=== PATIENT | male | born 1950 | race Caucasian/White ===

== ENCOUNTER 2022-05-25 11:50 | Inpatient (IN) | payer MEDICARE ==
[2022-05-25] MEDS ORDERED: SODIUM CHLORIDE 0.9% 500 ML 500 ML IV STA (12:22)
[2022-05-25] MEDS ORDERED: SODIUM CHLORIDE 0.9% 1,000 ML IV STA (12:22)
[2022-05-25] MEDS ORDERED: DIPHENOX-ATROP 2.5-0.025 MG 1 EACH TAB PO STA ×2 (12:23→12:46)
[2022-05-25] MEDS ORDERED: ACETAMINOPHEN TAB 500 MG TAB PO STA (12:31)
[2022-05-25] MEDS ORDERED: IBUPROFEN 600 MG TAB PO STA (12:31)
--- NOTE | 2022-05-25 12:31 | ED ---
General Adult HPI - General Chief complaint: Weakness Stated complaint: Weakness Time Seen by Provider: 05/25/22 12:00 Source: patient, EMS, RN notes reviewed, old records reviewed Mode of arrival: EMS Limitations: no limitations - History of Present Illness Initial comments: This is a 71-year-old male who presents emergency Department complaining of ge neralized weakness. Patient has been lying in bed for about 6 weeks without getting up and according to EMS the patient was in the same spot and is having diarrhea and wasn't getting up to clean himself off. Patient has excoriations from the lower back down to his upper thighs. Patient states he is too weak to even help and assist this point. Patient denies any fever even though he took his temperature was 100.3. Patient denies any pain. Patient has difficulty breathing first breath per patient states she's been eating okay. Patient denies abdominal pain. Patient denies any nausea vomiting. Patient states he has chronic diarrhea and he was on a recent antibiotic Bactrim for urinary tract infection. Patient denies any other problems at this time. - Related Data Home Medications Medication Instructions Recorded Confirmed Sotalol [Betapace] 80 mg PO BID 05/25/22 05/25/22 Sulfamethoxazole/Trimethoprim 1 tab PO Q12H 05/25/22 05/25/22 [Sulfamethoxazole-Tmp Ds Tablet] amLODIPine [Norvasc] 10 mg PO DAILY 05/25/22 05/25/22 Allergies Allergy/AdvReac Type Severity Reaction Status Date / Time Kowmscb-WBV-AcA Reductase Allergy Rash/Hives Verified 05/25/22 15:09 Inhibitor [Ycyolzq-Cbp-Mps Reductase Inhibitor] Review of Systems ROS Statement: Those systems with pertinent positive or pertinent negative responses have been documented in the HPI. ROS Other: All systems not noted in ROS Statement are negative. Past Medical History Past Medical History: Atrial Fibrillation, Hyperlipidemia, Osteoarthritis (OA) Additional Past Medical History / Comment(s): Bulging disks, bilateral knee arthritis, UTI, blood infection History of Any Multi-Drug Resistant Organisms: None Reported Past Surgical History: Orthopedic Surgery, Tonsillectomy Additional Past Surgical History / Comment(s): Knee replacement surgery, tonsills out at 7 yrs old, torn meninscus Past Anesthesia/Blood Transfusion Reactions: No Reported Reaction Past Psychological History: Anxiety Smoking Status: Former smoker Past Alcohol Use History: None Reported Past Drug Use History: None Reported - Past Family History Mother Family Medical History: CVA/TIA, Myocardial Infarction ([place]) Father Family Medical History: Congestive Heart Failure (CHF) General Exam - General Exam Comments Initial Comments: GENERAL: Patient is well-developed and well-nourished. Patient is nontoxic and well- hydrated and is in mild distress. ENT: Neck is soft and supple. No significant lymphadenopathy is noted. Oropharynx is clear. Moist mucous membranes. Neck has full range of motion without eliciting any pain. EYES: The sclera were anicteric and conjunctiva were pink and moist. Extraocular movements were intact and pupils were equal round and reactive to light. Eyelids were unremarkable. PULMONARY: Unlabored respirations. Good breath sounds bilaterally. No audible rales rhonchi or wheezing was noted. CARDIOVASCULAR: There is a regular rate and rhythm without any murmurs gallops or rubs. ABDOMEN: Soft and nontender with normal bowel sounds. No palpable organomegaly was noted. There is no palpable pulsatile mass. SKIN: Patient has prescribed breakdown from his back to size and a couple areas on the buttocks and her second-degree breakdown. NEUROLOGIC: Patient is alert and oriented x3. Cranial nerves II through XII are grossly intact. Motor and sensory are also intact. Normal speech, volume and content. Symmetrical smile. MUSCULOSKELETAL: Normal extremities with adequate strength and full range of motion. LYMPHATICS: No significant lymphadenopathy is noted PSYCHIATRIC: Normal psychiatric evaluation. Limitations: no limitations Course Vital Signs 05/25/22 05/25/22 05/25/22 11:54 12:02 12:20 Temperature 98.7 F 100.3 F H Pulse Rate 75 Respiratory 20 Rate Blood Pressure 102/48 O2 Sat by Pulse 97 93 L Oximetry 05/25/22 05/25/22 05/25/22 13:00 13:53 14:00 Temperature 100.6 F H Pulse Rate 74 67 Respiratory 22 14 Rate Blood Pressure 111/78 O2 Sat by Pulse 99 Oximetry 05/25/22 05/25/22 05/25/22 15:00 15:50 16:00 Temperature 99.4 F Pulse Rate 62 57 L 58 L Respiratory 22 18 18 Rate Blood Pressure 111/78 83/46 83/46 O2 Sat by Pulse 94 L 95 Oximetry 05/25/22 05/25/22 05/25/22 16:01 16:14 16:30 Temperature 98.0 F Pulse Rate 58 L 58 L 56 L Respiratory 17 20 18 Rate Blood Pressure 79/51 81/53 75/48 O2 Sat by Pulse 95 97 96 Oximetry 05/25/22 05/25/22 16:43 17:22 Temperature 97.1 F L Pulse Rate 59 L 60 Respiratory 18 20 Rate Blood Pressure 83/53 82/48 O2 Sat by Pulse 97 96 Oximetry Medical Decision Making - Medical Decision Making EKG as interpreted by myself shows a sinus rhythm at 73 bpm GA interval 240 QRS is under 14 QRS is 432 QTC is 458. Patient's EKG shows no ST segment elevation or depression Was pt. sent in by a medical professional or institution (, [facility], [facility], urgent care, hospital, or [facility]...) When possible be specific @ -No Did you speak to anyone other than the patient for history (EMS, parent, family, police, friend...)? What history was obtained from this source @ -No Did you review nursing and triage notes (agree or disagree)? Why? @ -I reviewed and agree with nursing and triage notes Were old charts reviewed (outside hosp., previous admission, EMS record, old EKG, old radiological studies, urgent care reports/EKG's, [facility] records)? Report findings @ -Prior labs and prior charts were reviewed Differential Diagnosis (chest pain, altered mental status, abdominal pain women, abdominal pain men, vaginal bleeding, weakness, fever, dyspnea, syncope, headache, dizziness, GI bleed, back pain, seizure, CVA, palpatations, mental health, musculoskeletal)? @ -Differential Weakness: Hypoglycemia, shock, sepsis, hyponatremia, anemia, infection, [place], ETOH, adverse medicine reaction, overdose, stroke, this is not meant to be an all-inclusive list. EKG interpreted by me (3pts min.). @ -As above X-rays interpreted by me (1pt min.). @ -Chest x-ray was interviewed by myself and shows no acute abnormality CT interpreted by me (1pt min.). @ -None done U/S interpreted by me (1pt. min.). @ -None done What testing was considered but not performed or refused? (CT, X-rays, U/S, labs)? Why? @ -None What meds were considered but not given or refused? Why? @ -None Did you discuss the management of the patient with other professionals (brenda bennett i.e. , EMIL, [facility], lab, RT, psych nurse, director of social services, report checker, teacher, senior compliance officer, test case developer)? Give summary @ -I spoke with Dr. Marmolejo about admitting this patient he was in agreement to admit the patient. Was smoking cessation discussed for >3mins.? @ -No Was critical care preformed (if so, how long)? @ -No Were there social determinants of health that impacted care today? How? (Homelessness, low income, unemployed, alcoholism, drug addiction, transportation, low edu. Level, literacy, decrease access to med. care, half-way, rehab)? @ -No Was there de-escalation of care discussed even if they declined (Discuss DNR or withdrawal of care, Hospice)? DNR status @ -No What co-morbidities impacted this encounter? (DM, HTN, Smoking, COPD, CAD, Cancer, CVA, ARF, Chemo, Hep., AIDS, mental health diagnosis, sleep apnea, morbid obesity)? @ -None Was patient admitted / discharged? Hospital course, mention meds given and route, prescriptions, significant lab abnormalities, going to OR and other pertinent info. @ -Poke with Dr. marmolejo about admitting the patient he was in agreement to admit the patient. Patient's lab work showed urinary tract infection and hyponatremia. Patient also had a fever on arrival. We are waiting a Clostri dium difficile result on this patient. I consulted Dr. Jean Baptiste and Dr. Lazo. Undiagnosed new problem with uncertain prognosis? @ -No Drug Therapy requiring intensive monitoring for toxicity (Heparin, Nitro, Insulin, Cardizem)? @ -No Were any procedures done? @ -No Diagnosis/symptom? @ -Decubitus ulcer sacrum Acute, or Chronic, or Acute on Chronic? @ -Acute Uncomplicated (without systemic symptoms) or Complicated (systemic symptoms)? @ -Complicated Side effects of treatment? @ -No Exacerbation, Progression, or Severe Exacerbation? @ -No Poses a threat to life or bodily function? How? (Chest pain, [place], [place], pneumonia, PE, COPD, DKA, ARF, appy, cholecystitis, CVA, Diverticulitis, Homicidal, Suicidal, threat to staff... and all critical care pts) @ -No Diagnosis/symptom? @ -Diarrhea Acute, or Chronic, or Acute on Chronic? @ -Acute Uncomplicated (without systemic symptoms) or Complicated (systemic symptoms)? @ -Complicated Side effects of treatment? @ -none Exacerbation, Progression, or Severe Exacerbation] @ -no Poses a threat to life or bodily function? @ -no Diagnosis/symptom? @ -Hyponatremia Acute, or Chronic, or Acute on Chronic? @ -Acute Uncomplicated (without systemic symptoms) or Complicated (systemic symptoms)? @ -Complicated Side effects of treatment? @ -none Exacerbation, Progression, or Severe Exacerbation] @ -no Poses a threat to life or bodily function? @ -no Diagnosis/symptom? @ -Urinary tract infection Acute, or Chronic, or Acute on Chronic? @ -Acute Uncomplicated (without systemic symptoms) or Complicated (systemic symptoms)? @ -Uncomplicated Side effects of treatment? @ -none Exacerbation, Progression, or Severe Exacerbation] @ -no Poses a threat to life or bodily function? @ -no - Lab Data Result diagrams: 05/25/22 12:32 05/25/22 12:32 Lab Results 05/25/22 05/25/22 05/25/22 Range/Units 12:32 12:32 12:32 WBC 13.9 H (3.8-10.6) k/uL RBC 4.36 (4.30-5.90) m/uL Hgb 11.5 L (13.0-17.5) gm/dL Hct 36.8 L (39.0-53.0) % MCV 84.4 (80.0-100.0) fL MCH 26.5 (25.0-35.0) pg MCHC 31.4 (31.0-37.0) g/dL RDW 13.5 (11.5-15.5) % Plt Count 557 H (150-450) k/uL MPV 7.2 Neutrophils % 87 % Lymphocytes % 7 % Monocytes % 3 % Eosinophils % 2 % Basophils % 0 % Neutrophils # 12.1 H (1.3-7.7) k/uL Lymphocytes # 1.0 (1.0-4.8) k/uL Monocytes # 0.4 (0-1.0) k/uL Eosinophils # 0.3 (0-0.7) k/uL Basophils # 0.0 (0-0.2) k/uL PT 11.7 (9.0-12.0) sec INR 1.1 (<1.2) APTT 24.5 (22.0-30.0) sec Sodium (137-145) mmol/L Potassium (3.5-5.1) mmol/L Chloride (98-107) mmol/L Carbon Dioxide (22-30) mmol/L Anion Gap mmol/L BUN (9-20) mg/dL Creatinine (0.66-1.25) mg/dL Est GFR (CKD-EPI)AfAm (>60 ml/min/1.73 sqM) Est GFR (CKD-EPI)NonAf (>60 ml/min/1.73 sqM) Glucose (74-99) mg/dL Plasma Lactic Acid Robbin (0.7-2.0) mmol/L Calcium (8.4-10.2) mg/dL Magnesium (1.6-2.3) mg/dL Total Bilirubin (0.2-1.3) mg/dL AST (17-59) U/L ALT (4-49) U/L Alkaline Phosphatase (38-126) U/L Troponin I (0.000-0.034) ng/mL Total Protein (6.3-8.2) g/dL Albumin (3.5-5.0) g/dL Urine Color Yellow Urine Appearance Clear (Clear) Urine pH 6.0 (5.0-8.0) Ur Specific Sherwood 1.008 (1.001-1.035) Urine Protein Trace H (Negative) Urine Glucose (UA) Negative (Negative) Urine Ketones Negative (Negative) Urine Blood Negative (Negative) Urine Nitrite Negative (Negative) Urine Bilirubin Negative (Negative) Urine Urobilinogen 3.0 (<2.0) mg/dL Ur Leukocyte Esterase Large H (Negative) Urine RBC 4 (0-5) /hpf Urine WBC 38 H (0-5) /hpf Urine Bacteria Rare H (None) /hpf Urine Mucus Rare H (None) /hpf 05/25/22 05/25/22 05/25/22 Range/Units 12:32 12:32 12:32 WBC (3.8-10.6) k/uL RBC (4.30-5.90) m/uL Hgb (13.0-17.5) gm/dL Hct (39.0-53.0) % MCV (80.0-100.0) fL MCH (25.0-35.0) pg MCHC (31.0-37.0) g/dL RDW (11.5-15.5) % Plt Count (150-450) k/uL MPV Neutrophils % % Lymphocytes % % Monocytes % % Eosinophils % % Basophils % % Neutrophils # (1.3-7.7) k/uL Lymphocytes # (1.0-4.8) k/uL Monocytes # (0-1.0) k/uL Eosinophils # (0-0.7) k/uL Basophils # (0-0.2) k/uL PT (9.0-12.0) sec INR (<1.2) APTT (22.0-30.0) sec Sodium 130 L (137-145) mmol/L Potassium 4.4 (3.5-5.1) mmol/L Chloride 96 L (98-107) mmol/L Carbon Dioxide 27 (22-30) mmol/L Anion Gap 7 mmol/L BUN 12 (9-20) mg/dL Creatinine 0.94 (0.66-1.25) mg/dL Est GFR (CKD-EPI)AfAm >90 (>60 ml/min/1.73 sqM) Est GFR (CKD-EPI)NonAf 81 (>60 ml/min/1.73 sqM) Glucose 114 H (74-99) mg/dL Plasma Lactic Acid Robbin 1.5 (0.7-2.0) mmol/L Calcium 7.9 L (8.4-10.2) mg/dL Magnesium 2.2 (1.6-2.3) mg/dL Total Bilirubin 0.8 (0.2-1.3) mg/dL AST 184 H (17-59) U/L ALT 157 H (4-49) U/L Alkaline Phosphatase 120 (38-126) U/L Troponin I <0.012 (0.000-0.034) ng/mL Total Protein 6.9 (6.3-8.2) g/dL Albumin 2.9 L (3.5-5.0) g/dL Urine Color Urine Appearance (Clear) Urine pH (5.0-8.0) Ur Specific Sherwood (1.001-1.035) Urine Protein (Negative) Urine Glucose (UA) (Negative) Urine Ketones (Negative) Urine Blood (Negative) Urine Nitrite (Negative) Urine Bilirubin (Negative) Urine Urobilinogen (<2.0) mg/dL Ur Leukocyte Esterase (Negative) Urine RBC (0-5) /hpf Urine WBC (0-5) /hpf Urine Bacteria (None) /hpf Urine Mucus (None) /hpf Disposition Clinical Impression: Urinary tract infection, Hyponatremia, Diarrhea, Decubitus ulcer of sacral region, stage 2 Disposition: ADMITTED IP TO THIS [facility] Time of Disposition: 16:27
[2022-05-25 12:45] LABS: Basophils % (A) 0 %; Eosinophils # (A) 0.3 k/uL (0-0.7); Eosinophils % (A) 2 %; HCT 36.8 % (39.0-53.0); HGB 11.5 gm/dL (13.0-17.5); Lymphocytes % (A) 7 %; MCH 26.5 pg (25.0-35.0); MCHC 31.4 g/dL (31.0-37.0); MCV 84.4 fL (80.0-100.0); Mean Platelet Volume 7.2; Monocytes # (A) 0.4 k/uL (0-1.0); Monocytes % (A) 3 %; Neutrophils # (A) 12.1 k/uL (1.3-7.7); Neutrophils % (A) 87 %; Platelet Count 557 k/uL (150-450); RBC 4.36 m/uL (4.30-5.90); RDW 13.5 % (11.5-15.5); WBC 13.9 k/uL (3.8-10.6)
[2022-05-25 12:57] LABS: ALT 157 U/L (4-49); AST 184 U/L (17-59); African American GFR (CKD) >90 (>60 ml/min/1.73 sqM); Albumin 2.9 g/dL (3.5-5.0); Alkaline Phosphatase 120 U/L (38-126); Anion Gap 7 mmol/L; Blood Urea Nitrogen 12 mg/dL (9-20); Calcium 7.9 mg/dL (8.4-10.2); Carbon Dioxide 27 mmol/L (22-30); Chloride 96 mmol/L (98-107); Glucose 114 mg/dL (74-99); Magnesium 2.2 mg/dL (1.6-2.3); Non-African American GFR(CKD) 81 (>60 ml/min/1.73 sqM); Potassium 4.4 mmol/L (3.5-5.1); Sodium 130 mmol/L (137-145); Total Bilirubin 0.8 mg/dL (0.2-1.3); Total Protein 6.9 g/dL (6.3-8.2)
[2022-05-25 13:00] LABS: INR 1.1 (<1.2); Partial Thromboplastin Time 24.5 sec (22.0-30.0); Prothrombin Time 11.7 sec (9.0-12.0)
[2022-05-25 13:14] LABS: Appearance,Urine Clear (Clear); Bacteria,Urine Rare /hpf; Bilirubin,Urine Negative (Negative); Blood,Urine Negative (Negative); Color,Urine Yellow; Glucose,Urine (UA) Negative (Negative); Ketones,Urine Negative (Negative); Leukocyte Esterase,Urine Large (Negative); Mucus,Urine Rare /hpf; Nitrite,Urine Negative (Negative); Protein,Urine Trace (Negative); RBC,Urine 4 /hpf (0-5); Specific Gravity,Urine 1.008 (1.001-1.035); WBC,Urine 38 /hpf (0-5)
[2022-05-25] MEDS ORDERED: cefTRIAXone IN SWFI 1,000 MG/10 ML SYRINGE IVP STA (13:32)
--- NOTE | 2022-05-25 14:56 | XR ---
EXAMINATION TYPE: XR chest 2V DATE OF EXAM: 05/25/2022 COMPARISON: NONE HISTORY: Weakness. TECHNIQUE: Frontal and lateral views of the chest are obtained. FINDINGS: Somewhat low lung volumes. There is no suspicious focal air space opacity, pleural effusion , or pneumothorax seen. The cardiac silhouette size is upper limits of normal. The osseous structu res are intact. IMPRESSION: No acute cardiopulmonary process.
[2022-05-25] MEDS ORDERED: SODIUM CHLORIDE 0.9% 1,000 ML IV ONE ×2 (15:56→16:36)
[2022-05-25 16:50] LABS: Glucose,Whole Blood 109 mg/dL (70-110)
[2022-05-25] MEDS ORDERED: HYDROCORTISONE SUCCINATE 100 MG/2 ML VIAL IV STA (18:02)
[2022-05-25] MEDS: LACTATED RINGERS 1,000 ML IV SCH ×2 (19:48→23:08)
[2022-05-25] MEDS ORDERED: LACTULOSE 20 GM/30 ML CUP PO PRN (21:21)
[2022-05-25] MEDS ORDERED: ACETAMINOPHEN TAB 325 MG TAB PO PRN (21:21)
[2022-05-25] MEDS ORDERED: MELATONIN 3 MG TABLET PO PRN (21:21)
[2022-05-25] MEDS ORDERED: NALOXONE 0.4 MG/ML 1 ML VIAL IV PRN (21:21)
[2022-05-25] MEDS ORDERED: CALCIUM CARBONATE 500 MG CHEWABLE PO PRN (21:21)
[2022-05-25] MEDS ORDERED: ONDANSETRON 4 MG/2 ML VIAL IVP PRN (21:21)
[2022-05-25] MEDS ORDERED: LORazepam 0.5 MG TAB PO PRN (21:21)
--- NOTE | 2022-05-25 21:30 | P.HPIM ---
History of Present Illness H&P Date: 05/25/22 Chief Complaint: Increasing debility This is a 71-year-old patient follows with visiting physicians Dr. Valero. Patient's chronic medical conditions exactly not known. 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 For which she saw a few years ago Dr. Leo. At [facility]. He was told that removing the tumor could be more dangerous than leaving it alone. About 4-5 weeks ago he thinks he caught COVID from his brother. It fever or chills etc. Since then he started having some loose stools. Frequency variable. This included going on for about 4 weeks. Patient started getting weaker and weaker. Prior to that he could actually get up from the chair to the wheelchair. Non-not able to get up at all. Has been having bowel movement when the chair. His brother lives that but he is often time outfor days. On his job. Up to yesterday patient is eating. Fair. Has become rather weak and tired. Denies any fever and chills. In the ER patient given fluid bolus. He had lower extremity edema. Which is gone down. Was hypertensive in the ER in the 80s. Patient also given Bactrim by his PCP for a possible UTI. Review of systems: GEN.: Tired EYES: None HEENT: None NECK: None RESPIRATORY: None CARDIOVASCULAR: None GASTROINTESTINAL: As above, no pain GENITOURINARY: Ye catheter MUSCULOSKELETAL: None LYMPHATICS: None HEMATOLOGICAL: None PSYCHIATRY: None NEUROLOGICAL: None Past medical history to include: Hypertension, atrial fibrillation, spinal cord tumor, Social history: No smoking or alcohol. Lives alone. Brother is in and out of the house. Physical examination: VITAL SIGNS: 97.1, 60, 20, 82/48, 96% on 1 L GENERAL: BMI 31, propped up in bed, awake. EYES: Pupils equal. Conjunctiva normal. HEENT: External appearance of nose and ears normal, oral cavity grossly normal. NECK: JVD not raised; masses not palpable. HEART: First and second heart sounds are normal; no edema. LUNGS: Respiratory rate normal; clear to auscultation. ABDOMEN: Soft, nontender, liver spleen not palpable, no masses palpable, redness in the groin area. PSYCH: Alert and oriented x3; mood and affect normal. MUSCULOSKELETAL:No Clubbing/cyanosis;muscles-grossly intact DERMATOLOGICAL: Chronic venous stasis changes in lower extremity, with some crusting NEUROLOGICAL: Cranial nerves grossly intact; no facial asymmetry, weakness lower extremity, power 1/1.. LYMPHATICS: No lymph nodes palpable in the axilla and neck INVESTIGATIONS, reviewed in the clinical context: White count 13.9 hemoglobin 11.5 platelets-7 sodium 1:30 potassium 4.4 creatinine 0.94 AST 94 AST 157 albumin 2.9 UA negative for nitrite EKG tracing personally reviewed by me-no sinus rhythm Chest x-ray film personally reviewed by me-no obvious infiltrate Assessment and plan: -Diarrhea present for 4 weeks. Variable frequency. No abdominal pain. No blood in the stool. Patient had antibiotic for UTI recently. Rule out C. diff. Antibiotics/diarrhea. Metamucil. Soft diet -Acute on chronic medical debility. Patient was normally able to get out from the wheelchair to the recliner. Now the last 3 foot aches but he much has been his chair. Unable to get out. -Venous stasis/dermatitis changes in lower extremity Consult ID/vascular -Hypotension from diarrhea. The patient has been eating well apparently not enough fluid intake Patient received fluid bolus in the ER. Now lactated Ringer's at 1 25 mL an hour -Essential hypertension, currently blood pressure running low Hold off antihypertensive -Paroxysmal atrial fibrillation. Currently sinus rhythm. Patient is on sotalol. Hold as blood pressure running low -Hepatitis. Duration unknown. Could be mild ischemic/hepatitis steatosis Check acute hepatitis panel. Including hepatitis A. Liver ultrasound Discussed with the patient. Past Medical History Past Medical History: Atrial Fibrillation, Hyperlipidemia, Osteoarthritis (OA) Additional Past Medical History / Comment(s): Bulging disks, bilateral knee arthritis, UTI, blood infection History of Any Multi-Drug Resistant Organisms: None Reported Past Surgical History: Orthopedic Surgery, Tonsillectomy Additional Past Surgical History / Comment(s): Knee replacement surgery, tonsills out at 7 yrs old, torn meninscus Past Anesthesia/Blood Transfusion Reactions: No Reported Reaction Past Psychological History: Anxiety Smoking Status: Former smoker Past Alcohol Use History: None Reported Past Drug Use History: None Reported - Past Family History Mother Family Medical History: CVA/TIA, Myocardial Infarction ([place]) Father Family Medical History: Congestive Heart Failure (CHF) Medications and Allergies Home Medications Medication Instructions Recorded Confirmed Type Sotalol [Betapace] 80 mg PO BID 05/25/22 05/25/22 History Sulfamethoxazole/Trimethoprim 1 tab PO Q12H 05/25/22 05/25/22 History [Sulfamethoxazole-Tmp Ds Tablet] amLODIPine [Norvasc] 10 mg PO DAILY 05/25/22 05/25/22 History Allergies Allergy/AdvReac Type Severity Reaction Status Date / Time Enlyhhk-FGQ-EdW Reductase Allergy Rash/Hives Verified 05/25/22 15:09 Inhibitor [Rgqnilt-Hgm-Yvf Reductase Inhibitor] Physical Exam Vitals: Vital Signs Temp Pulse Resp BP Pulse Ox 05/25/22 20:00 53 L 16 93/58 96 05/25/22 19:45 54 L 7 L 87/51 98 05/25/22 19:43 86/48 05/25/22 19:00 51 L 17 82/49 95 05/25/22 18:45 54 L 82/49 97 05/25/22 18:00 55 L 16 79/52 97 05/25/22 17:22 97.1 F L 60 20 82/48 96 05/25/22 17:00 65 16 79/52 96 05/25/22 16:43 59 L 18 83/53 97 05/25/22 16:30 56 L 18 75/48 96 05/25/22 16:14 98.0 F 58 L 20 81/53 97 05/25/22 16:01 58 L 17 79/51 95 05/25/22 16:00 58 L 18 83/46 95 05/25/22 15:50 57 L 18 83/46 94 L 05/25/22 15:00 99.4 F 62 22 111/78 05/25/22 14:00 67 14 05/25/22 13:53 100.6 F H 05/25/22 13:00 74 22 111/78 99 05/25/22 12:20 100.3 F H 05/25/22 12:02 93 L 05/25/22 11:54 98.7 F 75 20 102/48 97 Intake and Output 05/25/22 05/25/22 05/25/22 06:59 14:59 22:59 Other: Weight 95.254 kg Results CBC & Chem 7: 05/25/22 12:32 04/18/23 12:32 Labs: Abnormal Lab Results - Last 24 Hours (Table) 05/25/22 05/25/22 05/25/22 Range/Units 12:32 12:32 12:32 WBC 13.9 H (3.8-10.6) k/uL Hgb 11.5 L (13.0-17.5) gm/dL Hct 36.8 L (39.0-53.0) % Plt Count 557 H (150-450) k/uL Neutrophils # 12.1 H (1.3-7.7) k/uL Sodium 130 L (137-145) mmol/L Chloride 96 L (98-107) mmol/L Glucose 114 H (74-99) mg/dL Calcium 7.9 L (8.4-10.2) mg/dL AST 184 H (17-59) U/L ALT 157 H (4-49) U/L Albumin 2.9 L (3.5-5.0) g/dL Urine Protein Trace H (Negative) Ur Leukocyte Esterase Large H (Negative) Urine WBC 38 H (0-5) /hpf Urine Bacteria Rare H (None) /hpf Urine Mucus Rare H (None) /hpf
[2022-05-25] MEDS: ENOXAPARIN 40 MG/0.4 ML SYRINGE SQ SCH (23:08)
[2022-05-25] MEDS: PSYLLIUM HUSK 100% 6 GM PACKET PO SCH (23:10)
[2022-05-26] MEDS: MIDODRINE 5 MG TAB PO SCH ×2 (05:11→17:27)
[2022-05-26 06:55] LABS: Basophils % (A) 0 %; Eosinophils % (A) 0 %; Hypochromasia Slight; Lymphocytes # (A) 1.2 k/uL (1.0-4.8); Lymphocytes % (A) 10 %; MCH 26.1 pg (25.0-35.0); MCV 84.3 fL (80.0-100.0); Mean Platelet Volume 7.8; Monocytes # (A) 0.3 k/uL (0-1.0); Monocytes % (A) 2 %; Neutrophils # (A) 10.5 k/uL (1.3-7.7); Neutrophils % (A) 87 %; Platelet Count 425 k/uL (150-450); RDW 13.6 % (11.5-15.5); WBC 12.1 k/uL (3.8-10.6)
[2022-05-26 07:00] LABS: ALT 102 U/L (4-49); AST 73 U/L (17-59); African American GFR (CKD) >90 (>60 ml/min/1.73 sqM); Albumin 2.1 g/dL (3.5-5.0); Albumin/Globulin Ratio 0.7; Alkaline Phosphatase 84 U/L (38-126); Anion Gap 6 mmol/L; Blood Urea Nitrogen 11 mg/dL (9-20); Calcium 7.7 mg/dL (8.4-10.2); Carbon Dioxide 23 mmol/L (22-30); Chloride 106 mmol/L (98-107); Globulin 3.2 g/dL; Glucose 122 mg/dL (74-99); Non-African American GFR(CKD) >90 (>60 ml/min/1.73 sqM); Potassium 4.4 mmol/L (3.5-5.1); Sodium 135 mmol/L (137-145); Total Bilirubin 0.4 mg/dL (0.2-1.3); Total Protein 5.3 g/dL (6.3-8.2)
[2022-05-26 07:03] LABS: HGB 9.9 gm/dL (13.0-17.5)
--- NOTE | 2022-05-26 08:15 | US ---
EXAMINATION TYPE: US abdomen limited DATE OF EXAM: 05/26/2022 COMPARISON: NONE CLINICAL INDICATION: Male, 71 years old with history of Liver. Elevated LFTs; Abnormal labs TECHNIQUE: Multiple sonographic images of the right upper quadrant are obtained. FINDINGS: EXAM MEASUREMENTS: Liver Length: 16.1 cm Gallbladder Wall: 0.2 cm CBD: 0.4 cm Right Kidney: 10.6 x 5.2 x 5.2 cm LOAN ADMINISTRATOR NOTES: Pt very gassy, unable to hold breath, unable to roll LLD position- limited visual ization Pancreas: body wnl, head and tail obscured by overlying bowel gas Liver: Visualized portions heterogeneous Gallbladder: Possible sludge, otherwise appeared wnl Evidence for sonographic Hernandez's sign: No CBD: wnl Right Kidney: No evidence of hydro, upper and lower poles gassed out IMPRESSION: 1. Some mild sludge may be present within the gallbladder.
[2022-05-26] MEDS: ENOXAPARIN 40 MG/0.4 ML SYRINGE SQ SCH (09:14)
[2022-05-26] MEDS: PSYLLIUM HUSK 100% 6 GM PACKET PO SCH ×2 (09:14→21:05)
--- NOTE | 2022-05-26 10:51 | P.CONS ---
History of Present Illness - Reason for Consult Consult date: 05/26/22 wound care - History of Present Illness This is a 71-year-old gentleman being seen in [facility] for pressure ulcer to the sacrum. Patient has unstageable pressure ulcer to the sacrum. Patient states that he had been sick and had diarrhea was unable to care for himself for multiple days possibly weeks. Patient has severe skin breakdown noted to right and left buttocks. Eschar and nonviable tissue present in multiple areas, no granulation noted to the wound bed. The periwound shows excoriation and ecchymosis. Patient's past medical history significant for atrial fibrillation, hyperlipidemia, patient denies diabetes Review Of Systems: Constitutional: No fever, no chills, no night sweats. No weight change. No weakness, fatigue or lethargy. No daytime sleepiness. Integumentary:reports wounds, no lesions. No rash or pruritus. No unusual bruising. No change in hair or nails. Physical exam: General Appearance: Alert, cooperative, no distress, appears stated age. Skin: See HPI all other Skin color, texture, tugor normal, no rashes or lesions. Neurologic: Alert oriented x3 Assessment: 1. Unstageable pressure ulcer left buttock 2. Unstageable pressure ulcer right buttocks 3. Stage I pressure ulcer lower back Plan: 1. Apply honey gel to the ulcerated left and right buttocks cover with ABDs and secured with paper tape. Apply triad to periwound including the lower back. Turn patient every 2 hours. Patient would benefit from advanced wound care and wound care center. We'll be happy to see him in the wound care center upon discharge. Thank you for the consultation any questions please contact the wound care center DNP note has been reviewed and discussed with Dr. Kumar and the impression and plan of care has been directed as dictated. Past Medical History Past Medical History: Atrial Fibrillation, Hyperlipidemia, Osteoarthritis (OA) Additional Past Medical History / Comment(s): Bulging disks, bilateral knee ar thritis, UTI, blood infection History of Any Multi-Drug Resistant Organisms: None Reported Past Surgical History: Orthopedic Surgery, Tonsillectomy Additional Past Surgical History / Comment(s): Knee replacement surgery, tons ills out at 7 yrs old, torn meninscus Past Anesthesia/Blood Transfusion Reactions: No Reported Reaction Past Psychological History: Anxiety Smoking Status: Former smoker Past Alcohol Use History: None Reported Past Drug Use History: None Reported - Past Family History Mother Family Medical History: CVA/TIA, Myocardial Infarction ([place]) Father Family Medical History: Congestive Heart Failure (CHF) Medications and Allergies Home Medications Medication Instructions Recorded Confirmed Type Sotalol [Betapace] 80 mg PO BID 05/25/22 05/25/22 History Sulfamethoxazole/Trimethoprim 1 tab PO Q12H 05/25/22 05/25/22 History [Sulfamethoxazole-Tmp Ds Tablet] amLODIPine [Norvasc] 10 mg PO DAILY 05/25/22 05/25/22 History Allergies Allergy/AdvReac Type Severity Reaction Status Date / Time Eohkarv-HVX-XdX Reductase Allergy Rash/Hives Verified 05/25/22 15:09 Inhibitor [Pbbsfke-Ebt-Aeo Reductase Inhibitor] Physical Exam Vitals: Vital Signs Temp Pulse Pulse Resp BP BP Pulse Ox 05/26/22 07:25 98.0 F 66 18 109/60 99 05/26/22 02:00 97.6 F 58 L 97/55 98 05/25/22 22:00 97.4 F L 55 L 17 91/51 99 05/25/22 20:00 53 L 18 93/58 96 05/25/22 19:45 54 L 7 L 87/51 98 05/25/22 19:43 86/48 05/25/22 19:00 51 L 17 82/49 95 05/25/22 18:45 54 L 82/49 97 05/25/22 18:00 55 L 16 79/52 97 05/25/22 17:22 97.1 F L 60 20 82/48 96 05/25/22 17:00 65 16 79/52 96 05/25/22 16:43 59 L 18 83/53 97 05/25/22 16:30 56 L 18 75/48 96 05/25/22 16:14 98.0 F 58 L 20 81/53 97 05/25/22 16:01 58 L 17 79/51 95 05/25/22 16:00 58 L 18 83/46 95 05/25/22 15:50 57 L 18 83/46 94 L 05/25/22 15:00 99.4 F 62 22 111/78 05/25/22 14:00 67 14 05/25/22 13:53 100.6 F H 05/25/22 13:00 74 22 111/78 99 05/25/22 12:20 100.3 F H 05/25/22 12:02 93 L 05/25/22 11:54 98.7 F 75 20 102/48 97 Intake and Output 05/25/22 05/26/22 05/26/22 22:59 06:59 14:59 Output Total 50 Balance -50 Output: Urine 50 Other: Voiding Method Indwelling Catheter Weight 95.254 kg Results CBC & Chem 7: 05/26/22 06:01 05/26/22 06:01 Labs: Abnormal Lab Results - Last 24 Hours (Table) 05/25/22 05/25/22 05/25/22 Range/Units 12:32 12:32 12:32 WBC 13.9 H (3.8-10.6) k/uL RBC (4.30-5.90) m/uL Hgb 11.5 L (13.0-17.5) gm/dL Hct 36.8 L (39.0-53.0) % Plt Count 557 H (150-450) k/uL Neutrophils # 12.1 H (1.3-7.7) k/uL Sodium 130 L (137-145) mmol/L Chloride 96 L (98-107) mmol/L Creatinine (0.66-1.25) mg/dL Glucose 114 H (74-99) mg/dL Calcium 7.9 L (8.4-10.2) mg/dL AST 184 H (17-59) U/L ALT 157 H (4-49) U/L Total Protein (6.3-8.2) g/dL Albumin 2.9 L (3.5-5.0) g/dL Urine Protein Trace H (Negative) Ur Leukocyte Esterase Large H (Negative) Urine WBC 38 H (0-5) /hpf Urine Bacteria Rare H (None) /hpf Urine Mucus Rare H (None) /hpf 05/26/22 05/26/22 Range/Units 06:01 06:01 WBC 12.1 H (3.8-10.6) k/uL RBC 3.80 L (4.30-5.90) m/uL Hgb 9.9 L D (13.0-17.5) gm/dL Hct 32.0 L (39.0-53.0) % Plt Count (150-450) k/uL Neutrophils # 10.5 H (1.3-7.7) k/uL Sodium 135 L (137-145) mmol/L Chloride (98-107) mmol/L Creatinine 0.61 L (0.66-1.25) mg/dL Glucose 122 H (74-99) mg/dL Calcium 7.7 L (8.4-10.2) mg/dL AST 73 H (17-59) U/L ALT 102 H (4-49) U/L Total Protein 5.3 L (6.3-8.2) g/dL Albumin 2.1 L (3.5-5.0) g/dL Urine Protein (Negative) Ur Leukocyte Esterase (Negative) Urine WBC (0-5) /hpf Urine Bacteria (None) /hpf Urine Mucus (None) /hpf Assessment and Plan (1) Unstageable pressure ulcer of contiguous region involving back, buttock, and hip Current Visit: Yes Status: Acute Code(s): L89.45 - PRESSR ULC OF CONTIG SITE OF BACK,BUTTOCK & HIP, UNSTAGEABLE SNOMED Code(s): 5081455980 (2) Unstageable pressure ulcer of left buttock Current Visit: Yes Status: Acute Code(s): L89.320 - PRESSURE ULCER OF LEFT BUTTOCK, UNSTAGEABLE SNOMED Code(s): 31341922865346 (3) Unstageable pressure ulcer of right buttock Current Visit: Yes Status: Acute Code(s): L89.310 - PRESSURE ULCER OF RIGHT BUTTOCK, UNSTAGEABLE SNOMED Code(s): 08783015983190
[2022-05-26 12:23] LABS: Hepatitis A Antibody IgM Nonreactive (Nonreactive); Hepatitis B Core IgM Nonreactive (Nonreactive); Hepatitis B Surface Antigen Nonreactive (Nonreactive); Hepatitis C IgG Antibody Nonreactive (Nonreactive)
[2022-05-26 12:26] VITALS: BMI 31.0
[2022-05-26] MEDS: LACTATED RINGERS 1,000 ML IV SCH ×2 (15:22→21:42)
[2022-05-26] MEDS: NYSTATIN 100,000 UNIT/GM POWD 15 GM TOPICAL SCH ×2 (15:22→21:07)
[2022-05-26] MEDS: HYDROPHILIC CREAM 180 GM TUBE TOPICAL SCH (15:22)
[2022-05-26] MEDS ORDERED: LIDOCAINE 1% INJ 10MG/ML (30 ML VIAL-PF) SQ ONE (17:30)
--- NOTE | 2022-05-26 20:36 | P.PN ---
Progress Note - Text Progress Note Date: 05/26/22 Chief Complaint: Increasing debility This is a 71-year-old patient follows with visiting physicians Dr. Valero. Patient's chronic medical conditions exactly not known. 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 For which she saw a few years ago Dr. Leo. At [facility]. He was told that removing the tumor could be more dangerous than leaving it alone. About 4-5 weeks ago he thinks he caught COVID from his brother. It fever or chills etc. Since then he started having some loose stools. Frequency variable. This included going on for about 4 weeks. Patient started getting weaker and weaker. Prior to that he could actually get up from the chair to the wheelchair. Non-not able to get up at all. Has been having bowel movement when the chair. His brother lives that but he is often time outfor days. On his job. Up to yesterday patient is eating. Fair. Has become rather weak and tired. Denies any fever and chills. In the ER patient given fluid bolus. He had lower extremity edema. Which is gone down. Was hypertensive in the ER in the 80s. Patient also given Bactrim by his PCP for a possible UTI. May 26: Patient is seen by the wound care team. No diarrhea since yesterday. Had a long conversation with the patient about rehab. I doubt he not be able to go home. And his brother's out quite often. No fever no chills. Eating well Active Medications Acetaminophen (Acetaminophen Tab 325 Mg Tab) 650 mg PO Q6HR PRN PRN Reason: Mild Pain or Fever > 100.5 Calcium Carbonate/Glycine (Calcium Carbonate 500 Mg Chewable) 1,000 mg PO Q4HR PRN PRN Reason: Dyspepsia Enoxaparin Sodium (Enoxaparin 40 Mg/0.4 Ml Syringe) 40 mg SQ DAILY [facility] Last Admin: 05/26/22 09:14 Dose: 40 mg Ceftriaxone Sodium 1 gm/ (Sodium Chloride) 50 mls @ 100 mls/hr IVPB Q12H [facility]; Protocol Last Admin: 05/26/22 17:27 Dose: 100 mls/hr Lactated Ringer's (Lactated Ringers) 1,000 mls @ 125 mls/hr IV .Q8H [facility] Last Admin: 05/26/22 15:22 Dose: 125 mls/hr Lactulose (Lactulose 20 Gm/30 Ml Cup) 20 gm PO DAILY PRN PRN Reason: Constipation Lorazepam (Lorazepam 0.5 Mg Tab) 0.5 mg PO Q6HR PRN PRN Reason: Anxiety Melatonin (Melatonin 3 Mg Tablet) 3 mg PO HS PRN PRN Reason: Insomnia Midodrine (Midodrine 5 Mg Tab) 5 mg PO AC-BID [facility] Last Admin: 05/26/22 17:27 Dose: 5 mg Multi-Ingred Cream/Lotion/Oil/Oint (Hydrophilic Cream 180 Gm Tube) 1 applic TOPICAL DAILY [facility]; Protocol Last Admin: 05/26/22 15:22 Dose: 1 applic Naloxone HCl (Naloxone 0.4 Mg/Ml 1 Ml Vial) 0.2 mg IV Q2M PRN PRN Reason: Opioid Reversal Nystatin (Nystatin 100,000 Unit/Gm Powd 15 Gm) 1 applic TOPICAL BID [facility]; Protocol Last Admin: 05/26/22 15:22 Dose: 1 applic Ondansetron HCl (Ondansetron 4 Mg/2 Ml Vial) 4 mg IVP Q8HR PRN PRN Reason: Nausea And Vomiting Psyllium Hydrophilic Mucilloid (Psyllium Husk 100% 6 Gm Packet) 6 gm PO BID [facility] Last Admin: 05/26/22 09:14 Dose: 6 gm Past medical history to include: Hypertension, atrial fibrillation, spinal cord tumor, Social history: No smoking or alcohol. Lives alone. Brother is in and out of the house. Physical examination: VITAL SIGNS: 97.6, 74, 15, 102/54, 97% room air GENERAL: BMI 31, propped up in bed, comfortable EYES: Pupils equal. Conjunctiva normal. HEENT: External appearance of nose and ears normal, oral cavity grossly normal. NECK: JVD not raised; masses not palpable. HEART: First and second heart sounds are normal; no edema. LUNGS: Respiratory rate normal; clear to auscultation. ABDOMEN: Soft, nontender, liver spleen not palpable, no masses palpable, redness in the groin area. PSYCH: Alert and oriented x3; mood and affect normal. MUSCULOSKELETAL:No Clubbing/cyanosis;muscles-grossly intact DERMATOLOGICAL: Chronic venous stasis changes in lower extremity, with some crusting . Unstageable big toe skin on the back and buttocks NEUROLOGICAL: Cranial nerves grossly intact; no facial asymmetry, weakness lower extremity, power 1/1.. INVESTIGATIONS, reviewed in the clinical context: May 26: White count 12.1 hemoglobin 9.9 platelets 425 potassium 4.4 creatinine 0.61 AST 73 ALT 102 albumin 2.1 Ultrasound liver: Patient eyes portion heterogenous. Acute hepatitis screen: Negative White count 13.9 hemoglobin 11.5 platelets-7 sodium 1:30 potassium 4.4 creatinine 0.94 AST 94 AST 157 albumin 2.9 UA negative for nitrite EKG tracing personally reviewed by me-no sinus rhythm Chest x-ray film personally reviewed by me-no obvious infiltrate Assessment and plan: -Diarrhea present for 4 weeks. Variable frequency. No abdominal pain. No blood in the stool. Patient had antibiotic for UTI recently. : Probably antibiotic associated diarrhea, better Metamucil. Soft diet -Acute on chronic medical debility. Patient was normally able to get out from the wheelchair to the recliner. Now the last 3 foot aches but he much has been his chair. Unable to get out. 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 Baseline uses a wheelchair -Hypotension from diarrhea. The patient has been eating well apparently not enough fluid intake Patient received fluid bolus in the ER. Now lactated Ringer's at 1 25 mL an hour -Essential hypertension, currently blood pressure running low Hold off antihypertensive. Midodrine -Paroxysmal atrial fibrillation. Currently sinus rhythm. Patient is on sotalol. Hold as blood pressure running low -Hepatitis. Duration unknown. Ischemic hepatitis. Some improvement negative acute hepatitis panel Liver ultrasound: This nonspecific
--- NOTE | 2022-05-26 21:49 | P.CONS ---
History of Present Illness - Reason for Consult Consult date: 05/26/22 Skin infection Requesting physician: Igor Jenkins - Chief Complaint Weakness and diarrhea x days - History of Present Illness Patient is a 71-year-old male with a past medical history significant for atrial fibrillation history of spinal cord tumor and hypertension patient apparently recently did develop COVID about 4 to 5 weeks ago symptom the patient is complaining of loose stools frequency is 1-2 times a day patient denies having any abdominal pain no nausea no vomiting patient mention has been getting weaker and weaker and has not been able to get up from his chair to the wheelchair patient has developed significant ulceration to his bilateral gluteal area according to the EMS patient has been lying in bed for almost 6 weeks and has been having having diarrhea patient denies any high-grade fever however on presentation to the hospital the patient did have a fever of 100.3 F patient did have white count 13.9 with a left shift kidney function has been normal there was also mildly elevated did have a positive UA hepatitis panel was negative patient did have a chest x-ray no acute cardiopulmonary disease infectious he was consulted for further management of antibiotic therapy currently on Rocephin Review of Systems Positive point and negatives has been mentioned in the HPI, complete review of systems was performed and all other systems are negative Past Medical History Past Medical History: Atrial Fibrillation, Hyperlipidemia, Osteoarthritis (OA) Additional Past Medical History / Comment(s): Bulging disks, bilateral knee arthritis, UTI, blood infection History of Any Multi-Drug Resistant Organisms: None Reported Past Surgical History: Orthopedic Surgery, Tonsillectomy Additional Past Surgical History / Comment(s): Knee replacement surgery, tonsills out at 7 yrs old, torn meninscus Past Anesthesia/Blood Transfusion Reactions: No Reported Reaction Past Psychological History: Anxiety Smoking Status: Former smoker Past Alcohol Use History: None Reported Past Drug Use History: None Reported - Past Family History Mother Family Medical History: CVA/TIA, Myocardial Infarction ([place]) Father Family Medical History: Congestive Heart Failure (CHF) Medications and Allergies Home Medications Medication Instructions Recorded Confirmed Type Acetaminophen Tab [Tylenol] 650 mg PO Q6HR PRN tab 05/27/22 Rx Calcium Carbonate [Tums] 1,000 mg PO Q4HR PRN tab 05/27/22 Rx Cephalexin [Keflex] 500 mg PO Q6HR #20 cap 05/27/22 Rx Lactulose [Cephulac] 20 gm PO DAILY PRN ml 05/27/22 Rx Melatonin 3 mg PO HS PRN tab 05/27/22 Rx Midodrine [ProAmatine] 5 mg PO TID tab 05/27/22 Rx Nystatin 100,000 Unit/gm Powd 1 applic TOPICAL BID each 05/27/22 Rx [Mycostatin Powder] Psyllium Husk 100% [Metamucil 6 gm PO DAILY packet 05/27/22 Rx Packet] Allergies Allergy/AdvReac Type Severity Reaction Status Date / Time Ssqhyma-SIP-GqZ Reductase Allergy Rash/Hives Verified 05/25/22 15:09 Inhibitor [Adhucnl-Hur-Znx Reductase Inhibitor] Physical Exam Vitals: Vital Signs Temp Pulse Pulse Resp BP BP Pulse Ox 05/26/22 07:25 98.0 F 66 18 109/60 99 05/26/22 02:00 97.6 F 58 L 97/55 98 05/25/22 22:00 97.4 F L 55 L 17 91/51 99 05/25/22 20:00 53 L 18 93/58 96 05/25/22 19:45 54 L 7 L 87/51 98 05/25/22 19:43 86/48 05/25/22 19:00 51 L 17 82/49 95 05/25/22 18:45 54 L 82/49 97 05/25/22 18:00 55 L 16 79/52 97 05/25/22 17:22 97.1 F L 60 20 82/48 96 05/25/22 17:00 65 16 79/52 96 05/25/22 16:43 59 L 18 83/53 97 05/25/22 16:30 56 L 18 75/48 96 05/25/22 16:14 98.0 F 58 L 20 81/53 97 05/25/22 16:01 58 L 17 79/51 95 05/25/22 16:00 58 L 18 83/46 95 05/25/22 15:50 57 L 18 83/46 94 L 05/25/22 15:00 99.4 F 62 22 111/78 05/25/22 14:00 67 14 05/25/22 13:53 100.6 F H Intake and Output 05/25/22 05/26/22 05/26/22 22:59 06:59 14:59 Output Total 50 Balance -50 Output: Urine 50 Other: Voiding Method Indwelling Catheter Indwelling Catheter Weight 95.254 kg 95.254 kg GENERAL DESCRIPTION: Elderly male lying in bed, no distress. No tachypnea or accessory muscle of respiration use. HEENT: Shows Pallor , no scleral icterus. Oral mucous membrane is dry. NECK: Trachea central, no thyromegaly. LUNGS: Unlabored breathing. Clear to auscultation anteriorly. No wheeze or crackle. HEART: S1, S2, regular rate and rhythm. No loud murmur ABDOMEN: Soft, no tenderness , guarding or rigidity, no organomegaly EXTREMITIES: Dry scaly bilateral lower extremity SKIN: Patient did have a unstageable sacral and bilateral gluteal pressure ulcer with some maceration. NEUROLOGICAL: The patient is awake, alert, oriented x3, mood and affect normal. Results CBC & Chem 7: 05/27/22 06:41 05/27/22 06:41 Labs: Abnormal Lab Results - Last 24 Hours (Table) 05/25/22 05/26/22 05/26/22 Range/Units 12:32 06:01 06:01 WBC 12.1 H (3.8-10.6) k/uL RBC 3.80 L (4.30-5.90) m/uL Hgb 9.9 L D (13.0-17.5) gm/dL Hct 32.0 L (39.0-53.0) % Neutrophils # 10.5 H (1.3-7.7) k/uL Sodium 135 L (137-145) mmol/L Creatinine 0.61 L (0.66-1.25) mg/dL Glucose 122 H (74-99) mg/dL Calcium 7.7 L (8.4-10.2) mg/dL AST 73 H (17-59) U/L ALT 102 H (4-49) U/L Total Protein 5.3 L (6.3-8.2) g/dL Albumin 2.1 L (3.5-5.0) g/dL Urine Protein Trace H (Negative) Ur Leukocyte Esterase Large H (Negative) Urine WBC 38 H (0-5) /hpf Urine Bacteria Rare H (None) /hpf Urine Mucus Rare H (None) /hpf Assessment and Plan (1) Leukocytosis Current Visit: Yes Status: Acute Code(s): D72.829 - ELEVATED WHITE BLOOD CELL COUNT, UNSPECIFIED SNOMED Code(s): 394353475 (2) Unstageable pressure ulcer of contiguous region involving back, buttock, and hip Current Visit: Yes Status: Acute Code(s): L89.45 - PRESSR ULC OF CONTIG SITE OF BACK,BUTTOCK & HIP, UNSTAGEABLE SNOMED Code(s): 6530857229 (3) Unstageable pressure ulcer of left buttock Current Visit: Yes Status: Acute Code(s): L89.320 - PRESSURE ULCER OF LEFT BUTTOCK, UNSTAGEABLE SNOMED Code(s): 77703087878499 (4) Unstageable pressure ulcer of right buttock Current Visit: Yes Status: Acute Code(s): L89.310 - PRESSURE ULCER OF RIGHT BUTTOCK, UNSTAGEABLE SNOMED Code(s): 34359966118093 (5) Urinary tract infection Current Visit: Yes Status: Acute Code(s): N39.0 - URINARY TRACT INFECTION, SITE NOT SPECIFIED SNOMED Code(s): 90504009 Plan: 1patient was in the hospital with weakness did have a fever elevated white count meeting criteria for SIRS/sepsis source is likely UTI versus infected sacral and bilateral gluteal pressure ulcer as the patient benefit from surgical debridement of these and deep culture chest x-ray was reported negative for any pneumonia abdomen was soft on clinical examination 2-patient to continue with Rocephin while waiting for the culture to finalize 3-local wound care to the sacral pressure ulcer with Medihoney followed by moist dressing keep the area of the pressure and awaiting surgical debridement and deep culture We will follow on clinical condition and cultures to further adjust medication if needed Thank you for this consultation we will follow the patient along with you Time with Patient: Greater than 30
[2022-05-27] MEDS: LACTATED RINGERS 1,000 ML IV SCH ×2 (01:15→05:12)
[2022-05-27] MEDS: MIDODRINE 5 MG TAB PO SCH (05:12)
[2022-05-27 07:22] LABS: Basophils % (A) 0 %; Eosinophils # (A) 0.3 k/uL (0-0.7); Eosinophils % (A) 4 %; HCT 32.7 % (39.0-53.0); HGB 10.5 gm/dL (13.0-17.5); Hypochromasia Slight; Lymphocytes # (A) 1.6 k/uL (1.0-4.8); Lymphocytes % (A) 20 %; MCH 27.4 pg (25.0-35.0); MCHC 32.1 g/dL (31.0-37.0); MCV 85.4 fL (80.0-100.0); Mean Platelet Volume 7.5; Monocytes # (A) 0.4 k/uL (0-1.0); Monocytes % (A) 5 %; Neutrophils # (A) 5.7 k/uL (1.3-7.7); Neutrophils % (A) 70 %; Platelet Count 472 k/uL (150-450); RBC 3.83 m/uL (4.30-5.90); RDW 13.6 % (11.5-15.5); WBC 8.1 k/uL (3.8-10.6)
[2022-05-27 07:37] LABS: ALT 86 U/L (4-49); AST 50 U/L (17-59); African American GFR (CKD) >90 (>60 ml/min/1.73 sqM); Albumin 2.3 g/dL (3.5-5.0); Albumin/Globulin Ratio 0.7; Alkaline Phosphatase 74 U/L (38-126); Anion Gap 4 mmol/L; Blood Urea Nitrogen 8 mg/dL (9-20); Calcium 7.8 mg/dL (8.4-10.2); Carbon Dioxide 24 mmol/L (22-30); Chloride 107 mmol/L (98-107); Globulin 3.2 g/dL; Glucose 94 mg/dL (74-99); Non-African American GFR(CKD) >90 (>60 ml/min/1.73 sqM); Potassium 4.4 mmol/L (3.5-5.1); Sodium 135 mmol/L (137-145); Total Bilirubin 0.3 mg/dL (0.2-1.3); Total Protein 5.5 g/dL (6.3-8.2)
[2022-05-27] MEDS: ENOXAPARIN 40 MG/0.4 ML SYRINGE SQ SCH (07:51)
[2022-05-27] MEDS: PSYLLIUM HUSK 100% 6 GM PACKET PO SCH ×3 (07:52→12:30)
[2022-05-27] MEDS: NYSTATIN 100,000 UNIT/GM POWD 15 GM TOPICAL SCH (07:54)
[2022-05-27] MEDS: HYDROPHILIC CREAM 180 GM TUBE TOPICAL SCH (07:54)
--- NOTE | 2022-05-27 14:25 | P.DS ---
Providers Date of admission: 05/25/22 16:29 Expected date of discharge: 05/11/22 Attending physician: Isaiah Marmolejo Consults: 05/25/22 16:27 Consult Physician Urgent Consulting Provider: Evelin Jean Baptiste Consult Reason/Comments: Skin infection Do you want consulting provider notified?: Yes Primary care physician: Skyler Valero MD Hospital Course: Chief Complaint: Increasing debility This is a 71-year-old patient follows with visiting physicians Dr. Valero. Patient's chronic medical conditions exactly not known. 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 For which she saw a few years ago Dr. Leo. At [facility]. He was told that removing the tumor could be more dangerous than leaving it alone. About 4-5 weeks ago he thinks he caught COVID from his brother. It fever or chills etc. Since then he started having some loose stools. Frequency variable. This included going on for about 4 weeks. Patient started getting weaker and weaker. Prior to that he could actually get up from the chair to the wheelchair. Non-not able to get up at all. Has been having bowel movement when the chair. His brother lives that but he is often time outfor days. On his job. Up to yesterday patient is eating. Fair. Has become rather weak and tired. Denies any fever and chills. In the ER patient given fluid bolus. He had lower extremity edema. Which is gone down. Was hypertensive in the ER in the 80s. Patient also given Bactrim by his PCP for a possible UTI. May 26: Patient is seen by the wound care team. No diarrhea since yesterday. Had a long conversation with the patient about rehab. I doubt he not be able to go home. And his brother's out quite often. No fever no chills. Eating well May 27: No further diarrhea. Eating well. Weak in the legs. Discussed with physical therapy. manager music. Accepted at [facility]. Blood pressure still low side. Hold off sotalol. Patient to follow up outpatient ca rdiology. Discussion and discharge planning more than 35 minutes Past medical history to include: Hypertension, atrial fibrillation, spinal cord tumor, Social history: No smoking or alcohol. Lives alone. Brother is in and out of the house. Physical examination: VITAL SIGNS: 98.4, 73, 17, 99/58, 94% room air GENERAL: BMI 31, propped up in bed, comfortable EYES: Pupils equal. Conjunctiva normal. HEENT: External appearance of nose and ears normal, oral cavity grossly normal. NECK: JVD not raised; masses not palpable. HEART: First and second heart sounds are normal; no edema. LUNGS: Respiratory rate normal; clear to auscultation. ABDOMEN: Soft, nontender, liver spleen not palpable, no masses palpable, redness in the groin area. PSYCH: Alert and oriented x3; mood and affect normal. MUSCULOSKELETAL:No Clubbing/cyanosis;muscles-grossly intact DERMATOLOGICAL: Chronic venous stasis changes in lower extremity, with some crusting . Unstageable wounds on the back and buttocks NEUROLOGICAL: Cranial nerves grossly intact; no facial asymmetry, weakness lower extremity, power 1/1.. INVESTIGATIONS, reviewed in the clinical context: May 27: White count 8.1 globin 10.5 platelets 132 potassium 4.4 creatinine 0.58 May 26: White count 12.1 hemoglobin 9.9 platelets 425 potassium 4.4 creatinine 0.61 AST 73 ALT 102 albumin 2.1 Ultrasound liver: Patient eyes portion heterogenous. Acute hepatitis screen: Negative White count 13.9 hemoglobin 11.5 platelets-7 sodium 1:30 potassium 4.4 creatinine 0.94 AST 94 AST 157 albumin 2.9 UA negative for nitrite EKG tracing personally reviewed by me-no sinus rhythm Chest x-ray film personally reviewed by me-no obvious infiltrate Assessment and plan: -Diarrhea present for 4 weeks. Variable frequency. No abdominal pain. No blo od in the stool. Patient had antibiotic for UTI recently. : Probably antibiotic associated diarrhea, resolved Metamucil. Soft diet -Acute on chronic medical debility. Patient was normally able to get out from the wheelchair to the recliner. Now the last 3 3 weeks been in his chair. Unable to get out. 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 Baseline uses a wheelchair -Hypotension from diarrhea. The patient has been eating well apparently not enough fluid intake Received fluid. -Essential hypertension, currently blood pressure running low Hold off antihypertensive. Midodrine 5 mg 3 times a day -Paroxysmal atrial fibrillation. Currently sinus rhythm. Patient is on sotalol. Hold as blood pressure running low -Hepatitis. Duration unknown. Ischemic hepatitis. improvement negative acute hepatitis panel Liver ultrasound: - nonspecific. Follow-up outpatient -Unstageable pressure ulcer left buttock, right buttocks, stage I pressure ulcer lower back. Honey gel, cover with ABD and secured with paper tape applied tried to periwound including lower back. Done patient every 2 hours. Follow up in wound care center Disposition: Rehab at [facility] Plan - Discharge Summary New Discharge Prescriptions: No Action amLODIPine [Norvasc] 10 mg PO DAILY Sulfamethoxazole/Trimethoprim [Sulfamethoxazole-Tmp Ds Tablet] 1 tab PO Q12H Sotalol [Betapace] 80 mg PO BID Discharge Medication List Sotalol [Betapace] 80 mg PO BID 05/25/22 [History] Sulfamethoxazole/Trimethoprim [Sulfamethoxazole-Tmp Ds Tablet] 1 tab PO Q12H 05/25/22 [History] amLODIPine [Norvasc] 10 mg PO DAILY 05/25/22 [History] Follow up Appointment(s)/Referral(s): Skyler Valero MD [Primary Care Provider] - 1-2 days [facility] [NON-STAFF] - 1 Week
--- NOTE | 2022-05-27 15:39 | P.PN ---
Subjective Progress Note Date: 05/27/22 Principal diagnosis: Leukocytosis/UTI Patient is a 71-year-old male with a past medical history significant for atrial fibrillation history of spinal cord tumor and hypertension , presented to hospital with weakness patient did have positive UA elevated white count and also have evidence of bilateral gluteal and sacral pressure ulcer On today's evaluation that is 05/27/2022, the patient denies having any fever or any chills he is breathing comfortably on room air no chest pain or shortness with occasional cough no abdominal pain patient did not have any bowel movement since admission to the hospital and denies any worsening pain to the sacral wound area Objective - Vital Signs Vital signs: Vital Signs Temp 98.4 F 05/27/22 07:57 Pulse 73 05/27/22 07:57 Resp 18 05/27/22 07:57 BP 99/58 05/27/22 07:57 Pulse Ox 95 05/27/22 09:57 FiO2 Intake & Output 05/26/22 05/27/22 05/27/22 18:59 06:59 18:59 Intake Total 250 Output Total 2700 Balance -2700 250 Weight 95.254 kg Intake: Oral 250 Output: Urine 2700 Other: Voiding Method Indwelling Catheter Indwelling Catheter Indwelling Catheter - Exam GENERAL DESCRIPTION: An elderly male lying in bed in no distress RESPIRATORY SYSTEM: Unlabored breathing , decreased breath sounds at bases HEART: S1 S2 regular rate and rhythm , ABDOMEN: Soft , no tenderness - Labs CBC & Chem 7: 05/27/22 06:41 05/27/22 06:41 Labs: Abnormal Lab Results - Last 24 Hours (Table) 05/27/22 05/27/22 Range/Units 06:41 06:41 RBC 3.83 L (4.30-5.90) m/uL Hgb 10.5 L (13.0-17.5) gm/dL Hct 32.7 L (39.0-53.0) % Plt Count 472 H (150-450) k/uL Sodium 135 L (137-145) mmol/L BUN 8 L (9-20) mg/dL Creatinine 0.58 L (0.66-1.25) mg/dL Calcium 7.8 L (8.4-10.2) mg/dL ALT 86 H (4-49) U/L Total Protein 5.5 L (6.3-8.2) g/dL Albumin 2.3 L (3.5-5.0) g/dL Microbiology - Last 24 Hours (Table) 05/25/22 12:35 Blood Culture - Preliminary Blood 05/25/22 12:20 Blood Culture - Preliminary Blood Assessment and Plan (1) Leukocytosis Current Visit: Yes Status: Acute Code(s): D72.829 - ELEVATED WHITE BLOOD CELL COUNT, UNSPECIFIED SNOMED Code(s): 702983363 (2) Unstageable pressure ulcer of contiguous region involving back, buttock, and hip Current Visit: Yes Status: Acute Code(s): L89.45 - PRESSR ULC OF CONTIG SITE OF BACK,BUTTOCK & HIP, UNSTAGEABLE SNOMED Code(s): 9062986800 (3) Unstageable pressure ulcer of left buttock Current Visit: Yes Status: Acute Code(s): L89.320 - PRESSURE ULCER OF LEFT BUTTOCK, UNSTAGEABLE SNOMED Code(s): 49799684031660 Plan: 1patient was in the hospital with weakness did have a fever elevated white count meeting criteria for SIRS/sepsis source is likely UTI versus infected sacral and bilateral gluteal pressure ulcer as the patient benefit from surgical debridement of these and deep culture chest x-ray was reported negative for any pneumonia abdomen was soft on clinical examination 2-patient to continue with Rocephin while waiting for the culture to finalize 3-local wound care to the sacral pressure ulcer with Medihoney followed by moist dressing keep the area of the pressure and awaiting surgical debridement and deep culture Time with Patient: Less than 30
[2022-05-27 15:51] VITALS: BP 121/73; PULSE 78; RESP 16; TEMP 97.7
[2022-05-27] MEDS ORDERED: MIDODRINE 5 MG TAB PO SCH (16:00)
[2022-05-28] MEDS ORDERED: PSYLLIUM HUSK 100% 6 GM PACKET PO SCH (09:00)
== END 2022-05-27 18:24 | DRG 393 ==
LOC: EC 11:50 → 4SSUR 16:29
PROVIDERS: ADMIT Hospitalist; ATTEND Hospitalist
DX: K52.1 Toxic gastroenteritis and colitis (principal); K72.00 Acute and subacute hepatic failure without coma; G82.20 Paraplegia, unspecified; E87.1 Hypo-osmolality and hyponatremia; T36.95XA Adverse effect of unspecified systemic antibiotic, initial encounter; D49.7 Neoplasm of unspecified behavior of endocrine glands and other parts of nervous system; E78.5 Hyperlipidemia, unspecified; E88.09 Other disorders of plasma-protein metabolism, not elsewhere classified; F41.9 Anxiety disorder, unspecified; G47.00 Insomnia, unspecified; I10 Essential (primary) hypertension; I25.2 Old myocardial infarction; R53.81 Other malaise; L89.310 Pressure ulcer of right buttock, unstageable; I48.0 Paroxysmal atrial fibrillation; I95.9 Hypotension, unspecified; I87.8 Other specified disorders of veins; K59.00 Constipation, unspecified; L08.9 Local infection of the skin and subcutaneous tissue, unspecified; L30.9 Dermatitis, unspecified; L89.152 Pressure ulcer of sacral region, stage 2; L89.320 Pressure ulcer of left buttock, unstageable; M17.0 Bilateral primary osteoarthritis of knee; Z79.899 Other long term (current) drug therapy; Z82.49 Family history of ischemic heart disease and other diseases of the circulatory system; Z96.659 Presence of unspecified artificial knee joint; Z60.2 Problems related to living alone; Z71.3 Dietary counseling and surveillance; Z86.16 Personal history of COVID-19
CPT/HCPCS: 36415; 71046; 76705; 80053; 80074; 81001; 83605; 83735; 84484; 85025; 85610; 85730; 87324; 93005; 94760; 96361; 96374; 96375; 99285

== ENCOUNTER 2023-01-15 08:51 | Inpatient (IN) | payer MEDICARE ==
[2023-01-15] MEDS ORDERED: SODIUM CHLORIDE 0.9% 500 ML 500 ML IV ONE (09:31)
--- NOTE | 2023-01-15 09:57 | ED ---
General Adult HPI - General Chief complaint: Wound/Laceration Stated complaint: wounds Time Seen by Provider: 01/15/23 08:58 Source: patient, RN notes reviewed, old records reviewed Mode of arrival: EMS Limitations: no limitations - History of Present Illness Initial comments: 72-year-old male presenting for evaluation of left foot ulceration. Patient states had contacted paramedics for lift assist. When they had helped the patient from the ground and noted wound to the left heel. The patient is not ambulatory at baseline and transfer from wheelchair to [facility]. He had had an episode of diarrhea and additionally reports that he has had a wound on his backside. The patient is currently living at home with his brother. No fever. No chest pain. No abdominal pain. - Related Data Previous Rx's Medication Instructions Recorded Acetaminophen Tab [Tylenol] 650 mg PO Q6HR PRN tab 05/27/22 Calcium Carbonate [Tums] 1,000 mg PO Q4HR PRN tab 05/27/22 Cephalexin [Keflex] 500 mg PO Q6HR #20 cap 05/27/22 Lactulose [Cephulac] 20 gm PO DAILY PRN ml 05/27/22 Melatonin 3 mg PO HS PRN tab 05/27/22 Midodrine [ProAmatine] 5 mg PO TID tab 05/27/22 Nystatin 100,000 Unit/gm Powd 1 applic TOPICAL BID each 05/27/22 [Mycostatin Powder] Psyllium Husk 100% [Metamucil 6 gm PO DAILY packet 05/27/22 Packet] Allergies Allergy/AdvReac Type Severity Reaction Status Date / Time [id number]-[id number] Reductase Allergy Rash/Hives Verified 01/15/23 09:16 Inhibitor [Pjujumd-Uzj-Hil Reductase Inhibitor] Review of Systems ROS Statement: Those systems with pertinent positive or pertinent negative responses have been documented in the HPI. ROS Other: All systems not noted in ROS Statement are negative. Past Medical History Past Medical History: Atrial Fibrillation, Hyperlipidemia, Osteoarthritis (OA) Additional Past Medical History / Comment(s): Bulging disks, bilateral knee arthritis, UTI, blood infection History of Any Multi-Drug Resistant Organisms: None Reported Past Surgical History: Orthopedic Surgery, Tonsillectomy Additional Past Surgical History / Comment(s): Knee replacement surgery, tonsills out at 7 yrs old, torn meninscus Past Anesthesia/Blood Transfusion Reactions: No Reported Reaction Past Psychological History: Anxiety Smoking Status: Former smoker Past Alcohol Use History: None Reported Past Drug Use History: None Reported - Past Family History Mother Family Medical History: CVA/TIA, Myocardial Infarction (MT) Father Family Medical History: Congestive Heart Failure (CHF) General Exam Limitations: no limitations General appearance: alert, in no apparent distress Head exam: Present: atraumatic, normocephalic Eye exam: Present: normal appearance, PERRL ENT exam: Present: normal exam Respiratory exam: Present: normal lung sounds bilaterally. Absent: respiratory distress, wheezes Cardiovascular Exam: Present: regular rate, normal rhythm GI/Abdominal exam: Present: soft. Absent: distended, tenderness Rectal exam: Present: other (Stage III sacral decubitus encompassing the sacrum and bilateral glutes) Extremities exam: Present: pedal edema, other (Large full-thickness ulceration to the left heel, bilateral chronic venous stasis) Neurological exam: Present: alert, oriented X3 Skin exam: Present: warm Course Vital Signs 01/15/23 09:11 Pulse Rate 78 Respiratory 16 Rate Blood Pressure 93/51 O2 Sat by Pulse 97 Oximetry Medical Decision Making - Medical Decision Making Was pt. sent in by a medical professional or institution (, PA, CONCRETE ANALYST, urgent care, hospital, or detention...) When possible be specific @ -No Did you speak to anyone other than the patient for history (EMS, parent, family, police, friend...)? What history was obtained from this source @ -No Did you review nursing and triage notes (agree or disagree)? Why? @ -I reviewed and agree with nursing and triage notes Were old charts reviewed (outside hosp., previous admission, EMS record, old EKG, old radiological studies, urgent care reports/EKG's, detention records)? Report findings @ -No old charts were reviewed Differential Diagnosis (chest pain, altered mental status, abdominal pain women, abdominal pain men, vaginal bleeding, weakness, fever, dyspnea, syncope, headache, dizziness, GI bleed, back pain, seizure, CVA, palpatations, mental health, musculoskeletal)? @ -[Failure to thrive, nonhealing sacral decubitus ulcer, left heel ulcer EKG interpreted by me (3pts min.). @ -As above X-rays interpreted by me (1pt min.). @X-ray of the left foot showing ulceration to the heel with concern for early osteomyelitis. CT interpreted by me (1pt min.). @ -None done U/S interpreted by me (1pt. min.). @ -None done What testing was considered but not performed or refused? (CT, X-rays, U/S, labs)? Why? @ -None What meds were considered but not given or refused? Why? @ -None Did you discuss the management of the patient with other professionals (professionals i.e. , PA, CONCRETE ANALYST, lab, RT, psych nurse, director of social work, print shop chief clerk, t eacher, optics technical officer, director case)? Give summary @Case discussed with Dr. Mendoza Was smoking cessation discussed for >3mins.? @ -No Was critical care preformed (if so, how long)? @ -No Were there social determinants of health that impacted care today? How? (Homelessness, low income, unemployed, alcoholism, drug addiction, transportation, low edu. Level, literacy, decrease access to med. care, usp, rehab)? @ -No Was there de-escalation of care discussed even if they declined (Discuss DNR or withdrawal of care, Hospice)? DNR status @ -No What co-morbidities impacted this encounter? (DM, HTN, Smoking, COPD, CAD, Cancer, CVA, ARF, Chemo, Hep., AIDS, mental health diagnosis, sleep apnea, morbid obesity)? @ -None immobility admitted / discharged? Hospital course, mention meds given and route, prescriptions, significant lab abnormalities, going to OR and other pertinent info. @Patient will require inpatient admission for wound care, surgical evaluation, IV antibiotics and likely placement. Undiagnosed new problem with uncertain prognosis? @ -No Drug Therapy requiring intensive monitoring for toxicity (Heparin, Nitro, Insulin, Cardizem)? @ -No Were any procedures done? @ -No Diagnosis/symptom? @ -Heel ulcer, nonhealing, sacral decubitus ulcer, failure to thrive Acute, or Chronic, or Acute on Chronic? @ -Chronic Uncomplicated (without systemic symptoms) or Complicated (systemic symptoms)? @ -default Side effects of treatment? @ -No Exacerbation, Progression, or Severe Exacerbation? @ -No Poses a threat to life or bodily function? How? (Chest pain, USA, MT, pneumonia, PE, COPD, DKA, ARF, appy, cholecystitis, CVA, Diverticulitis, Homicidal, Suicidal, threat to staff... and all critical care pts) @ -yes, sepsis - Lab Data Result diagrams: 01/15/23 10:14 01/15/23 10:14 Lab Results 01/15/23 01/15/23 01/15/23 Range/Units 10:14 10:14 10:14 WBC 11.5 H (3.8-10.6) k/uL RBC 3.36 L (4.30-5.90) m/uL Hgb 8.3 L (13.0-17.5) gm/dL Hct 27.2 L (39.0-53.0) % MCV 81.1 (80.0-100.0) fL MCH 24.8 L (25.0-35.0) pg MCHC 30.6 L (31.0-37.0) g/dL RDW 14.6 (11.5-15.5) % Plt Count 633 H (150-450) k/uL MPV 7.2 Neutrophils % 80 % Lymphocytes % 13 % Monocytes % 5 % Eosinophils % 1 % Basophils % 0 % Neutrophils # 9.2 H (1.3-7.7) k/uL Lymphocytes # 1.5 (1.0-4.8) k/uL Monocytes # 0.6 (0-1.0) k/uL Eosinophils # 0.1 (0-0.7) k/uL Basophils # 0.0 (0-0.2) k/uL Hypochromasia Marked Sodium 134 L (137-145) mmol/L Potassium 4.2 (3.5-5.1) mmol/L Chloride 98 (98-107) mmol/L Carbon Dioxide 27 (22-30) mmol/L Anion Gap 9 mmol/L BUN 12 (9-20) mg/dL Creatinine 0.88 (0.66-1.25) mg/dL Est GFR (CKD-EPI)AfAm >90 (>60 ml/min/1.73 sqM) Est GFR (CKD-EPI)NonAf 85 (>60 ml/min/1.73 sqM) Glucose 95 (74-99) mg/dL Plasma Lactic Acid Robbin (0.7-2.0) mmol/L Calcium 8.1 L (8.4-10.2) mg/dL Magnesium 2.2 (1.6-2.3) mg/dL Total Bilirubin 0.8 (0.2-1.3) mg/dL AST 44 (17-59) U/L ALT 42 (4-49) U/L Alkaline Phosphatase 85 (38-126) U/L Total Protein 6.8 (6.3-8.2) g/dL Albumin 2.7 L (3.5-5.0) g/dL Urine Color Yellow Urine Appearance Clear (Clear) Urine pH 6.0 (5.0-8.0) Ur Specific [place] 1.010 (1.001-1.035) Urine Protein Negative (Negative) Urine Glucose (UA) Negative (Negative) Urine Ketones Negative (Negative) Urine Blood Negative (Negative) Urine Nitrite Positive (Negative) Urine Bilirubin Negative (Negative) Urine Urobilinogen <2.0 (<2.0) mg/dL Ur Leukocyte Esterase Moderate H (Negative) Urine RBC 1 (0-5) /hpf Urine WBC 32 H (0-5) /hpf Amorphous Sediment Occasional H (None) /hpf Urine Bacteria Rare H (None) /hpf Urine Mucus Rare H (None) /hpf 01/15/23 Range/Units 10:14 WBC (3.8-10.6) k/uL RBC (4.30-5.90) m/uL Hgb (13.0-17.5) gm/dL Hct (39.0-53.0) % MCV (80.0-100.0) fL MCH (25.0-35.0) pg MCHC (31.0-37.0) g/dL RDW (11.5-15.5) % Plt Count (150-450) k/uL MPV Neutrophils % % Lymphocytes % % Monocytes % % Eosinophils % % Basophils % % Neutrophils # (1.3-7.7) k/uL Lymphocytes # (1.0-4.8) k/uL Monocytes # (0-1.0) k/uL Eosinophils # (0-0.7) k/uL Basophils # (0-0.2) k/uL Hypochromasia Sodium (137-145) mmol/L Potassium (3.5-5.1) mmol/L Chloride (98-107) mmol/L Carbon Dioxide (22-30) mmol/L Anion Gap mmol/L BUN (9-20) mg/dL Creatinine (0.66-1.25) mg/dL Est GFR (CKD-EPI)AfAm (>60 ml/min/1.73 sqM) Est GFR (CKD-EPI)NonAf (>60 ml/min/1.73 sqM) Glucose (74-99) mg/dL Plasma Lactic Acid Robbin 1.6 (0.7-2.0) mmol/L Calcium (8.4-10.2) mg/dL Magnesium (1.6-2.3) mg/dL Total Bilirubin (0.2-1.3) mg/dL AST (17-59) U/L ALT (4-49) U/L Alkaline Phosphatase (38-126) U/L Total Protein (6.3-8.2) g/dL Albumin (3.5-5.0) g/dL Urine Color Urine Appearance (Clear) Urine pH (5.0-8.0) Ur Specific [place] (1.001-1.035) Urine Protein (Negative) Urine Glucose (UA) (Negative) Urine Ketones (Negative) Urine Blood (Negative) Urine Nitrite (Negative) Urine Bilirubin (Negative) Urine Urobilinogen (<2.0) mg/dL Ur Leukocyte Esterase (Negative) Urine RBC (0-5) /hpf Urine WBC (0-5) /hpf Amorphous Sediment (None) /hpf Urine Bacteria (None) /hpf Urine Mucus (None) /hpf Disposition Clinical Impression: Decubitus ulcer, stage III, Heel ulcer, Failure to thrive Disposition: ADMITTED IP TO THIS HOSP Condition: Stable Is patient prescribed a controlled substance at d/c from ED?: No Referrals: Skyler Valero MD [Primary Care Provider] - 1-2 days Time of Disposition: 12:03
--- NOTE | 2023-01-15 10:01 | XR ---
EXAMINATION TYPE: XR foot limited LT DATE OF EXAM: 01/15/2023 COMPARISON: NONE HISTORY: 72-year-old male heel ulcer and pain TECHNIQUE: 2 views FINDINGS: There is marked osteopenia which limits evaluation. Some linear lucency at the second proxi mal phalangeal head may be projectional. Generalized soft tissue swelling. There is soft tissue ulcer along the posterior plantar aspect of the heel. Unable to exclude a subtle area of osteolysis underl ryan the ulcer on the lateral view. Small plantar heel spur. IMPRESSION: 1. There appears to be a small focus of osteolysis underlying the soft tissue ulcer of the heel. Unab le to exclude early osteomyelitis. 2. There is diffuse soft tissue swelling. 3. Linear lucency at the second proximal phalangeal head may be projectional. Correlate for any point tenderness to exclude a nondisplaced fracture here.
[2023-01-15 10:32] LABS: Basophils % (A) 0 %; Eosinophils # (A) 0.1 k/uL (0-0.7); Eosinophils % (A) 1 %; HCT 27.2 % (39.0-53.0); HGB 8.3 gm/dL (13.0-17.5); Hypochromasia Marked; Lymphocytes # (A) 1.5 k/uL (1.0-4.8); Lymphocytes % (A) 13 %; MCH 24.8 pg (25.0-35.0); MCHC 30.6 g/dL (31.0-37.0); MCV 81.1 fL (80.0-100.0); Mean Platelet Volume 7.2; Monocytes # (A) 0.6 k/uL (0-1.0); Monocytes % (A) 5 %; Neutrophils # (A) 9.2 k/uL (1.3-7.7); Neutrophils % (A) 80 %; Platelet Count 633 k/uL (150-450); RBC 3.36 m/uL (4.30-5.90); RDW 14.6 % (11.5-15.5); WBC 11.5 k/uL (3.8-10.6)
[2023-01-15 10:45] LABS: ALT 42 U/L (4-49); AST 44 U/L (17-59); African American GFR (CKD) >90 (>60 ml/min/1.73 sqM); Albumin 2.7 g/dL (3.5-5.0); Alkaline Phosphatase 85 U/L (38-126); Anion Gap 9 mmol/L; Blood Urea Nitrogen 12 mg/dL (9-20); Calcium 8.1 mg/dL (8.4-10.2); Carbon Dioxide 27 mmol/L (22-30); Chloride 98 mmol/L (98-107); Glucose 95 mg/dL (74-99); Magnesium 2.2 mg/dL (1.6-2.3); Non-African American GFR(CKD) 85 (>60 ml/min/1.73 sqM); Potassium 4.2 mmol/L (3.5-5.1); Sodium 134 mmol/L (137-145); Total Bilirubin 0.8 mg/dL (0.2-1.3); Total Protein 6.8 g/dL (6.3-8.2)
[2023-01-15] MEDS ORDERED: VANCOMYCIN IV PER PHARMACY 1 EACH MISC MISCELLANE PRN (11:15)
[2023-01-15] MEDS ORDERED: VANCOMYCIN 1,500 MG in SODIUM CHLORIDE 0.9% 500 ML 500 ML IVPB STA (11:21)
[2023-01-15 11:23] LABS: Appearance,Urine Clear (Clear); Bilirubin,Urine Negative (Negative); Blood,Urine Negative (Negative); Color,Urine Yellow; Glucose,Urine (UA) Negative (Negative); Ketones,Urine Negative (Negative); Protein,Urine Negative (Negative)
[2023-01-15 11:24] LABS: Leukocyte Esterase,Urine Moderate (Negative); Nitrite,Urine Positive (Negative); Urobilinogen,Urine <2.0 mg/dL (<2.0)
[2023-01-15 11:31] LABS: Amorphous Sediment,Urine Occasional /hpf; Bacteria,Urine Rare /hpf; Mucus,Urine Rare /hpf; RBC,Urine 1 /hpf (0-5); WBC,Urine 32 /hpf (0-5)
[2023-01-15] MEDS ORDERED: NALOXONE 0.4 MG/ML 1 ML VIAL IV PRN (11:54)
[2023-01-15] MEDS ORDERED: SODIUM CHLORIDE 0.9% 1,000 ML IV ONE (14:58)
[2023-01-15] MEDS: ACETAMINOPHEN TAB 325 MG TAB PO PRN (15:05)
--- NOTE | 2023-01-15 15:05 | P.HPIM ---
History of Present Illness H&P Date: 01/15/23 Patient is a 72-year-old male with history of hypertension, chronic debility, wheelchair bound presenting with failure to thrive. He claims that he was at home, and had a bowel movement, try to get out of his recliner to wheelchair and had a fall. He was unable to get up. He then called EMS. When EMS arrived, they noted that he had a very significant left foot ulceration. He has been complaining of fevers and chills over the last 3 weeks. He denies any chest pain, shortness breath, abdominal pain. He lives with his brother who doesn't help around the house. He denies any smoking, alcohol use or illicit drug use. In the ED, temperature was within normal limits, pulse 78, respiratory rate 16, blood pressure 93/51, saturating at 97% on room air. WBC 11.5, hemoglobin 8.3, platelet 633, sodium 134, potassium 4.2, creatinine 0.88, lactate 1.6, urinalysis shows moderate leukocyte esterase, positive nitrites. Foot x-ray shows small focus of ostial lyses of underlying soft tissue ulcer of the heel, unable to exclude early osteomyelitis, diffuse soft tissue swelling, left foot. Patient being admitted for failure to thrive as well as multiple decubitus ulcerations possible osteomyelitis involving the heel. Pertinent positives and negatives as discussed in HPI, a complete review of systems was performed and all other systems are negative. Patient seen and examined at bedside. Vital signs reviewed General: nontoxic, no distress, appears at stated age, chronically ill- appearing, obese Derm: Lower extremity venous stasis dermatitis, left heel dry gangrene with surrounding erythema, sacrum not visualized Head: atraumatic, normocephalic, symmetric Eyes: EOMI, no lid lag, anicteric sclera, pupils equal round reactive to light ENT: Nose and ears atraumatic Neck: No thyromegaly, supple Mouth: no lip lesion, mucus membranes moist Cardiovascular: S1S2 reg, no murmur, no edema Lungs: clear to auscultation bilateral, no rhonchi, no rales, no wheeze, no acc essory muscle use Abdominal: soft, nontender to palpation, no guarding, no appreciable organomegaly Ext: no gross muscle atrophy, muscle strength muscle strength 2 out of 5 in lower extremities, no contractures Neuro: CN II-XII grossly intact Psych: Alert, oriented, appropriate affect Assessment/Plan: Active: Failure to thrive Debility Suspected osteomyelitis of left heel, present on admission Stage III decubitus ulcer, present on admission -Vascular surgery consulted, patient may need debridement -ID consulted -Continue IV vancomycin pharmacy to dose, monitor renal function for toxicity -Continue IV ceftriaxone 2 g daily -ESR and CRP ordered -Blood cultures pending -Wound care consult -SW consult -Pain control with oral Tylenol 650 every 6 hours History of Hypertension -Patient is borderline hypotensive, hold antihypertensives -Given another liter of normal saline The patient is admitted with an anticipated greater than 2 midnight stay as inpatient status for evaluation of osteomyelitis. Surrogate decision-maker: Brother CODE STATUS: Full code DVT prophylaxis: Subcu heparin Anticipated discharge date: Pending clinical course Anticipated discharge place: Pending clinical course A total of 66 minutes was spent on the care of this complex patient more than 50% of the time was spent in counseling and care coordination. Past Medical History Past Medical History: Atrial Fibrillation, Hyperlipidemia, Osteoarthritis (OA) Additional Past Medical History / Comment(s): Bulging disks, bilateral knee arthritis, UTI, blood infection History of Any Multi-Drug Resistant Organisms: None Reported Past Surgical History: Orthopedic Surgery, Tonsillectomy Additional Past Surgical History / Comment(s): Knee replacement surgery, tonsills out at 7 yrs old, torn meninscus Past Anesthesia/Blood Transfusion Reactions: No Reported Reaction Past Psychological History: Anxiety Smoking Status: Former smoker Past Alcohol Use History: None Reported Past Drug Use History: None Reported - Past Family History Mother Family Medical History: CVA/TIA, Myocardial Infarction ([place]) Father Family Medical History: Congestive Heart Failure (CHF) Medications and Allergies Home Medications Medication Instructions Recorded Confirmed Type Gabapentin [Neurontin] 100 mg PO BID 01/15/23 01/15/23 History Loperamide HCl [Imodium A-D] 2 - 4 mg PO QID PRN 01/15/23 01/15/23 History Omeprazole 20 mg PO DAILY 01/15/23 01/15/23 History lisinopriL [Zestril] 10 mg PO DAILY 01/15/23 01/15/23 History Allergies Allergy/AdvReac Type Severity Reaction Status Date / Time Sqbimqq-IOQ-NkH Reductase Allergy Rash/Hives Verified 01/15/23 14:13 Inhibitor [Orngixq-Eiq-Snk Reductase Inhibitor] Physical Exam Vitals: Vital Signs Temp Pulse Resp BP Pulse Ox 01/15/23 14:38 98.7 F 120 H 18 94/46 97 01/15/23 09:11 78 16 93/51 97 Intake and Output 01/15/23 01/15/23 01/15/23 06:59 14:59 22:59 Other: Weight 95.254 kg Results CBC & Chem 7: 01/15/23 10:14 01/15/23 10:14 Labs: Abnormal Lab Results - Last 24 Hours (Table) 01/15/23 01/15/23 01/15/23 Range/Units 10:14 10:14 10:14 WBC 11.5 H (3.8-10.6) k/uL RBC 3.36 L (4.30-5.90) m/uL Hgb 8.3 L (13.0-17.5) gm/dL Hct 27.2 L (39.0-53.0) % MCH 24.8 L (25.0-35.0) pg MCHC 30.6 L (31.0-37.0) g/dL Plt Count 633 H (150-450) k/uL Neutrophils # 9.2 H (1.3-7.7) k/uL Sodium 134 L (137-145) mmol/L Calcium 8.1 L (8.4-10.2) mg/dL Albumin 2.7 L (3.5-5.0) g/dL Ur Leukocyte Esterase Moderate H (Negative) Urine WBC 32 H (0-5) /hpf Amorphous Sediment Occasional H (None) /hpf Urine Bacteria Rare H (None) /hpf Urine Mucus Rare H (None) /hpf
[2023-01-15] MEDS: HEPARIN SODIUM,PORCINE 5,000 UNIT/ML 1 ML VIAL SQ SCH (17:38)
[2023-01-15] MEDS ORDERED: MIDODRINE 5 MG TAB PO STA (19:56)
[2023-01-16] MEDS: VANCOMYCIN 1,500 MG in SODIUM CHLORIDE 0.9% 500 ML 500 ML IVPB SCH ×2 (00:10→14:23)
[2023-01-16] MEDS: HEPARIN SODIUM,PORCINE 5,000 UNIT/ML 1 ML VIAL SQ SCH ×3 (00:17→18:33)
[2023-01-16 07:20] LABS: Basophils % (A) 0 %; Eosinophils # (A) 0.1 k/uL (0-0.7); Eosinophils % (A) 1 %; HCT 26.4 % (39.0-53.0); HGB 7.9 gm/dL (13.0-17.5); Hypochromasia Marked; Lymphocytes # (A) 1.1 k/uL (1.0-4.8); Lymphocytes % (A) 12 %; MCH 24.3 pg (25.0-35.0); MCV 81.2 fL (80.0-100.0); Mean Platelet Volume 6.9; Monocytes # (A) 0.4 k/uL (0-1.0); Monocytes % (A) 5 %; Neutrophils # (A) 7.2 k/uL (1.3-7.7); Neutrophils % (A) 81 %; Platelet Count 540 k/uL (150-450); RBC 3.25 m/uL (4.30-5.90); RDW 14.6 % (11.5-15.5); WBC 8.9 k/uL (3.8-10.6)
[2023-01-16 07:30] LABS: African American GFR (CKD) >90 (>60 ml/min/1.73 sqM); Anion Gap 8 mmol/L; Blood Urea Nitrogen 14 mg/dL (9-20); Calcium 7.4 mg/dL (8.4-10.2); Carbon Dioxide 24 mmol/L (22-30); Chloride 103 mmol/L (98-107); Glucose 124 mg/dL (74-99); Non-African American GFR(CKD) 90 (>60 ml/min/1.73 sqM); Potassium 3.8 mmol/L (3.5-5.1); Sodium 135 mmol/L (137-145)
[2023-01-16] MEDS: PANTOPRAZOLE 40 MG TABLET PO SCH (08:18)
[2023-01-16] MEDS: GABAPENTIN 100 MG CAP PO SCH ×2 (08:18→21:06)
[2023-01-16] MEDS: ACETAMINOPHEN TAB 325 MG TAB PO PRN (08:18)
--- NOTE | 2023-01-16 10:47 | P.GSCN ---
History of Present Illness Consult date: 01/16/23 Reason for Consult: Nonhealing wound left lower extremity. History of present illness: Patient is a 71-year-old male who lives with his brother. The patient is handicapped with a history of a spinal tumor which was not amenable to surgical resection. This has left both of his legs essentially useless with little to no motor function. As such she spends essentially all of his day in a wheelchair and does not get out of the wheelchair to bed or other position outside of using the restroom. Surgical consultation was requested allowing to the presence of left heel and posterior calf wounds. Patient indicates this is a chronic problem for him. He denies any chills or fevers. Past Medical History Past Medical History: Atrial Fibrillation, Hyperlipidemia, Osteoarthritis (OA) Additional Past Medical History / Comment(s): Bulging disks, bilateral knee arthritis, UTI, blood infection History of Any Multi-Drug Resistant Organisms: None Reported Past Surgical History: Orthopedic Surgery, Tonsillectomy Additional Past Surgical History / Comment(s): Knee replacement surgery, tonsills out at 7 yrs old, torn meninscus Past Anesthesia/Blood Transfusion Reactions: No Reported Reaction Past Psychological History: Anxiety Smoking Status: Former smoker Past Alcohol Use History: None Reported Past Drug Use History: None Reported - Past Family History Mother Family Medical History: CVA/TIA, Myocardial Infarction ([place]) Father Family Medical History: Congestive Heart Failure (CHF) Medications and Allergies Home Medications Medication Instructions Recorded Confirmed Type Gabapentin [Neurontin] 100 mg PO BID 01/15/23 01/15/23 History Loperamide HCl [Imodium A-D] 2 - 4 mg PO QID PRN 01/15/23 01/15/23 History Omeprazole 20 mg PO DAILY 01/15/23 01/15/23 History lisinopriL [Zestril] 10 mg PO DAILY 01/15/23 01/15/23 History Allergies Allergy/AdvReac Type Severity Reaction Status Date / Time Ywrjkby-MRL-BhZ Reductase Allergy Rash/Hives Verified 01/15/23 14:13 Inhibitor [Ttqyeqb-Hnn-Ayx Reductase Inhibitor] Surgical - Exam Osteopathic Statement: *. No significant issues noted on an osteopathic structural exam other than those noted in the History and Physical/Consult. Vital Signs Pulse Resp BP Pulse Ox 78 16 93/51 97 01/15/23 09:11 01/15/23 09:11 01/15/23 09:11 01/15/23 09:11 Patient is awake, alert and in no apparent distress. Neck: Soft with no palpable adenopathy or bruit noted. Heart: Regular rate rhythm without murmurs. Lungs: Clear to auscultation bilaterally. Extremities: Upper extremities are unremarkable with normal radial pulses noted bilaterally. Patient maintains full upper extremity motion. Lower extremities: Patient's right leg has chronic flexion contracture at the knee level. The patient has significant stasis dermatitis and a large amount of desquamation tissue although there is no open wound. I could not feel popliteal or pedal pulse on the right. Stasis dermatitis changes are noted. Left lower extremity: Patient maintains femoral, popliteal and dorsalis pedis pulses. There is an unstable trouble heel wound measuring approximately 6.5 cm in greatest dimension. Additionally there is an open wound in the lower third of the leg posteriorly. Large amount of desquamation tissue is noted. Stasis dermatitis changes are noted. Motor function to the lower extremities is quite diminished and the patient is essentially only able to move his toes. Patient is unable to flex or extend the knee joint on either side. Results - Labs 01/16/23 07:02 01/16/23 07:02 Abnormal Lab Results - Last 24 Hours (Table) 01/15/23 01/15/23 01/15/23 Range/Units 10:14 10:14 10:18 RBC (4.30-5.90) m/uL Hgb (13.0-17.5) gm/dL Hct (39.0-53.0) % MCH (25.0-35.0) pg MCHC (31.0-37.0) g/dL Plt Count (150-450) k/uL ESR 83 H (0-20) mm/Hr Sodium 134 L (137-145) mmol/L Glucose (74-99) mg/dL Calcium 8.1 L (8.4-10.2) mg/dL C-Reactive Protein (<1.0) mg/dL Albumin 2.7 L (3.5-5.0) g/dL Ur Leukocyte Esterase Moderate H (Negative) Urine WBC 32 H (0-5) /hpf Amorphous Sediment Occasional H (None) /hpf Urine Bacteria Rare H (None) /hpf Urine Mucus Rare H (None) /hpf 01/15/23 01/16/23 01/16/23 Range/Units 10:18 07:02 07:02 RBC 3.25 L (4.30-5.90) m/uL Hgb 7.9 L (13.0-17.5) gm/dL Hct 26.4 L (39.0-53.0) % MCH 24.3 L (25.0-35.0) pg MCHC 30.0 L (31.0-37.0) g/dL Plt Count 540 H (150-450) k/uL ESR (0-20) mm/Hr Sodium 135 L (137-145) mmol/L Glucose 124 H (74-99) mg/dL Calcium 7.4 L (8.4-10.2) mg/dL C-Reactive Protein 14.8 H (<1.0) mg/dL Albumin (3.5-5.0) g/dL Ur Leukocyte Esterase (Negative) Urine WBC (0-5) /hpf Amorphous Sediment (None) /hpf Urine Bacteria (None) /hpf Urine Mucus (None) /hpf Microbiology - Last 24 Hours (Table) 01/15/23 11:18 Gram Stain - Preliminary Ankle - Left 01/15/23 11:18 Gram Stain - Preliminary Buttock Diabetes panel 01/15/23 01/16/23 Range/Units 10:14 07:02 Sodium 134 L 135 L (137-145) mmol/L Potassium 4.2 3.8 (3.5-5.1) mmol/L Chloride 98 103 (98-107) mmol/L Carbon Dioxide 27 24 (22-30) mmol/L BUN 12 14 (9-20) mg/dL Creatinine 0.88 0.78 (0.66-1.25) mg/dL Glucose 95 124 H (74-99) mg/dL Calcium 8.1 L 7.4 L (8.4-10.2) mg/dL AST 44 (17-59) U/L ALT 42 (4-49) U/L Alkaline Phosphatase 85 (38-126) U/L Total Protein 6.8 (6.3-8.2) g/dL Albumin 2.7 L (3.5-5.0) g/dL Calcium panel 01/15/23 01/16/23 Range/Units 10:14 07:02 Calcium 8.1 L 7.4 L (8.4-10.2) mg/dL Albumin 2.7 L (3.5-5.0) g/dL Pituitary panel 01/15/23 01/16/23 Range/Units 10:14 07:02 Sodium 134 L 135 L (137-145) mmol/L Potassium 4.2 3.8 (3.5-5.1) mmol/L Chloride 98 103 (98-107) mmol/L Carbon Dioxide 27 24 (22-30) mmol/L BUN 12 14 (9-20) mg/dL Creatinine 0.88 0.78 (0.66-1.25) mg/dL Glucose 95 124 H (74-99) mg/dL Calcium 8.1 L 7.4 L (8.4-10.2) mg/dL Adrenal panel 01/15/23 01/16/23 Range/Units 10:14 07:02 Sodium 134 L 135 L (137-145) mmol/L Potassium 4.2 3.8 (3.5-5.1) mmol/L Chloride 98 103 (98-107) mmol/L Carbon Dioxide 27 24 (22-30) mmol/L BUN 12 14 (9-20) mg/dL Creatinine 0.88 0.78 (0.66-1.25) mg/dL Glucose 95 124 H (74-99) mg/dL Calcium 8.1 L 7.4 L (8.4-10.2) mg/dL Total Bilirubin 0.8 (0.2-1.3) mg/dL AST 44 (17-59) U/L ALT 42 (4-49) U/L Alkaline Phosphatase 85 (38-126) U/L Total Protein 6.8 (6.3-8.2) g/dL Albumin 2.7 L (3.5-5.0) g/dL - Imaging Additional studies: X-ray of lower extremity is reviewed. Assessment and Plan Assessment: 1: Decubitus wounds of the left heel and posterior calf area. 2: Severe stasis dermatitis changes noted bilaterally. 3: Chronic flexion contracture of the right knee, status post right knee replacement. 4: Anemia. 5: Urinary tract infection present on admission. 6: Generalized debilitation. Plan: 1: Patient will require debridement of both lower extremities to gain more accurate staging of the heel and calf wound on the left lower extremity. This is scheduled for January 17. The procedure, risk and benefits were discussed with the patient. Patient is desirous to proceed. 2: I agree with currently instituted medical therapy including antibiotics for u rinary tract infection. 3: Physical therapy evaluation. Time with Patient: Greater than 30
--- NOTE | 2023-01-16 10:56 | US ---
EXAMINATION TYPE: US arterial LE multi level DATE OF EXAM: 01/15/2023 2:32 PM CLINICAL INDICATION: Male, 72 years old with history of PVD; Edema, discoloration bilateral lower leg s. wound left heel for 1 month History of: Smoker: previous Hypertension: yes Diabetic: no Hyperlipidemia: no TIA/CVA: no Previous Vascular Surgery: no IA: no Vascular Ulcers: yes Claudication: no Doppler Waveforms: Right: Monophasic Left: Monophasic Right Brachial Pressure: deferred due to IV Left Brachial Pressure: 94 Ankle-Brachial Indices: Right: 0.99 Left: 1.13 Toe Brachial Indices: Right: 0.64 Left: 0.52 IMPRESSION: Toe brachial indices suggesting moderate to severe peripheral vascular disease. Normal bi lateral ankle-brachial indices.
[2023-01-16] MEDS: AMPICILLIN-SULBACTAM 3 GM in SODIUM CHLORIDE 0.9% 100 ML IVPB SCH ×2 (11:19→18:33)
--- NOTE | 2023-01-16 13:17 | P.PN ---
Subjective Progress Note Date: 01/16/23 Hospital Course: 72-year-old male with history of hypertension, chronic debility, wheelchair bound presenting with failure to thrive. In the ED, temperature was within normal limits, pulse 78, respiratory rate 16, blood pressure 93/51, saturating at 97% on room air. WBC 11.5, hemoglobin 8.3, platelet 633, sodium 134, potassium 4.2, creatinine 0.88, lactate 1.6, urinalysis shows moderate leukocyte esterase, positive nitrites. Foot x-ray shows small focus of ostial lyses of underlying soft tissue ulcer of the heel, unable to exclude early osteomyelitis, diffuse soft tissue swelling, left foot. Patient being admitted for failure to thrive as well as multiple decubitus ulcerations possible osteomyelitis involving the heel. Subjective: Patient seen and examined at bedside. No acute events overnight. Pertinent positives and negatives as discussed above, a complete review of systems was performed and all other systems are negative. Vitals Signs Reviewed. General: nontoxic, no distress, appears at stated age, chronically ill- appearing, obese Derm: Lower extremity venous stasis dermatitis, left heel dry gangrene with surrounding erythema, sacrum not visualized Head: atraumatic, normocephalic, symmetric Eyes: EOMI, no lid lag, anicteric sclera, pupils equal round reactive to light ENT: Nose and ears atraumatic Neck: No thyromegaly, supple Mouth: no lip lesion, mucus membranes moist Cardiovascular: S1S2 reg, no murmur, no edema Lungs: clear to auscultation bilateral, no rhonchi, no rales, no wheeze, no accessory muscle use Abdominal: soft, nontender to palpation, no guarding, no appreciable organomegaly Ext: no gross muscle atrophy, muscle strength muscle strength 2 out of 5 in lower extremities, no contractures Neuro: CN II-XII grossly intact Psych: Alert, oriented, appropriate affect Data Reviewed Today: Pertinent Labs: WBC 8.9, hemoglobin 7.9, platelet 540, ESR 83, CRP 14.8, creatinine 0.7 Imaging: Lower extremity arterial ultrasound shows moderate to severe peripheral vascular disease. Assessment and Plan: Failure to thrive Debility osteomyelitis of left heel, present on admission Stage III decubitus ulcer, present on admission -Vascular surgery note reviewed, debridement tomorrow -ID consulted -Continue IV vancomycin pharmacy to dose, monitor renal function for toxicity -Continue IV Unasyn 3 g every 6 hours -Blood cultures pending -Wound care consult -SW consult -Pain control with oral Tylenol 650 every 6 hours History of Hypertension -Patient is borderline hypotensive, hold antihypertensives -Blood pressure slightly better compared to yesterday Acute on chronic normocytic anemia -Likely secondary to acute illness, continue to monitor, no active bleeding DVT ppx: Subcu heparin Code status: Full code Anticipated discharge place: Pending clinical course Anticipated discharge time: Pending clinical course Objective - Vital Signs Vital signs: Vital Signs Temp 99.2 F 01/16/23 08:10 Pulse 101 H 01/16/23 11:24 Resp 18 01/16/23 11:24 BP 99/53 01/16/23 11:24 Pulse Ox 93 L 01/16/23 11:24 FiO2 Intake & Output 01/15/23 01/16/23 01/16/23 18:59 06:59 18:59 Weight 95.254 kg - Labs CBC & Chem 7: 01/16/23 07:02 01/16/23 07:02 Labs: Abnormal Lab Results - Last 24 Hours (Table) 01/15/23 01/15/23 01/16/23 Range/Units 10:18 10:18 07:02 RBC 3.25 L (4.30-5.90) m/uL Hgb 7.9 L (13.0-17.5) gm/dL Hct 26.4 L (39.0-53.0) % MCH 24.3 L (25.0-35.0) pg MCHC 30.0 L (31.0-37.0) g/dL Plt Count 540 H (150-450) k/uL ESR 83 H (0-20) mm/Hr Sodium (137-145) mmol/L Glucose (74-99) mg/dL Calcium (8.4-10.2) mg/dL C-Reactive Protein 14.8 H (<1.0) mg/dL 01/16/23 Range/Units 07:02 RBC (4.30-5.90) m/uL Hgb (13.0-17.5) gm/dL Hct (39.0-53.0) % MCH (25.0-35.0) pg MCHC (31.0-37.0) g/dL Plt Count (150-450) k/uL ESR (0-20) mm/Hr Sodium 135 L (137-145) mmol/L Glucose 124 H (74-99) mg/dL Calcium 7.4 L (8.4-10.2) mg/dL C-Reactive Protein (<1.0) mg/dL Microbiology - Last 24 Hours (Table) 01/15/23 11:18 Gram Stain - Preliminary Ankle - Left 01/15/23 11:18 Gram Stain - Preliminary Buttock
--- NOTE | 2023-01-16 22:04 | P.CONS ---
History of Present Illness - Reason for Consult Consult date: 01/16/23 - History of Present Illness This is a telehealth visit Patient is a 72-year-old male with a past medical history significant for atrial fibrillation hyperlipidemia osteoarthritis apparently the patient did have a spinal tumor not amenable to surgical resection and the patient has been mostly handicapped bedbound and apparently gets help from his brother to some extent patient was sent to the ER by the EMS EMS was contacted for lift assist when they held the patient from the ground and noted to have a left heel wound with some foul-smelling drainage for the patient was brought into the hospital patient mention chronic nonhealing wound to the left heel area that has been there for couple of months to weeks patient did have some pressure sensation to the area denies any worsening pain to the left heel however did have some foul- smelling drainage patient denies high-grade fever images and no fever have been recorded on presentation the hospital patient did have a white count of 11.5 with a left shift creatinine 0.88 liver isms are normal CRP is 14.8 urine was mildly positive patient did have a x-ray of the foot appears to be a small focus of osteolysis underlying soft tissue ulcer of the heel concerning for early osteomyelitis patient was started on vancomycin and Rocephin infectious disease was consulted for further management of antibiotic therapy Past Medical History Past Medical History: Atrial Fibrillation, Hyperlipidemia, Osteoarthritis (OA) Additional Past Medical History / Comment(s): Bulging disks, bilateral knee art hritis, UTI, blood infection History of Any Multi-Drug Resistant Organisms: None Reported Past Surgical History: Orthopedic Surgery, Tonsillectomy Additional Past Surgical History / Comment(s): Knee replacement surgery, tonsi lls out at 7 yrs old, torn meninscus Past Anesthesia/Blood Transfusion Reactions: No Reported Reaction Past Psychological History: Anxiety Smoking Status: Former smoker Past Alcohol Use History: None Reported Past Drug Use History: None Reported - Past Family History Mother Family Medical History: CVA/TIA, Myocardial Infarction ([place]) Father Family Medical History: Congestive Heart Failure (CHF) Medications and Allergies Home Medications Medication Instructions Recorded Confirmed Type Gabapentin [Neurontin] 100 mg PO BID 01/15/23 01/15/23 History Loperamide HCl [Imodium A-D] 2 - 4 mg PO QID PRN 01/15/23 01/15/23 History Omeprazole 20 mg PO DAILY 01/15/23 01/15/23 History lisinopriL [Zestril] 10 mg PO DAILY 01/15/23 01/15/23 History Allergies Allergy/AdvReac Type Severity Reaction Status Date / Time Hrqcdwt-WOS-OdM Reductase Allergy Rash/Hives Verified 01/15/23 14:13 Inhibitor [Hribrmq-Yot-Hej Reductase Inhibitor] Physical Exam Vitals: Vital Signs Temp Pulse Resp BP Pulse Ox 01/16/23 08:10 99.2 F 105 H 18 101/61 96 01/16/23 06:00 99/51 01/16/23 05:00 120 H 97/47 01/16/23 04:00 117 H 95/47 01/16/23 03:00 123 H 86/46 01/16/23 02:00 83 85/46 01/16/23 01:00 83 94/48 01/16/23 00:10 85 18 94/52 96 01/16/23 00:00 98/52 01/15/23 23:00 87/48 01/15/23 22:31 98.9 F 78 16 91/57 97 01/15/23 22:00 85/44 01/15/23 21:00 80/44 01/15/23 20:54 98.4 F 01/15/23 20:51 82 14 80/44 97 01/15/23 20:00 82/45 01/15/23 19:39 79 18 82/45 97 01/15/23 19:26 75/36 01/15/23 18:00 18 104/59 98 01/15/23 17:00 18 93/48 97 01/15/23 16:00 20 101/55 97 01/15/23 14:38 98.7 F 120 H 18 94/46 97 01/15/23 14:36 18 94/46 96 Results CBC & Chem 7: 01/16/23 07:02 01/16/23 07:02 Labs: Abnormal Lab Results - Last 24 Hours (Table) 01/15/23 01/15/23 01/15/23 Range/Units 10:14 10:14 10:14 WBC 11.5 H (3.8-10.6) k/uL RBC 3.36 L (4.30-5.90) m/uL Hgb 8.3 L (13.0-17.5) gm/dL Hct 27.2 L (39.0-53.0) % MCH 24.8 L (25.0-35.0) pg MCHC 30.6 L (31.0-37.0) g/dL Plt Count 633 H (150-450) k/uL Neutrophils # 9.2 H (1.3-7.7) k/uL ESR (0-20) mm/Hr Sodium 134 L (137-145) mmol/L Glucose (74-99) mg/dL Calcium 8.1 L (8.4-10.2) mg/dL C-Reactive Protein (<1.0) mg/dL Albumin 2.7 L (3.5-5.0) g/dL Ur Leukocyte Esterase Moderate H (Negative) Urine WBC 32 H (0-5) /hpf Amorphous Sediment Occasional H (None) /hpf Urine Bacteria Rare H (None) /hpf Urine Mucus Rare H (None) /hpf 01/15/23 01/15/23 01/16/23 Range/Units 10:18 10:18 07:02 WBC (3.8-10.6) k/uL RBC 3.25 L (4.30-5.90) m/uL Hgb 7.9 L (13.0-17.5) gm/dL Hct 26.4 L (39.0-53.0) % MCH 24.3 L (25.0-35.0) pg MCHC 30.0 L (31.0-37.0) g/dL Plt Count 540 H (150-450) k/uL Neutrophils # (1.3-7.7) k/uL ESR 83 H (0-20) mm/Hr Sodium (137-145) mmol/L Glucose (74-99) mg/dL Calcium (8.4-10.2) mg/dL C-Reactive Protein 14.8 H (<1.0) mg/dL Albumin (3.5-5.0) g/dL Ur Leukocyte Esterase (Negative) Urine WBC (0-5) /hpf Amorphous Sediment (None) /hpf Urine Bacteria (None) /hpf Urine Mucus (None) /hpf 01/16/23 Range/Units 07:02 WBC (3.8-10.6) k/uL RBC (4.30-5.90) m/uL Hgb (13.0-17.5) gm/dL Hct (39.0-53.0) % MCH (25.0-35.0) pg MCHC (31.0-37.0) g/dL Plt Count (150-450) k/uL Neutrophils # (1.3-7.7) k/uL ESR (0-20) mm/Hr Sodium 135 L (137-145) mmol/L Glucose 124 H (74-99) mg/dL Calcium 7.4 L (8.4-10.2) mg/dL C-Reactive Protein (<1.0) mg/dL Albumin (3.5-5.0) g/dL Ur Leukocyte Esterase (Negative) Urine WBC (0-5) /hpf Amorphous Sediment (None) /hpf Urine Bacteria (None) /hpf Urine Mucus (None) /hpf Microbiology - Last 24 Hours (Table) 01/15/23 11:18 Gram Stain - Preliminary Ankle - Left 01/15/23 11:18 Gram Stain - Preliminary Buttock Assessment and Plan Plan: 1patient with a chronic nonhealing wound to the left heel area and concern for underlying osteomyelitis as the patient did have abnormal x-rays of the left heel concerning for osteolysis suspicious for osteomyelitis 2-patient has been evaluated by vascular surgery and planning for debridement and deep culture which should be sent for culture both aerobic and anaerobic 3-we will keep the patient on vancomycin watching his kidney function closely switch Rocephin to Unasyn while waiting for the workup to be completed We will follow on clinical condition and cultures to further adjust medication if needed Thank you for this consultation we will follow the patient along with you Dictation was produced using [employer] dictation software. please excuse any grammatical, word or spelling errors. Time with Patient: Greater than 30
[2023-01-17] MEDS: AMPICILLIN-SULBACTAM 3 GM in SODIUM CHLORIDE 0.9% 100 ML IVPB SCH ×5 (00:21→21:59)
[2023-01-17] MEDS: HEPARIN SODIUM,PORCINE 5,000 UNIT/ML 1 ML VIAL SQ SCH ×3 (00:28→18:03)
[2023-01-17] MEDS: VANCOMYCIN 1,500 MG in SODIUM CHLORIDE 0.9% 500 ML 500 ML IVPB SCH ×2 (00:58→14:59)
[2023-01-17 09:07] LABS: Basophils # (A) 0.03 X 10*3/uL (0.00-0.10); Basophils % (A) 0.4 %; Eosinophils # (A) 0.24 X 10*3/uL (0.04-0.35); Eosinophils % (A) 3.2 %; HCT 25.9 % (39.6-50.0); HGB 7.6 g/dL (13.0-17.0); Lymphocytes # (A) 1.32 X 10*3/uL (0.90-5.00); Lymphocytes % (A) 17.8 %; MCH 23.9 pg (27.0-32.0); MCHC 29.3 g/dL (32.0-37.0); MCV 81.4 FL (80.0-97.0); Mean Platelet Volume 8.7 FL (9.5-12.2); Monocytes # (A) 0.55 X 10*3/uL (0.20-1.00); Monocytes % (A) 7.4 %; NRBC Per 100 WBC 0 X 10*3/uL (0.00-0.01); Neutrophils # (A) 5.24 X 10*3/uL (1.80-7.70); Neutrophils % (A) 70.9 %; Platelet Count 544 X 10*3/uL (140-440); RBC 3.18 X 10*6/uL (4.40-5.60); RDW 15.3 % (11.5-14.5)
[2023-01-17] MEDS: PANTOPRAZOLE 40 MG TABLET PO SCH (09:38)
[2023-01-17] MEDS: GABAPENTIN 100 MG CAP PO SCH ×2 (09:38→21:58)
[2023-01-17 10:58] LABS: African American GFR (CKD) >90 (>60 ml/min/1.73 sqM); Non-African American GFR(CKD) 89 (>60 ml/min/1.73 sqM)
[2023-01-17] MEDS ORDERED: VANCOMYCIN TROUGH DUE 1 EACH MISC MISCELLANE ONE (11:00)
[2023-01-17 11:01] LABS: BUN/Creat Ratio 10.71 Ratio (12.00-20.00); Blood Urea Nitrogen 7.5 mg/dL (9.0-27.0); Calcium 7.8 mg/dL (8.7-10.3); Carbon Dioxide 23.5 mmol/L (21.6-31.8); Chloride 104 mmol/L (96-109); Glucose 89 mg/dL (70-110); Potassium 3.9 mmol/L (3.5-5.5); Sodium 140 mmol/L (135-145)
--- NOTE | 2023-01-17 12:22 | P.CONS ---
History of Present Illness - Reason for Consult Consult date: 01/17/23 wound care - History of Present Illness This is a 72-year-old patient with a past medical history significant for atrial fibrillation hyperlipidemia osteoarthritis. He is a former smoker. Denies diabetes. Patient lives with his brother however brother is gone for long periods of time. He spends most of his time sitting in a wheelchair. Patient has a stage III pressure ulcer to the sacrum with muscle involvement without necrosis. Patient has granulation seen throughout the wound bed with Slough and nonviable tissue present there is no tunneling or undermining noted. Patient has a unstageable pressure ulcer to the left heel x-ray shows osteomyelitis. Multiple ulcerations to the left lower extremity with fat layer exposure. Patient will undergo a debridement of the left heel today. Review Of Systems: Constitutional: No fever, no chills, no night sweats. No weight change. No weakness, fatigue or lethargy. No daytime sleepiness. Integumentary:reports wounds, no lesions. No rash or pruritus. No unusual bruising. No change in hair or nails. Physical exam: General Appearance: Alert, cooperative, no distress, appears stated age. Skin: See HPI all other Skin color, texture, tugor normal, no rashes or lesions. Neurologic: Alert oriented x3 Assessment: 1. Unstageable ulceration left heel 2. Stage III pressure ulceration sacral 3. Non-pressure ulceration of left calf with fat layer exposure 4. Osteomyelitis Plan: 1. Patient is scheduled for a surgical debridement to the left lower extremity ulcerations. After debridement, apply Santyl, saline moistened gauze, dry gauze, rolled gauze and secured paper tape. Utilize heel protectors as needed. 2. Sacral ulceration: Apply absorptive silver, saline moistened gauze, and sacral border foam. Turn patient every 2 hours. Utilize air-filled cushion when sitting. 3. Patient would benefit from advance wound care from the wound care center. We'll ask to see him post discharge. Thank you for the consultation any questions was contact the wound care center DNP note has been reviewed and discussed with Dr. Kumar and the impression and plan of care has been directed as dictated. Past Medical History Past Medical History: Atrial Fibrillation, Hyperlipidemia, Osteoarthritis (OA) Additional Past Medical History / Comment(s): Bulging disks, bilateral knee arthritis, UTI, blood infection History of Any Multi-Drug Resistant Organisms: None Reported Past Surgical History: Orthopedic Surgery, Tonsillectomy Additional Past Surgical History / Comment(s): Knee replacement surgery, tonsills out at 7 yrs old, torn meninscus Past Anesthesia/Blood Transfusion Reactions: No Reported Reaction Past Psychological History: Anxiety Smoking Status: Former smoker Past Alcohol Use History: None Reported Past Drug Use History: None Reported - Past Family History Mother Family Medical History: CVA/TIA, Myocardial Infarction (MT) Father Family Medical History: Congestive Heart Failure (CHF) Medications and Allergies Home Medications Medication Instructions Recorded Confirmed Type Gabapentin [Neurontin] 100 mg PO BID 01/15/23 01/15/23 History Loperamide HCl [Imodium A-D] 2 - 4 mg PO QID PRN 01/15/23 01/15/23 History Omeprazole 20 mg PO DAILY 01/15/23 01/15/23 History lisinopriL [Zestril] 10 mg PO DAILY 01/15/23 01/15/23 History Allergies Allergy/AdvReac Type Severity Reaction Status Date / Time Rjblkyj-EGW-TiA Reductase Allergy Rash/Hives Verified 01/15/23 14:13 Inhibitor [Ssqrdes-Iby-Mcr Reductase Inhibitor] Physical Exam Vitals: Vital Signs Temp Pulse Pulse Resp BP BP Pulse Ox 01/17/23 08:00 98 F 75 16 108/67 96 01/17/23 00:21 98.5 F 128 H 18 115/66 94 L 01/16/23 20:00 18 01/16/23 19:34 98.2 F 83 18 93/59 97 01/16/23 19:06 124 H 21 01/16/23 17:45 97.9 F 124 H 21 118/72 95 01/16/23 17:30 97.9 F 115 H 18 100/62 95 01/16/23 13:39 71 16 96/52 95 Intake and Output 01/16/23 01/17/23 01/17/23 22:59 06:59 14:59 Output Total 0 1400 Balance 0 -1400 Output: Urine 0 1400 Other: Voiding Method Indwelling Catheter Indwelling Catheter # Bowel Movements 1 Results CBC & Chem 7: 01/17/23 06:03 01/17/23 10:11 Labs: Abnormal Lab Results - Last 24 Hours (Table) 01/17/23 01/17/23 01/17/23 Range/Units 01:43 06:03 06:03 RBC 3.18 L (4.40-5.60) X 10*6/uL Hgb 7.6 L (13.0-17.0) g/dL Hct 25.9 L (39.6-50.0) % MCH 23.9 L (27.0-32.0) pg MCHC 29.3 L (32.0-37.0) g/dL RDW 15.3 H (11.5-14.5) % Plt Count 544 H (140-440) X 10*3/uL MPV 8.7 L (9.5-12.2) FL Anion Gap 12.50 H (4.00-12.00) mmol/L BUN 7.5 L (9.0-27.0) mg/dL BUN/Creatinine Ratio 10.71 L (12.00-20.00) Ratio Plasma Lactic Acid Robbin 0.6 L (0.7-2.0) mmol/L Calcium 7.8 L (8.7-10.3) mg/dL Microbiology - Last 24 Hours (Table) 01/15/23 11:18 Gram Stain - Preliminary Ankle - Left Wound Culture - Preliminary Presumptive Staph aureus 01/15/23 10:14 Blood Culture - Preliminary Blood 01/15/23 10:14 Blood Culture - Preliminary Blood 01/15/23 11:18 Gram Stain - Preliminary Buttock Assessment and Plan (1) Unstageable pressure ulcer of left heel Current Visit: Yes Status: Acute Code(s): L89.620 - PRESSURE ULCER OF LEFT HEEL, UNSTAGEABLE SNOMED Code(s): 19897213263037559 (2) Stage III pressure ulcer of sacral region Current Visit: Yes Status: Acute Code(s): L89.153 - PRESSURE ULCER OF SACRAL REGION, STAGE 3 SNOMED Code(s): 82653231536089 (3) Non-pressure chronic ulcer of left calf with fat layer exposed Current Visit: Yes Status: Acute Code(s): L97.222 - NON-PRESSURE CHRONIC ULCER OF LEFT CALF W FAT LAYER EXPOSED SNOMED Code(s): 61588937233943159 (4) Osteomyelitis, unspecified Current Visit: Yes Status: Acute Code(s): M86.9 - OSTEOMYELITIS, UNSPECIFIED SNOMED Code(s): 30621694
[2023-01-17] MEDS: COLLAGENASE 250 UNIT/GM OINTMENT 30 GM TUBE TOPICAL SCH (12:30)
[2023-01-17 14:51] VITALS: BMI 31.0
[2023-01-17] MEDS ORDERED: MORPHINE SULFATE 4 MG/ML SYRINGE IV PRN (16:24)
--- NOTE | 2023-01-17 16:29 | P.PN ---
Subjective Progress Note Date: 01/17/23 Hospital course: Patient is a very pleasant 72-year-old male with a past medical history of hypertension, severe osteoarthritis resulting in chronic debility resulting in wheelchair bound at baseline, and GERD. He presented to the emergency department on 01/25/23 with reports of failure to thrive at home. He underwent full evaluation in the emergency department. Vital signs completed and reviewed. Temperature 98.7F, Heart rate 78, respiratory rate 16, blood pressure 93/51, and SpO2 of 97% on room air. Labs completed and reviewed. CBC showing mild leukocytosis with WBC 11.5, normocytic anemia with hemoglobin 8.3, and thrombocytosis with platelet 633. BMP showing Sodium 134, potassium 4.2, creatinine 0.88. Lactate 1.6,. Urinalysis shows moderate leukocyte esterase, positive nitrites, but only 32 WBCs. Foot x-ray shows small focus of ostial lyses of underlying soft tissue ulcer of the heel, unable to exclude early osteomyelitis, diffuse soft tissue swelling, left foot. Patient was admitted for failure to thrive as well as multiple decubitus ulcerations with concerns of early osteomyelitis involving the heel. Physical exam: Vital signs reviewed and stable. General: Nontoxic, no distress and appears stated age. Derm: Skin warm and dry, normal coloration for ethnicity. Head: Atraumatic, normocephalic and symmetric. Eyes: EOMs intact, no lid lag, and anicteric sclera Mouth: no lip lesions, mucus membranes moist Cardiovascular: regular rate and rhythm with normal S1S2, systolic murmur, positive posterior tibial pulses bilaterally, and cap refill < 2 seconds. Lungs: Respirations even, regular, and unlabored on room air. Lungs CTA bilaterally, no rhonchi, no rales, no wheezing, and no accessory muscle usage. Abdominal: soft, nontender to palpation, no guarding, no appreciable organomegaly Ext: Patient with significant edema in bilateral lower extremities accompanied by venous discoloration and severe scaling of skin consistent with venous stasis dermatitis. Large necrotic ulcer encompassing entire left heel. Neuro: Speech clear, face symmetrical and CN II-XII grossly intact with no noted focal neuro deficits Psych: Alert and oriented to person, place, time, and situation. Appropriate and pleasant affect. Assessment and Plan of Care: Osteomyelitis of left heel, present on admission Failure to thrive Debility secondary to multiple medical comorbidities resulting in inability to independently perform activities of daily living Stage III decubitus ulcer, present on admission -Vascular surgery following taking patient for debridement of left necrotic heel ulcer later today. -Infectious disease following, patient to continue with IV antibiotics Unasyn 3 g every 6 hours and vancomycin 1500 mg every 12 hours. -Continued close monitoring of renal function and vancomycin trough to watch for any signs of vancomycin-induced renal toxicity. Vancomycin trough therapeutic at 19.8. -Blood cultures showing no growth to date -Wound cultures preliminary results showing presumptive staph aureus -ESR 83 and CRP 14.8. -Pain control with oral Tylenol 650 every 6 hours as needed for mild pain/fever, [place] 5/325 mg tablets every 4 hours as needed for moderate pain, and morphine 4 mg IVP every 4 hours as needed for severe pain. History of Hypertension -Patient is borderline hypotensive, hold antihypertensives -Blood pressure slightly better compared to yesterday Acute on chronic normocytic anemia Acute on chronic thrombocytosis -Likely secondary to acute illness, continue to monitor, no active bleeding -Hemoglobin 7.6 and platelet count of 544. Data imaging reviewed: Labs completed and reviewed. CBC showing stable normocytic anemia with hemoglobin of 7.6 and thrombocytosis with platelet count of 544. BMP unremarkab le. Blood glucose 97. Vancomycin trough therapeutic at 19.8. Vital signs reviewed. Blood pressure 108/67, heart rate 75, respiratory rate 16, temp 98.0F, SpO2 of 96% on room air. CODE STATUS: Full code DVT prophylaxis: Heparin Anticipated discharge date: Clinical course to determine Anticipated discharge place: Clinical course to determine Patient was seen independently by Nurse Pracitioner. This document was prepared using [employer] dictation software. Please allow for errors in teaseler, while rare they do occur. Farhan Guillen NP rendered care for this patient independently, reviewed the findings and plan as documented in the note above. I did not physically speak with or examine the patient on this date. Objective - Vital Signs Vital signs: Vital Signs Temp 98 F 01/17/23 08:00 Pulse 75 01/17/23 08:00 Resp 16 01/17/23 08:00 BP 108/67 01/17/23 08:00 Pulse Ox 96 01/17/23 08:00 FiO2 Intake & Output 01/16/23 01/17/23 01/17/23 18:59 06:59 18:59 Output Total 2000 1400 Balance -1999 Output: Urine 1999 1399 Other: Voiding Method Indwelling Catheter # Bowel Movements 1 - Labs CBC & Chem 7: 01/17/23 06:03 01/17/23 10:11 Labs: Abnormal Lab Results - Last 24 Hours (Table) 01/17/23 Range/Units 01:43 Plasma Lactic Acid Robbin 0.6 L (0.7-2.0) mmol/L Microbiology - Last 24 Hours (Table) 01/15/23 11:18 Gram Stain - Preliminary Ankle - Left Wound Culture - Preliminary Presumptive Staph aureus 01/15/23 10:14 Blood Culture - Preliminary Blood 01/15/23 10:14 Blood Culture - Preliminary Blood 01/15/23 11:18 Gram Stain - Preliminary Buttock
[2023-01-17] MEDS ORDERED: ONDANSETRON 4 MG/2 ML VIAL ONE (16:49)
[2023-01-17] MEDS ORDERED: PHENYLEPHRINE-0.9% NACL SYG 1,000 MCG/10 ML SYRINGE ONE (17:01)
[2023-01-17] MEDS ORDERED: LIDOCAINE 1% INJ 10MG/ML (20 ML MDV) ONE (17:01)
[2023-01-17] MEDS ORDERED: SUCCINYLCHOLINE CHLORIDE 200 MG/10 ML VIAL IV ONE (17:01)
[2023-01-17] MEDS ORDERED: fentaNYL (PF) 50 MCG/ML 2 ML AMP ONE (17:01)
[2023-01-17] MEDS ORDERED: MIDAZOLAM 2 MG/2 ML VIAL ONE (17:01)
[2023-01-17] MEDS ORDERED: PROPOFOL 10 MG/ML 20 ML VIAL IV ONE (17:01)
[2023-01-17] MEDS ORDERED: LACTATED RINGERS 1,000 ML IV ONE ×2 (17:05→19:18)
[2023-01-17] MEDS ORDERED: ONDANSETRON 4 MG/2 ML VIAL IVP ONE (17:05)
[2023-01-17] MEDS ORDERED: DEXAMETHASONE SOD PHOSPHATE 4 MG/ML 1 ML VIAL IVP ONE (17:05)
[2023-01-17] MEDS ORDERED: SODIUM CHLORIDE 0.9% 1,000 ML IV ONE (17:11)
--- NOTE | 2023-01-17 18:11 | P.OP ---
Date of Procedure: 01/17/23 Preoperative Diagnosis: 1: Unstageable wound right heel, measuring measuring 60 x 55 x 4 mm.. 2: States to decubitus wound right posterior calf measuring 90 x 30 x 2 mm Postoperative Diagnosis: Same. Procedure(s) Performed: 1: Debrided of right heel wound. 2: Debridement of right posterior calf wound. 3: Application of negative pressure VAC therapy right heel wound. Anesthesia: JOSEA Surgeon: Ross Jones Estimated Blood Loss (ml): 5 Pathology: none sent Condition: stable Disposition: no change Indications for Procedure: Patient is a 71-year-old male with a history of immobility who presented with a unstageable wound of the right heel. Additionally the patient has severe stasis dermatitis changes and leg edema secondary to stasis. He had an unstable global wound right heel as well as a stage II wound posterior calf. Generally the patient was disheveled and exhibited poor hygiene. Patient is offered debridement of the wounds for further staging and treatment. Description of Procedure: Patient brought the upper and placed in supine position and administered general endotracheal anesthesia delivered by the department of anesthesiology. Patient was then placed in the left lateral decubitus position. The legs at the calf and foot levels were prepped with Betadine and draped. Utilizing sharp technique the heel wound was debrided and extended down to the subcutaneous fat. It measured 60 x 55 x 4 mm in depth. Undermining in a circumferential manner of about 5 mm was encountered. Some necrotic fat was identified and this was debrided as best as possible. The right calf wound was stage II and was debrided of sloughing skin. There is no true infectious component. The right leg was also debrided of sloughing skin. Wound VAC was placed on the right heel. The calf wound was covered with Adaptic and wrapped with 4 x 4's. Patient tolerated procedure well and was taken the recovery area satisfactory and stable condition..
[2023-01-17 21:31] LABS: HCT 27.7 % (39.0-53.0); HGB 8.4 gm/dL (13.0-17.5); Hypochromasia Marked; MCH 24.7 pg (25.0-35.0); MCHC 30.5 g/dL (31.0-37.0); MCV 81.3 fL (80.0-100.0); Platelet Count 594 k/uL (150-450); RBC 3.41 m/uL (4.30-5.90); RDW 14.8 % (11.5-15.5); WBC 9.8 k/uL (3.8-10.6)
[2023-01-17] MEDS: HYDROcodone/APAP 5-325MG 1 EACH TAB PO PRN (22:25)
[2023-01-18] MEDS: HEPARIN SODIUM,PORCINE 5,000 UNIT/ML 1 ML VIAL SQ SCH ×5 (01:07→22:58)
[2023-01-18] MEDS: AMPICILLIN-SULBACTAM 3 GM in SODIUM CHLORIDE 0.9% 100 ML IVPB SCH ×4 (02:56→20:06)
[2023-01-18] MEDS: VANCOMYCIN 1,500 MG in SODIUM CHLORIDE 0.9% 500 ML 500 ML IVPB SCH ×2 (03:31→15:22)
[2023-01-18] MEDS: PANTOPRAZOLE 40 MG TABLET PO SCH (06:50)
[2023-01-18] MEDS: HYDROcodone/APAP 5-325MG 1 EACH TAB PO PRN ×3 (06:50→20:05)
[2023-01-18 08:14] LABS: ALT 20 U/L (4-49); AST 23 U/L (17-59); African American GFR (CKD) >90 (>60 ml/min/1.73 sqM); Albumin 2.2 g/dL (3.5-5.0); Albumin/Globulin Ratio 0.6; Alkaline Phosphatase 62 U/L (38-126); Anion Gap 10 mmol/L; Blood Urea Nitrogen 10 mg/dL (9-20); Calcium 7.9 mg/dL (8.4-10.2); Carbon Dioxide 20 mmol/L (22-30); Chloride 108 mmol/L (98-107); Globulin 3.5 g/dL; Glucose 102 mg/dL (74-99); Non-African American GFR(CKD) >90 (>60 ml/min/1.73 sqM); Potassium 4.5 mmol/L (3.5-5.1); Sodium 138 mmol/L (137-145); Total Bilirubin 0.3 mg/dL (0.2-1.3); Total Protein 5.7 g/dL (6.3-8.2)
[2023-01-18 08:22] LABS: HCT 30.7 % (39.0-53.0); HGB 9.1 gm/dL (13.0-17.5); Hypochromasia Marked; MCHC 29.7 g/dL (31.0-37.0); Mean Platelet Volume 7.3; Platelet Count 589 k/uL (150-450); RBC 3.66 m/uL (4.30-5.90); RDW 14.5 % (11.5-15.5); WBC 8.6 k/uL (3.8-10.6)
[2023-01-18] MEDS: GABAPENTIN 100 MG CAP PO SCH ×2 (08:24→20:02)
[2023-01-18] MEDS: COLLAGENASE 250 UNIT/GM OINTMENT 30 GM TUBE TOPICAL SCH (08:25)
--- NOTE | 2023-01-18 12:09 | P.PN ---
Subjective Progress Note Date: 01/18/23 Principal diagnosis: Left lower extremity wounds Patient is seen and examined today as a follow-up. He is status post excisional debridement of the left heel wound and left exterior Wound with application of negative pressure VAC to the right heel wound. Overall patient is doing well. He denies any fever or chills. He is afebrile. He remains on IV antibiotics including vancomycin and Unasyn. Infectious disease is following. Objective - Vital Signs Vital signs: Vital Signs Temp 97.4 F L 01/18/23 07:11 Pulse 68 01/18/23 07:11 Resp 19 01/18/23 07:11 BP 110/62 01/18/23 07:11 Pulse Ox 95 01/18/23 07:11 FiO2 Intake & Output 01/17/23 01/18/23 01/18/23 18:59 06:59 18:59 Intake Total 1000 300 Output Total 255 1900 Balance 745 -1600 Weight 95.254 kg Intake: IV 1000 300 Output: Urine 250 1900 Estimated Blood Loss 5 Other: Voiding Method Indwelling Catheter Indwelling Catheter Indwelling Catheter - Exam General appearance: The patient is alert, oriented, appears in no acute distress . HET: Head is normocephalic and atraumatic. Neck: Supple. Abdomen: Soft, nondistended. Extremities: Lower extremity with dressing clean dry and intact, right heel with wound VAC in place with good pressure. Neurological: No focal deficits. - Labs CBC & Chem 7: 01/18/23 07:46 01/18/23 06:34 Labs: Abnormal Lab Results - Last 24 Hours (Table) 01/17/23 01/18/23 01/18/23 Range/Units 20:57 06:34 07:46 RBC 3.41 L 3.66 L (4.30-5.90) m/uL Hgb 8.4 L 9.1 L (13.0-17.5) gm/dL Hct 27.7 L 30.7 L (39.0-53.0) % MCH 24.7 L (25.0-35.0) pg MCHC 30.5 L 29.7 L (31.0-37.0) g/dL Plt Count 594 H 589 H (150-450) k/uL Chloride 108 H (98-107) mmol/L Carbon Dioxide 20 L (22-30) mmol/L Glucose 102 H (74-99) mg/dL Calcium 7.9 L (8.4-10.2) mg/dL Total Protein 5.7 L (6.3-8.2) g/dL Albumin 2.2 L (3.5-5.0) g/dL Microbiology - Last 24 Hours (Table) 01/15/23 11:18 Gram Stain - Preliminary Ankle - Left Wound Culture - Preliminary Presumptive Staph aureus Gram Neg Bacilli 01/15/23 11:18 Gram Stain - Preliminary Buttock Wound Culture - Preliminary 01/15/23 10:14 Blood Culture - Preliminary Blood 01/15/23 10:14 Blood Culture - Preliminary Blood Assessment and Plan Assessment: 1. Unstageable wound left heel status post excisional debridement with negative pressure wound VAC application 2. Left posterior calf wound status post excisional debridement 3. 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 Severe stasis dermatitis bilateral lower extremities 5. Urinary tract infection present on admission 6. Generalized debilitation Plan: 1. Continue local wound care per recommendations from wound clinic 2. Keep wound VAC in place, change Mondays 3. Patient to follow-up with wound clinic on discharge 4. Continue with the recommendations from infectious disease antibiotic therapy 5. Offload pressure left heel, left lower extremity . Patient will likely need subacute rehab on discharge. Patient with concerns for financial support as well as transportation. Case management is following patient. Thank you for this consultation, we will sign off at this time The impression and plan of care has been dictated as directed. I performed a history and examination of this patient, discussed the same with the dictator. I agree with the dictator's note ,documented as a scribe. Any additional findings or plans will be noted.
--- NOTE | 2023-01-18 15:52 | P.PN ---
Subjective Progress Note Date: 01/18/23 Hospital course: Patient is a very pleasant 72-year-old male with a past medical history of hypertension, severe osteoarthritis resulting in chronic debility resulting in wheelchair bound at baseline, and GERD. He presented to the emergency department on 01/25/23 with reports of failure to thrive at home. He underwent full evaluation in the emergency department. Vital signs completed and reviewed. Temperature 98.7F, Heart rate 78, respiratory rate 16, blood pressure 93/51, and SpO2 of 97% on room air. Labs completed and reviewed. CBC showing mild leukocytosis with WBC 11.5, normocytic anemia with hemoglobin 8.3, and thrombocytosis with platelet 633. BMP showing Sodium 134, potassium 4.2, creatinine 0.88. Lactate 1.6,. Urinalysis shows moderate leukocyte esterase, positive nitrites, but only 32 WBCs. Foot x-ray shows small focus of ostial lyses of underlying soft tissue ulcer of the heel, unable to exclude early osteomyelitis, diffuse soft tissue swelling, left foot. Patient was admitted for failure to thrive as well as multiple decubitus ulcerations with concerns of early osteomyelitis involving the heel. Physical exam: Vital signs reviewed and stable. General: Nontoxic, no distress and appears stated age. Derm: Skin warm and dry, normal coloration for ethnicity. Head: Atraumatic, normocephalic and symmetric. Eyes: EOMs intact, no lid lag, and anicteric sclera Mouth: no lip lesions, mucus membranes moist Cardiovascular: regular rate and rhythm with normal S1S2, systolic murmur, positive posterior tibial pulses bilaterally, and cap refill < 2 seconds. Lungs: Respirations even, regular, and unlabored on room air. Lungs CTA bilaterally, no rhonchi, no rales, no wheezing, and no accessory muscle usage. Abdominal: soft, nontender to palpation, no guarding, no appreciable organomegaly Ext: Patient with significant edema in bilateral lower extremities accompanied by venous discoloration and severe scaling of skin consistent with venous stasis dermatitis. Dressing in place left foot with wound VAC Neuro: Speech clear, face symmetrical and CN II-XII grossly intact with no noted focal neuro deficits Psych: Alert and oriented to person, place, time, and situation. Appropriate and pleasant affect. Assessment and Plan of Care: Osteomyelitis of left heel, present on admission Failure to thrive Debility secondary to multiple medical comorbidities resulting in inability to independently perform activities of daily living Stage III decubitus ulcer, present on admission -Vascular surgery following and took patient for debridement of left necrotic heel ulcer and application of wound VAC on 01/17/23. -Infectious disease following, patient to continue with IV antibiotics Unasyn 3 g every 6 hours and vancomycin 1500 mg every 12 hours. -Continued close monitoring of renal function and vancomycin trough to watch for any signs of vancomycin-induced renal toxicity. Vancomycin trough therapeutic at 19.8. -Blood cultures showing no growth to date -Wound cultures preliminary results showing presumptive staph aureus -ESR 83 and CRP 14.8. -Pain control with oral Tylenol 650 every 6 hours as needed for mild pain/fever, [place] 5/325 mg tablets every 4 hours as needed for moderate pain, and morphine 4 mg IVP every 4 hours as needed for severe pain. Hypertension -Patient may resume lisinopril 10 mg daily. Blood pressures have been stable with morning blood pressure 110/62. Acute on chronic normocytic anemia Acute on chronic thrombocytosis -Likely secondary to acute illness, continue to monitor, no active bleeding -Hemoglobin 9.1 and platelet count of 589 Data imaging reviewed: Labs completed and reviewed. CBC showing stable normocytic anemia with hemoglobin of 9.1 and continued thrombocytosis with platelet count of 589 . BMP showing hyperchloremia with chloride of 108, hypocarbia with bicarb of 20 and anion gap of 10 with normal renal function showing BUN 10, creatinine 0.68, GFR greater than 90. Glucose 102. Liver profile unremarkable. Vital signs reviewed. Blood pressure 110/62, heart rate 68, respiratory rate 19, temperature 97.4F, and SpO2 of 95% on room air. CODE STATUS: Full code DVT prophylaxis: Heparin Anticipated discharge date: Clinical course to determine Anticipated discharge place: Clinical course to determine Patient was seen independently by Nurse Pracitioner. This document was prepared using [employer] dictation software. Please allow for errors in buckle assembler, while rare they do occur. Farhan Guillen NP rendered care for this patient independently, reviewed the findings and plan as documented in the note above. I did not physically speak with or examine the patient on this date. Objective - Vital Signs Vital signs: Vital Signs Temp 97.5 F L 01/18/23 01:35 Pulse 69 01/18/23 01:35 Resp 16 01/18/23 01:35 BP 102/64 01/18/23 01:35 Pulse Ox 97 01/18/23 01:35 FiO2 Intake & Output 01/17/23 01/18/23 01/18/23 18:59 06:59 18:59 Intake Total 1000 300 Output Total 255 1900 Balance 745 -1600 Weight 95.254 kg Intake: IV 1000 300 Output: Urine 250 1900 Estimated Blood Loss 5 Other: Voiding Method Indwelling Catheter Indwelling Catheter - Labs CBC & Chem 7: 01/18/23 07:46 01/18/23 06:34 Labs: Abnormal Lab Results - Last 24 Hours (Table) 01/17/23 01/17/23 01/17/23 Range/Units 06:03 06:03 20:57 RBC 3.18 L 3.41 L (4.40-5.60) X 10*6/uL Hgb 7.6 L 8.4 L (13.0-17.0) g/dL Hct 25.9 L 27.7 L (39.6-50.0) % MCH 23.9 L 24.7 L (27.0-32.0) pg MCHC 29.3 L 30.5 L (32.0-37.0) g/dL RDW 15.3 H (11.5-14.5) % Plt Count 544 H 594 H (140-440) X 10*3/uL MPV 8.7 L (9.5-12.2) FL Anion Gap 12.50 H (4.00-12.00) mmol/L BUN 7.5 L (9.0-27.0) mg/dL BUN/Creatinine Ratio 10.71 L (12.00-20.00) Ratio Calcium 7.8 L (8.7-10.3) mg/dL Microbiology - Last 24 Hours (Table) 01/15/23 11:18 Gram Stain - Preliminary Ankle - Left Wound Culture - Preliminary Presumptive Staph aureus Gram Neg Bacilli 01/15/23 11:18 Gram Stain - Preliminary Buttock Wound Culture - Preliminary 01/15/23 10:14 Blood Culture - Preliminary Blood 01/15/23 10:14 Blood Culture - Preliminary Blood
--- NOTE | 2023-01-18 16:01 | P.PN ---
Subjective Progress Note Date: 01/17/23 Principal diagnosis: Reason for follow-up is left heel also concerning for osteomyelitis Patient is a 72-year-old male with a past medical history significant for atrial fibrillation hyperlipidemia osteoarthritis apparently the patient did have a spinal tumor not amenable to surgical resection and the patient has been mostly handicapped bedbound, patient was brought into the hospital after the EMS who were called in For lift assist, noticed to have worsening wound to the left heel with foul-smelling drainage On today's evaluation that is01/17/2023 the patient denies any fever or any chills, the patient is breathing comfortably on 2 L nasal cannula oxygen, the pa ann-marient denies nausea vomiting did have a chronic diarrhea, and no abdominal pain, the patient denies having any chest pain shortness of breath or cough, denies any worsening pain to the left heel Patient did have white count of 9.8, creatinine 0.68, cultures are currently pending Objective - Vital Signs Vital signs: Vital Signs Temp 98 F 01/17/23 08:00 Pulse 75 01/17/23 08:00 Resp 16 01/17/23 08:00 BP 108/67 01/17/23 08:00 Pulse Ox 96 01/17/23 08:00 FiO2 Intake & Output 01/16/23 01/17/23 01/17/23 18:59 06:59 18:59 Output Total 1999 1399 Balance -1999 Output: Urine 1999 1399 Other: Voiding Method Indwelling Catheter Indwelling Catheter # Bowel Movements 1 - Exam GENERAL DESCRIPTION: An elderly male lying in bed in no distress RESPIRATORY SYSTEM: Unlabored breathing , clear to auscultation anteriorly HEART: S1 S2 regular rate and rhythm , ABDOMEN: Soft , no tenderness EXTREMITIES: Patient did have a necrotic wound to the left heel ulceration to the left leg and also have a pressure ulcer to the sacral and gluteal area with no slough tissue - Labs CBC & Chem 7: 01/18/23 07:46 01/18/23 06:34 Labs: Abnormal Lab Results - Last 24 Hours (Table) 01/17/23 01/17/23 01/17/23 Range/Units 01:43 06:03 06:03 RBC 3.18 L (4.40-5.60) X 10*6/uL Hgb 7.6 L (13.0-17.0) g/dL Hct 25.9 L (39.6-50.0) % MCH 23.9 L (27.0-32.0) pg MCHC 29.3 L (32.0-37.0) g/dL RDW 15.3 H (11.5-14.5) % Plt Count 544 H (140-440) X 10*3/uL MPV 8.7 L (9.5-12.2) FL Anion Gap 12.50 H (4.00-12.00) mmol/L BUN 7.5 L (9.0-27.0) mg/dL BUN/Creatinine Ratio 10.71 L (12.00-20.00) Ratio Plasma Lactic Acid Robbin 0.6 L (0.7-2.0) mmol/L Calcium 7.8 L (8.7-10.3) mg/dL Microbiology - Last 24 Hours (Table) 01/15/23 11:18 Gram Stain - Preliminary Ankle - Left Wound Culture - Preliminary Presumptive Staph aureus 01/15/23 10:14 Blood Culture - Preliminary Blood 01/15/23 10:14 Blood Culture - Preliminary Blood 01/15/23 11:18 Gram Stain - Preliminary Buttock Assessment and Plan (1) Decubitus ulcer, stage III Current Visit: Yes Status: Acute Code(s): L89.93 - PRESSURE ULCER OF UNSPECIFIED SITE, STAGE 3 SNOMED Code(s): 6063002016 (2) Stage III pressure ulcer of sacral region Current Visit: Yes Status: Acute Code(s): L89.153 - PRESSURE ULCER OF SACRAL REGION, STAGE 3 SNOMED Code(s): 25721850958731 (3) Unstageable pressure ulcer of left heel Current Visit: Yes Status: Acute Code(s): L89.620 - PRESSURE ULCER OF LEFT HEEL, UNSTAGEABLE SNOMED Code(s): 10570138449374941 (4) Leukocytosis Current Visit: No Status: Acute Code(s): D72.829 - ELEVATED WHITE BLOOD CELL COUNT, UNSPECIFIED SNOMED Code(s): 370465958 Plan: 1patient with a chronic nonhealing wound to the left heel area and concern for underlying osteomyelitis as the patient did have abnormal x-rays of the left heel concerning for osteolysis suspicious for osteomyelitis 2-patient has been evaluated by vascular surgery and planning for debridement and deep culture which is scheduled for this afternoon 3-patient to continue with vancomycin and Unasyn while waiting for the cultures to be finalized 4-wound care has been consulted for local wound care to continue Dictation was produced using [employer] dictation software. please excuse any grammatical, word or spelling errors. Time with Patient: Less than 30
--- NOTE | 2023-01-18 16:06 | P.PN ---
Subjective Progress Note Date: 01/18/23 Principal diagnosis: Reason for follow-up is left heel also concerning for osteomyelitis Patient is a 72-year-old male with a past medical history significant for atrial fibrillation hyperlipidemia osteoarthritis apparently the patient did have a spinal tumor not amenable to surgical resection and the patient has been mostly handicapped bedbound, patient was brought into the hospital after the EMS who were called in For lift assist, noticed to have worsening wound to the left heel with foul-smelling drainage, the patient is status post debridement of his left heel wound by vascular surgery on 01/17/2023 unfortunately no cultures were done, operative report did not mention wound extending down to the bone On today's evaluation that is 01/18/2023 the patient remains to be afebrile, the patient is breathing comfortably on room air, the patient denies chest pain shortness of breath or cough, no nausea vomiting did have a chronic diarrhea, and no abdominal pain, the patient denies any worsening pain to the left heel Patient did have white count of 8.6, creatinine 0.68, cultures are currently growing staph aureus and gram-negative bacilli Objective - Vital Signs Vital signs: Vital Signs Temp 97.4 F L 01/18/23 07:11 Pulse 68 01/18/23 07:11 Resp 19 01/18/23 07:11 BP 110/62 01/18/23 07:11 Pulse Ox 95 01/18/23 07:11 FiO2 Intake & Output 01/17/23 01/18/23 01/18/23 18:59 06:59 18:59 Intake Total 1000 300 Output Total 255 1900 Balance 745 -1600 Weight 95.254 kg Intake: IV 1000 300 Output: Urine 250 1900 Estimated Blood Loss 5 Other: Voiding Method Indwelling Catheter Indwelling Catheter Indwelling Catheter - Exam GENERAL DESCRIPTION: An elderly male lying in bed in no distress RESPIRATORY SYSTEM: Unlabored breathing , clear to auscultation anteriorly HEART: S1 S2 regular rate and rhythm , ABDOMEN: Soft , no tenderness EXTREMITIES: Left heel wound is covered with a wound VAC - Labs CBC & Chem 7: 01/18/23 07:46 01/18/23 06:34 Labs: Abnormal Lab Results - Last 24 Hours (Table) 01/17/23 01/18/23 01/18/23 Range/Units 20:57 06:34 07:46 RBC 3.41 L 3.66 L (4.30-5.90) m/uL Hgb 8.4 L 9.1 L (13.0-17.5) gm/dL Hct 27.7 L 30.7 L (39.0-53.0) % MCH 24.7 L (25.0-35.0) pg MCHC 30.5 L 29.7 L (31.0-37.0) g/dL Plt Count 594 H 589 H (150-450) k/uL Chloride 108 H (98-107) mmol/L Carbon Dioxide 20 L (22-30) mmol/L Glucose 102 H (74-99) mg/dL Calcium 7.9 L (8.4-10.2) mg/dL Total Protein 5.7 L (6.3-8.2) g/dL Albumin 2.2 L (3.5-5.0) g/dL Microbiology - Last 24 Hours (Table) 01/15/23 11:18 Gram Stain - Preliminary Ankle - Left Wound Culture - Preliminary Presumptive Staph aureus Gram Neg Bacilli 01/15/23 11:18 Gram Stain - Preliminary Buttock Wound Culture - Preliminary 01/15/23 10:14 Blood Culture - Preliminary Blood 01/15/23 10:14 Blood Culture - Preliminary Blood Assessment and Plan (1) Left leg cellulitis Current Visit: Yes Status: Acute Code(s): L03.116 - CELLULITIS OF LEFT LOWER LIMB SNOMED Code(s): 88620154252501291 (2) Unstageable pressure ulcer of left heel Current Visit: Yes Status: Acute Code(s): L89.620 - PRESSURE ULCER OF LEFT HEEL, UNSTAGEABLE SNOMED Code(s): 94822037788416517 Plan: 1patient with a chronic nonhealing wound to the left heel area and concern for underlying osteomyelitis as the patient did have abnormal x-rays of the left heel concerning for osteolysis suspicious for osteomyelitis 2-patient has been evaluated by vascular surgery and patient is status post debridement of left heel wound but no culture were done, the culture done in the ER are growing staph aureus and gram-negative bacilli 3-patient to continue with vancomycin and Unasyn while waiting for the cultures to be finalized and monitor clinical course closely Dictation was produced using [employer] software. please excuse any grammatical, word or spelling errors. Time with Patient: Less than 30
[2023-01-19] MEDS: AMPICILLIN-SULBACTAM 3 GM in SODIUM CHLORIDE 0.9% 100 ML IVPB SCH ×4 (02:36→20:42)
[2023-01-19] MEDS: VANCOMYCIN 1,500 MG in SODIUM CHLORIDE 0.9% 500 ML 500 ML IVPB SCH (03:19)
[2023-01-19] MEDS: PANTOPRAZOLE 40 MG TABLET PO SCH (06:15)
[2023-01-19] MEDS: lisinopriL 10 MG TAB PO SCH (07:57)
[2023-01-19] MEDS: GABAPENTIN 100 MG CAP PO SCH ×2 (07:58→20:42)
[2023-01-19] MEDS: HEPARIN SODIUM,PORCINE 5,000 UNIT/ML 1 ML VIAL SQ SCH ×3 (07:58→22:58)
--- NOTE | 2023-01-19 10:45 | P.PN ---
Subjective Progress Note Date: 01/19/23 Principal diagnosis: Left lower extremity wounds Patient seen and examined today as a follow-up. No acute changes through the night. Wound VAC is in place to left heel. Dressing intact to left lower extremity. Bilateral lower extremity swelling present. Currently on Unasyn. Preliminary wound culture from left ankle with presumptive staph aureus, Proteus Mirabilis. Awaiting further recommendations from infectious disease. Objective - Vital Signs Vital signs: Vital Signs Temp 98.7 F 01/19/23 07:28 Pulse 67 01/19/23 07:28 Resp 21 01/19/23 07:28 BP 107/55 01/19/23 07:28 Pulse Ox 90 L 01/19/23 07:28 FiO2 Intake & Output 01/18/23 01/19/23 01/19/23 18:59 06:59 18:59 Intake Total 800 Output Total 310 1100 Balance -310 -300 Intake: Oral 800 Output: Urine 310 1100 Other: Voiding Method Indwelling Catheter Indwelling Catheter - Exam General appearance: The patient is alert, oriented, appears in no acute distress. HET: Head is normocephalic and atraumatic. Neck: Supple. Abdomen: Soft, nondistended. Extremities: Lower extremity with dressing clean dry and intact, right heel with wound VAC in place with good suction. Neurological: No focal deficits. - Labs CBC & Chem 7: 01/18/23 07:46 01/18/23 06:34 Labs: Microbiology - Last 24 Hours (Table) 01/15/23 11:18 Gram Stain - Preliminary Ankle - Left Wound Culture - Preliminary Presumptive Staph aureus Proteus mirabilis 01/15/23 11:18 Gram Stain - Final Buttock Wound Culture - Final 01/15/23 10:14 Blood Culture - Preliminary Blood 01/15/23 10:14 Blood Culture - Preliminary Blood Assessment and Plan Assessment: 1. Unstageable wound left heel status post excisional debridement with negative pressure wound VAC application 2. Left posterior calf wound status post excisional debridement 3. 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 Severe stasis dermatitis bilateral lower extremities 5. Urinary tract infection present on admission 6. Generalized debilitation Plan: 1. Continue local wound care per recommendations from wound clinic 2. Keep wound VAC in place, change today. Recommend changing Mondays, and Fridays 3. Patient to follow-up with wound clinic on discharge 4. Continue with the recommendations from infectious disease antibiotic therapy 5. Offload pressure left heel, left lower extremity 6. Patient will likely need subacute rehab on discharge. Patient with concerns for financial support as well as transportation. Case management is following patient. Thank you for this consultation, we will sign off at this time The impression and plan of care has been dictated as directed. I performed a history and examination of this patient, discussed the same with the dictator. I agree with the dictator's note ,documented as a scribe. Any additional findings or plans will be noted.
--- NOTE | 2023-01-19 11:19 | P.PN ---
Subjective Progress Note Date: 01/19/23 Hospital course: Patient is a very pleasant 72-year-old male with a past medical history of hyp ertension, severe osteoarthritis resulting in chronic debility resulting in wheelchair bound at baseline, and GERD. He presented to the emergency department on 01/25/23 with reports of failure to thrive at home. He underwent full evaluation in the emergency department. Vital signs completed and r eviewed. Temperature 98.7F, Heart rate 78, respiratory rate 16, blood pressure 93/51, and SpO2 of 97% on room air. Labs completed and reviewed. CBC showing mild leukocytosis with WBC 11.5, normocytic anemia with hemoglobin 8.3, and thrombocytosis with platelet 633. BMP showing Sodium 134, potassium 4.2, creatinine 0.88. Lactate 1.6,. Urinalysis shows moderate leukocyte esterase, positive nitrites, but only 32 WBCs. Foot x-ray shows small focus of ostial lyses of underlying soft tissue ulcer of the heel, unable to exclude early osteomyelitis, diffuse soft tissue swelling, left foot. Patient was admitted for failure to thrive as well as multiple decubitus ulcerations with concerns of early osteomyelitis involving the heel. S/p debridement. Has a wound VAC in place. Remains on IV antibiotics. ID following. Patient to be discharged to subacute rehab with IV antibiotics. Physical exam: Vital signs reviewed and stable. General: Nontoxic, no distress and appears stated age. Derm: Skin warm and dry, normal coloration for ethnicity. Head: Atraumatic, normocephalic and symmetric. Eyes: EOMs intact, no lid lag, and anicteric sclera Mouth: no lip lesions, mucus membranes moist Cardiovascular: regular rate and rhythm with normal S1S2, systolic murmur, positive posterior tibial pulses bilaterally, and cap refill < 2 seconds. Lungs: Respirations even, regular, and unlabored on room air. Lungs CTA bilaterally, no rhonchi, no rales, no wheezing, and no accessory muscle usage. Abdominal: soft, nontender to palpation, no guarding, no appreciable organomegaly Ext: Patient with significant edema in bilateral lower extremities accompanied by venous discoloration and severe scaling of skin consistent with venous stasis dermatitis. Dressing in place left foot with wound VAC Neuro: Speech clear, face symmetrical and CN II-XII grossly intact with no noted focal neuro deficits Psych: Alert and oriented to person, place, time, and situation. Appropriate and pleasant affect. Assessment and Plan of Care: Osteomyelitis of left heel, present on admission Failure to thrive Debility secondary to multiple medical comorbidities resulting in inability to independently perform activities of daily living Stage III decubitus ulcer, present on admission -Vascular surgery note reviewed, keep wound VAC in place, changed Mondays, Wednesdays, Fridays, follow up with wound clinic, offload pressure on left heel, left lower extremity -Patient currently on IV Unasyn 3 g every 6 hours, IV vancomycin, monitor for renal toxicity -Discussed management with ID, needs IV antibiotics at the time of discharge, PICC line was replaced -Blood cultures showing no growth to date -Wound cultures preliminary results showing presumptive staph aureus, Proteus -Pain control with oral Tylenol 650 every 6 hours as needed for mild pain/fever, [place] 5/325 mg tablets every 4 hours as needed for moderate pain, and morphine 4 mg IVP every 4 hours as needed for severe pain., Monitor for respiratory depression Hypertension -Lisinopril 10 mg daily Acute on chronic normocytic anemia Acute on chronic thrombocytosis -Likely secondary to acute illness, continue to monitor, no active bleeding Data imaging reviewed: Wound cultures growing presumptive staph aureus and Proteus Temperature 98.7, pulse 67, respiratory rate 21, blood pressure 107/55, saturating at 90% on room air. CODE STATUS: Full code DVT prophylaxis: Heparin Anticipated discharge date: Clinical course to determine Anticipated discharge place: [facility] Objective - Vital Signs Vital signs: Vital Signs Temp 98.7 F 01/19/23 07:28 Pulse 67 01/19/23 07:28 Resp 21 01/19/23 07:28 BP 107/55 01/19/23 07:28 Pulse Ox 90 L 01/19/23 07:28 FiO2 Intake & Output 01/18/23 01/19/23 01/19/23 18:59 06:59 18:59 Intake Total 800 Output Total 310 1100 Balance -310 -300 Intake: Oral 800 Output: Urine 310 1100 Other: Voiding Method Indwelling Catheter Indwelling Catheter - Labs CBC & Chem 7: 01/18/23 07:46 01/18/23 06:34 Labs: Microbiology - Last 24 Hours (Table) 01/15/23 11:18 Gram Stain - Preliminary Ankle - Left Wound Culture - Preliminary Presumptive Staph aureus Proteus mirabilis 01/15/23 11:18 Gram Stain - Final Buttock Wound Culture - Final 01/15/23 10:14 Blood Culture - Preliminary Blood 01/15/23 10:14 Blood Culture - Preliminary Blood
[2023-01-19] MEDS ORDERED: LIDOCAINE 1% INJ 10MG/ML (20 ML MDV) ONE (12:44)
[2023-01-19] MEDS ORDERED: LIDOCAINE 1% INJ 10MG/ML (5 ML VIAL-PF) SQ ONE (12:59)
--- NOTE | 2023-01-19 13:45 | IR ---
PICC LINE PLACEMENT: HISTORY: Infection requiring long-term antibiotic therapy PROCEDURE: Ultrasound and fluoroscopic guidance of PICC line placement. COMPLICATIONS: None ANESTHESIA: 1. 1% Lidocaine locally. FINDINGS/TECHNIQUE: The procedure was explained to the patient. The risks, complications, benefits and alternatives were discussed and any questions were answered. Informed consent was obtained. The patient was placed supine on the fluoroscopic table and prepped and draped in the usual sterile fash ion. Utilizing a 21 gauge needle and sonographic and fluoroscopic guidance, access in the left basi lic vein was achieved and there is placement of a 0.018 guidewire. The vein is patent. A 4-F sheath was placed over the guidewire. The guidewire and dilator were removed and a 4-F. PICC line was plac ed through the sheath with the tip at the level of the SVC. The sheath was removed, the catheter was flushed and sutured into position. The patient was stable throughout the procedure and remained sta ble upon discharge from the Department of Radiology. The vein puncture was patent under ultrasound. A kingsley scale image was obtained to document patency of the vein punctured. All elements of the maximal barrier technique were utilized. FLUOROSCOPY TIME: DAP 0.0585 Gy cm2 IMPRESSION: Successful PICC line placement under ultrasound and fluoroscopic guidance.
[2023-01-19] MEDS ORDERED: VANCOMYCIN TROUGH DUE 1 EACH MISC MISCELLANE ONE (14:00)
[2023-01-19] MEDS: COLLAGENASE 250 UNIT/GM OINTMENT 30 GM TUBE TOPICAL SCH (16:27)
[2023-01-20] MEDS ORDERED: SODIUM CHLORIDE 0.9% 500 ML 500 ML IV ONE (01:08)
[2023-01-20] MEDS: AMPICILLIN-SULBACTAM 3 GM in SODIUM CHLORIDE 0.9% 100 ML IVPB SCH ×4 (01:48→21:09)
[2023-01-20] MEDS: SODIUM CHLORIDE 0.9% 1,000 ML IV SCH ×4 (01:49→21:10)
[2023-01-20] MEDS: PANTOPRAZOLE 40 MG TABLET PO SCH (06:16)
[2023-01-20] MEDS: HEPARIN SODIUM,PORCINE 5,000 UNIT/ML 1 ML VIAL SQ SCH ×2 (08:12→17:45)
[2023-01-20] MEDS: GABAPENTIN 100 MG CAP PO SCH ×2 (08:12→21:10)
[2023-01-20] MEDS: lisinopriL 10 MG TAB PO SCH (08:12)
[2023-01-20 09:23] LABS: Basophils # (A) 0.03 X 10*3/uL (0.00-0.10); Basophils % (A) 0.4 %; Eosinophils # (A) 0.24 X 10*3/uL (0.04-0.35); Eosinophils % (A) 3.4 %; HGB 8.2 g/dL (13.0-17.0); Lymphocytes # (A) 1.37 X 10*3/uL (0.90-5.00); Lymphocytes % (A) 19.5 %; MCHC 29.3 g/dL (32.0-37.0); MCV 82.1 FL (80.0-97.0); Mean Platelet Volume 8.6 FL (9.5-12.2); Monocytes # (A) 0.47 X 10*3/uL (0.20-1.00); Monocytes % (A) 6.7 %; NRBC Per 100 WBC 0 X 10*3/uL (0.00-0.01); Neutrophils % (A) 69.6 %; Platelet Count 580 X 10*3/uL (140-440); RBC 3.41 X 10*6/uL (4.40-5.60); RDW 15.9 % (11.5-14.5); WBC 7.04 X 10*3/uL (4.50-10.00)
--- NOTE | 2023-01-20 09:49 | P.CRDCN ---
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 We have been asked to evaluate the patient for elevated heart rate. Patient initially presented to the hospital on 01/15 for fall and patient has the treated for left foot ulceration status post debridement with concern for osteomyelitis status post PICC line placement on vancomycin and Unasyn. Patient gives history that he had one episode of atrial fibrillation about 10 years ago when he was being treated for sepsis. He states he was started on sotalol at that time and subsequently taken off, not on anticoagulation. Patient denies any other episodes since then of atrial fibrillation and noted during his hospitalization in May, patient did not have atrial fibrillation. He does give history of recently being at [facility] for anemia workup and he believes an echocardiogram was done at that time. Patient states that he can sometimes feel that his heart is racing. Telemetry as sinus tachycardia in the 120s. EKG 01/17 sinus tachycardia at 109 bpm WBC 7, hemoglobin 8.2, platelet count 580. Sodium 138, potassium 4.5, CO2 20, chloride 108, BUN 10 and creatinine 0.68. Blood sugar 102. Calcium 7.9, magnesium 2. Liver function tests are normal. Home cardiac medications: Lisinopril 10 mg daily Review Of Systems: At the time of my exam: CONSTITUTIONAL: Denies fever or chills. CARDIOVASCULAR: Denies chest pain, Denies shortness of breath, no orthopnea, PND or palpitations. RESPIRATORY: Denies cough. GASTROINTESTINAL: Denies abdominal pain, diarrhea, constipation, nausea or vomiting. MUSCULOSKELETAL: Denies myalgias. NEUROLOGIC: Chronic lower extremity weakness. ENDOCRINE: Denies fatigue, weight change, polydipsia or polyurina. HEMATOLOGIC: + history of anemia. Physical examination: Gen: This is a 72-year-old male resting in bed and appears comfortable. VS: reviewed HEENT: Head is atraumatic, normocephalic. Pupils equal, round. Sclerae is anicteric. NECK: Supple. No JVD. LUNGS: Clear to auscultation. No wheezes or rhonchi. No intercostal retractions. HEART: Regular rate and rhythm. No murmur. ABDOMEN: Soft No tenderness. EXTREMITIES: No pedal edema. No calf tenderness. NEUROLOGICAL: Patient is awake, alert and oriented x3. Assessment: Sinus tachycardia History of one episode of atrial fibrillation 10 years ago Osteomyelitis left heel status post debridement Stage III decubitus ulcer to sacrum Hypertension Chronic anemia Plan: Continue patient's home cardiac medications Add Lopressor 25 mg 3 times daily Obtain records from [facility] from September admission underwent anemia workup including echocardiogram Obtain 2-D echocardiogram and Doppler study to assess cardiac structure and function Further recommendations to follow based upon clinical course Thank you kindly for this consultation. Nurse practitioner note has been reviewed, I agree with documented findings and plan of care. Patient was seen and examined. Past Medical History Past Medical History: Atrial Fibrillation, Hyperlipidemia, Osteoarthritis (OA) Additional Past Medical History / Comment(s): Bulging disks, bilateral knee arthritis, UTI, blood infection History of Any Multi-Drug Resistant Organisms: None Reported Past Surgical History: Orthopedic Surgery, Tonsillectomy Additional Past Surgical History / Comment(s): Knee replacement surgery, tonsills out at 7 yrs old, torn meninscus Past Anesthesia/Blood Transfusion Reactions: No Reported Reaction Past Psychological History: Anxiety Smoking Status: Former smoker Past Alcohol Use History: None Reported Past Drug Use History: None Reported - Past Family History Mother Family Medical History: CVA/TIA, Myocardial Infarction ([place]) Father Family Medical History: Congestive Heart Failure (CHF) Medications and Allergies Home Medications Medication Instructions Recorded Confirmed Type Gabapentin [Neurontin] 100 mg PO BID 01/15/23 01/15/23 History Loperamide HCl [Imodium A-D] 2 - 4 mg PO QID PRN 01/15/23 01/15/23 History Omeprazole 20 mg PO DAILY 01/15/23 01/15/23 History lisinopriL [Zestril] 10 mg PO DAILY 01/15/23 01/15/23 History Allergies Allergy/AdvReac Type Severity Reaction Status Date / Time Kwvbqvj-PAA-[id number] Reductase Allergy Rash/Hives Verified 01/15/23 14:13 Inhibitor [Egefikc-Iao-Bmp Reductase Inhibitor] Physical Exam Vitals: Vital Signs Temp Pulse Resp BP Pulse Ox 01/20/23 07:50 97.8 F 117 H 17 128/76 95 01/20/23 05:32 119 H 121/74 01/20/23 02:34 69 01/20/23 01:00 97.5 F L 127 H 20 95/53 93 L 01/19/23 19:40 97.7 F 120 H 20 97/60 91 L Intake and Output 01/19/23 01/20/23 01/20/23 22:59 06:59 14:59 Intake Total 890 Output Total 550 1700 Balance -550 -810 Intake: Intake, IV Titration 890 Amount Sodium Chloride 0.9% 1, 390 000 ml @ 130 mls/hr IV . Q7H42M [facility] Rx#:[id number] Sodium Chloride 0.9% 500 500 ml 500 ml @ 999 mls/hr IV .Q31M ONE Rx#:[id number] Output: Urine 550 1700 Other: Voiding Method Indwelling Catheter Results 01/20/23 05:37 01/18/23 06:34 Current Medications Generic Name Dose Route Start Last Admin Trade Name Freq PRN Reason Stop Dose Admin Acetaminophen 650 mg 01/15/23 11:54 01/16/23 08:18 Acetaminophen Tab 325 Mg Tab PO 650 mg Q6HR PRN Administration Mild Pain or Fever > 100.5 Hydrocodone Bitart/Acetaminophen 1 each 01/17/23 16:24 01/18/23 20:05 Hydrocodone/Apap 5-325mg 1 Each Tab PO 1 each Q4HR PRN Administration Moderate Pain (Scale 4 to 6) Collagenase 1 applic 01/17/23 12:30 01/19/23 16:27 Collagenase 250 Unit/Gm Ointment 30 Gm Tube TOPICAL 1 applic DAILY SCOTT Administration Protocol Gabapentin 100 mg 01/16/23 09:00 01/20/23 08:12 Gabapentin 100 Mg Cap PO 100 mg BID SCOTT Administration Heparin Sodium (Porcine) 5,000 unit 01/15/23 16:00 01/20/23 08:12 Heparin Sodium,Porcine 5,000 Unit/Ml 1 Ml Vial SQ 5,000 unit Q8HR SCOTT Administration Ampicillin Sodium/Sulbactam 100 mls @ 200 mls/hr 01/17/23 21:00 01/20/23 08:13 Sodium 3 gm/ Sodium Chloride IVPB 200 mls/hr Q6H SCOTT Administration Protocol Sodium Chloride 1,000 mls @ 130 mls/hr 01/20/23 01:15 01/20/23 01:49 Saline 0.9% IV 130 mls/hr .Q7H42M SCOTT Administration Lisinopril 10 mg 01/19/23 09:00 01/20/23 08:12 Lisinopril 10 Mg Tab PO 10 mg DAILY SCOTT Administration Morphine Sulfate 4 mg 01/17/23 16:24 Morphine Sulfate 4 Mg/Ml Syringe IV Q4HR PRN Severe Pain (Scale 7 to 10) Naloxone HCl 0.2 mg 01/15/23 11:54 Naloxone 0.4 Mg/Ml 1 Ml Vial IV Q2M PRN Opioid Reversal Pantoprazole Sodium 40 mg 01/16/23 07:30 01/20/23 06:16 Pantoprazole 40 Mg Tablet PO 40 mg [id number] SCOTT Administration Intake and Output 01/19/23 01/20/23 01/20/23 22:59 06:59 14:59 Intake Total 890 Output Total 550 1700 Balance -550 -810 Intake: Intake, IV Titration 890 Amount Sodium Chloride 0.9% 1, 390 000 ml @ 130 mls/hr IV . Q7H42M [facility] Rx#:[id number] Sodium Chloride 0.9% 500 500 ml 500 ml @ 999 mls/hr IV .Q31M [facility] Rx#:[id number] Output: Urine 550 1700 Other: Voiding Method Indwelling Catheter 01/18/23 07:46 01/18/23 06:34
[2023-01-20 11:20] LABS: BUN/Creat Ratio 11.43 Ratio (12.00-20.00); Calcium 7.3 mg/dL (8.7-10.3); Carbon Dioxide 26.6 mmol/L (21.6-31.8); Chloride 105 mmol/L (96-109); Glucose 95 mg/dL (70-110); Potassium 3.8 mmol/L (3.5-5.5); Sodium 139 mmol/L (135-145)
[2023-01-20] MEDS: METOPROLOL TARTRATE 25 MG TAB PO SCH ×3 (11:27→21:10)
--- NOTE | 2023-01-20 14:53 | P.PN ---
Subjective Progress Note Date: 01/20/23 Hospital course: Patient is a very pleasant 72-year-old male with a past medical history of hypertension, severe osteoarthritis resulting in chronic debility resulting in wheelchair bound at baseline, and GERD. He presented to the emergency department on 01/25/23 with reports of failure to thrive at home. He underwent full evaluation in the emergency department. Vital signs completed and reviewed. Temperature 98.7F, Heart rate 78, respiratory rate 16, blood pressure 93/51, and SpO2 of 97% on room air. Labs completed and reviewed. CBC showing mild leukocytosis with WBC 11.5, normocytic anemia with hemoglobin 8.3, and thrombocytosis with platelet 633. BMP showing Sodium 134, potassium 4.2, creatinine 0.88. Lactate 1.6,. Urinalysis shows moderate leukocyte esterase, positive nitrites, but only 32 WBCs. Foot x-ray shows small focus of ostial lyses of underlying soft tissue ulcer of the heel, unable to exclude early osteomyelitis, diffuse soft tissue swelling, left foot. Patient was admitted for failure to thrive as well as multiple decubitus ulcerations with concerns of early osteomyelitis involving the heel. S/p debridement. Has a wound VAC in place. Remains on IV antibiotics. ID following. Patient to be discharged to subacute rehab with IV antibiotics. Also started having tachycardia. Cardiology was consulted. Physical exam: Vital signs reviewed and stable. General: Nontoxic, no distress and appears stated age. Derm: Skin warm and dry, normal coloration for ethnicity. Head: Atraumatic, normocephalic and symmetric. Eyes: EOMs intact, no lid lag, and anicteric sclera Mouth: no lip lesions, mucus membranes moist Cardiovascular: regular rhythm with normal S1S2, tachycardic, systolic murmur, positive posterior tibial pulses bilaterally, and cap refill < 2 seconds. Lungs: Respirations even, regular, and unlabored on room air. Lungs CTA bilaterally, no rhonchi, no rales, no wheezing, and no accessory muscle usage. Abdominal: soft, nontender to palpation, no guarding, no appreciable organomegaly Ext: Patient with significant edema in bilateral lower extremities accompanied by venous discoloration and severe scaling of skin consistent with venous stasis dermatitis. Dressing in place left foot with wound VAC Neuro: Speech clear, face symmetrical and CN II-XII grossly intact with no noted focal neuro deficits Psych: Alert and oriented to person, place, time, and situation. Appropriate and pleasant affect. Assessment and Plan of Care: Osteomyelitis of left heel, present on admission Failure to thrive Debility secondary to multiple medical comorbidities resulting in inability to independently perform activities of daily living Stage III decubitus ulcer, present on admission -Vascular surgery following keep wound VAC in place, changed Mondays, Wednesdays, Fridays, follow up with wound clinic, offload pressure on left heel, left lower extremity -Discussed management with ID, PICC line in place, on IV Unasyn 3 g every 6 hours, for total 48 -Blood cultures showing no growth to date -Pain control with oral Tylenol 650 every 6 hours as needed for mild pain/fever, [place] 5/325 mg tablets every 4 hours as needed for moderate pain, and morphine 4 mg IVP every 4 hours as needed for severe pain., Monitor for respiratory depression Sinus tachycardia -Cardiology note reviewed, echocardiogram pending -Started on Lopressor 25 mg TID -Also on IV fluids normal saline 130 mL an hour Hypertension, history of -Currently blood pressure has been labile, patient has been hypotensive -I sampled discontinued Acute on chronic normocytic anemia Acute on chronic thrombocytosis -Likely secondary to acute illness, continue to monitor, no active bleeding Data reviewed: Hemoglobin 8.2, WBC 7.04, platelet 580, creatinine 0.7, potassium 3.8 CODE STATUS: Full code DVT prophylaxis: Heparin Anticipated discharge date: Clinical course to determine Anticipated discharge place: [facility] Objective - Vital Signs Vital signs: Vital Signs Temp 97.8 F 01/20/23 07:50 Pulse 117 H 01/20/23 07:50 Resp 17 01/20/23 07:50 BP 128/76 01/20/23 07:50 Pulse Ox 95 01/20/23 07:50 FiO2 Intake & Output 01/19/23 01/20/23 01/20/23 18:59 06:59 18:59 Intake Total 890 118 Output Total 300 1950 Balance -300 -1060 118 Weight 95.254 kg Intake: Intake, IV Titration 890 Amount Sodium Chloride 0.9% 1, 390 000 ml @ 130 mls/hr IV . Q7H42M [facility] Rx#:[id number] Sodium Chloride 0.9% 500 500 ml 500 ml @ 999 mls/hr IV .Q31M [facility] Rx#:[id number] Oral 118 Output: Urine 300 1950 Other: Voiding Method Indwelling Catheter Indwelling Catheter - Labs CBC & Chem 7: 01/20/23 05:37 01/20/23 05:37 Labs: Abnormal Lab Results - Last 24 Hours (Table) 01/20/23 01/20/23 Range/Units 05:37 05:37 RBC 3.41 L (4.40-5.60) X 10*6/uL Hgb 8.2 L (13.0-17.0) g/dL Hct 28.0 L (39.6-50.0) % MCH 24.0 L (27.0-32.0) pg MCHC 29.3 L (32.0-37.0) g/dL RDW 15.9 H (11.5-14.5) % Plt Count 580 H (140-440) X 10*3/uL MPV 8.6 L (9.5-12.2) FL BUN 8.0 L (9.0-27.0) mg/dL BUN/Creatinine Ratio 11.43 L (12.00-20.00) Ratio Calcium 7.3 L (8.7-10.3) mg/dL Microbiology - Last 24 Hours (Table) 01/15/23 11:18 Gram Stain - Preliminary Ankle - Left Wound Culture - Preliminary Staphylococcus aureus Proteus mirabilis
[2023-01-20] MEDS: COLLAGENASE 250 UNIT/GM OINTMENT 30 GM TUBE TOPICAL SCH (16:40)
[2023-01-20] MEDS: HYDROcodone/APAP 5-325MG 1 EACH TAB PO PRN (17:51)
[2023-01-21] MEDS: HEPARIN SODIUM,PORCINE 5,000 UNIT/ML 1 ML VIAL SQ SCH ×3 (00:33→16:36)
[2023-01-21] MEDS: AMPICILLIN-SULBACTAM 3 GM in SODIUM CHLORIDE 0.9% 100 ML IVPB SCH ×3 (04:12→16:35)
[2023-01-21] MEDS: SODIUM CHLORIDE 0.9% 1,000 ML IV SCH (04:16)
[2023-01-21 06:17] LABS: Basophils % (A) 0 %; Eosinophils # (A) 0.2 k/uL (0-0.7); Eosinophils % (A) 3 %; HCT 29.7 % (39.0-53.0); HGB 9.1 gm/dL (13.0-17.5); Hypochromasia Marked; Lymphocytes # (A) 1.5 k/uL (1.0-4.8); Lymphocytes % (A) 26 %; MCH 25.2 pg (25.0-35.0); MCHC 30.6 g/dL (31.0-37.0); MCV 82.2 fL (80.0-100.0); Mean Platelet Volume 6.8; Monocytes # (A) 0.2 k/uL (0-1.0); Monocytes % (A) 4 %; Neutrophils # (A) 3.9 k/uL (1.3-7.7); Neutrophils % (A) 66 %; Platelet Count 544 k/uL (150-450); RBC 3.61 m/uL (4.30-5.90); RDW 15.5 % (11.5-15.5); WBC 5.9 k/uL (3.8-10.6)
[2023-01-21 06:32] LABS: African American GFR (CKD) >90 (>60 ml/min/1.73 sqM); Anion Gap 6 mmol/L; Blood Urea Nitrogen 11 mg/dL (9-20); Calcium 7.7 mg/dL (8.4-10.2); Carbon Dioxide 27 mmol/L (22-30); Chloride 106 mmol/L (98-107); Glucose 86 mg/dL (74-99); Non-African American GFR(CKD) 82 (>60 ml/min/1.73 sqM); Potassium 4.1 mmol/L (3.5-5.1); Sodium 139 mmol/L (137-145)
[2023-01-21] MEDS: PANTOPRAZOLE 40 MG TABLET PO SCH (06:38)
[2023-01-21] MEDS: GABAPENTIN 100 MG CAP PO SCH (07:26)
[2023-01-21] MEDS: METOPROLOL TARTRATE 25 MG TAB PO SCH (07:26)
--- NOTE | 2023-01-21 10:20 | CA ---
Transthoracic Echo Report Name: Zion Bardales Age: 72 Gender: M : 1950 Exam Date: 01/20/2023 14:33 Exam Location: [facility] Ht (in): 69 Wt (lb): 210 Ordering Physician: Flaca Martin Attending/Referring Phys: [id number], Mario Sub Prior Laura Cabral [facility] Procedure CPT: Indications: LVF Cardiac Hx: Technical Quality: Technically difficult study Contrast 1: Definity Total Dose (mL): 3 Contrast 2: Total Dose (mL): MEASUREMENTS (Male / Female) Normal Values 2D ECHO LV Diastolic Diameter PLAX 4.4 cm 4.2 - 5.9 / 3.9 - 5.3 cm LV Systolic Diameter PLAX 3.4 cm IVS Diastolic Thickness 1.2 cm 0.6 - 1.0 / 0.6 - 0.9 cm LVPW Diastolic Thickness 1.1 cm 0.6 - 1.0 / 0.6 - 0.9 cm LV Relative Wall Thickness 0.5 LVOT Diameter 2.1 cm M-MODE Aortic Root Diameter MM 3.7 cm LA Systolic Diameter MM 3.8 cm LA Ao Ratio MM 1.0 AV Cusp Separation MM 1.5 cm DOPPLER AV Peak Velocity 160.6 cm/s AV Peak Gradient 10.3 mmHg AV Mean Velocity 120.8 cm/s AV Mean Gradient 6.2 mmHg AV Velocity Time Integral 36.2 cm LVOT Peak Velocity 86.5 cm/s LVOT Peak Gradient 3.0 mmHg LVOT Velocity Time Integral 21.2 cm LVOT Stroke Volume 73.8 cm??? LVOT Stroke Volume Index 35.0 ml/m??? LVOT Cardiac Index 2436.8 cm???/min???m??? AV Area Cont Eq vti 2.0 cm??? AV Area Cont Eq pk 1.9 cm??? Mitral E Point Velocity 75.4 cm/s Mitral A Point Velocity 57.7 cm/s Mitral E to A Ratio 1.3 MV Deceleration Time 135.1 ms LV E' Lateral Velocity 14.7 cm/s Mitral E to LV E' Lateral Ratio 5.1 LV E' Septal Velocity 11.6 cm/s Mitral E to LV E' Septal Ratio 6.5 TR Peak Velocity 243.4 cm/s TR Peak Gradient 23.7 mmHg Right Atrial Pressure 8.0 mmHg Pulmonary Artery Systolic Pressu 31.7 mmHg Right Ventricular Systolic Press 31.7 mmHg FINDINGS Left Ventricle Mildly increased left ventricular wall thickness. Left ventricular cavity size normal. Mildly reduced global left ventricular systolic function. Left ventricular ejection fraction is estimated at 45-50%. No obvious regional wall motion abnormalities. Right Ventricle Moderate right ventricular dilatation. Mild pulmonary hypertension. Right Atrium Severe right atrial dilatation. RA pressure around 10 mmHg Left Atrium Moderate left atrial dilatation. Mitral Valve Mitral valve thickened. Trace mitral regurgitation. Aortic Valve Aortic valve not well visualized. Thickening of the aortic valve cusps. No aortic regurgitation. Tricuspid Valve Structurally normal tricuspid valve. Mild tricuspid regurgitation. Pulmonic Valve Pulmonic valve not well visualized. Pericardium No pericardial effusion. Aorta Mild aortic dilatation at the level of the sinuses of valsalva (root). Ascending aorta not well visualized. CONCLUSIONS Technically difficult study. Left ventricular ejection fraction is estimated at 45-50%. No obvious regional wall motion abnormalities. Moderate right ventricular dilatation. Mild pulmonary hypertension. Severe right atrial dilatation. Moderate left atrial dilatation. No significant valvular dysfunction No pericardial effusion Dilated IVC which is collapsible with insipration Previewed by: Dr Jesse Chin (Electronically Signed) Final Date: 21 January 2023 10:19
[2023-01-21] MEDS ORDERED: lisinopriL 5 MG TAB PO SCH (10:45)
[2023-01-21] MEDS ORDERED: FUROSEMIDE 20 MG TAB PO SCH (12:00)
--- NOTE | 2023-01-21 12:27 | P.PN ---
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 We have been asked to evaluate the patient for elevated heart rate. Patient initially presented to the hospital on 01/15 for fall and patient has the treated for left foot ulceration status post debridement with concern for osteomyelitis status post PICC line placement on vancomycin and Unasyn. Patient gives history that he had one episode of atrial fibrillation about 10 years ago when he was being treated for sepsis. He states he was started on sotalol at that time and subsequently taken off, not on anticoagulation. Patient denies any other episodes since then of atrial fibrillation and noted during his hospitalization in May, patient did not have atrial fibrillation. He does give history of recently being at [facility] for anemia workup and he believes an echocardiogram was done at that time. Patient states that he can sometimes feel that his heart is racing. Telemetry as sinus tachycardia in the 120s. EKG 01/17 sinus tachycardia at 109 bpm WBC 7, hemoglobin 8.2, platelet count 580. Sodium 138, potassium 4.5, CO2 20, chloride 108, BUN 10 and creatinine 0.68. Blood sugar 102. Calcium 7.9, magnesium 2. Liver function tests are normal. Home cardiac medications: Lisinopril 10 mg daily 01/18 Echocardiogram revealsEF of 45-50%. Technically difficult study. Moderate right ventricular dilatation. Mild pulmonary hypertension. Severe right atrial dilatation. Moderate left atrial dilatation. No sick and valvular dysfunction. Dilated IVC which is collapsible with inspiration. Results reviewed with the patient and recommended follow-up in the clinic but patient states that he is not able to get into a car and transport to an appointment. He has visiting physicians that come to his home.heart rate has been in the 60s to 80s, sinus rhythm, blood pressure 126/70. hemoglobin 9.1. Creatinine 0.92. Physical examination: Gen: This is a 72-year-old male resting in bed and appears comfortable. VS: reviewed HEENT: Head is atraumatic, normocephalic. Pupils equal, round. Sclerae is anicteric. NECK: Supple. No JVD. LUNGS: Clear to auscultation. No wheezes or rhonchi. No intercostal retractions. HEART: Regular rate and rhythm. No murmur. ABDOMEN: Soft No tenderness. EXTREMITIES: No pedal edema. No calf tenderness. NEUROLOGICAL: Patient is awake, alert and oriented x3. Assessment: Sinus tachycardia History of one episode of atrial fibrillation 10 years ago Osteomyelitis left heel status post debridement Stage III decubitus ulcer to sacrum Hypertension Chronic anemia Plan: Continue patient's home cardiac medications Continue Lopressor 25 mg twice daily Patient to follow-up in the clinic if possible to be transported. Cardiology will sign off this case and follow on an as-needed basis. Please reconsult for any new concerns. Patient may follow-up in the office in one to 2 weeks. Nurse practitioner note has been reviewed, I agree with documented findings and plan of care. Patient was seen and examined. Objective - Vital Signs Vital signs: Vital Signs Temp 98.9 F 01/21/23 07:25 Pulse 84 01/21/23 07:25 Resp 19 01/21/23 07:25 BP 126/70 01/21/23 07:25 Pulse Ox 95 01/21/23 07:25 FiO2 Intake & Output 01/20/23 01/21/23 01/21/23 18:59 06:59 18:59 Intake Total 218 Output Total 3000 1300 Balance -2782 -1300 Intake: Oral 218 Output: Urine 3000 1300 - Labs CBC & Chem 7: 01/21/23 05:36 01/21/23 05:36 Labs: Abnormal Lab Results - Last 24 Hours (Table) 01/20/23 01/20/23 01/21/23 Range/Units 05:37 05:37 05:36 RBC 3.41 L 3.61 L (4.40-5.60) X 10*6/uL Hgb 8.2 L 9.1 L (13.0-17.0) g/dL Hct 28.0 L 29.7 L (39.6-50.0) % MCH 24.0 L (27.0-32.0) pg MCHC 29.3 L 30.6 L (32.0-37.0) g/dL RDW 15.9 H (11.5-14.5) % Plt Count 580 H 544 H (140-440) X 10*3/uL MPV 8.6 L (9.5-12.2) FL BUN 8.0 L (9.0-27.0) mg/dL BUN/Creatinine Ratio 11.43 L (12.00-20.00) Ratio Calcium 7.3 L (8.7-10.3) mg/dL 01/21/23 Range/Units 05:36 RBC (4.40-5.60) X 10*6/uL Hgb (13.0-17.0) g/dL Hct (39.6-50.0) % MCH (27.0-32.0) pg MCHC (32.0-37.0) g/dL RDW (11.5-14.5) % Plt Count (140-440) X 10*3/uL MPV (9.5-12.2) FL BUN (9.0-27.0) mg/dL BUN/Creatinine Ratio (12.00-20.00) Ratio Calcium 7.7 L (8.7-10.3) mg/dL Microbiology - Last 24 Hours (Table) 01/15/23 11:18 Gram Stain - Final Ankle - Left Wound Culture - Final Staphylococcus aureus Proteus mirabilis Gram Neg Bacilli 01/15/23 10:14 Blood Culture - Final Blood 01/15/23 10:14 Blood Culture - Final Blood
--- NOTE | 2023-01-21 13:04 | P.DS ---
Providers Date of admission: 01/15/23 11:54 Expected date of discharge: 01/21/23 Attending physician: Mitesh Mendoza MD Consults: 01/15/23 14:45 Consult Physician Routine Consulting Provider: Evelin Jean Baptiste Consult Reason/Comments: Left foot osteo? Do you want consulting provider notified?: Yes 01/20/23 05:48 Consult Physician Routine Consulting Provider: Nash Rodriguez Consult Reason/Comments: elevated heart rate Do you want consulting provider notified?: Yes, Notify in am Primary care physician: Skyler Valero MD Hospital Course: Discharge Diagnosis: Osteomyelitis of left heel, present on admission Failure to thrive Debility secondary to multiple medical comorbidities resulting in inability to independently perform activities of daily living Stage III decubitus ulcer, present on admission Sinus tachycardia Hypertension Acute on chronic normocytic anemia Acute on chronic thrombocytosis Hospital Course: Patient is a very pleasant 72-year-old male with a past medical history of hypertension, severe osteoarthritis resulting in chronic debility resulting in wheelchair bound at baseline, and GERD. He presented to the emergency department on 01/25/23 with reports of failure to thrive at home. He underwent full evaluation in the emergency department. Vital signs completed and reviewed. Temperature 98.7F, Heart rate 78, respiratory rate 16, blood pressure 93/51, and SpO2 of 97% on room air. Labs completed and reviewed. CBC showing mild leukocytosis with WBC 11.5, normocytic anemia with hemoglobin 8.3, and thrombocytosis with platelet 633. BMP showing Sodium 134, potassium 4.2, creatinine 0.88. Lactate 1.6,. Urinalysis shows moderate leukocyte esterase, positive nitrites, but only 32 WBCs. Foot x-ray shows small focus of ostial lyses of underlying soft tissue ulcer of the heel, unable to exclude early osteomyelitis, diffuse soft tissue swelling, left foot. Patient was admitted for failure to thrive as well as multiple decubitus ulcerations with concerns of early osteomyelitis involving the heel. S/p debridement. Has a wound VAC in place. Remains on IV antibiotics. ID following. Also started having tachycardia. Cardiology was consulted. Slightly reduced LVEF at 45-50%, moderate right ventricular dilatation, moderate left atrial dilatation, mild pulmonary hypertension. Lisinopril will be started. Patient also on metoprolol. Patient to be discharged to subacute rehab with IV antibiotics. Patient seen and examined at bedside. Vital signs reviewed and stable. General: Nontoxic, no distress and appears stated age. Derm: Skin warm and dry, normal coloration for ethnicity. Head: Atraumatic, normocephalic and symmetric. Eyes: EOMs intact, no lid lag, and anicteric sclera Mouth: no lip lesions, mucus membranes moist Cardiovascular: regular rhythm with normal S1S2, systolic murmur, positive posterior tibial pulses bilaterally, and cap refill < 2 seconds. Lungs: Respirations even, regular, and unlabored on room air. Lungs CTA bilaterally, no rhonchi, no rales, no wheezing, and no accessory muscle usage. Abdominal: soft, nontender to palpation, no guarding, no appreciable organomegaly Ext: Patient with significant edema in bilateral lower extremities accompanied by venous discoloration and severe scaling of skin consistent with venous stasis dermatitis. Dressing in place left foot with wound VAC Neuro: Speech clear, face symmetrical and CN II-XII grossly intact with no noted focal neuro deficits Psych: Alert and oriented to person, place, time, and situation. Appropriate and pleasant affect. A total of 33 minutes of time were spent preparing this complex discharge summary. Patient was discharged on 01/21/23 at 1300. Patient Condition at Discharge: Stable Plan - Discharge Summary Discharge Rx Participant: No New Discharge Prescriptions: New Ampicillin-Sulbactam [Unasyn 3 gm vial] 3 gm IVPB Q6HR 40 Days each Metoprolol Tartrate [Lopressor] 25 mg PO BID tab Collagenase [Santyl Ointment] 1 applic TOPICAL DAILY each Acetaminophen Tab [Tylenol] 650 mg PO Q6HR PRN tab PRN Reason: Mild Pain Or Fever > 100.5 lisinopriL [Zestril] 5 mg PO DAILY tab Furosemide [Lasix] 20 mg PO DAILY tab Continue Omeprazole 20 mg PO DAILY Gabapentin [Neurontin] 100 mg PO BID Discontinued lisinopriL [Zestril] 10 mg PO DAILY Loperamide HCl [Imodium A-D] 2 - 4 mg PO QID PRN PRN Reason: Diarrhea Discharge Medication List Gabapentin [Neurontin] 100 mg PO BID 01/15/23 [History] Omeprazole 20 mg PO DAILY 01/15/23 [History] Ampicillin-Sulbactam [Unasyn 3 gm vial] 3 gm IVPB Q6HR 40 Days each 01/20/23 [Rx] Acetaminophen Tab [Tylenol] 650 mg PO Q6HR PRN tab 01/21/23 [Rx] Collagenase [Santyl Ointment] 1 applic TOPICAL DAILY each 01/21/23 [Rx] Furosemide [Lasix] 20 mg PO DAILY tab 01/21/23 [Rx] Metoprolol Tartrate [Lopressor] 25 mg PO BID tab 01/21/23 [Rx] lisinopriL [Zestril] 5 mg PO DAILY tab 01/21/23 [Rx] Follow up Appointment(s)/Referral(s): Jesse Chin MD [Medical Doctor] - 2 Weeks Marylu,Skyler Ashraf MD [Primary Care Provider] - 1-2 days Ross Jones DO [Doctor of Osteopathic Medicine] - 3 Weeks [facility] [NON-STAFF] - 1 Week Evelin Jean Baptiste MD [STAFF PHYSICIAN] - 2 Weeks Ambulatory/Diagnostic Orders: Basic Metabolic Panel [LAB.AMB] Location: None Selected C Reactive Protein [LAB.AMB] Location: None Selected Complete Blood Count w/diff [LAB.AMB] Location: None Selected Erythrocyte Sedimentation Rate [LAB.AMB] Location: None Selected Activity/Diet/Wound Care/Special Instructions: Activity as tolerated Continue wound VAC, change Fridays to left heel. Follow-up with wound care clinic in 1 week. Use black granulofoam. Settings: 125 mmHG medium continuous suction. Right lower leg dressing change per recommendations from wound care which states apply Santyl, saline moistened gauze, dry gauze, rolled gauze and secure paper tape daily Discharge Disposition: TRANSFER TO SNF/ECF
[2023-01-21 13:58] VITALS: BP 122/68; PULSE 86; RESP 20; TEMP 98.7
--- NOTE | 2023-01-21 16:09 | P.PN ---
Subjective Progress Note Date: 01/19/23 Principal diagnosis: Reason for follow-up is left heel also concerning for osteomyelitis Patient is a 72-year-old male with a past medical history significant for atrial fibrillation hyperlipidemia osteoarthritis apparently the patient did have a spinal tumor not amenable to surgical resection and the patient has been mostly handicapped bedbound, patient was brought into the hospital after the EMS who were called in For lift assist, noticed to have worsening wound to the left heel with foul-smelling drainage, the patient is status post debridement of his left heel wound by vascular surgery on 01/17/2023 unfortunately no cultures were done, operative report did not mention wound extending down to the bone On today's evaluation that is 01/19/2023 the patient continues to be afebrile, the patient is breathing comfortably on room air without need for oxygen, the patient denies having any chest pain or cough and no sputum production, patient denies nausea vomiting or any diarrhea, and no abdominal pain the patient denies any worsening pain to the left heel Patient did have white count of 7.04, creatinine 0.7, cultures are currently growing staph aureus and Proteus Objective - Vital Signs Vital signs: Vital Signs Temp 98.7 F 01/19/23 07:28 Pulse 67 01/19/23 07:28 Resp 21 01/19/23 07:28 BP 107/55 01/19/23 07:28 Pulse Ox 90 L 01/19/23 07:28 FiO2 Intake & Output 01/18/23 01/19/23 01/19/23 18:59 06:59 18:59 Intake Total 800 Output Total 310 1100 Balance -310 -300 Intake: Oral 800 Output: Urine 310 1100 Other: Voiding Method Indwelling Catheter Indwelling Catheter - Exam GENERAL DESCRIPTION: An elderly male lying in bed in no distress RESPIRATORY SYSTEM: Unlabored breathing , clear to auscultation anteriorly HEART: S1 S2 regular rate and rhythm , ABDOMEN: Soft , no tenderness EXTREMITIES: Left heel wound is covered with a wound VAC - Labs CBC & Chem 7: 01/21/23 05:36 01/21/23 05:36 Labs: Microbiology - Last 24 Hours (Table) 01/15/23 11:18 Gram Stain - Preliminary Ankle - Left Wound Culture - Preliminary Presumptive Staph aureus Proteus mirabilis 01/15/23 11:18 Gram Stain - Final Buttock Wound Culture - Final 01/15/23 10:14 Blood Culture - Preliminary Blood 01/15/23 10:14 Blood Culture - Preliminary Blood Assessment and Plan (1) Left leg cellulitis Current Visit: Yes Status: Acute Code(s): L03.116 - CELLULITIS OF LEFT LOWER LIMB SNOMED Code(s): 59331171132489656 (2) Unstageable pressure ulcer of left heel Current Visit: Yes Status: Acute Code(s): L89.620 - PRESSURE ULCER OF LEFT HEEL, UNSTAGEABLE SNOMED Code(s): 64232582359274355 Plan: 1patient with a chronic nonhealing wound to the left heel area and concern for underlying osteomyelitis as the patient did have abnormal x-rays of the left heel concerning for osteolysis suspicious for osteomyelitis 2-patient has been evaluated by vascular surgery and patient is status post debridement of left heel wound but no culture were done, the culture done in the ER are growing staph aureus and gram-negative bacilli 3-patient to continue with Unasyn , we will discontinue the vancomycin patient will need a PICC line for outpatient IV antibiotic therapy Dictation was produced using [employer] dictation software. please excuse any grammatical, word or spelling errors. Time with Patient: Less than 30
--- NOTE | 2023-01-21 16:10 | P.PN ---
Subjective Progress Note Date: 01/20/23 Principal diagnosis: Reason for follow-up is left heel also concerning for osteomyelitis Patient is a 72-year-old male with a past medical history significant for atrial fibrillation hyperlipidemia osteoarthritis apparently the patient did have a spinal tumor not amenable to surgical resection and the patient has been mostly handicapped bedbound, patient was brought into the hospital after the EMS who were called in For lift assist, noticed to have worsening wound to the left heel with foul-smelling drainage, the patient is status post debridement of his left heel wound by vascular surgery on 01/17/2023 unfortunately no cultures were done, operative report did not mention wound extending down to the bone On today's evaluation that is 01/20/2023, the patient denies any fever or any chills, the patient is breathing comfortably on room air, patient denies chest pain shortness of breath, or cough, patient denies Abdominal pain and denies any nausea/vomiting or diarrhea , the patient pain to the left heel is currently controlled Patient did have white count of 7.04, creatinine is 0.7, cultures are currently growing staph aureus and Proteus Objective - Vital Signs Vital signs: Vital Signs Temp 97.8 F 01/20/23 07:50 Pulse 117 H 01/20/23 07:50 Resp 17 01/20/23 07:50 BP 128/76 01/20/23 07:50 Pulse Ox 95 01/20/23 07:50 FiO2 Intake & Output 01/19/23 01/20/23 01/20/23 18:59 06:59 18:59 Intake Total 890 118 Output Total 300 1950 Balance -300 -1060 118 Weight 95.254 kg Intake: Intake, IV Titration 890 Amount Sodium Chloride 0.9% 1, 390 000 ml @ 130 mls/hr IV . Q7H42M [facility] Rx#:[id number] Sodium Chloride 0.9% 500 500 ml 500 ml @ 999 mls/hr IV .Q31M [facility] Rx#:[id number] Oral 118 Output: Urine 300 1950 Other: Voiding Method Indwelling Catheter Indwelling Catheter - Exam GENERAL DESCRIPTION: An elderly male lying in bed in no distress RESPIRATORY SYSTEM: Unlabored breathing , clear to auscultation anteriorly HEART: S1 S2 regular rate and rhythm , ABDOMEN: Soft , no tenderness EXTREMITIES: Left heel wound is covered with a wound VAC - Labs CBC & Chem 7: 12/15/23 05:36 01/21/23 05:36 Labs: Abnormal Lab Results - Last 24 Hours (Table) 01/20/23 01/20/23 Range/Units 05:37 05:37 RBC 3.41 L (4.40-5.60) X 10*6/uL Hgb 8.2 L (13.0-17.0) g/dL Hct 28.0 L (39.6-50.0) % MCH 24.0 L (27.0-32.0) pg MCHC 29.3 L (32.0-37.0) g/dL RDW 15.9 H (11.5-14.5) % Plt Count 580 H (140-440) X 10*3/uL MPV 8.6 L (9.5-12.2) FL BUN 8.0 L (9.0-27.0) mg/dL BUN/Creatinine Ratio 11.43 L (12.00-20.00) Ratio Calcium 7.3 L (8.7-10.3) mg/dL Microbiology - Last 24 Hours (Table) 01/15/23 11:18 Gram Stain - Preliminary Ankle - Left Wound Culture - Preliminary Staphylococcus aureus Proteus mirabilis Assessment and Plan (1) Left leg cellulitis Current Visit: Yes Status: Acute Code(s): L03.116 - CELLULITIS OF LEFT LOWER LIMB SNOMED Code(s): 39524767237159809 (2) Unstageable pressure ulcer of left heel Current Visit: Yes Status: Acute Code(s): L89.620 - PRESSURE ULCER OF LEFT HEEL, UNSTAGEABLE SNOMED Code(s): 46660436772119773 Plan: 1patient with a chronic nonhealing wound to the left heel area and concern for underlying osteomyelitis as the patient did have abnormal x-rays of the left heel concerning for osteolysis suspicious for osteomyelitis 2-patient has been evaluated by vascular surgery and patient is status post debridement of left heel wound but no culture were done, the culture done in the ER are growing staph aureus and gram-negative bacilli 3-patient to continue with Unasyn, patient did get a PICC line, plan is for 6 weeks course of IV Unasyn on discharged , this was discussed with the admitting team Dictation was produced using dragon dictation software. please excuse any grammatical, word or spelling errors. Time with Patient: Less than 30
--- NOTE | 2023-01-21 16:11 | P.PN ---
Subjective Progress Note Date: 01/21/23 Principal diagnosis: Reason for follow-up is left heel also concerning for osteomyelitis Patient is a 72-year-old male with a past medical history significant for atrial fibrillation hyperlipidemia osteoarthritis apparently the patient did have a spinal tumor not amenable to surgical resection and the patient has been mostly handicapped bedbound, patient was brought into the hospital after the EMS who were called in For lift assist, noticed to have worsening wound to the left heel with foul-smelling drainage, the patient is status post debridement of his left heel wound by vascular surgery on 01/17/2023 unfortunately no cultures were done, operative report did not mention wound extending down to the bone On today's evaluation that is 01/21/2023, the patient remains to be afebrile, the patient is breathing comfortably on room air denies any chest pain shortness of breath or cough no nausea vomiting no worsening diarrhea and denies pain to the left heel no problem with the wound VAC reported. Patient did have white count of 5.9, creatinine 0.92 Objective - Vital Signs Vital signs: Vital Signs Temp 98.9 F 01/21/23 07:25 Pulse 84 01/21/23 07:25 Resp 19 01/21/23 07:25 BP 126/70 01/21/23 07:25 Pulse Ox 95 01/21/23 07:25 FiO2 Intake & Output 01/20/23 01/21/23 01/21/23 18:59 06:59 18:59 Intake Total 218 Output Total 3000 1300 Balance -2782 -1300 Intake: Oral 218 Output: Urine 3000 1300 - Exam GENERAL DESCRIPTION: An elderly male lying in bed in no distress RESPIRATORY SYSTEM: Unlabored breathing , clear to auscultation anteriorly HEART: S1 S2 regular rate and rhythm , ABDOMEN: Soft , no tenderness EXTREMITIES: Left heel wound is covered with a wound VAC - Labs CBC & Chem 7: 01/21/23 05:36 01/21/23 05:36 Labs: Abnormal Lab Results - Last 24 Hours (Table) 01/20/23 01/21/23 01/21/23 Range/Units 05:37 05:36 05:36 RBC 3.61 L (4.30-5.90) m/uL Hgb 9.1 L (13.0-17.5) gm/dL Hct 29.7 L (39.0-53.0) % MCHC 30.6 L (31.0-37.0) g/dL Plt Count 544 H (150-450) k/uL BUN 8.0 L (9.0-27.0) mg/dL BUN/Creatinine Ratio 11.43 L (12.00-20.00) Ratio Calcium 7.3 L 7.7 L (8.7-10.3) mg/dL Microbiology - Last 24 Hours (Table) 01/15/23 11:18 Gram Stain - Final Ankle - Left Wound Culture - Final Staphylococcus aureus Proteus mirabilis Gram Neg Bacilli 01/15/23 10:14 Blood Culture - Final Blood 01/15/23 10:14 Blood Culture - Final Blood Assessment and Plan (1) Left leg cellulitis Current Visit: Yes Status: Acute Code(s): L03.116 - CELLULITIS OF LEFT LOWER LIMB SNOMED Code(s): 02687469365530743 (2) Unstageable pressure ulcer of left heel Current Visit: Yes Status: Acute Code(s): L89.620 - PRESSURE ULCER OF LEFT HEEL, UNSTAGEABLE SNOMED Code(s): 38827684041411346 Plan: 1patient with a chronic nonhealing wound to the left heel area and concern for underlying osteomyelitis as the patient did have abnormal x-rays of the left heel concerning for osteolysis suspicious for osteomyelitis 2-patient has been evaluated by vascular surgery and patient is status post debridement of left heel wound but no culture were done, the culture done in the ER are growing staph aureus and gram-negative bacilli 3patient seem to have shown clinical improvement as for his left heel wound is concerned culture did grew MSSA Proteus Mirabella's bottles, sensitive to Unasyn we will keep the patient on Unasyn 3 g every 6 hours for 6 weeks along with weekly monitoring of CRP and sed rate and close outpatient follow-up Dictation was produced using [employer] dictation software. please excuse any grammatical, word or spelling errors. Time with Patient: Less than 30
[2023-01-21] MEDS ORDERED: METOPROLOL TARTRATE 25 MG TAB PO SCH (21:00)
== END 2023-01-21 17:21 | DRG 463 ==
LOC: EC 08:51 → 5NMEDONC 11:54 → 4SSUR 01-16 16:10
PROVIDERS: ADMIT Student in an Organized Health Care Education/Training Program; ATTEND Student in an Organized Health Care Education/Training Program
PROC: 0JBN0ZZ Excision of Right Lower Leg Subcutaneous Tissue and Fascia, Open Approach (ICD-10-PCS; 2023-01-19)
PROC: 2W1SX6Z Compression of Right Foot using Pressure Dressing (ICD-10-PCS; 2023-01-19)
PROC: 02HV33Z Insertion of Infusion Device into Superior Vena Cava, Percutaneous Approach (ICD-10-PCS; 2023-01-19)
PROC: B5181ZA Fluoroscopy of Superior Vena Cava using Low Osmolar Contrast, Guidance (ICD-10-PCS; 2023-01-19)
PROC: B548ZZA Ultrasonography of Superior Vena Cava, Guidance (ICD-10-PCS; 2023-01-19)
PROC: 0JBQ0ZZ Excision of Right Foot Subcutaneous Tissue and Fascia, Open Approach (ICD-10-PCS; principal; 2023-01-19 15:50)
DX: M86.8X7 Other osteomyelitis, ankle and foot (principal); L89.153 Pressure ulcer of sacral region, stage 3; L03.116 Cellulitis of left lower limb; L97.222 Non-pressure chronic ulcer of left calf with fat layer exposed; I48.91 Unspecified atrial fibrillation; L89.620 Pressure ulcer of left heel, unstageable; B96.4 Proteus (mirabilis) (morganii) as the cause of diseases classified elsewhere; B95.61 Methicillin susceptible Staphylococcus aureus infection as the cause of diseases classified elsewhere; R62.7 Adult failure to thrive; M17.0 Bilateral primary osteoarthritis of knee; Z87.440 Personal history of urinary (tract) infections; W07.XXXA Fall from chair, initial encounter; Z79.2 Long term (current) use of antibiotics; Z79.899 Other long term (current) drug therapy; Z87.891 Personal history of nicotine dependence; Z99.3 Dependence on wheelchair; Z82.49 Family history of ischemic heart disease and other diseases of the circulatory system; Z96.651 Presence of right artificial knee joint; M24.561 Contracture, right knee; L97.529 Non-pressure chronic ulcer of other part of left foot with unspecified severity; I87.2 Venous insufficiency (chronic) (peripheral); I27.20 Pulmonary hypertension, unspecified; I10 Essential (primary) hypertension; F41.9 Anxiety disorder, unspecified; E78.5 Hyperlipidemia, unspecified; R00.0 Tachycardia, unspecified; I08.1 Rheumatic disorders of both mitral and tricuspid valves; R53.81 Other malaise; D75.839 Thrombocytosis, unspecified
CPT/HCPCS: 36415; 36573; 51702; 80048; 80053; 80202; 81001; 82565; 83605; 83735; 85025; 85027; 85652; 86140; 87040; 87070; 87077; 87186; 87205; 93005; 93306; 93923; 96365; 96366; 96367; 96372; 99285

== ENCOUNTER 2023-05-06 11:05 | Inpatient (IN) | payer MEDICARE ==
--- NOTE | 2023-05-06 11:48 | ED ---
General Adult HPI - General Chief complaint: Weakness Stated complaint: Weakness Time Seen by Provider: 05/06/23 11:06 Source: patient, EMS, RN notes reviewed Mode of arrival: EMS Limitations: no limitations - History of Present Illness Initial comments: Patient is a pleasant 72-year-old male present to the emergency department with weakness. Patient was discharged from the care home a week ago secondary to his insurance running out for coverage for that. Patient has been having diarrhea multiple times daily. Patient feels more weak. Patient slid out of his chair and was unable to get up. Patient does not normally walk from a chronic spine problem. - Related Data Home Medications Medication Instructions Recorded Confirmed Omeprazole 20 mg PO DAILY 01/15/23 05/06/23 Acetaminophen Tab [Tylenol] 650 mg PO Q6HR PRN 05/06/23 05/06/23 Apixaban [Eliquis] 2.5 mg PO BID 05/06/23 05/06/23 Folic Acid 0.8 mg PO DAILY 05/06/23 05/06/23 Gabapentin [Neurontin] 200 mg PO TID 05/06/23 05/06/23 Loperamide [Imodium] 2 mg PO Q6H PRN 05/06/23 05/06/23 Previous Rx's Medication Instructions Recorded Furosemide [Lasix] 20 mg PO DAILY tab 01/21/23 Allergies Allergy/AdvReac Type Severity Reaction Status Date / Time Uotcguz-NZO-ChA Reductase Allergy Rash/Hives Verified 05/06/23 12:21 Inhibitor [Kdcmexi-Jis-Oll Reductase Inhibitor] Review of Systems ROS Statement: Those systems with pertinent positive or pertinent negative responses have been documented in the HPI. ROS Other: All systems not noted in ROS Statement are negative. Constitutional: Denies: fever Eyes: Denies: eye pain ENT: Denies: ear pain Respiratory: Denies: cough Skin: Reports: other (Ulcers) Neurological: Reports: as per HPI, weakness Past Medical History Past Medical History: Atrial Fibrillation, Hyperlipidemia, Osteoarthritis (OA) Additional Past Medical History / Comment(s): Bulging disks, bilateral knee arthritis, UTI, blood infection History of Any Multi-Drug Resistant Organisms: None Reported Past Surgical History: Orthopedic Surgery, Tonsillectomy Additional Past Surgical History / Comment(s): Knee replacement surgery, tonsills out at 7 yrs old, torn meninscus Past Anesthesia/Blood Transfusion Reactions: No Reported Reaction Past Psychological History: Anxiety Smoking Status: Former smoker Past Alcohol Use History: None Reported Past Drug Use History: None Reported - Past Family History Mother Family Medical History: CVA/TIA, Myocardial Infarction ([place]) Father Family Medical History: Congestive Heart Failure (CHF) General Exam Limitations: no limitations General appearance: alert, in no apparent distress Head exam: Present: normocephalic Eye exam: Present: normal appearance Neck exam: Present: normal inspection Respiratory exam: Present: normal lung sounds bilaterally Cardiovascular Exam: Present: regular rate, normal rhythm GI/Abdominal exam: Present: soft. Absent: tenderness Extremities exam: Present: other (Left posterior ankle and lower calf with erythema and stage II/III ulcer) Back exam: Present: other (Large stage IV sacral ulcer contaminated with stool) Neurological exam: Present: alert Psychiatric exam: Present: normal affect, normal mood Skin exam: Present: other (Sacral and left lower leg ulcers) Course Vital Signs 05/06/23 05/06/23 11:35 13:16 Temperature 97.3 F L Pulse Rate 74 71 Respiratory 18 16 Rate Blood Pressure 95/83 113/74 O2 Sat by Pulse 99 100 Oximetry EKG Findings - EKG Results: EKG: interpreted by ERMD (Occasional supraventricular complexes. Left axis.), sinus rhythm, normal QRS, normal ST/T Medical Decision Making - Medical Decision Making Was pt. sent in by a medical professional or institution (Dr. PA, LAW REPORTER, urgent care, hospital, or care home...) When possible be specific @ -No Did you speak to anyone other than the patient for history (EMS, parent, family, police, friend...)? What history was obtained from this source @ -EMS helps provide history including transport Did you review nursing and triage notes (agree or disagree)? Why? @ -I reviewed and agree with nursing and triage notes Were old charts reviewed (outside hosp., previous admission, EMS record, old EKG, old radiological studies, urgent care reports/EKG's, care home records)? Report findings @ -Previous labs reviewed Differential Diagnosis (chest pain, altered mental status, abdominal pain women, abdominal pain men, vaginal bleeding, weakness, fever, dyspnea, syncope, headache, dizziness, GI bleed, back pain, seizure, CVA, palpatations, mental health, musculoskeletal)? @ -Differential Weakness: Hypoglycemia, shock, sepsis, hyponatremia, anemia, infection, [place], ETOH, adverse medicine reaction, overdose, stroke, this is not meant to be an all-inclusive list. EKG interpreted by me (3pts min.). @ -As above X-rays interpreted by me (1pt min.). @ -None done CT interpreted by me (1pt min.). @ -None done U/S interpreted by me (1pt. min.). @ -None done What testing was considered but not performed or refused? (CT, X-rays, U/S, labs)? Why? @ -None What meds were considered but not given or refused? Why? @ -None Did you discuss the management of the patient with other professionals (professionals i.e. , PA, LAW REPORTER, lab, RT, psych nurse, social media marketing analyst, logging contractor, teacher, chief data officer, family independence case manager)? Give summary @ -Case discussed with Dr. Marmolejo will admit covering Dr. Elkins Was smoking cessation discussed for >3mins.? @ -No Was critical care preformed (if so, how long)? @ -No Were there social determinants of health that impacted care today? How? (Homelessness, low income, unemployed, alcoholism, drug addiction, transportation, low edu. Level, literacy, decrease access to med. care, penitentiary, rehab)? @ -No Was there de-escalation of care discussed even if they declined (Discuss DNR or withdrawal of care, Hospice)? DNR status @ -No What co-morbidities impacted this encounter? (DM, HTN, Smoking, COPD, CAD, Cancer, CVA, ARF, Chemo, Hep., AIDS, mental health diagnosis, sleep apnea, morbid obesity)? @ -Chronic leg weakness Was patient admitted / discharged? Hospital course, mention meds given and route, prescriptions, significant lab abnormalities, going to OR and other pertinent info. @ -Patient reevaluated and updated. Patient presents with weakness and has acute kidney injury with significant ulcers. Patient will be admitted with IV antibiotics. Blood culture and lactic acid ordered also. Patient does have UTI as well. Undiagnosed new problem with uncertain prognosis? @ -No Drug Therapy requiring intensive monitoring for toxicity (Heparin, Nitro, Insulin, Cardizem)? @ -No Were any procedures done? @ -No Diagnosis/symptom? @ -Acute kidney injury, weakness, UTI Acute, or Chronic, or Acute on Chronic? @ -Acute, acute, acute Uncomplicated (without systemic symptoms) or Complicated (systemic symptoms)? @ -Default Side effects of treatment? @ -No Exacerbation, Progression, or Severe Exacerbation? @ -No Poses a threat to life or bodily function? How? (Chest pain, [place], [place], pneumonia, PE, COPD, DKA, ARF, appy, cholecystitis, CVA, Diverticulitis, Homicidal, Suicidal, threat to staff... and all critical care pts) @ -No - Lab Data Result diagrams: 05/06/23 11:46 05/06/23 11:46 Lab Results 05/06/23 05/06/23 05/06/23 Range/Units 11:46 11:46 11:46 WBC 15.9 H (3.8-10.6) k/uL RBC 4.14 L (4.30-5.90) m/uL Hgb 10.2 L (13.0-17.5) gm/dL Hct 33.1 L (39.0-53.0) % MCV 79.9 L (80.0-100.0) fL MCH 24.6 L (25.0-35.0) pg MCHC 30.7 L (31.0-37.0) g/dL RDW 14.9 (11.5-15.5) % Plt Count 583 H (150-450) k/uL MPV 7.3 Neutrophils % 87 % Lymphocytes % 9 % Monocytes % 3 % Eosinophils % 0 % Basophils % 0 % Neutrophils # 13.8 H (1.3-7.7) k/uL Lymphocytes # 1.4 (1.0-4.8) k/uL Monocytes # 0.5 (0-1.0) k/uL Eosinophils # 0.0 (0-0.7) k/uL Basophils # 0.0 (0-0.2) k/uL Hypochromasia Slight PT 11.8 (10.0-12.5) sec INR 1.1 (<1.2) APTT 27.3 (22.0-30.0) sec Sodium (137-145) mmol/L Potassium (3.5-5.1) mmol/L Chloride (98-107) mmol/L Carbon Dioxide (22-30) mmol/L Anion Gap mmol/L BUN (9-20) mg/dL Creatinine (0.66-1.25) mg/dL Est GFR (CKD-EPI)AfAm (>60 ml/min/1.73 sqM) Est GFR (CKD-EPI)NonAf (>60 ml/min/1.73 sqM) Glucose (74-99) mg/dL Plasma Lactic Acid Robbin (0.7-2.0) mmol/L Calcium (8.4-10.2) mg/dL Magnesium (1.6-2.3) mg/dL Total Bilirubin (0.2-1.3) mg/dL AST (17-59) U/L ALT (4-49) U/L Alkaline Phosphatase (38-126) U/L Troponin I (0.000-0.034) ng/mL Total Protein (6.3-8.2) g/dL Albumin (3.5-5.0) g/dL TSH (0.465-4.680) mIU/L Urine Color Dark Brown Urine Appearance Turbid (Clear) Urine pH 5.5 (5.0-8.0) Ur Specific [place] 1.015 (1.001-1.035) Urine Protein 2+ H (Negative) Urine Glucose (UA) Negative (Negative) Urine Ketones Negative (Negative) Urine Blood Small H (Negative) Urine Nitrite Negative (Negative) Urine Bilirubin Negative (Negative) Urine Urobilinogen <2.0 (<2.0) mg/dL Ur Leukocyte Esterase Large H (Negative) Urine RBC >182 H (0-5) /hpf Urine WBC >182 H (0-5) /hpf Urine WBC Clumps Many H (None) /hpf Urine Bacteria Many H (None) /hpf 05/06/23 05/06/23 05/06/23 Range/Units 11:46 11:46 11:46 WBC (3.8-10.6) k/uL RBC (4.30-5.90) m/uL Hgb (13.0-17.5) gm/dL Hct (39.0-53.0) % MCV (80.0-100.0) fL MCH (25.0-35.0) pg MCHC (31.0-37.0) g/dL RDW (11.5-15.5) % Plt Count (150-450) k/uL MPV Neutrophils % % Lymphocytes % % Monocytes % % Eosinophils % % Basophils % % Neutrophils # (1.3-7.7) k/uL Lymphocytes # (1.0-4.8) k/uL Monocytes # (0-1.0) k/uL Eosinophils # (0-0.7) k/uL Basophils # (0-0.2) k/uL Hypochromasia PT (10.0-12.5) sec INR (<1.2) APTT (22.0-30.0) sec Sodium 133 L (137-145) mmol/L Potassium 4.1 (3.5-5.1) mmol/L Chloride 95 L (98-107) mmol/L Carbon Dioxide 21 L (22-30) mmol/L Anion Gap 17 mmol/L BUN 74 H (9-20) mg/dL Creatinine 5.41 H (0.66-1.25) mg/dL Est GFR (CKD-EPI)AfAm 11 (>60 ml/min/1.73 sqM) Est GFR (CKD-EPI)NonAf 10 (>60 ml/min/1.73 sqM) Glucose 112 H (74-99) mg/dL Plasma Lactic Acid Robbin 2.1 H* (0.7-2.0) mmol/L Calcium 8.5 (8.4-10.2) mg/dL Magnesium 2.3 (1.6-2.3) mg/dL Total Bilirubin 0.9 (0.2-1.3) mg/dL AST 37 (17-59) U/L ALT 31 (4-49) U/L Alkaline Phosphatase 110 (38-126) U/L Troponin I <0.012 (0.000-0.034) ng/mL Total Protein 7.3 (6.3-8.2) g/dL Albumin 3.1 L (3.5-5.0) g/dL TSH 2.040 (0.465-4.680) mIU/L Urine Color Urine Appearance (Clear) Urine pH (5.0-8.0) Ur Specific [place] (1.001-1.035) Urine Protein (Negative) Urine Glucose (UA) (Negative) Urine Ketones (Negative) Urine Blood (Negative) Urine Nitrite (Negative) Urine Bilirubin (Negative) Urine Urobilinogen (<2.0) mg/dL Ur Leukocyte Esterase (Negative) Urine RBC (0-5) /hpf Urine WBC (0-5) /hpf Urine WBC Clumps (None) /hpf Urine Bacteria (None) /hpf Disposition Clinical Impression: Acute kidney injury, Urinary tract infection, Weakness Disposition: ADMITTED IP TO THIS HOSP Condition: Serious Is patient prescribed a controlled substance at d/c from ED?: No Referrals: Skyler Valero MD [Primary Care Provider] - 1-2 days Time of Disposition: 13:38
[2023-05-06] MEDS: SODIUM CHLORIDE 0.9% 1,000 ML IV STA ×2 (12:00→13:44)
[2023-05-06 12:07] LABS: Basophils % (A) 0 %; Eosinophils % (A) 0 %; HCT 33.1 % (39.0-53.0); HGB 10.2 gm/dL (13.0-17.5); Hypochromasia Slight; Lymphocytes # (A) 1.4 k/uL (1.0-4.8); Lymphocytes % (A) 9 %; MCH 24.6 pg (25.0-35.0); MCHC 30.7 g/dL (31.0-37.0); MCV 79.9 fL (80.0-100.0); Mean Platelet Volume 7.3; Monocytes # (A) 0.5 k/uL (0-1.0); Monocytes % (A) 3 %; Neutrophils # (A) 13.8 k/uL (1.3-7.7); Neutrophils % (A) 87 %; Platelet Count 583 k/uL (150-450); RBC 4.14 m/uL (4.30-5.90); RDW 14.9 % (11.5-15.5); WBC 15.9 k/uL (3.8-10.6)
[2023-05-06 12:13] LABS: Appearance,Urine Turbid (Clear); Bacteria,Urine Many /hpf; Bilirubin,Urine Negative (Negative); Blood,Urine Small (Negative); Color,Urine Dark Brown; Glucose,Urine (UA) Negative (Negative); Ketones,Urine Negative (Negative); Leukocyte Esterase,Urine Large (Negative); Nitrite,Urine Negative (Negative); PH, Urine 5.5 (5.0-8.0); Protein,Urine 2+ (Negative); RBC,Urine >182 /hpf (0-5); Urobilinogen,Urine <2.0 mg/dL (<2.0); WBC,Urine >182 /hpf (0-5)
[2023-05-06 12:17] LABS: Specific Gravity,Urine 1.015 (1.001-1.035)
[2023-05-06 12:21] LABS: ALT 31 U/L (4-49); AST 37 U/L (17-59); African American GFR (CKD) 11 (>60 ml/min/1.73 sqM); Albumin 3.1 g/dL (3.5-5.0); Alkaline Phosphatase 110 U/L (38-126); Anion Gap 17 mmol/L; Blood Urea Nitrogen 74 mg/dL (9-20); Calcium 8.5 mg/dL (8.4-10.2); Carbon Dioxide 21 mmol/L (22-30); Chloride 95 mmol/L (98-107); Glucose 112 mg/dL (74-99); Magnesium 2.3 mg/dL (1.6-2.3); Non-African American GFR(CKD) 10 (>60 ml/min/1.73 sqM); Potassium 4.1 mmol/L (3.5-5.1); Sodium 133 mmol/L (137-145); Total Bilirubin 0.9 mg/dL (0.2-1.3); Total Protein 7.3 g/dL (6.3-8.2)
--- NOTE | 2023-05-06 12:24 | XR ---
EXAMINATION TYPE: XR chest 1V portable DATE OF EXAM: 05/06/2023 COMPARISON: 05/25/2022 INDICATION: TECHNIQUE: Single frontal view of the chest is obtained. FINDINGS: The heart size is normal. The pulmonary vasculature is normal. The lungs are clear. IMPRESSION: 1. No acute pulmonary process.
[2023-05-06 12:34] LABS: INR 1.1 (<1.2); Partial Thromboplastin Time 27.3 sec (22.0-30.0); Prothrombin Time 11.8 sec (10.0-12.5)
[2023-05-06] MEDS ORDERED: VANCOMYCIN IV PER PHARMACY 1 EACH MISC MISCELLANE PRN (13:25)
[2023-05-06] MEDS ORDERED: NALOXONE 0.4 MG/ML 1 ML VIAL IV PRN (13:39)
[2023-05-06] MEDS ORDERED: ACETAMINOPHEN TAB 325 MG TAB PO PRN (13:39)
[2023-05-06] MEDS: SODIUM CHLORIDE 0.9% 1,000 ML IV SCH (13:46)
[2023-05-06] MEDS: VANCOMYCIN 1,250 MG in SODIUM CHLORIDE 0.9% 250 ML IVPB STA (14:29)
[2023-05-06] MEDS ORDERED: LOPERAMIDE 2 MG CAP PO PRN (15:12)
[2023-05-06] MEDS ORDERED: CALCIUM CARBONATE 500 MG CHEWABLE PO PRN (15:31)
[2023-05-06] MEDS ORDERED: LORazepam 0.5 MG TAB PO PRN (15:31)
[2023-05-06] MEDS ORDERED: LACTULOSE 20 GM/30 ML CUP PO PRN (15:31)
--- NOTE | 2023-05-06 15:33 | P.HPIM ---
History of Present Illness H&P Date: 05/06/23 Chief Complaint: Weakness This is a 72-year-old patient follows with visiting physicians Dr. Valero. 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 For which she saw a few years ago Dr. Leo. At [facility]. He was told that removing the tumor could be more dangerous than leaving it alone. Patient was very recently discharged from [facility]. Patient has sacral decubitus wound. Also wounds on the lower extremity. Back in January he was here at lower extremity wound care followed vascular team of Dr. Ye. Patient's brother lives at home with him. Patient nonambulatory. Decreased appetite. Presents with worsening wound to sacral decubitus, also wound on the left calf. Patient is constipated. Denies any fever and chills. Weakness. Has had intermittent diarrhea. Review of systems: GEN.: Tired, decreased appetite EYES: None HEENT: None NECK: None RESPIRATORY: None CARDIOVASCULAR: None GASTROINTESTINAL: Constipation GENITOURINARY: None MUSCULOSKELETAL: Joint pains muscles as above LYMPHATICS: None HEMATOLOGICAL: None PSYCHIATRY: None NEUROLOGICAL: Paraparesis Social history: No smoking or alcohol. Brother is in and out of the house. Physical examination: VITAL SIGNS: 97.3, 71, 16, 1 one 3 x 74, 100% room air GENERAL: BMI 24.8, laying in bed awake tired EYES: Pupils equal. Conjunctiva normal. HEENT: External appearance of nose and ears normal, oral cavity grossly normal. NECK: JVD not raised; masses not palpable. HEART: First and second heart sounds are normal; no edema. LUNGS: Respiratory rate normal; clear to auscultation. ABDOMEN: Soft, nontender, liver spleen not palpable, no masses palpable, redness in the groin area. PSYCH: Alert and oriented x3; mood and affect normal. MUSCULOSKELETAL:No Clubbing/cyanosis;muscles-grossly intact. DERMATOLOGICAL: Chronic venous stasis changes in lower extremity, with some cru sting . Unstageable wounds on the sacrum/buttocks NEUROLOGICAL: Cranial nerves grossly intact; no facial asymmetry, weakness lower extremity, power 1/ 5.. INVESTIGATIONS, reviewed in the clinical context: May 06, 2023: White count 15.9 hemoglobin 10.2 platelets of 83 sodium 133 potassium 4.1 BUN 74 creatinine 5.41 lactic acid 2.1 Troponin I less than 0.012 C. difficile negative EKG tracing personally reviewed by me-normal sinus rhythm. Chest x-ray film personally reviewed by me-unremarkable Assessment and plan: -Worsening infected, acute on chronic Unstageable pressure ulcer left buttock, right buttocks, stage I pressure ulcer lower back. Consult vascular surgery Dr. Ye's team. To home the patient is known. General surgery. IV vancomycin, IV Trexan -Acute on chronic medical debility. Patient just discharged from [facility] about a week ago. 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 Currently sinus rhythm. Eliquis -Full code Cussed with patient. Consult Tatian to vascular, ID, wound care team. Past Medical History Past Medical History: Atrial Fibrillation, Hyperlipidemia, Osteoarthritis (OA) Additional Past Medical History / Comment(s): Bulging disks, bilateral knee arthritis, UTI, blood infection History of Any Multi-Drug Resistant Organisms: None Reported Past Surgical History: Orthopedic Surgery, Tonsillectomy Additional Past Surgical History / Comment(s): Knee replacement surgery, tonsills out at 7 yrs old, torn meninscus Past Anesthesia/Blood Transfusion Reactions: No Reported Reaction Past Psychological History: Anxiety Smoking Status: Former smoker Past Alcohol Use History: None Reported Past Drug Use History: None Reported - Past Family History Mother Family Medical History: CVA/TIA, Myocardial Infarction ([place]) Father Family Medical History: Congestive Heart Failure (CHF) Medications and Allergies Home Medications Medication Instructions Recorded Confirmed Type Omeprazole 20 mg PO DAILY 01/15/23 05/06/23 History Furosemide [Lasix] 20 mg PO DAILY tab 01/21/23 05/06/23 Rx Acetaminophen Tab [Tylenol] 650 mg PO Q6HR PRN 05/06/23 05/06/23 History Apixaban [Eliquis] 2.5 mg PO BID 05/06/23 05/06/23 History Folic Acid 0.8 mg PO DAILY 05/06/23 05/06/23 History Gabapentin [Neurontin] 200 mg PO TID 05/06/23 05/06/23 History Loperamide [Imodium] 2 mg PO Q6H PRN 05/06/23 05/06/23 History Allergies Allergy/AdvReac Type Severity Reaction Status Date / Time Otofvqz-YRR-QdN Reductase Allergy Rash/Hives Verified 05/06/23 12:21 Inhibitor [Ckofeqd-Xwr-Dtb Reductase Inhibitor] Physical Exam Vitals: Vital Signs Temp Pulse Resp BP Pulse Ox 05/06/23 13:16 71 16 113/74 100 05/06/23 11:35 97.3 F L 74 18 95/83 99 Intake and Output 05/06/23 05/06/23 05/06/23 06:59 14:59 22:59 Other: Weight 76.204 kg Results CBC & Chem 7: 05/06/23 11:46 05/06/23 11:46 Labs: Abnormal Lab Results - Last 24 Hours (Table) 05/06/23 05/06/23 05/06/23 Range/Units 11:46 11:46 11:46 WBC 15.9 H (3.8-10.6) k/uL RBC 4.14 L (4.30-5.90) m/uL Hgb 10.2 L (13.0-17.5) gm/dL Hct 33.1 L (39.0-53.0) % MCV 79.9 L (80.0-100.0) fL MCH 24.6 L (25.0-35.0) pg MCHC 30.7 L (31.0-37.0) g/dL Plt Count 583 H (150-450) k/uL Neutrophils # 13.8 H (1.3-7.7) k/uL Sodium 133 L (137-145) mmol/L Chloride 95 L (98-107) mmol/L Carbon Dioxide 21 L (22-30) mmol/L BUN 74 H (9-20) mg/dL Creatinine 5.41 H (0.66-1.25) mg/dL Glucose 112 H (74-99) mg/dL Plasma Lactic Acid Robbin (0.7-2.0) mmol/L Albumin 3.1 L (3.5-5.0) g/dL Urine Protein 2+ H (Negative) Urine Blood Small H (Negative) Ur Leukocyte Esterase Large H (Negative) Urine RBC >182 H (0-5) /hpf Urine WBC >182 H (0-5) /hpf Urine WBC Clumps Many H (None) /hpf Urine Bacteria Many H (None) /hpf 05/06/23 Range/Units 11:46 WBC (3.8-10.6) k/uL RBC (4.30-5.90) m/uL Hgb (13.0-17.5) gm/dL Hct (39.0-53.0) % MCV (80.0-100.0) fL MCH (25.0-35.0) pg MCHC (31.0-37.0) g/dL Plt Count (150-450) k/uL Neutrophils # (1.3-7.7) k/uL Sodium (137-145) mmol/L Chloride (98-107) mmol/L Carbon Dioxide (22-30) mmol/L BUN (9-20) mg/dL Creatinine (0.66-1.25) mg/dL Glucose (74-99) mg/dL Plasma Lactic Acid Robbin 2.1 H* (0.7-2.0) mmol/L Albumin (3.5-5.0) g/dL Urine Protein (Negative) Urine Blood (Negative) Ur Leukocyte Esterase (Negative) Urine RBC (0-5) /hpf Urine WBC (0-5) /hpf Urine WBC Clumps (None) /hpf Urine Bacteria (None) /hpf
[2023-05-06] MEDS: GABAPENTIN 100 MG CAP PO SCH (18:54)
[2023-05-06] MEDS: PSYLLIUM HUSK 100% 6 GM PACKET PO SCH (18:54)
--- NOTE | 2023-05-06 23:47 | P.CONS ---
History of Present Illness - Reason for Consult Consult date: 05/06/23 Sacral and leg ulcer Requesting physician: Elver Abrams - Chief Complaint Weakness and nonhealing ulcer x days - History of Present Illness Patient is a 72-year-old male with a past medical history significant atrial fibrillation hyperlipidemia osteoarthritis patient was brought into the hospital for evaluation generalized weakness apparently patient was complaining of having diarrhea but he was too weak to get out of the chair and apparently has been lying in 1 position and subsequently has been brought back to the hospital for further evaluation patient on presentation to the hospital was afebrile patient was not tachycardic hypotensive or hypoxic he did have white count of 15.9 BUN and creatinine has been elevated lactic acid is elevated liver enzymes are normal urine has been positive stool for C. difficile negative patient did have a chest x-ray no acute pulmonary process patient was started on Rocephin and vancomycin infectious disease was consulted for further management of antibiotic therapy patient at this time has been complaining of mostly weakness patient denies having any headache or URI symptoms no chest pain shortness of breath or cough patient did have some discoloration to the sacral area as well as to the left leg mostly from pressure complaining of some dull aching pain to the area but no foul-smelling drainage patient did have a urine traction Ye catheter was placed and did have significant amount of purulent urine in the drainage catheter Review of Systems Positive point and negatives has been mentioned in the HPI, complete review of systems was performed and all other systems are negative Past Medical History Past Medical History: Atrial Fibrillation, Hyperlipidemia, Osteoarthritis (OA) Additional Past Medical History / Comment(s): Bulging disks, bilateral knee arthritis, UTI, blood infection History of Any Multi-Drug Resistant Organisms: None Reported Past Surgical History: Orthopedic Surgery, Tonsillectomy Additional Past Surgical History / Comment(s): Knee replacement surgery, tonsills out at 7 yrs old, torn meninscus Past Anesthesia/Blood Transfusion Reactions: No Reported Reaction Past Psychological History: Anxiety Smoking Status: Former smoker Past Alcohol Use History: None Reported Past Drug Use History: None Reported - Past Family History Mother Family Medical History: CVA/TIA, Myocardial Infarction ([place]) Father Family Medical History: Congestive Heart Failure (CHF) Medications and Allergies Home Medications Medication Instructions Recorded Confirmed Type Omeprazole 20 mg PO DAILY 01/15/23 05/06/23 History Acetaminophen Tab [Tylenol] 650 mg PO Q6HR PRN 05/06/23 05/06/23 History Apixaban [Eliquis] 2.5 mg PO BID 05/06/23 05/06/23 History Folic Acid 0.8 mg PO DAILY 05/06/23 05/06/23 History Gabapentin [Neurontin] 200 mg PO TID 05/06/23 05/06/23 History Loperamide [Imodium] 2 mg PO Q6H PRN 05/06/23 05/06/23 History Sennosides-Docusate Sodium 1 each PO BID #60 tab 05/19/23 Rx [Senokot-S] Tamsulosin [Flomax] 0.4 mg PO PC-BRKFST #30 cap 05/19/23 Rx cefTRIAXone [Rocephin] 2,000 mg IVP Q24HR #40 each 05/19/23 Rx metroNIDAZOLE [Flagyl] 500 mg PO TID #90 tab 05/19/23 Rx Allergies Allergy/AdvReac Type Severity Reaction Status Date / Time Hswycnx-NKD-FjI Reductase Allergy Rash/Hives Verified 05/16/23 12:32 Inhibitor [Sgztwsx-Nmx-Siy Reductase Inhibitor] Physical Exam Vitals: Vital Signs Temp Pulse Resp BP Pulse Ox 05/06/23 13:16 71 16 113/74 100 05/06/23 11:35 97.3 F L 74 18 95/83 99 Intake and Output 05/05/23 05/06/23 05/06/23 22:59 06:59 14:59 Other: Weight 76.204 kg GENERAL DESCRIPTION: Elderly male lying in bed, no distress. No tachypnea or accessory muscle of respiration use. HEENT: Shows Pallor , no scleral icterus. Oral mucous membrane is dry. No pharyngeal erythema or thrush NECK: Trachea central, no thyromegaly. LUNGS: Unlabored breathing. Clear to auscultation anteriorly. No wheeze or crackle. HEART: S1, S2, regular rate and rhythm. No loud murmur ABDOMEN: Soft, no tenderness , guarding or rigidity, no organomegaly EXTREMITIES: Lower extremity also minimal soft tissue redness minimal swelling SKIN: Did have a large sacral ulcer with slough tissue no surrounding redness no foul-smelling drainage NEUROLOGICAL: The patient is awake, alert, mood and affect normal. Results CBC & Chem 7: 05/16/23 06:00 05/22/23 06:15 Labs: Abnormal Lab Results - Last 24 Hours (Table) 05/06/23 05/06/23 05/06/23 Range/Units 11:46 11:46 11:46 WBC 15.9 H (3.8-10.6) k/uL RBC 4.14 L (4.30-5.90) m/uL Hgb 10.2 L (13.0-17.5) gm/dL Hct 33.1 L (39.0-53.0) % MCV 79.9 L (80.0-100.0) fL MCH 24.6 L (25.0-35.0) pg MCHC 30.7 L (31.0-37.0) g/dL Plt Count 583 H (150-450) k/uL Neutrophils # 13.8 H (1.3-7.7) k/uL Sodium 133 L (137-145) mmol/L Chloride 95 L (98-107) mmol/L Carbon Dioxide 21 L (22-30) mmol/L BUN 74 H (9-20) mg/dL Creatinine 5.41 H (0.66-1.25) mg/dL Glucose 112 H (74-99) mg/dL Plasma Lactic Acid Robbin (0.7-2.0) mmol/L Albumin 3.1 L (3.5-5.0) g/dL Urine Protein 2+ H (Negative) Urine Blood Small H (Negative) Ur Leukocyte Esterase Large H (Negative) Urine RBC >182 H (0-5) /hpf Urine WBC >182 H (0-5) /hpf Urine WBC Clumps Many H (None) /hpf Urine Bacteria Many H (None) /hpf 05/06/23 Range/Units 11:46 WBC (3.8-10.6) k/uL RBC (4.30-5.90) m/uL Hgb (13.0-17.5) gm/dL Hct (39.0-53.0) % MCV (80.0-100.0) fL MCH (25.0-35.0) pg MCHC (31.0-37.0) g/dL Plt Count (150-450) k/uL Neutrophils # (1.3-7.7) k/uL Sodium (137-145) mmol/L Chloride (98-107) mmol/L Carbon Dioxide (22-30) mmol/L BUN (9-20) mg/dL Creatinine (0.66-1.25) mg/dL Glucose (74-99) mg/dL Plasma Lactic Acid Robbin 2.1 H* (0.7-2.0) mmol/L Albumin (3.5-5.0) g/dL Urine Protein (Negative) Urine Blood (Negative) Ur Leukocyte Esterase (Negative) Urine RBC (0-5) /hpf Urine WBC (0-5) /hpf Urine WBC Clumps (None) /hpf Urine Bacteria (None) /hpf Assessment and Plan (1) Decubitus ulcer, stage III Status: Acute Code(s): L89.93 - PRESSURE ULCER OF UNSPECIFIED SITE, STAGE 3 SNOMED Code(s): 3134240808 (2) Leukocytosis Status: Acute Code(s): D72.829 - ELEVATED WHITE BLOOD CELL COUNT, UNSPECIFIED SNOMED Code(s): 140317663 (3) Osteomyelitis, unspecified Status: Acute Code(s): M86.9 - OSTEOMYELITIS, UNSPECIFIED SNOMED Code(s): 18576984 (4) Stage III pressure ulcer of sacral region Status: Acute Code(s): L89.153 - PRESSURE ULCER OF SACRAL REGION, STAGE 3 SNOMED Code(s): 07957021964093 Plan: 1patient presented hospital with weakness which is likely multifactorial in this patient who did have evidence of dehydration with significant elevated BUN and creatinine and the patient also noticed to have a UTI likely from enteric gram-negative pathogen, patient did have a wound to the sacral area stage II pressure ulcer and wound to the left lower leg however does wound does not look infected 2-patient did have renal insufficiency high risk of nephrotoxicity from vancomycin 3-patient to continue Rocephin 2 g daily while waiting for the culture to finalize however discontinue vancomycin 4-local wound care to the left lower extremity wound with a dry Aquacel silver dressing and skin protective cream to the sacral wound area keep the area of the pressure We will follow on clinical condition and cultures to further adjust medication if needed Thank you for this consultation we will follow the patient along with you Dictation was produced using [employer] dictation software. please excuse any grammatical, word or spelling errors. Time with Patient: Greater than 30
[2023-05-07 07:52] LABS: African American GFR (CKD) 29 (>60 ml/min/1.73 sqM); Anion Gap 10 mmol/L; Blood Urea Nitrogen 60 mg/dL (9-20); Calcium 7.8 mg/dL (8.4-10.2); Carbon Dioxide 20 mmol/L (22-30); Chloride 105 mmol/L (98-107); Glucose 93 mg/dL (74-99); Non-African American GFR(CKD) 25 (>60 ml/min/1.73 sqM); Potassium 2.9 mmol/L (3.5-5.1); Sodium 135 mmol/L (137-145)
[2023-05-07] MEDS ORDERED: VANCOMYCIN 1,250 MG in SODIUM CHLORIDE 0.9% 250 ML IVPB ONE (09:00)
[2023-05-07] MEDS: FOLIC ACID 1 MG TAB PO SCH (09:06)
[2023-05-07] MEDS: PANTOPRAZOLE 40 MG TABLET PO SCH (09:06)
[2023-05-07 09:23] LABS: Basophils # (A) 0.04 X 10*3/uL (0.00-0.10); Basophils % (A) 0.4 %; Eosinophils # (A) 0.13 X 10*3/uL (0.04-0.35); Eosinophils % (A) 1.4 %; HCT 26.3 % (39.6-50.0); HGB 8.1 g/dL (13.0-17.0); Lymphocytes # (A) 1.26 X 10*3/uL (0.90-5.00); Lymphocytes % (A) 13.7 %; MCH 23.9 pg (27.0-32.0); MCHC 30.8 g/dL (32.0-37.0); MCV 77.6 FL (80.0-97.0); Mean Platelet Volume 9.6 FL (9.5-12.2); Monocytes # (A) 0.61 X 10*3/uL (0.20-1.00); Monocytes % (A) 6.6 %; NRBC Per 100 WBC 0 X 10*3/uL (0.00-0.01); Neutrophils # (A) 7.14 X 10*3/uL (1.80-7.70); Neutrophils % (A) 77.6 %; Platelet Count 474 X 10*3/uL (140-440); RBC 3.39 X 10*6/uL (4.40-5.60); RDW 15.8 % (11.5-14.5); WBC 9.21 X 10*3/uL (4.50-10.00)
--- NOTE | 2023-05-07 09:31 | P.PN ---
Progress Note - Text Progress Note Date: 05/07/23 Chief Complaint: Weakness This is a 72-year-old patient follows with visiting physicians Dr. Valero. 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 For which she saw a few years ago Dr. Leo. At [facility]. He was told that removing the tumor could be more dangerous than leaving it alone. Patient was very recently discharged from [facility]. Patient has sacral decubitus wound. Also wounds on the lower extremity. Back in January he was here at lower extremity wound care followed vascular team of Dr. Ye. Patient's brother lives at home with him. Patient nonambulatory. Decreased appetite. Presents with worsening wound to sacral decubitus, also wound on the left calf. Patient is constipated. Denies any fever and chills. Weakness. Has had intermittent diarrhea. May 06: Reclining bed. No pain in the legs. Pending vascular input. IV ceftriaxone. IV fluids. Had a bowel movement. Active Medications Acetaminophen (Acetaminophen Tab 325 Mg Tab) 650 mg PO Q6HR PRN PRN Reason: Mild Pain or Fever > 100.5 Calcium Carbonate/Glycine (Calcium Carbonate 500 Mg Chewable) 1,000 mg PO Q4HR PRN PRN Reason: Dyspepsia Folic Acid (Folic Acid 1 Mg Tab) 1 mg PO DAILY [facility] Last Admin: 05/07/23 09:06 Dose: 1 mg Gabapentin (Gabapentin 100 Mg Cap) 200 mg PO TID [facility] Last Admin: 05/07/23 09:06 Dose: 200 mg Ceftriaxone Sodium 2 gm/ (Sodium Chloride) 50 mls @ 100 mls/hr IVPB Q24HR [facility]; Protocol Last Admin: 05/07/23 09:06 Dose: 100 mls/hr Sodium Chloride (Saline 0.9%) 1,000 mls @ 130 mls/hr IV .Q7H42M [facility] Last Admin: 05/07/23 09:08 Dose: 130 mls/hr Lactulose (Lactulose 20 Gm/30 Ml Cup) 20 gm PO DAILY PRN PRN Reason: Constipation Loperamide HCl (Loperamide 2 Mg Cap) 2 mg PO Q6H PRN PRN Reason: Diarrhea Lorazepam (Lorazepam 0.5 Mg Tab) 0.5 mg PO Q6HR PRN PRN Reason: Anxiety Morphine Sulfate (Morphine Sulfate 4 Mg/Ml Syringe) 4 mg IV Q4HR PRN PRN Reason: Severe Pain (Scale 7 to 10) Naloxone HCl (Naloxone 0.4 Mg/Ml 1 Ml Vial) 0.2 mg IV Q2M PRN PRN Reason: Opioid Reversal Ondansetron HCl (Ondansetron 4 Mg/2 Ml Vial) 4 mg IVP Q8HR PRN PRN Reason: Nausea And Vomiting Pantoprazole Sodium (Pantoprazole 40 Mg Tablet) 40 mg PO AC-BRKFST [facility] Last Admin: 05/07/23 09:06 Dose: 40 mg Psyllium Hydrophilic Mucilloid (Psyllium Husk 100% 6 Gm Packet) 6 gm PO DAILY [facility] Last Admin: 05/07/23 09:07 Dose: Not Given Tramadol HCl (Tramadol 50 Mg Tab) 50 mg PO Q6H PRN PRN Reason: Moderate Pain (Scale 4 to 6) Social history: No smoking or alcohol. Brother is in and out of the house. Physical examination: VITAL SIGNS: 97.9, 75, 18, 91/48, 96% room air GENERAL: Lying in bed, comfortable EYES: Pupils equal. Conjunctiva normal. HEENT: External appearance of nose and ears normal, oral cavity grossly normal. NECK: JVD not raised; masses not palpable. HEART: First and second heart sounds are normal; no edema. LUNGS: Respiratory rate normal; clear to auscultation. ABDOMEN: Soft, nontender, liver spleen not palpable, no masses palpable, redness in the groin area. PSYCH: Alert and oriented x3; mood and affect normal. MUSCULOSKELETAL:No Clubbing/cyanosis;muscles-grossly intact. DERMATOLOGICAL: Chronic venous stasis changes in lower extremity, with some crusting . Unstageable wounds on the sacrum/buttocks NEUROLOGICAL: Cranial nerves grossly intact; no facial asymmetry, weakness lower extremity, power 1/ 5.. INVESTIGATIONS, reviewed in the clinical context: May 06: White count 9.1 hemoglobin 8.1 platelets 434 potassium 2.9 BUN 60 creatinine 2.46 May 06, 2023: White count 15.9 hemoglobin 10.2 platelets of 83 sodium 133 potassium 4.1 BUN 74 creatinine 5.41 lactic acid 2.1 Troponin I less than 0.012 C. difficile negative EKG tracing personally reviewed by me-normal sinus rhythm. Chest x-ray film personally reviewed by me-unremarkable Assessment and plan: -Worsening infected, acute on chronic Unstageable pressure ulcer left buttock, right buttocks, stage I pressure ulcer lower back. Consult vascular surgery Dr. Ye's team. To home the patient is known. General surgery. IV vancomycin, IV ceftriaxone -Acute kidney injury likely combination of ATN and prerenal: Slow to respond Creatinine 5.4 on admission -Acute on chronic medical debility. Patient just discharged from [facility] about a week ago. 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 Currently sinus rhythm. Eliquis -Full code Continue IV fluids. Await other input from consultants. Cutbacks Neurontin to 200 mg nightly Past Medical History Past Medical History: Atrial Fibrillation, Hyperlipidemia, Osteoarthritis (OA) Additional Past Medical History / Comment(s): Bulging disks, bilateral knee arthritis, UTI, blood infection History of Any Multi-Drug Resistant Organisms: None Reported Past Surgical History: Orthopedic Surgery, Tonsillectomy Additional Past Surgical History / Comment(s): Knee replacement surgery, tonsills out at 7 yrs old, torn meninscus Past Anesthesia/Blood Transfusion Reactions: No Reported Reaction Past Psychological History: Anxiety Smoking Status: Former smoker Past Alcohol Use History: None Reported Past Drug Use History: None Reported
[2023-05-07] MEDS: POTASSIUM CHLORIDE ER 20 MEQ TAB.ER PO STA (11:44)
--- NOTE | 2023-05-07 13:00 | P.GSCN ---
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 He was recently seen in the hospital for lower extremity wounds, heel wound and sacral ulcers and had lower extremity debridement and wound vac at that time. He states the heel wound has healed and he is still getting local wound care for the posterior leg wound which is improving. He presents with worsening wound to sacral decubitus and diarrhea. Denies any fever and chills. Review of Systems All systems: negative (what is mentioned in the PMH or HPI) Past Medical History Past Medical History: Atrial Fibrillation, Hyperlipidemia, Osteoarthritis (OA) Additional Past Medical History / Comment(s): Bulging disks, bilateral knee arthritis, UTI, blood infection History of Any Multi-Drug Resistant Organisms: None Reported Past Surgical History: Orthopedic Surgery, Tonsillectomy Additional Past Surgical History / Comment(s): Knee replacement surgery, tonsills out at 7 yrs old, torn meninscus Past Anesthesia/Blood Transfusion Reactions: No Reported Reaction Additional Past Anesthesia/Blood Transfusion Reaction / Comm: Patient not sure if hes ever had a blood transfusion. Past Psychological History: Anxiety Smoking Status: Former smoker Past Alcohol Use History: None Reported Past Drug Use History: None Reported - Past Family History Mother Family Medical History: CVA/TIA, Myocardial Infarction ([place]) Father Family Medical History: Congestive Heart Failure (CHF) Medications and Allergies Home Medications Medication Instructions Recorded Confirmed Type Omeprazole 20 mg PO DAILY 01/15/23 05/06/23 History Furosemide [Lasix] 20 mg PO DAILY tab 01/21/23 05/06/23 Rx Acetaminophen Tab [Tylenol] 650 mg PO Q6HR PRN 05/06/23 05/06/23 History Apixaban [Eliquis] 2.5 mg PO BID 05/06/23 05/06/23 History Folic Acid 0.8 mg PO DAILY 05/06/23 05/06/23 History Gabapentin [Neurontin] 200 mg PO TID 05/06/23 05/06/23 History Loperamide [Imodium] 2 mg PO Q6H PRN 05/06/23 05/06/23 History Allergies Allergy/AdvReac Type Severity Reaction Status Date / Time Myjetjq-MNZ-ElW Reductase Allergy Rash/Hives Verified 05/06/23 12:21 Inhibitor [Xkcqiqm-Wjl-Djh Reductase Inhibitor] Surgical - Exam Vital Signs Temp Pulse Resp BP Pulse Ox 97.3 F L 74 18 95/83 99 05/06/23 11:35 05/06/23 11:35 05/06/23 11:35 05/06/23 11:35 05/06/23 11:35 This is a 72-year-old patient follows with visiting physicians Dr. Valero. 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 For which she saw a few years ago Dr. Leo. At [facility]. He was told that removing the tumor could be more dangerous than leaving it alone. Patient was very recently discharged from [facility]. Patient has sacral decubitus wound. Also wounds on the lower extremity. Back in January he was here at lower extremity wound care followed vascular team of Dr. Ye. Patient's brother lives at home with him. Patient nonambulatory. Decreased appetite. Presents with worsening wound to sacral decubitus, also wound on the left calf. Patient is constipated. Denies any fever and chills. Weakness. Has had intermittent diarrhea. Review of systems: GEN.: Tired, decreased appetite EYES: None HEENT: None NECK: None RESPIRATORY: None CARDIOVASCULAR: None GASTROINTESTINAL: Constipation GENITOURINARY: None MUSCULOSKELETAL: Joint pains muscles as above LYMPHATICS: None HEMATOLOGICAL: None PSYCHIATRY: None NEUROLOGICAL: Paraparesis GENERAL: BMI 24.8, laying in bed awake tired EYES: Pupils equal. Conjunctiva normal. HEENT: External appearance of nose and ears normal, oral cavity grossly normal. NECK: JVD not raised; masses not palpable. HEART: First and second heart sounds are normal; no edema. LUNGS: Respiratory rate normal; clear to auscultation. ABDOMEN: Soft, nontender, liver spleen not palpable, no masses palpable, redness in the groin area. PSYCH: Alert and oriented x3; mood and affect normal. MUSCULOSKELETAL:No Clubbing/cyanosis;muscles-grossly intact. DERMATOLOGICAL: Chronic venous stasis changes in lower extremity. sacral wound with fibrinous tissue throughout, malodor, mild purulence, appears down to fascia VASCULAR: palpable DP and PT pulses. posterior calf wound on the left superficial down to subcutaneous involvement. No purulence Results - Labs 05/07/23 06:41 05/07/23 06:41 Abnormal Lab Results - Last 24 Hours (Table) 05/06/23 05/06/23 05/07/23 Range/Units 11:46 15:53 06:41 RBC (4.40-5.60) X 10*6/uL Hgb (13.0-17.0) g/dL Hct (39.6-50.0) % MCV (80.0-97.0) FL MCH (27.0-32.0) pg MCHC (32.0-37.0) g/dL RDW (11.5-14.5) % Plt Count (140-440) X 10*3/uL Sodium 135 L (137-145) mmol/L Potassium 2.9 L (3.5-5.1) mmol/L Carbon Dioxide 20 L (22-30) mmol/L BUN 60 H (9-20) mg/dL Creatinine 2.46 H (0.66-1.25) mg/dL Plasma Lactic Acid Robbin 2.1 H* 2.4 H* (0.7-2.0) mmol/L Calcium 7.8 L (8.4-10.2) mg/dL 05/07/23 Range/Units 06:41 RBC 3.39 L (4.40-5.60) X 10*6/uL Hgb 8.1 L (13.0-17.0) g/dL Hct 26.3 L (39.6-50.0) % MCV 77.6 L (80.0-97.0) FL MCH 23.9 L (27.0-32.0) pg MCHC 30.8 L (32.0-37.0) g/dL RDW 15.8 H (11.5-14.5) % Plt Count 474 H (140-440) X 10*3/uL Sodium (137-145) mmol/L Potassium (3.5-5.1) mmol/L Carbon Dioxide (22-30) mmol/L BUN (9-20) mg/dL Creatinine (0.66-1.25) mg/dL Plasma Lactic Acid Robbin (0.7-2.0) mmol/L Calcium (8.4-10.2) mg/dL Microbiology - Last 24 Hours (Table) 05/06/23 13:29 Blood Culture Gram Stain - Preliminary Blood 05/06/23 11:46 Gram Stain - Preliminary Ankle - Left Diabetes panel 05/07/23 Range/Units 06:41 Sodium 135 L (137-145) mmol/L Potassium 2.9 L (3.5-5.1) mmol/L Chloride 105 (98-107) mmol/L Carbon Dioxide 20 L (22-30) mmol/L BUN 60 H (9-20) mg/dL Creatinine 2.46 H (0.66-1.25) mg/dL Glucose 93 (74-99) mg/dL Calcium 7.8 L (8.4-10.2) mg/dL Thyroid panel 05/06/23 Range/Units 11:46 TSH 2.040 (0.465-4.680) mIU/L Calcium panel 05/07/23 Range/Units 06:41 Calcium 7.8 L (8.4-10.2) mg/dL Pituitary panel 05/06/23 05/07/23 Range/Units 11:46 06:41 Sodium 135 L (137-145) mmol/L Potassium 2.9 L (3.5-5.1) mmol/L Chloride 105 (98-107) mmol/L Carbon Dioxide 20 L (22-30) mmol/L BUN 60 H (9-20) mg/dL Creatinine 2.46 H (0.66-1.25) mg/dL Glucose 93 (74-99) mg/dL Calcium 7.8 L (8.4-10.2) mg/dL TSH 2.040 (0.465-4.680) mIU/L Adrenal panel 05/07/23 Range/Units 06:41 Sodium 135 L (137-145) mmol/L Potassium 2.9 L (3.5-5.1) mmol/L Chloride 105 (98-107) mmol/L Carbon Dioxide 20 L (22-30) mmol/L BUN 60 H (9-20) mg/dL Creatinine 2.46 H (0.66-1.25) mg/dL Glucose 93 (74-99) mg/dL Calcium 7.8 L (8.4-10.2) mg/dL Assessment and Plan Assessment: Chronic left lower extremity posterior calf wound Sacral pressure ulcer stage IV Chronic venous insufficiency, dermatitis Protein calorie malnutrition Chronic lower extremity weakness Plan: Continue local wound care and offloading to the lower extremities May require formal debridement to sacral wounds which are being followed by general surgery No vascular surgical intervention at this time for lower extremity wounds Thank you for the consultation. Will re-eval Tuesday.
--- NOTE | 2023-05-07 13:21 | P.NPCON ---
History of Present Illness - Reason for Consult acute renal failure - History of Present Illness patient is a 72-year-old male with a history of chronic A. fib, hyperlipidemia, sacral decubitus and lower extremity wounds who is admitted to the hospital due to worsening wounds particularly on the left calf. patient denies any urinary symptoms serum creatinine was elevated at 5.1 on admission and has decreased to 2.4 today. Patient is currently maintained on IV fluids. previous creatinine was 0.9 on 01/21/2023. blood pressure was low with systolic in the 90s. no NSAIDs noted on home med list. patient has an indwelling Ye catheter with good urine output. It appears that patient may have had urine retention as 1200 mL of urine is documented initially. Past Medical History Past Medical History: Atrial Fibrillation, Hyperlipidemia, Osteoarthritis (OA) Additional Past Medical History / Comment(s): Bulging disks, bilateral knee a rthritis, UTI, blood infection History of Any Multi-Drug Resistant Organisms: None Reported Past Surgical History: Orthopedic Surgery, Tonsillectomy Additional Past Surgical History / Comment(s): Knee replacement surgery, ton jairo out at 7 yrs old, torn meninscus Past Anesthesia/Blood Transfusion Reactions: No Reported Reaction Additional Past Anesthesia/Blood Transfusion Reaction / Comment(s): Patient not sure if hes ever had a blood transfusion. Past Psychological History: Anxiety Smoking Status: Former smoker Past Alcohol Use History: None Reported Past Drug Use History: None Reported - Past Family History Mother Family Medical History: CVA/TIA, Myocardial Infarction ([place]) Father Family Medical History: Congestive Heart Failure (CHF) Medications and Allergies Home Medications Medication Instructions Recorded Confirmed Type Omeprazole 20 mg PO DAILY 01/15/23 05/06/23 History Furosemide [Lasix] 20 mg PO DAILY tab 01/21/23 05/06/23 Rx Acetaminophen Tab [Tylenol] 650 mg PO Q6HR PRN 05/06/23 05/06/23 History Apixaban [Eliquis] 2.5 mg PO BID 05/06/23 05/06/23 History Folic Acid 0.8 mg PO DAILY 05/06/23 05/06/23 History Gabapentin [Neurontin] 200 mg PO TID 05/06/23 05/06/23 History Loperamide [Imodium] 2 mg PO Q6H PRN 05/06/23 05/06/23 History Allergies Allergy/AdvReac Type Severity Reaction Status Date / Time [id number]-BmV Reductase Allergy Rash/Hives Verified 05/06/23 12:21 Inhibitor [Ygogiuh-Pgm-Tod Reductase Inhibitor] Physical Exam Vitals: Vital Signs Temp Pulse Pulse Resp BP BP Pulse Ox 05/07/23 07:25 97.9 F 75 18 91/48 96 05/07/23 01:52 97.6 F 72 16 96/60 99 05/06/23 20:14 97.5 F L 64 17 103/60 99 05/06/23 18:49 65 16 91/56 96 05/06/23 13:16 71 16 113/74 100 Intake and Output 05/06/23 05/07/23 05/07/23 22:59 06:59 14:59 Output Total 1200 950 650 Balance -1200 -950 -650 Output: Urine 1200 950 650 Other: Voiding Method Indwelling Catheter Indwelling Catheter # Bowel Movements 2 Weight 76.204 kg patient is awake, comfortable, no acute distress Alert oriented 3 Examination of the heart S1 and S2 Examination of the lungs bilateral breath sounds are heard Abdomen is soft nontender Examination of lower extremity shows chronic skin changes, wounds noted in the legs and patient also has a sacral decubitus which was not examined. bilateral lower extremity weakness. Results - Lab Results Most recent lab results Calcium 7.8 mg/dL (8.4-10.2) L 05/07/23 06:41 Magnesium 2.3 mg/dL (1.6-2.3) 05/06/23 11:46 05/07/23 06:41 05/07/23 06:41 Assessment and Plan Assessment: 1. Acute kidney injury secondary to urine retention and ATN from low blood pressure. Currently nonoliguric with significant improvement in renal function. check ultrasound of the kidneys. UA shows 2+ protein and significant WBCs 2. Urine retention with 1200 mL of urine obtained on initial Ye catheter placement. 3. Pyuria rule out UTI 4. Bilateral lower extremity wounds and sacral decubitus ulcer 5. History of spinal lesion and bilateral lower extremity weakness 6. Paroxysmal A. fib maintained on alkalosis Plan: continue with Ye catheter Continue with IV fluids Continue antibiotics Check ultrasound of the kidneys Repeat labs in a.m. replace potassium. thank you for the consultation. We will continue to follow the patient with you during his hospitalization.
[2023-05-07 14:18] VITALS: BMI 24.7
--- NOTE | 2023-05-07 17:08 | P.PN ---
Subjective Progress Note Date: 05/07/23 Principal diagnosis: Reason for follow-up is UTI bacteremia and sacral pressure ulcer Patient is a 72-year-old male with a past medical history significant atrial fibrillation hyperlipidemia osteoarthritis patient was brought into the hospital for evaluation generalized weakness, patient did have evidence of a UTI and a sacral pressure ulcer. Patient blood culture subsequently came back positive with Proteus On today's evaluation that is 05/07/2023,the patient denies any fever or any chills, patient is breathing comfortably on room air, the patient denies chest pain shortness of breath and no significant cough, patient denies abdominal pain, no nausea vomiting or diarrhea. Patient white count normalized to 9.21 creatinine is 2.46 blood culture with Proteus Objective - Vital Signs Vital signs: Vital Signs Temp 97.9 F 05/07/23 12:45 Pulse 74 05/07/23 12:45 Resp 16 05/07/23 12:45 BP 110/62 05/07/23 12:45 Pulse Ox 94 L 05/07/23 12:45 FiO2 Intake & Output 05/06/23 05/07/23 05/07/23 18:59 06:59 18:59 Output Total 1200 950 650 Balance -1200 -950 -650 Weight 76.204 kg 76.204 kg 76.204 kg Output: Urine 1200 950 650 Other: Voiding Method Indwelling Catheter Indwelling Catheter # Bowel Movements 1 - Exam GENERAL DESCRIPTION: An elderly male lying in bed in no distress RESPIRATORY SYSTEM: Unlabored breathing , decreased breath sounds at bases HEART: S1 S2 regular rate and rhythm , ABDOMEN: Soft , no tenderness EXTREMITIES: No edema feet - Labs CBC & Chem 7: 05/16/23 06:00 05/22/23 06:15 Labs: Abnormal Lab Results - Last 24 Hours (Table) 05/07/23 05/07/23 Range/Units 06:41 06:41 RBC 3.39 L (4.40-5.60) X 10*6/uL Hgb 8.1 L (13.0-17.0) g/dL Hct 26.3 L (39.6-50.0) % MCV 77.6 L (80.0-97.0) FL MCH 23.9 L (27.0-32.0) pg MCHC 30.8 L (32.0-37.0) g/dL RDW 15.8 H (11.5-14.5) % Plt Count 474 H (140-440) X 10*3/uL Sodium 135 L (137-145) mmol/L Potassium 2.9 L (3.5-5.1) mmol/L Carbon Dioxide 20 L (22-30) mmol/L BUN 60 H (9-20) mg/dL Creatinine 2.46 H (0.66-1.25) mg/dL Calcium 7.8 L (8.4-10.2) mg/dL Microbiology - Last 24 Hours (Table) 05/06/23 11:46 Gram Stain - Preliminary Buttock 05/06/23 13:29 Blood Culture Gram Stain - Preliminary Blood 05/06/23 11:46 Gram Stain - Preliminary Ankle - Left Assessment and Plan (1) Bacteremia Status: Acute Code(s): R78.81 - BACTEREMIA SNOMED Code(s): 9299347 (2) Urinary tract infection Status: Acute Code(s): N39.0 - URINARY TRACT INFECTION, SITE NOT SPECIFIED SNOMED Code(s): 75066620 Plan: 1patient presented hospital with weakness which is likely multifactorial in this patient who did have evidence of dehydration with significant elevated BUN and creatinine and the patient also noticed to have a UTI likely from enteric gram-negative pathogen, patient did have a wound to the sacral area stage II pressure ulcer and wound to the left lower leg however does wound does not look infected 2-patient did have renal insufficiency high risk of nephrotoxicity from vancomycin 3-patient with Proteus bacteremia source likely urinary 4we will continue the patient Rocephin 2 g daily await general surgery evaluation for possible surgical debridement of the sacral wound Dictation was produced using [employer] dictation software. please excuse any grammatical, word or spelling errors. Time with Patient: Less than 30
--- NOTE | 2023-05-07 18:46 | US ---
EXAMINATION TYPE: US kidneys/renal and bladder DATE OF EXAM: 05/07/2023 COMPARISON: NONE CLINICAL INDICATION: Male, 72 years old with history of cindy; CINDY EXAM MEASUREMENTS: Right Kidney: 11.7 x 5.8 x 6.0 cm Left Kidney: 11.7 x 5.7 x 5.3 cm Right Kidney: No evidence of hydro, lower pole gassed out, possible small simple appearing cystic les ion mid/lower pole= 0.8 cm Left Kidney: No evidence of hydro Bladder: Pt has cath in place IMPRESSION: Small simple appearing cyst inferior pole right kidney
[2023-05-07] MEDS: GABAPENTIN 100 MG CAP PO SCH (21:20)
--- NOTE | 2023-05-08 02:33 | P.GSCN ---
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 He was recently seen in the hospital for lower extremity wounds, heel wound and sacral ulcers and had lower extremity debridement and wound vac at that time. He states the heel wound has healed and he is still getting local wound care for the posterior leg wound which is improving. He presents with worsening wound to sacral decubitus and diarrhea. Denies any fever and chills. Review of Systems All systems: negative (what is mentioned in the PMH or HPI) Past Medical History Past Medical History: Atrial Fibrillation, Hyperlipidemia, Osteoarthritis (OA) Additional Past Medical History / Comment(s): Bulging disks, bilateral knee arthritis, UTI, blood infection History of Any Multi-Drug Resistant Organisms: None Reported Past Surgical History: Orthopedic Surgery, Tonsillectomy Additional Past Surgical History / Comment(s): Knee replacement surgery, tonsills out at 7 yrs old, torn meninscus Past Anesthesia/Blood Transfusion Reactions: No Reported Reaction Additional Past Anesthesia/Blood Transfusion Reaction / Comm: Patient not sure if hes ever had a blood transfusion. Past Psychological History: Anxiety Smoking Status: Former smoker Past Alcohol Use History: None Reported Past Drug Use History: None Reported - Past Family History Mother Family Medical History: CVA/TIA, Myocardial Infarction ([place]) Father Family Medical History: Congestive Heart Failure (CHF) Medications and Allergies Home Medications Medication Instructions Recorded Confirmed Type Omeprazole 20 mg PO DAILY 01/15/23 05/06/23 History Furosemide [Lasix] 20 mg PO DAILY tab 01/21/23 05/06/23 Rx Acetaminophen Tab [Tylenol] 650 mg PO Q6HR PRN 05/06/23 05/06/23 History Apixaban [Eliquis] 2.5 mg PO BID 05/06/23 05/06/23 History Folic Acid 0.8 mg PO DAILY 05/06/23 05/06/23 History Gabapentin [Neurontin] 200 mg PO TID 05/06/23 05/06/23 History Loperamide [Imodium] 2 mg PO Q6H PRN 05/06/23 05/06/23 History Allergies Allergy/AdvReac Type Severity Reaction Status Date / Time [id number]-HiS Reductase Allergy Rash/Hives Verified 05/06/23 12:21 Inhibitor [Gzxvknt-Bfm-Trk Reductase Inhibitor] Surgical - Exam Vital Signs Temp Pulse Resp BP Pulse Ox 97.3 F L 74 18 95/83 99 05/06/23 11:35 05/06/23 11:35 05/06/23 11:35 05/06/23 11:35 05/06/23 11:35 This is a 72-year-old patient follows with visiting physicians Dr. Valero. 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 For which she saw a few years ago Dr. Leo. At [facility]. He was told that removing the tumor could be more dangerous than leaving it alone. Patient was very recently discharged from [facility]. Patient has sacral decubitus wound. Also wounds on the lower extremity. Back in January he was here at lower extremity wound care followed vascular team of Dr. Ye. Patient's brother lives at home with him. Patient nonambulatory. Decreased appetite. Presents with worsening wound to sacral decubitus, also wound on the left calf. Patient is constipated. Denies any fever and chills. Weakness. Has had intermittent diarrhea. Review of systems: GEN.: Tired, decreased appetite EYES: None HEENT: None NECK: None RESPIRATORY: None CARDIOVASCULAR: None GASTROINTESTINAL: Constipation GENITOURINARY: None MUSCULOSKELETAL: Joint pains muscles as above LYMPHATICS: None HEMATOLOGICAL: None PSYCHIATRY: None NEUROLOGICAL: Paraparesis GENERAL: BMI 24.8, laying in bed awake tired EYES: Pupils equal. Conjunctiva normal. HEENT: External appearance of nose and ears normal, oral cavity grossly normal. NECK: JVD not raised; masses not palpable. HEART: First and second heart sounds are normal; no edema. LUNGS: Respiratory rate normal; clear to auscultation. ABDOMEN: Soft, nontender, liver spleen not palpable, no masses palpable, redness in the groin area. PSYCH: Alert and oriented x3; mood and affect normal. MUSCULOSKELETAL:No Clubbing/cyanosis;muscles-grossly intact. DERMATOLOGICAL: Chronic venous stasis changes in lower extremity. sacral wound with fibrinous tissue throughout, malodor, mild purulence, appears down to fascia Results - Labs 05/07/23 06:41 05/07/23 06:41 Abnormal Lab Results - Last 24 Hours (Table) 05/06/23 05/06/23 05/07/23 Range/Units 11:46 15:53 06:41 RBC (4.40-5.60) X 10*6/uL Hgb (13.0-17.0) g/dL Hct (39.6-50.0) % MCV (80.0-97.0) FL MCH (27.0-32.0) pg MCHC (32.0-37.0) g/dL RDW (11.5-14.5) % Plt Count (140-440) X 10*3/uL Sodium 135 L (137-145) mmol/L Potassium 2.9 L (3.5-5.1) mmol/L Carbon Dioxide 20 L (22-30) mmol/L BUN 60 H (9-20) mg/dL Creatinine 2.46 H (0.66-1.25) mg/dL Plasma Lactic Acid Robbin 2.1 H* 2.4 H* (0.7-2.0) mmol/L Calcium 7.8 L (8.4-10.2) mg/dL 05/07/23 Range/Units 06:41 RBC 3.39 L (4.40-5.60) X 10*6/uL Hgb 8.1 L (13.0-17.0) g/dL Hct 26.3 L (39.6-50.0) % MCV 77.6 L (80.0-97.0) FL MCH 23.9 L (27.0-32.0) pg MCHC 30.8 L (32.0-37.0) g/dL RDW 15.8 H (11.5-14.5) % Plt Count 474 H (140-440) X 10*3/uL Sodium (137-145) mmol/L Potassium (3.5-5.1) mmol/L Carbon Dioxide (22-30) mmol/L BUN (9-20) mg/dL Creatinine (0.66-1.25) mg/dL Plasma Lactic Acid Robbin (0.7-2.0) mmol/L Calcium (8.4-10.2) mg/dL Microbiology - Last 24 Hours (Table) 05/06/23 13:29 Blood Culture Gram Stain - Preliminary Blood 05/06/23 11:46 Gram Stain - Preliminary Ankle - Left Diabetes panel 05/07/23 Range/Units 06:41 Sodium 135 L (137-145) mmol/L Potassium 2.9 L (3.5-5.1) mmol/L Chloride 105 (98-107) mmol/L Carbon Dioxide 20 L (22-30) mmol/L BUN 60 H (9-20) mg/dL Creatinine 2.46 H (0.66-1.25) mg/dL Glucose 93 (74-99) mg/dL Calcium 7.8 L (8.4-10.2) mg/dL Thyroid panel 05/06/23 Range/Units 11:46 TSH 2.040 (0.465-4.680) mIU/L Calcium panel 05/07/23 Range/Units 06:41 Calcium 7.8 L (8.4-10.2) mg/dL Pituitary panel 05/06/23 05/07/23 Range/Units 11:46 06:41 Sodium 135 L (137-145) mmol/L Potassium 2.9 L (3.5-5.1) mmol/L Chloride 105 (98-107) mmol/L Carbon Dioxide 20 L (22-30) mmol/L BUN 60 H (9-20) mg/dL Creatinine 2.46 H (0.66-1.25) mg/dL Glucose 93 (74-99) mg/dL Calcium 7.8 L (8.4-10.2) mg/dL TSH 2.040 (0.465-4.680) mIU/L Adrenal panel 05/07/23 Range/Units 06:41 Sodium 135 L (137-145) mmol/L Potassium 2.9 L (3.5-5.1) mmol/L Chloride 105 (98-107) mmol/L Carbon Dioxide 20 L (22-30) mmol/L BUN 60 H (9-20) mg/dL Creatinine 2.46 H (0.66-1.25) mg/dL Glucose 93 (74-99) mg/dL Calcium 7.8 L (8.4-10.2) mg/dL Assessment and Plan Assessment: Sacral pressure ulcer stage IV, cautiously soiled by stool Chronic left lower extremity posterior calf wound Protein calorie malnutrition Chronic lower extremity weakness Plan: will need debridement to sacral wounds and possible bone biopsy and examin the depth as the inner part appears to dive deep towards the posterior rectal wall. he will benefit from a diverting stoma , but patient is refusing, he will think about it he says and will reconsider.NPO P COLIN possible surgery tomorrow will need wound care consult. once wound bed is clean recommend Plastic surgery to evaluate for possible flap repair. Continue local wound care and offloading to the lower extremities per vascular surgery Past Medical History Past Medical History: Atrial Fibrillation, Hyperlipidemia, Osteoarthritis (OA) Additional Past Medical History / Comment(s): Bulging disks, bilateral knee arthritis, UTI, blood infection History of Any Multi-Drug Resistant Organisms: None Reported Past Surgical History: Orthopedic Surgery, Tonsillectomy Additional Past Surgical History / Comment(s): Knee replacement surgery, tonsills out at 7 yrs old, torn meninscus Past Anesthesia/Blood Transfusion Reactions: No Reported Reaction Additional Past Anesthesia/Blood Transfusion Reaction / Comm: Patient not sure if hes ever had a blood transfusion. Past Psychological History: Anxiety Smoking Status: Former smoker Past Alcohol Use History: None Reported Past Drug Use History: None Reported - Past Family History Mother Family Medical History: CVA/TIA, Myocardial Infarction ([place]) Father Family Medical History: Congestive Heart Failure (CHF) Medications and Allergies Home Medications Medication Instructions Recorded Confirmed Type Omeprazole 20 mg PO DAILY 01/15/23 05/06/23 History Furosemide [Lasix] 20 mg PO DAILY tab 01/21/23 05/06/23 Rx Acetaminophen Tab [Tylenol] 650 mg PO Q6HR PRN 05/06/23 05/06/23 History Apixaban [Eliquis] 2.5 mg PO BID 05/06/23 05/06/23 History Folic Acid 0.8 mg PO DAILY 05/06/23 05/06/23 History Gabapentin [Neurontin] 200 mg PO TID 05/06/23 05/06/23 History Loperamide [Imodium] 2 mg PO Q6H PRN 05/06/23 05/06/23 History Allergies Allergy/AdvReac Type Severity Reaction Status Date / Time [id number]-ILL-KmW Reductase Allergy Rash/Hives Verified 05/06/23 12:21 Inhibitor [Gexncvt-Scq-Yhk Reductase Inhibitor] Surgical - Exam Vital Signs Temp Pulse Resp BP Pulse Ox 97.3 F L 74 18 95/83 99 05/06/23 11:35 05/06/23 11:35 05/06/23 11:35 05/06/23 11:35 05/06/23 11:35 Results - Labs 05/07/23 06:41 05/07/23 06:41 Abnormal Lab Results - Last 24 Hours (Table) 05/07/23 05/07/23 Range/Units 06:41 06:41 RBC 3.39 L (4.40-5.60) X 10*6/uL Hgb 8.1 L (13.0-17.0) g/dL Hct 26.3 L (39.6-50.0) % MCV 77.6 L (80.0-97.0) FL MCH 23.9 L (27.0-32.0) pg MCHC 30.8 L (32.0-37.0) g/dL RDW 15.8 H (11.5-14.5) % Plt Count 474 H (140-440) X 10*3/uL Sodium 135 L (137-145) mmol/L Potassium 2.9 L (3.5-5.1) mmol/L Carbon Dioxide 20 L (22-30) mmol/L BUN 60 H (9-20) mg/dL Creatinine 2.46 H (0.66-1.25) mg/dL Calcium 7.8 L (8.4-10.2) mg/dL Microbiology - Last 24 Hours (Table) 05/06/23 13:29 Blood Culture Gram Stain - Preliminary Blood 05/06/23 13:29 Blood Culture Gram Stain - Preliminary Blood 05/06/23 11:46 Gram Stain - Preliminary Ankle - Left Wound Culture - Preliminary Presumptive Staph aureus 05/06/23 11:46 Gram Stain - Preliminary Buttock Diabetes panel 05/07/23 Range/Units 06:41 Sodium 135 L (137-145) mmol/L Potassium 2.9 L (3.5-5.1) mmol/L Chloride 105 (98-107) mmol/L Carbon Dioxide 20 L (22-30) mmol/L BUN 60 H (9-20) mg/dL Creatinine 2.46 H (0.66-1.25) mg/dL Glucose 93 (74-99) mg/dL Calcium 7.8 L (8.4-10.2) mg/dL Calcium panel 05/07/23 Range/Units 06:41 Calcium 7.8 L (8.4-10.2) mg/dL Pituitary panel 05/07/23 Range/Units 06:41 Sodium 135 L (137-145) mmol/L Potassium 2.9 L (3.5-5.1) mmol/L Chloride 105 (98-107) mmol/L Carbon Dioxide 20 L (22-30) mmol/L BUN 60 H (9-20) mg/dL Creatinine 2.46 H (0.66-1.25) mg/dL Glucose 93 (74-99) mg/dL Calcium 7.8 L (8.4-10.2) mg/dL Adrenal panel 05/07/23 Range/Units 06:41 Sodium 135 L (137-145) mmol/L Potassium 2.9 L (3.5-5.1) mmol/L Chloride 105 (98-107) mmol/L Carbon Dioxide 20 L (22-30) mmol/L BUN 60 H (9-20) mg/dL Creatinine 2.46 H (0.66-1.25) mg/dL Glucose 93 (74-99) mg/dL Calcium 7.8 L (8.4-10.2) mg/dL
[2023-05-08] MEDS: MORPHINE SULFATE 4 MG/ML SYRINGE IV PRN (06:25)
[2023-05-08 06:29] LABS: Basophils % (A) 0 %; Eosinophils # (A) 0.2 k/uL (0-0.7); Eosinophils % (A) 3 %; HCT 29.1 % (39.0-53.0); HGB 8.8 gm/dL (13.0-17.5); Hypochromasia Moderate; Lymphocytes # (A) 1.6 k/uL (1.0-4.8); Lymphocytes % (A) 23 %; MCH 24.6 pg (25.0-35.0); MCHC 30.2 g/dL (31.0-37.0); MCV 81.4 fL (80.0-100.0); Mean Platelet Volume 7.3; Monocytes # (A) 0.4 k/uL (0-1.0); Monocytes % (A) 5 %; Neutrophils # (A) 4.5 k/uL (1.3-7.7); Neutrophils % (A) 67 %; Platelet Count 483 k/uL (150-450); RBC 3.57 m/uL (4.30-5.90); RDW 14.9 % (11.5-15.5); WBC 6.7 k/uL (3.8-10.6)
[2023-05-08 06:38] LABS: African American GFR (CKD) 60 (>60 ml/min/1.73 sqM); Anion Gap 5 mmol/L; Blood Urea Nitrogen 40 mg/dL (9-20); Calcium 7.8 mg/dL (8.4-10.2); Carbon Dioxide 25 mmol/L (22-30); Chloride 107 mmol/L (98-107); Glucose 115 mg/dL (74-99); Non-African American GFR(CKD) 52 (>60 ml/min/1.73 sqM); Potassium 3.1 mmol/L (3.5-5.1); Sodium 137 mmol/L (137-145)
[2023-05-08 06:44] LABS: Vancomycin,Random 5.9 ug/mL
--- NOTE | 2023-05-08 09:48 | P.PN ---
Subjective Progress Note Date: 05/08/23 this a 69 -year-old male with history of large decubitus ulcer which is chronic. abdomen soft nontender There is a large chronic he was ulcer. Patient will be scheduled for diverting colostomy in the a.m. Objective - Vital Signs Vital signs: Vital Signs Temp 97.4 F L 05/08/23 07:21 Pulse 67 05/08/23 07:21 Resp 16 05/08/23 07:21 BP 110/58 05/08/23 07:21 Pulse Ox 96 05/08/23 07:21 FiO2 Intake & Output 05/07/23 05/08/23 05/08/23 18:59 06:59 18:59 Intake Total 240 Output Total 1350 1400 Balance -1350 -1160 Weight 76.204 kg Intake: Oral 240 Output: Urine 1350 1400 Other: Voiding Method Indwelling Catheter Indwelling Catheter Indwelling Catheter # Bowel Movements 2 - Labs CBC & Chem 7: 05/08/23 05:59 05/08/23 05:59 Labs: Abnormal Lab Results - Last 24 Hours (Table) 05/08/23 05/08/23 Range/Units 05:59 05:59 RBC 3.57 L (4.30-5.90) m/uL Hgb 8.8 L (13.0-17.5) gm/dL Hct 29.1 L (39.0-53.0) % MCH 24.6 L (25.0-35.0) pg MCHC 30.2 L (31.0-37.0) g/dL Plt Count 483 H (150-450) k/uL Potassium 3.1 L (3.5-5.1) mmol/L BUN 40 H (9-20) mg/dL Creatinine 1.35 H (0.66-1.25) mg/dL Glucose 115 H (74-99) mg/dL Calcium 7.8 L (8.4-10.2) mg/dL Microbiology - Last 24 Hours (Table) 05/06/23 13:29 Blood Culture Gram Stain - Preliminary Blood 05/06/23 13:29 Blood Culture Gram Stain - Preliminary Blood 05/06/23 11:46 Gram Stain - Preliminary Ankle - Left Wound Culture - Preliminary Presumptive Staph aureus 05/06/23 11:46 Gram Stain - Preliminary Buttock
[2023-05-08] MEDS: POTASSIUM CHLORIDE ER 20 MEQ TAB.ER PO STA (10:13)
[2023-05-08] MEDS: GABAPENTIN 100 MG CAP PO SCH (10:14)
--- NOTE | 2023-05-08 11:52 | P.PN ---
Subjective patient is seen for follow-up for acute kidney injury. Renal function has improved with serum creatinine down to 1.3 mg/dL. Good urine output. Objective - Vital Signs Vital signs: Vital Signs Temp 97.4 F L 05/08/23 07:21 Pulse 67 05/08/23 07:21 Resp 16 05/08/23 07:21 BP 110/58 05/08/23 07:21 Pulse Ox 96 05/08/23 07:21 FiO2 Intake & Output 05/07/23 05/08/23 05/08/23 18:59 06:59 18:59 Intake Total 240 Output Total 1350 1400 Balance -1350 -1160 Weight 76.204 kg Intake: Oral 240 Output: Urine 1350 1400 Other: Voiding Method Indwelling Catheter Indwelling Catheter Indwelling Catheter # Bowel Movements 2 - Exam patient is awake, comfortable, no acute distress Alert oriented 3 Examination of the heart S1 and S2 Examination of the lungs bilateral breath sounds are heard Abdomen is soft nontender Examination of lower extremity shows chronic skin changes, wounds noted in the legs and patient also has a sacral decubitus which was not examined. bilateral lower extremity weakness. - Labs CBC & Chem 7: 05/08/23 05:59 05/08/23 05:59 Labs: Abnormal Lab Results - Last 24 Hours (Table) 05/08/23 05/08/23 Range/Units 05:59 05:59 RBC 3.57 L (4.30-5.90) m/uL Hgb 8.8 L (13.0-17.5) gm/dL Hct 29.1 L (39.0-53.0) % MCH 24.6 L (25.0-35.0) pg MCHC 30.2 L (31.0-37.0) g/dL Plt Count 483 H (150-450) k/uL Potassium 3.1 L (3.5-5.1) mmol/L BUN 40 H (9-20) mg/dL Creatinine 1.35 H (0.66-1.25) mg/dL Glucose 115 H (74-99) mg/dL Calcium 7.8 L (8.4-10.2) mg/dL Microbiology - Last 24 Hours (Table) 05/06/23 11:46 Urine Culture - Preliminary Urine,Voided Gram Neg Bacilli 05/06/23 13:29 Blood Culture Gram Stain - Preliminary Blood 05/06/23 13:29 Blood Culture Gram Stain - Preliminary Blood 05/06/23 11:46 Gram Stain - Preliminary Ankle - Left Wound Culture - Preliminary Presumptive Staph aureus 05/06/23 11:46 Gram Stain - Preliminary Buttock Assessment and Plan Assessment: 1. Acute kidney injury secondary to urine retention and ATN from low blood pressure. Currently nonoliguric with significant improvement in renal function. check ultrasound of the kidneys. UA shows 2+ protein and significant WBCs 2. Urine retention with 1200 mL of urine obtained on initial Ye catheter placement. 3. Pyuria rule out UTI 4. Bilateral lower extremity wounds and sacral decubitus ulcer 5. History of spinal lesion and bilateral lower extremity weakness 6. Paroxysmal A. fib maintained on alkalosis Plan: continue with Ye catheter decrease IV fluids Continue antibiotics Repeat labs in a.m. replace potassium.
--- NOTE | 2023-05-08 16:36 | P.PN ---
Subjective Progress Note Date: 05/08/23 Principal diagnosis: Reason for follow-up is UTI bacteremia and sacral pressure ulcer Patient is a 72-year-old male with a past medical history significant atrial fibrillation hyperlipidemia osteoarthritis patient was brought into the hospital for evaluation generalized weakness, patient did have evidence of a UTI and a sacral pressure ulcer. Patient blood culture subsequently came back positive with Proteus On today's evaluation that is 05/08/2023,the patient remains to be afebrile, patient is on room air not requiring supplemental oxygen and denies any shortn ess of breath no chest pain or cough.Patient denies having any nausea or vomiting, no abdominal pain and no diarrhea or worsening pain to the sacral wound area. Patient white count is 6.7, creatinine is 1.35, blood culture with gram-negative bacilli ankle culture with Staph aureus Objective - Vital Signs Vital signs: Vital Signs Temp 97.4 F L 05/08/23 07:21 Pulse 71 05/08/23 11:38 Resp 16 05/08/23 11:38 BP 93/54 05/08/23 11:38 Pulse Ox 98 05/08/23 11:38 FiO2 Intake & Output 05/07/23 05/08/23 05/08/23 18:59 06:59 18:59 Intake Total 240 Output Total 1350 1400 Balance -1350 -1160 Weight 76.204 kg Intake: Oral 240 Output: Urine 1350 1400 Other: Voiding Method Indwelling Catheter Indwelling Catheter Indwelling Catheter # Bowel Movements 2 - Exam GENERAL DESCRIPTION: An elderly male lying in bed in no distress RESPIRATORY SYSTEM: Unlabored breathing , decreased breath sounds at bases HEART: S1 S2 regular rate and rhythm , ABDOMEN: Soft , no tenderness Stage IV sacral pressure ulcer with some slough tissue and bones palpable - Labs CBC & Chem 7: 05/08/23 05:59 05/08/23 05:59 Labs: Abnormal Lab Results - Last 24 Hours (Table) 05/08/23 05/08/23 Range/Units 05:59 05:59 RBC 3.57 L (4.30-5.90) m/uL Hgb 8.8 L (13.0-17.5) gm/dL Hct 29.1 L (39.0-53.0) % MCH 24.6 L (25.0-35.0) pg MCHC 30.2 L (31.0-37.0) g/dL Plt Count 483 H (150-450) k/uL Potassium 3.1 L (3.5-5.1) mmol/L BUN 40 H (9-20) mg/dL Creatinine 1.35 H (0.66-1.25) mg/dL Glucose 115 H (74-99) mg/dL Calcium 7.8 L (8.4-10.2) mg/dL Microbiology - Last 24 Hours (Table) 05/06/23 13:29 Blood Culture Gram Stain - Preliminary Blood Blood Culture - Preliminary Gram Neg Bacilli 05/06/23 11:46 Urine Culture - Preliminary Urine,Voided Gram Neg Bacilli 05/06/23 13:29 Blood Culture Gram Stain - Preliminary Blood 05/06/23 11:46 Gram Stain - Preliminary Ankle - Left Wound Culture - Preliminary Presumptive Staph aureus 05/06/23 11:46 Gram Stain - Preliminary Buttock Assessment and Plan (1) Bacteremia Current Visit: Yes Status: Acute Code(s): R78.81 - BACTEREMIA SNOMED Code(s): 5312014 (2) Urinary tract infection Current Visit: Yes Status: Acute Code(s): N39.0 - URINARY TRACT INFECTION, SITE NOT SPECIFIED SNOMED Code(s): 15986868 (3) Stage IV pressure ulcer of sacral region Current Visit: Yes Status: Acute Code(s): L89.154 - PRESSURE ULCER OF SACRAL REGION, STAGE 4 SNOMED Code(s): 08738735397511 Plan: 1patient presented hospital with weakness which is likely multifactorial in this patient who did have evidence of dehydration with significant elevated BUN and creatinine and the patient also noticed to have a UTI likely from enteric gram-negative pathogen, patient did have a wound to the sacral area stage II pressure ulcer and wound to the left lower leg however does wound does not look infected 2-patient did have renal insufficiency high risk of nephrotoxicity from vancomycin 3-patient with Proteus and also bacteroids bacteremia source could be infected sacral pressure ulcer 4blood culture will be repeated document clearance antibiotic will be switched to Zosyn will benefit from surgical debridement Dictation was produced using [employer] software. please excuse any grammatical, word or spelling errors.
[2023-05-08] MEDS: PIPERACILLIN-TAZOBACTAM 3.375 GM in SODIUM CHLORIDE 0.9% 100 ML IVPB SCH (17:07)
--- NOTE | 2023-05-08 18:20 | P.PN ---
Progress Note - Text Progress Note Date: 05/08/23 Chief Complaint: Weakness This is a 72-year-old patient follows with visiting physicians Dr. Valero. 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 For which she saw a few years ago Dr. Leo. At [facility]. He was told that removing the tumor could be more dangerous than leaving it alone. Patient was very recently discharged from [facility]. Patient has sacral decubitus wound. Also wounds on the lower extremity. Back in January he was here at lower extremity wound care followed vascular team of Dr. Ye. Patient's brother lives at home with him. Patient nonambulatory. Decreased appetite. Presents with worsening wound to sacral decubitus, also wound on the left calf. Patient is constipated. Denies any fever and chills. Weakness. Has had intermittent diarrhea. May 06: Reclining bed. No pain in the legs. Pending vascular input. IV ceftriaxone. IV fluids. Had a bowel movement. May 07: Laying in bed. No pain in the lower extremity. Seen by surgery. Plan for diverting colostomy which patient has agreed to. Patient's brother at the bedside. Questions answered. IV Zosyn. Active Medications Acetaminophen (Acetaminophen Tab 325 Mg Tab) 650 mg PO Q6HR PRN PRN Reason: Mild Pain or Fever > 100.5 Calcium Carbonate/Glycine (Calcium Carbonate 500 Mg Chewable) 1,000 mg PO Q4HR PRN PRN Reason: Dyspepsia Folic Acid (Folic Acid 1 Mg Tab) 1 mg PO DAILY [facility] Last Admin: 05/08/23 09:41 Dose: 1 mg Gabapentin (Gabapentin 100 Mg Cap) 200 mg PO TID [facility] Last Admin: 05/08/23 17:10 Dose: 200 mg Sodium Chloride (Saline 0.9%) 1,000 mls @ 70 mls/hr IV .[id number] [facility] Last Admin: 05/08/23 17:08 Dose: 70 mls/hr Piperacillin Sod/Tazobactam (Sod 3.375 gm/ Sodium Chloride) 100 mls @ 25 mls/hr IVPB Q8HR [facility]; Protocol Last Admin: 05/08/23 17:07 Dose: 25 mls/hr Lactulose (Lactulose 20 Gm/30 Ml Cup) 20 gm PO DAILY PRN PRN Reason: Constipation Loperamide HCl (Loperamide 2 Mg Cap) 2 mg PO Q6H PRN PRN Reason: Diarrhea Lorazepam (Lorazepam 0.5 Mg Tab) 0.5 mg PO Q6HR PRN PRN Reason: Anxiety Morphine Sulfate (Morphine Sulfate 4 Mg/Ml Syringe) 4 mg IV Q4HR PRN PRN Reason: Severe Pain (Scale 7 to 10) Last Admin: 05/08/23 17:12 Dose: 4 mg Naloxone HCl (Naloxone 0.4 Mg/Ml 1 Ml Vial) 0.2 mg IV Q2M PRN PRN Reason: Opioid Reversal Ondansetron HCl (Ondansetron 4 Mg/2 Ml Vial) 4 mg IVP Q8HR PRN PRN Reason: Nausea And Vomiting Pantoprazole Sodium (Pantoprazole 40 Mg Tablet) [facility] Last Admin: 05/08/23 09:41 Dose: 40 mg Psyllium Hydrophilic Mucilloid (Psyllium Husk 100% 6 Gm Packet) 6 gm PO DAILY [facility] Last Admin: 05/08/23 09:45 Dose: Not Given Tramadol HCl (Tramadol 50 Mg Tab) 50 mg PO Q6H PRN PRN Reason: Moderate Pain (Scale 4 to 6) Social history: No smoking or alcohol. Brother is in and out of the house. Physical examination: VITAL SIGNS: 97.4, 71, 16, 93 x 54, 98% room air GENERAL: Lying in bed, comfortable EYES: Pupils equal. Conjunctiva normal. HEENT: External appearance of nose and ears normal, oral cavity grossly normal. NECK: JVD not raised; masses not palpable. HEART: First and second heart sounds are normal; no edema. LUNGS: Respiratory rate normal; clear to auscultation. ABDOMEN: Soft, nontender, liver spleen not palpable, no masses palpable, redness in the groin area. PSYCH: Alert and oriented x3; mood and affect normal. MUSCULOSKELETAL:No Clubbing/cyanosis;muscles-grossly intact. DERMATOLOGICAL: Chronic venous stasis changes in lower extremity, with some crusting . Unstageable wounds on the sacrum/buttocks NEUROLOGICAL: Cranial nerves grossly intact; no facial asymmetry, weakness lower extremity, power 1/ 5.. INVESTIGATIONS, reviewed in the clinical context: May 07: White count 6.7 hemoglobin 8.8 platelets 43 potassium 3.1 BUN 40 creatinine 1.35 May 06: White count 9.1 hemoglobin 8.1 platelets 434 potassium 2.9 BUN 60 creatinine 2.46 May 06, 2023: White count 15.9 hemoglobin 10.2 platelets of 83 sodium 133 potassium 4.1 BUN 74 creatinine 5.41 lactic acid 2.1 Troponin I less than 0.012 C. difficile negative EKG tracing personally reviewed by me-normal sinus rhythm. Chest x-ray film personally reviewed by me-unremarkable Assessment and plan: -Worsening infected, acute on chronic Unstageable pressure ulcer left buttock, right buttocks, stage I pressure ulcer lower back.: Slow to respond Consult vascular surgery Dr. Ye's team. General surgery-planning for debridement, diverting colostomy. IV Zosyn -Acute kidney injury likely combination of ATN and prerenal: Improvement Creatinine 5.4 on admission -Acute on chronic medical debility. Patient just discharged from [facility] about a week ago. 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 Currently sinus rhythm. Eliquis-held -Full code Plan for diverting colostomy. Discussed with patient. Moderate risk for surgery with no absolute contraindications. Otherwise medically stable Past Medical History Past Medical History: Atrial Fibrillation, Hyperlipidemia, Osteoarthritis (OA) Additional Past Medical History / Comment(s): Bulging disks, bilateral knee arthritis, UTI, blood infection History of Any Multi-Drug Resistant Organisms: None Reported Past Surgical History: Orthopedic Surgery, Tonsillectomy Additional Past Surgical History / Comment(s): Knee replacement surgery, tonsills out at 7 yrs old, torn meninscus Past Anesthesia/Blood Transfusion Reactions: No Reported Reaction Past Psychological History: Anxiety Smoking Status: Former smoker Past Alcohol Use History: None Reported Past Drug Use History: None Reported
[2023-05-09 07:35] LABS: African American GFR (CKD) >90 (>60 ml/min/1.73 sqM); Anion Gap 7 mmol/L; Blood Urea Nitrogen 32 mg/dL (9-20); Calcium 7.7 mg/dL (8.4-10.2); Carbon Dioxide 24 mmol/L (22-30); Chloride 107 mmol/L (98-107); Glucose 105 mg/dL (74-99); Non-African American GFR(CKD) 82 (>60 ml/min/1.73 sqM); Potassium 3.8 mmol/L (3.5-5.1); Sodium 138 mmol/L (137-145)
[2023-05-09 09:22] LABS: C Reactive Protein 7.2 mg/dL (<1.0)
[2023-05-09] MEDS: SODIUM CHLORIDE 0.9% 900 ML IV ONE (10:08)
[2023-05-09] MEDS: ONDANSETRON 4 MG/2 ML VIAL IVP ONE (10:32)
[2023-05-09] MEDS: DEXAMETHASONE SOD PHOSPHATE 4 MG/ML 1 ML VIAL IVP ONE (10:32)
--- NOTE | 2023-05-09 10:44 | P.PN ---
Progress Note - Text Progress Note Date: 05/09/23 Attempted to see patient as a follow-up for lower extremity venous wounds. Patient was in the operating room for sacral decubitus debridement. Will reevaluate tomorrow. The impression and plan of care has been dictated as directed. Dr. Munoz I performed a history and examination of this patient, discussed the same with the dictator. I agree with the dictator's note ,documented as a scribe. Any additional findings or plans will be noted.azar
[2023-05-09] MEDS ORDERED: MIDAZOLAM 2 MG/2 ML VIAL ONE (10:57)
[2023-05-09] MEDS ORDERED: KETAMINE HCL IN 0.9 % NACL 50 MG/5 ML SYRINGE ONE (10:57)
[2023-05-09] MEDS ORDERED: LIDOCAINE 1% INJ 10MG/ML (20 ML MDV) ONE (10:57)
[2023-05-09] MEDS ORDERED: fentaNYL (PF) 50 MCG/ML 2 ML AMP ONE (10:57)
[2023-05-09] MEDS ORDERED: GLYCOPYRROLATE 0.2 MG/ML 2 ML VIAL ONE (10:57)
[2023-05-09] MEDS ORDERED: PHENYLEPHRINE-0.9% NACL SYG 1,000 MCG/10 ML SYRINGE ONE (10:57)
[2023-05-09] MEDS ORDERED: HEPARIN SODIUM,PORCINE 5,000 UNIT/ML 1 ML VIAL ONE (10:57)
[2023-05-09] MEDS ORDERED: ROCURONIUM 10 MG/ML (5 ML VIAL) IV ONE (10:57)
[2023-05-09] MEDS ORDERED: NEOSTIGMINE 1 MG/ML 10 ML VIAL ONE (10:57)
[2023-05-09] MEDS ORDERED: PROPOFOL 10 MG/ML 20 ML VIAL IV ONE (10:57)
[2023-05-09] MEDS: LIDOCAINE 1%-EPI 1:100,000 50 ML VIAL SQ ONE (11:22)
[2023-05-09 11:56] LABS: HCT 27.4 % (39.6-50.0); MCH 23.7 pg (27.0-32.0); MCHC 29.2 g/dL (32.0-37.0); MCV 81.3 FL (80.0-97.0); Mean Platelet Volume 9.3 FL (9.5-12.2); NRBC Per 100 WBC 0 X 10*3/uL (0.00-0.01); Platelet Count 518 X 10*3/uL (140-440); RBC 3.37 X 10*6/uL (4.40-5.60); RDW 15.8 % (11.5-14.5); WBC 6.97 X 10*3/uL (4.50-10.00)
--- NOTE | 2023-05-09 12:25 | P.OP ---
Date of Procedure: 05/09/23 Preoperative Diagnosis: decubitus ulcer Postoperative Diagnosis: decubitus ulcer Procedure(s) Performed: sigmoid colectomy End colostomy Anesthesia: TYSON Surgeon: Arturo Dupont Estimated Blood Loss (ml): 10 Pathology: other (sigmoid colon) Condition: stable Disposition: PACU Description of Procedure: the patient's placed on the eoperative table in the supine position. He received general endotracheal tube anesthesia. His abdomen was prepped and draped in usual sterile fashion. The skin was incised midline. There was a 4 cm umbilical hernia found. Left cautery to divide the abdominal wall. And then a retractor was placed into the wound. . The patient had a very redundant sigmoid colon. The; probable the wound. The; appeared very redundant and enlarged. This point the distal sigmoid colon was transected with a GI stapler. And then the redundant sigmoid colon mesentery was divided with the LigaSure device. The proximal sigmoid colon was then transected with a GI stapler. Tthe specimens of pathology. The proximal colon was then brought up as an end colostomy left lower quadrant. The abdominal fascia was closed using #1 PDS suture. The hernia was repaired during fascial closure. The skin was closed sanjay. The colostomy then matured with 3-0 Vicryl suture.patient tolerated procedure well. He was sent to recovery room stable condition.
[2023-05-09] MEDS: HYDROmorphone 0.5 MG/0.5 ML SYRINGE IVP ONE ×2 (12:36→13:09)
[2023-05-09] MEDS: LABETALOL SYRINGE 5 MG/ML (4 ML SYR) IVP ONE (13:17)
[2023-05-09 14:27] LABS: Erythrocyte Sedimentation Rate 83 mm/Hr (0-20)
--- NOTE | 2023-05-09 15:15 | P.PN ---
Progress Note - Text Progress Note Date: 05/09/23 Chief Complaint: Weakness This is a 72-year-old patient follows with visiting physicians Dr. Valero. 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 For which she saw a few years ago Dr. Leo. At [facility]. He was told that removing the tumor could be more dangerous than leaving it alone. Patient was very recently discharged from [facility]. Patient has sacral decubitus wound. Also wounds on the lower extremity. Back in January he was here at lower extremity wound care followed vascular team of Dr. Ye. Patient's brother lives at home with him. Patient nonambulatory. Decreased appetite. Presents with worsening wound to sacral decubitus, also wound on the left calf. Patient is constipated. Denies any fever and chills. Weakness. Has had intermittent diarrhea. May 06: Reclining bed. No pain in the legs. Pending vascular input. IV ceftriaxone. IV fluids. Had a bowel movement. May 07: Laying in bed. No pain in the lower extremity. Seen by surgery. Plan for diverting colostomy which patient has agreed to. Patient's brother at the bedside. Questions answered. IV Zosyn. May 08: Patient had diverting colostomy with sigmoid colectomy done by Dr. Dupont today. On IV Zosyn. Being followed by vascular. No pain. Postprocedure started on clear liquids Active Medications Acetaminophen (Acetaminophen Tab 325 Mg Tab) 650 mg PO Q6HR PRN PRN Reason: Mild Pain or Fever > 100.5 Calcium Carbonate/Glycine (Calcium Carbonate 500 Mg Chewable) 1,000 mg PO Q4HR PRN PRN Reason: Dyspepsia Folic Acid (Folic Acid 1 Mg Tab) 1 mg PO DAILY [facility] Last Admin: 05/09/23 09:18 Dose: Not Given Gabapentin (Gabapentin 100 Mg Cap) 200 mg PO TID [facility] Last Admin: 05/09/23 09:18 Dose: Not Given Sodium Chloride (Saline 0.9%) 1,000 mls @ 70 mls/hr IV .[id number] [facility] Last Admin: 05/09/23 06:39 Dose: 70 mls/hr Piperacillin Sod/Tazobactam (Sod 3.375 gm/ Sodium Chloride) 100 mls @ 25 mls/hr IVPB Q8HR [facility]; Protocol Last Admin: 05/09/23 09:12 Dose: 25 mls/hr Lactulose (Lactulose 20 Gm/30 Ml Cup) 20 gm PO DAILY PRN PRN Reason: Constipation Loperamide HCl (Loperamide 2 Mg Cap) 2 mg PO Q6H PRN PRN Reason: Diarrhea Lorazepam (Lorazepam 0.5 Mg Tab) 0.5 mg PO Q6HR PRN PRN Reason: Anxiety Morphine Sulfate (Morphine Sulfate 4 Mg/Ml Syringe) 4 mg IV Q4HR PRN PRN Reason: Severe Pain (Scale 7 to 10) Last Admin: 05/08/23 17:12 Dose: 4 mg Naloxone HCl (Naloxone 0.4 Mg/Ml 1 Ml Vial) 0.2 mg IV Q2M PRN PRN Reason: Opioid Reversal Ondansetron HCl (Ondansetron 4 Mg/2 Ml Vial) 4 mg IVP Q8HR PRN PRN Reason: Nausea And Vomiting Pantoprazole Sodium (Pantoprazole 40 Mg Tablet) 40 mg PO -BRKFST [facility] Last Admin: 05/09/23 09:14 Dose: Not Given Psyllium Hydrophilic Mucilloid (Psyllium Husk 100% 6 Gm Packet) 6 gm PO DAILY [facility] Last Admin: 05/09/23 09:18 Dose: Not Given Tramadol HCl (Tramadol 50 Mg Tab) 50 mg PO Q6H PRN PRN Reason: Moderate Pain (Scale 4 to 6) Social history: No smoking or alcohol. Brother is in and out of the house. Physical examination: VITAL SIGNS: Afebrile, 107, 20, 98 x 66, 93% room air GENERAL: Lying in bed, comfortable EYES: Pupils equal. Conjunctiva normal. HEENT: External appearance of nose and ears normal, oral cavity grossly normal. NECK: JVD not raised; masses not palpable. HEART: First and second heart sounds are normal; no edema. LUNGS: Respiratory rate normal; clear to auscultation. ABDOMEN: Soft, nontender, liver spleen not palpable, no masses palpable,- colostomy bag no stool PSYCH: Alert and oriented x3; mood and affect normal. MUSCULOSKELETAL:No Clubbing/cyanosis;muscles-grossly intact. DERMATOLOGICAL: Chronic venous stasis changes in lower extremity, with some crusting . Unstageable wounds on the sacrum/buttocks NEUROLOGICAL: Cranial nerves grossly intact; no facial asymmetry, weakness lower extremity, power 1/ 5.. INVESTIGATIONS, reviewed in the clinical context: May 08: White count 6.9 hemoglobin 8 platelets 518 potassium 3.8 creatinine 0.92 May 07: White count 6.7 hemoglobin 8.8 platelets 43 potassium 3.1 BUN 40 creatinine 1.35 May 06: White count 9.1 hemoglobin 8.1 platelets 434 potassium 2.9 BUN 60 creatinine 2.46 May 06, 2023: White count 15.9 hemoglobin 10.2 platelets of 83 sodium 133 pot assium 4.1 BUN 74 creatinine 5.41 lactic acid 2.1 Troponin I less than 0.012 C. difficile negative EKG tracing personally reviewed by me-normal sinus rhythm. Chest x-ray film personally reviewed by me-unremarkable Assessment and plan: -Worsening infected, acute on chronic Unstageable pressure ulcer left buttock, right buttocks, stage I pressure ulcer lower back.: Slow to respond Consult vascular surgery Dr. Ye's team. General surgery-planning for debridement, IV Zosyn Diverting colostomy done by Dr. Dupont on May 08 -Acute kidney injury likely combination of ATN and prerenal: Resolved Creatinine 5.4 on admission -Acute on chronic medical debility. Patient just discharged from [facility] about a week ago. 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 Currently sinus rhythm. Eliquis-held -Full code Continue current medications. Resume Eliquis when okay with surgery. Past Medical History Past Medical History: Atrial Fibrillation, Hyperlipidemia, Osteoarthritis (OA) Additional Past Medical History / Comment(s): Bulging disks, bilateral knee arthritis, UTI, blood infection History of Any Multi-Drug Resistant Organisms: None Reported Past Surgical History: Orthopedic Surgery, Tonsillectomy Additional Past Surgical History / Comment(s): Knee replacement surgery, tonsills out at 7 yrs old, torn meninscus Past Anesthesia/Blood Transfusion Reactions: No Reported Reaction Past Psychological History: Anxiety Smoking Status: Former smoker Past Alcohol Use History: None Reported Past Drug Use History: None Reported
--- NOTE | 2023-05-09 19:26 | P.PN ---
Subjective Progress Note Date: 05/09/23 Principal diagnosis: Reason for follow-up is UTI bacteremia and sacral pressure ulcer Patient is a 72-year-old male with a past medical history significant atrial fibrillation hyperlipidemia osteoarthritis patient was brought into the hospital for evaluation generalized weakness, patient did have evidence of a UTI and a sacral pressure ulcer. Patient blood culture subsequently came back positive with Proteus On today's evaluation that is Patient is status post sigmoid colectomy and end colostomy completed on 05/09/2023. On today's evaluation that is 05/09/2023, the patient continues to be afebrile, the patient is on room air and breathing comfortably, the Pt denies having any chest pain or cough, the patient denies having any nausea vomiting has been complaining of abdominal pain postsurgery. Patient white count 6.97, creatinine 0.92 Objective - Vital Signs Vital signs: Vital Signs Temp 97.4 F L 05/09/23 12:14 Pulse 117 H 05/09/23 13:14 Resp 16 05/09/23 13:00 BP 109/65 05/09/23 13:00 Pulse Ox 99 05/09/23 13:00 FiO2 Intake & Output 05/08/23 05/09/23 05/09/23 18:59 06:59 18:59 Intake Total 1600 450 Output Total 1400 2100 710 Balance 200 -2100 -260 Intake: IV 450 Intake, IV Titration 800 Amount Sodium Chloride 0.9% 1, 800 000 ml @ 70 mls/hr IV . [id number] [facility] Rx#:[id number] Oral 800 Output: Urine 1400 2100 700 Estimated Blood Loss 10 Other: Voiding Method Indwelling Catheter Indwelling Catheter - Exam GENERAL DESCRIPTION: An elderly male lying in bed in no distress RESPIRATORY SYSTEM: Unlabored breathing , decreased breath sounds at bases HEART: S1 S2 regular rate and rhythm , ABDOMEN: Soft , no tenderness Stage IV sacral pressure ulcer with some slough tissue and bones palpable - Labs CBC & Chem 7: 05/09/23 06:30 05/09/23 06:30 Labs: Abnormal Lab Results - Last 24 Hours (Table) 05/09/23 05/09/23 Range/Units 06:30 06:30 RBC 3.37 L (4.40-5.60) X 10*6/uL Hgb 8.0 L (13.0-17.0) g/dL Hct 27.4 L (39.6-50.0) % MCH 23.7 L (27.0-32.0) pg MCHC 29.2 L (32.0-37.0) g/dL RDW 15.8 H (11.5-14.5) % Plt Count 518 H (140-440) X 10*3/uL MPV 9.3 L (9.5-12.2) FL BUN 32 H (9-20) mg/dL Glucose 105 H (74-99) mg/dL Calcium 7.7 L (8.4-10.2) mg/dL C-Reactive Protein 7.2 H (<1.0) mg/dL Microbiology - Last 24 Hours (Table) 05/06/23 13:29 Blood Culture Gram Stain - Final Blood Blood Culture - Final Proteus mirabilis Anaerobic Gram Positive Cocci Bacteroides fragilis Molecular ID 05/06/23 13:29 Blood Culture Gram Stain - Preliminary Blood Blood Culture - Preliminary Bacteroides fragilis Anaerobic Gram Positive Cocci Molecular ID 05/06/23 11:46 Urine Culture - Final Urine,Voided Pseudomonas aeruginosa Enterococcus faecalis 05/06/23 11:46 Gram Stain - Preliminary Buttock Wound Culture - Preliminary Escherichia coli Proteus mirabilis Presumptive Staph aureus 05/06/23 11:46 Gram Stain - Final Ankle - Left Wound Culture - Final Staphylococcus aureus Proteus mirabilis Assessment and Plan (1) Bacteremia Current Visit: Yes Status: Acute Code(s): R78.81 - BACTEREMIA SNOMED Code(s): 1837396 (2) Urinary tract infection Current Visit: Yes Status: Acute Code(s): N39.0 - URINARY TRACT INFECTION, SITE NOT SPECIFIED SNOMED Code(s): 39910086 (3) Stage IV pressure ulcer of sacral region Current Visit: Yes Status: Acute Code(s): L89.154 - PRESSURE ULCER OF SACRAL REGION, STAGE 4 SNOMED Code(s): 76523633107373 Plan: 1patient presented hospital with weakness which is likely multifactorial in this patient who did have evidence of dehydration with significant elevated BUN and creatinine and the patient also noticed to have a UTI likely from enteric gram-negative pathogen, patient did have a wound to the sacral area stage II pressure ulcer and wound to the left lower leg however does wound does not look infected 2-patient did have renal insufficiency high risk of nephrotoxicity from vancomycin 3-patient with Proteus and also bacteroids bacteremia source could be infected sacral pressure ulcer, urine is growing Pseudomonas and Enterococcus 4blood culture repeated document clearance 5-patient to continue with Zosyn and will benefit from surgical debridement Dictation was produced using [employer] dictation software. please excuse any gramma tical, word or spelling errors. Time with Patient: Less than 30
[2023-05-09] MEDS: traMADol 50 MG TAB PO PRN (20:11)
[2023-05-10 11:06] LABS: Basophils # (A) 0.02 X 10*3/uL (0.00-0.10); Basophils % (A) 0.3 %; Eosinophils # (A) 0.11 X 10*3/uL (0.04-0.35); Eosinophils % (A) 1.4 %; HCT 27.6 % (39.6-50.0); HGB 8.1 g/dL (13.0-17.0); Lymphocytes # (A) 1.83 X 10*3/uL (0.90-5.00); Lymphocytes % (A) 23.8 %; MCH 23.8 pg (27.0-32.0); MCHC 29.3 g/dL (32.0-37.0); MCV 81.2 FL (80.0-97.0); Mean Platelet Volume 9.1 FL (9.5-12.2); Monocytes # (A) 0.55 X 10*3/uL (0.20-1.00); Monocytes % (A) 7.2 %; NRBC Per 100 WBC 0 X 10*3/uL (0.00-0.01); Neutrophils # (A) 5.16 X 10*3/uL (1.80-7.70); Platelet Count 482 X 10*3/uL (140-440); RDW 15.9 % (11.5-14.5); WBC 7.69 X 10*3/uL (4.50-10.00)
--- NOTE | 2023-05-10 11:08 | P.PN ---
Subjective Progress Note Date: 05/10/23 Patient seen and examined today as a follow-up. Yesterday he underwent sigmoid colectomy, end colostomy and repair of umbilical hernia.. He denies any pain in the lower extremities. Objective - Vital Signs Vital signs: Vital Signs Temp 97.6 F 05/10/23 07:29 Pulse 67 05/10/23 07:29 Resp 16 05/10/23 07:29 BP 102/65 05/10/23 07:29 Pulse Ox 95 05/10/23 07:29 FiO2 Intake & Output 05/09/23 05/10/23 05/10/23 18:59 06:59 18:59 Intake Total 750 240 Output Total 710 1000 Balance 40 -760 Intake: IV 750 Oral 240 Output: Urine 700 1000 Estimated Blood Loss 10 Other: Voiding Method Indwelling Catheter Indwelling Catheter # Voids 0 - Exam General appearance: The patient is alert, oriented, appears in no acute d istress. HET: Head is normocephalic and atraumatic. Pupils are equal and reactive. Neck: Supple. Heart: Regular. Lungs: Equal expansion, normal respiratory effort. Abdomen: Soft, nontender, nondistended. Extremities: Chronic venous stasis changes in lower extremity. VASCULAR: palpable DP and PT pulses. posterior calf wound on the left superficial down to subcutaneous involvement. No purulence Neurological: No focal deficits. Strength and sensation are grossly intact. - Labs CBC & Chem 7: 05/09/23 06:30 05/09/23 06:30 Labs: Abnormal Lab Results - Last 24 Hours (Table) 05/09/23 Range/Units 06:30 RBC 3.37 L (4.40-5.60) X 10*6/uL Hgb 8.0 L (13.0-17.0) g/dL Hct 27.4 L (39.6-50.0) % MCH 23.7 L (27.0-32.0) pg MCHC 29.2 L (32.0-37.0) g/dL RDW 15.8 H (11.5-14.5) % Plt Count 518 H (140-440) X 10*3/uL MPV 9.3 L (9.5-12.2) FL ESR 83 H (0-20) mm/Hr Microbiology - Last 24 Hours (Table) 05/06/23 13:29 Blood Culture Gram Stain - Final Blood Blood Culture - Final Bacteroides fragilis Anaerobic Gram Positive Cocci Molecular ID 05/06/23 11:46 Gram Stain - Final Buttock Wound Culture - Final Staphylococcus aureus Escherichia coli Proteus mirabilis 05/06/23 13:29 Blood Culture Gram Stain - Final Blood Blood Culture - Final Proteus mirabilis Anaerobic Gram Positive Cocci Bacteroides fragilis Molecular ID 05/06/23 11:46 Urine Culture - Final Urine,Voided Pseudomonas aeruginosa Enterococcus faecalis Assessment and Plan Assessment: Chronic left lower extremity posterior calf wound Sacral pressure ulcer stage IV status post sigmoid colectomy with end colostomy Chronic venous insufficiency, dermatitis Protein calorie malnutrition Chronic lower extremity weakness Plan: Continue local wound care and offloading to the lower extremities May require formal debridement to sacral wounds which are being followed by general surgery No vascular surgical intervention at this time for lower extremity wounds Consult to wound clinic Recommend outpatient follow-up with wound center Thank you for the consultation. We will sign off at this time. The impression and plan of care has been dictated as directed. Dr. Ye I performed a history and examination of this patient, discussed the same with the dictator. I agree with the dictator's note ,documented as a scribe. Any additional findings or plans will be noted.
[2023-05-10 11:24] LABS: ALT 21 U/L (10-49); AST 16 U/L (14-35); Albumin 2.4 g/dL (3.8-4.9); Albumin/Globulin Ratio 0.77 Ratio (1.60-3.17); Alkaline Phosphatase 53 U/L (41-126); BUN/Creat Ratio 23.38 Ratio (12.00-20.00); Blood Urea Nitrogen 18.7 mg/dL (9.0-27.0); Calcium 7.9 mg/dL (8.7-10.3); Carbon Dioxide 25.8 mmol/L (21.6-31.8); Chloride 106 mmol/L (96-109); Globulin 3.1 g/dL (1.6-3.3); Glucose 99 mg/dL (70-110); Potassium 4.3 mmol/L (3.5-5.5); Sodium 140 mmol/L (135-145); Total Bilirubin 0.2 mg/dL (0.3-1.2); Total Protein 5.5 g/dL (6.2-8.2)
--- NOTE | 2023-05-10 13:53 | P.PN ---
Subjective Progress Note Date: 05/10/23 CHIEF COMPLAINT: Decubitus ulcer HISTORY OF PRESENT ILLNESS: Patient is postop day #1 status post diverting colostomy. Patient does have pain at the incision site. Pain is controlled. Denies any nausea or vomiting. Afebrile. WBC 7.69 Hgb 8.1 platelets 482 sodium is 140 potassium 4.3 creatinine 0.8 PHYSICAL EXAM: VITAL SIGNS: Reviewed. GENERAL: Well-developed in no acute distress. ABDOMEN: Soft. Nondistended. Tender at midline incision. Incision clean dry and intact. Ostomy on the left with beefy red stoma. Small piece of stool noted from stoma NEUROLOGIC: Alert and oriented. Cranial nerves II through XII grossly intact. ASSESSMENT: 1. Sacral decubitus ulcer status post diverting colostomy PLAN: -No plans for debriding the sacral decubitus ulcer at this time -Continue pain management -Continue clear liquid diet -Change surgical dressing -Ostomy nurse consulted -Antibiotics per infectious disease Physician Billing Clinician note has been reviewed by physician. Signing provider agrees with the documented findings, assessment, and plan of care. Objective - Vital Signs Vital signs: Vital Signs Temp 97.7 F 05/10/23 12:18 Pulse 69 05/10/23 12:18 Resp 18 05/10/23 12:18 BP 97/61 05/10/23 12:18 Pulse Ox 96 05/10/23 12:18 FiO2 Intake & Output 05/09/23 05/10/23 05/10/23 18:59 06:59 18:59 Intake Total 750 240 Output Total 710 1000 Balance 40 -760 Intake: IV 750 Oral 240 Output: Urine 700 1000 Estimated Blood Loss 10 Other: Voiding Method Indwelling Catheter Indwelling Catheter Indwelling Catheter # Voids 0 - Labs CBC & Chem 7: 05/10/23 08:04 05/10/23 08:04 Labs: Abnormal Lab Results - Last 24 Hours (Table) 05/09/23 05/10/23 05/10/23 Range/Units 06:30 08:04 08:04 RBC 3.40 L (4.40-5.60) X 10*6/uL Hgb 8.1 L (13.0-17.0) g/dL Hct 27.6 L (39.6-50.0) % MCH 23.8 L (27.0-32.0) pg MCHC 29.3 L (32.0-37.0) g/dL RDW 15.9 H (11.5-14.5) % Plt Count 482 H (140-440) X 10*3/uL MPV 9.1 L (9.5-12.2) FL ESR 83 H (0-20) mm/Hr BUN/Creatinine Ratio 23.38 H (12.00-20.00) Ratio Calcium 7.9 L (8.7-10.3) mg/dL Total Bilirubin 0.2 L (0.3-1.2) mg/dL C-Reactive Protein 7.30 H (0.00-0.80) mg/dL Total Protein 5.5 L (6.2-8.2) g/dL Albumin 2.4 L (3.8-4.9) g/dL Albumin/Globulin Ratio 0.77 L (1.60-3.17) Ratio Microbiology - Last 24 Hours (Table) 05/09/23 06:30 Blood Culture - Preliminary Blood 05/06/23 13:29 Blood Culture Gram Stain - Final Blood Blood Culture - Final Bacteroides fragilis Anaerobic Gram Positive Cocci Molecular ID 05/06/23 11:46 Gram Stain - Final Buttock Wound Culture - Final Staphylococcus aureus Escherichia coli Proteus mirabilis 05/06/23 13:29 Blood Culture Gram Stain - Final Blood Blood Culture - Final Proteus mirabilis Anaerobic Gram Positive Cocci Bacteroides fragilis Molecular ID 05/06/23 11:46 Urine Culture - Final Urine,Voided Pseudomonas aeruginosa Enterococcus faecalis
--- NOTE | 2023-05-10 15:45 | P.PN ---
Subjective Progress Note Date: 05/10/23 Principal diagnosis: Reason for follow-up is UTI bacteremia and sacral pressure ulcer Patient is a 72-year-old male with a past medical history significant atrial fibrillation hyperlipidemia osteoarthritis patient was brought into the hospital for evaluation generalized weakness, patient did have evidence of a UTI and a sacral pressure ulcer. Patient blood culture subsequently came back positive with Proteus On today's evaluation that is Patient is status post sigmoid colectomy and end colostomy completed on 05/09/2023. On today's evaluation that is 05/10/2023, Patient is afebrile patient is currently on room air and denies having any shortness of breath, the patient denies any chest pain or cough, the patient denies any nausea vomiting complaining of some abdominal pain from surgery. Patient white count is 7.69, creatinine 0.8 blood culture repeat so far negative Objective - Vital Signs Vital signs: Vital Signs Temp 97.7 F 05/10/23 12:18 Pulse 69 05/10/23 12:18 Resp 18 05/10/23 12:18 BP 97/61 05/10/23 12:18 Pulse Ox 96 05/10/23 12:18 FiO2 Intake & Output 05/09/23 05/10/23 05/10/23 18:59 06:59 18:59 Intake Total 750 240 Output Total 710 1000 Balance 40 -760 Intake: IV 750 Oral 240 Output: Urine 700 1000 Estimated Blood Loss 10 Other: Voiding Method Indwelling Catheter Indwelling Catheter Indwelling Catheter # Voids 0 - Exam GENERAL DESCRIPTION: An elderly male lying in bed in no distress RESPIRATORY SYSTEM: Unlabored breathing , decreased breath sounds at bases HEART: S1 S2 regular rate and rhythm , ABDOMEN: Soft , no tenderness Stage IV sacral pressure ulcer with some slough tissue and bones palpable - Labs CBC & Chem 7: 05/10/23 08:04 05/10/23 08:04 Labs: Abnormal Lab Results - Last 24 Hours (Table) 05/10/23 05/10/23 Range/Units 08:04 08:04 RBC 3.40 L (4.40-5.60) X 10*6/uL Hgb 8.1 L (13.0-17.0) g/dL Hct 27.6 L (39.6-50.0) % MCH 23.8 L (27.0-32.0) pg MCHC 29.3 L (32.0-37.0) g/dL RDW 15.9 H (11.5-14.5) % Plt Count 482 H (140-440) X 10*3/uL MPV 9.1 L (9.5-12.2) FL BUN/Creatinine Ratio 23.38 H (12.00-20.00) Ratio Calcium 7.9 L (8.7-10.3) mg/dL Total Bilirubin 0.2 L (0.3-1.2) mg/dL C-Reactive Protein 7.30 H (0.00-0.80) mg/dL Total Protein 5.5 L (6.2-8.2) g/dL Albumin 2.4 L (3.8-4.9) g/dL Albumin/Globulin Ratio 0.77 L (1.60-3.17) Ratio Microbiology - Last 24 Hours (Table) 05/09/23 06:30 Blood Culture - Preliminary Blood 05/06/23 13:29 Blood Culture Gram Stain - Final Blood Blood Culture - Final Bacteroides fragilis Anaerobic Gram Positive Cocci Molecular ID 05/06/23 11:46 Gram Stain - Final Buttock Wound Culture - Final Staphylococcus aureus Escherichia coli Proteus mirabilis 05/06/23 13:29 Blood Culture Gram Stain - Final Blood Blood Culture - Final Proteus mirabilis Anaerobic Gram Positive Cocci Bacteroides fragilis Molecular ID 05/06/23 11:46 Urine Culture - Final Urine,Voided Pseudomonas aeruginosa Enterococcus faecalis Assessment and Plan (1) Bacteremia Current Visit: Yes Status: Acute Code(s): R78.81 - BACTEREMIA SNOMED Code(s): 7107571 (2) Urinary tract infection Current Visit: Yes Status: Acute Code(s): N39.0 - URINARY TRACT INFECTION, SITE NOT SPECIFIED SNOMED Code(s): 96083735 (3) Stage IV pressure ulcer of sacral region Current Visit: Yes Status: Acute Code(s): L89.154 - PRESSURE ULCER OF SACRAL REGION, STAGE 4 SNOMED Code(s): 52638791258797 Plan: 1patient presented hospital with weakness which is likely multifactorial in this patient who did have evidence of dehydration with significant elevated BUN and creatinine and the patient also noticed to have a UTI likely from enteric gram-negative pathogen, patient did have a wound to the sacral area stage II pressure ulcer and wound to the left lower leg however does wound does not look infected 2--patient with Proteus and also bacteroids bacteremia source could be infected sacral pressure ulcer, urine is growing Pseudomonas and Enterococcus 3blood culture repeated and so far pending 4-patient to continue with Zosyn surgery recommending no debridement of his sacral wound Dictation was produced using [employer] dictation software. please excuse any grammatical, word or spelling errors. Time with Patient: Less than 30
[2023-05-10 17:03] LABS: Erythrocyte Sedimentation Rate 89 mm/Hr (0-20)
--- NOTE | 2023-05-10 18:32 | P.PN ---
Subjective patient is seen for follow-up for acute kidney injury. Renal function has improved with serum creatinine down to 0.8 mg/dL. Good urine output. Objective - Vital Signs Vital signs: Vital Signs Temp 97.7 F 05/10/23 12:18 Pulse 69 05/10/23 12:18 Resp 18 05/10/23 12:18 BP 97/61 05/10/23 12:18 Pulse Ox 96 05/10/23 12:18 FiO2 Intake & Output 05/09/23 05/10/23 05/10/23 18:59 06:59 18:59 Intake Total 750 240 Output Total 710 1000 1600 Balance 40 -760 -1600 Intake: IV 750 Oral 240 Output: Urine 700 1000 1600 Estimated Blood Loss 10 Other: Voiding Method Indwelling Catheter Indwelling Catheter Indwelling Catheter # Voids 0 - Exam patient is awake, comfortable, no acute distress Alert oriented 3 Examination of the heart S1 and S2 Examination of the lungs bilateral breath sounds are heard Abdomen is soft nontender Examination of lower extremity shows chronic skin changes, wounds noted in the legs and patient also has a sacral decubitus which was not examined. bilateral lower extremity weakness. - Labs CBC & Chem 7: 05/10/23 08:04 05/10/23 08:04 Labs: Abnormal Lab Results - Last 24 Hours (Table) 05/10/23 05/10/23 Range/Units 08:04 08:04 RBC 3.40 L (4.40-5.60) X 10*6/uL Hgb 8.1 L (13.0-17.0) g/dL Hct 27.6 L (39.6-50.0) % MCH 23.8 L (27.0-32.0) pg MCHC 29.3 L (32.0-37.0) g/dL RDW 15.9 H (11.5-14.5) % Plt Count 482 H (140-440) X 10*3/uL MPV 9.1 L (9.5-12.2) FL ESR 89 H (0-20) mm/Hr BUN/Creatinine Ratio 23.38 H (12.00-20.00) Ratio Calcium 7.9 L (8.7-10.3) mg/dL Total Bilirubin 0.2 L (0.3-1.2) mg/dL C-Reactive Protein 7.30 H (0.00-0.80) mg/dL Total Protein 5.5 L (6.2-8.2) g/dL Albumin 2.4 L (3.8-4.9) g/dL Albumin/Globulin Ratio 0.77 L (1.60-3.17) Ratio Microbiology - Last 24 Hours (Table) 05/09/23 06:30 Blood Culture - Preliminary Blood 05/06/23 13:29 Blood Culture Gram Stain - Final Blood Blood Culture - Final Bacteroides fragilis Anaerobic Gram Positive Cocci Molecular ID 05/06/23 11:46 Gram Stain - Final Buttock Wound Culture - Final Staphylococcus aureus Escherichia coli Proteus mirabilis Assessment and Plan Assessment: 1. Acute kidney injury secondary to urine retention and ATN from low blood pressure. Currently nonoliguric with significant improvement in renal function. No obstructive uropathy noted on ultrasound. UA shows 2+ protein and significant WBCs 2. Urine retention with 1200 mL of urine obtained on initial Ye catheter placement. 3. UTI with urine culture growing Pseudomonas 4. Bilateral lower extremity wounds and sacral decubitus ulcer 5. History of spinal lesion and bilateral lower extremity weakness 6. Paroxysmal A. fib maintained on alkalosis 7. Bacteremia with blood culture growing Bacteroides and Proteus Plan: continue with Ye catheter decrease IV fluids Continue antibiotics Repeat labs in a.m. .
[2023-05-11] MEDS: ONDANSETRON 4 MG/2 ML VIAL IVP PRN (09:05)
[2023-05-11] MEDS: COLLAGENASE 250 UNIT/GM OINTMENT 30 GM TUBE TOPICAL SCH (11:57)
--- NOTE | 2023-05-11 14:26 | P.CON ---
Consult Note - . Consult date: 05/11/23 Assessment/Plan:: this patient is well known to the wound care center. We have seen him previously in consultation for a large presacral decubitus. At that time we recommended diverging colostomy which would be the first step in a complex program to heal this ulcer. 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 The patient has multiple problems which are detrimental to the wound healing process. #1 the patient for multiple reasons is malnourished with an albumin of only 2.4 on admission. #2 the patient is extremely noncompliant. In spite of numerous efforts to instruct he continues to lie flat on the ulceration. #3 there are financial issues which have the patient returning to his home with essentially no support system to do the necessary wound treatments. #4 the patient's physical debilitation makes his efforts to comply more difficult. On examination the decubitus is somewhat irregular. It is 12-13 cm in dimension. There is still a moderate amount of slough apparent on the wound surface. I discussed in very claudy terms with the patient the options in regards to treatment of this wound.the following will be essential in order to have any chance at healing. #1 he must offload the area by lying on his side or his abdomen. #2 his nutrition must improve including utilizing protein shakes to assist #3 ideally he would start with Santyl on a daily basis and have periodic debridements by general surgery. #4 once the wound is clean enough a wound VAC could be utilized. This is a very frustrating and complex issue. A lot of the rolled blocks to healing R financial and social in nature and also relates to the patient's willingness to make some fairly significant sacrifices. I would suggest also seeking some form of tertiary center assistance. L89.154 Stge 4 Sacral decubitus R53.1 weakness
--- NOTE | 2023-05-11 15:46 | P.PN ---
Subjective Progress Note Date: 05/11/23 CHIEF COMPLAINT: Decubitus ulcer HISTORY OF PRESENT ILLNESS: Patient is postop day #2 status post diverting colostomy. Patient does have pain at the incision site. Pain is controlled. Denies any nausea or vomiting. Ostomy functioning. Afebrile. Episode of tachycardia. No new labs. Patient evaluated by ostomy nurse. PHYSICAL EXAM: VITAL SIGNS: Reviewed. GENERAL: Well-developed in no acute distress. ABDOMEN: Soft. Nondistended. Tender at midline incision. Incision clean dry and intact. Ostomy on the left with beefy red stoma. Small amount of stool noted from ostomy NEUROLOGIC: Alert and oriented. Cranial nerves II through XII grossly intact. ASSESSMENT: 1. Sacral decubitus ulcer status post diverting colostomy 2. Constipation PLAN: -No plans for debriding the sacral decubitus ulcer at this time -Continue pain management -Continue clear liquid diet -Antibiotics per infectious disease -Continue local wound care for sacral ulcer Physician Recruitment And Outreach Assistant note has been reviewed by physician. Signing provider agrees with the documented findings, assessment, and plan of care. Objective - Vital Signs Vital signs: Vital Signs Temp 97.3 F L 05/11/23 14:07 Pulse 74 05/11/23 14:07 Resp 18 05/11/23 14:07 BP 166/67 05/11/23 14:07 Pulse Ox 96 05/11/23 14:07 FiO2 Intake & Output 05/10/23 05/11/23 05/11/23 18:59 06:59 18:59 Intake Total 600 620 Output Total 1600 800 750 Balance -1000 -180 -750 Weight 76.204 kg Intake: Intake, IV Titration 600 Amount Piperacillin-Tazobactam 3 200 .375 gm In Sodium Chloride 0.9% 100 ml @ 25 mls/hr IVPB Q8HR [facility] Rx# :[id number] Sodium Chloride 0.9% 1, 400 000 ml @ 50 mls/hr IV . Q20H [facility]OTT Rx#:[id number] Oral 620 Output: Urine 1600 800 750 Other: Voiding Method Indwelling Catheter Indwelling Catheter Indwelling Catheter - Labs CBC & Chem 7: 05/10/23 08:04 05/10/23 08:04 Labs: Abnormal Lab Results - Last 24 Hours (Table) 05/10/23 Range/Units 08:04 ESR 89 H (0-20) mm/Hr Microbiology - Last 24 Hours (Table) 05/09/23 06:30 Blood Culture - Preliminary Blood
--- NOTE | 2023-05-11 16:03 | P.PN ---
Progress Note - Text Progress Note Date: 05/10/23 Chief Complaint: Weakness This is a 72-year-old patient follows with visiting physicians Dr. Valero. 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 For which she saw a few years ago Dr. Leo. At [facility]. He was told that removing the tumor could be more dangerous than leaving it alone. Patient was very recently discharged from [facility]. Patient has sacral decubitus wound. Also wounds on the lower extremity. Back in January he was here at lower extremity wound care followed vascular team of Dr. Ye. Patient's brother lives at home with him. Patient nonambulatory. Decreased appetite. Presents with worsening wound to sacral decubitus, also wound on the left calf. Patient is constipated. Denies any fever and chills. Weakness. Has had intermittent diarrhea. May 06: Reclining bed. No pain in the legs. Pending vascular input. IV ceftriaxone. IV fluids. Had a bowel movement. May 07: Laying in bed. No pain in the lower extremity. Seen by surgery. Plan for diverting colostomy which patient has agreed to. Patient's brother at the bedside. Questions answered. IV Zosyn. May 08: Patient had diverting colostomy with sigmoid colectomy done by Dr. Dupont today. On IV Zosyn. Being followed by vascular. No pain. Postprocedure started on clear liquids May 09: No stool output. No plans for debridement per Dr uDpont. Of the sacral wound. Liquid diet. Wound care team also following. Active Medications Reviewed Social history: No smoking or alcohol. Brother is in and out of the house. Physical examination: VITAL SIGNS: 97.7, 69, 18, 97 x 61, 96% room air GENERAL: Lying in bed, comfortable EYES: Pupils equal. Conjunctiva normal. HEENT: External appearance of nose and ears normal, oral cavity grossly normal. NECK: JVD not raised; masses not palpable. HEART: First and second heart sounds are normal; no edema. LUNGS: Respiratory rate normal; clear to auscultation. ABDOMEN: Soft, nontender, liver spleen not palpable, no masses palpable,- colostomy bag no stool PSYCH: Alert and oriented x3; mood and affect normal. MUSCULOSKELETAL:No Clubbing/cyanosis;muscles-grossly intact. DERMATOLOGICAL: Chronic venous stasis changes in lower extremity, with some crusting . Unstageable wounds on the sacrum/buttocks NEUROLOGICAL: Cranial nerves grossly intact; no facial asymmetry, weakness lower extremity, power 1/ 5.. INVESTIGATIONS, reviewed in the clinical context: May 09: White count 7.6 hemoglobin 8.1 potassium 4.3 creatinine 0.8 May 08: White count 6.9 hemoglobin 8 platelets 518 potassium 3.8 creatinine 0.92 May 07: White count 6.7 hemoglobin 8.8 platelets 43 potassium 3.1 BUN 40 creatinine 1.35 May 06: White count 9.1 hemoglobin 8.1 platelets 434 potassium 2.9 BUN 60 creatinine 2.46 May 06, 2023: White count 15.9 hemoglobin 10.2 platelets of 83 sodium 133 potassium 4.1 BUN 74 creatinine 5.41 lactic acid 2.1 Troponin I less than 0.012 C. difficile negative EKG tracing personally reviewed by me-normal sinus rhythm. Chest x-ray film personally reviewed by me-unremarkable Assessment and plan: -Worsening infected, acute on chronic Unstageable pressure ulcer left buttock, right buttocks, stage I pressure ulcer lower back.: Slow to respond Consult vascular surgery Dr. Ye's team. IV Zosyn Diverting colostomy done by Dr. Dupont on May 08 Dr Dupont not planning for wound debridement at this point -Acute kidney injury likely combination of ATN and prerenal: Resolved Creatinine 5.4 on admission -Acute on chronic medical debility. Patient just discharged from [facility] about a week ago. 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 Currently sinus rhythm. Eliquis-held -Disposition: Will be discharged. To his house. He lives in his own house. Spoke to social media senior associate. Patient does not have any days for rehab. -Full code Continue current medication treatment plan. Follow-up with surgery and wound care team. Past Medical History Past Medical History: Atrial Fibrillation, Hyperlipidemia, Osteoarthritis (OA) Additional Past Medical History / Comment(s): Bulging disks, bilateral knee arthritis, UTI, blood infection History of Any Multi-Drug Resistant Organisms: None Reported Past Surgical History: Orthopedic Surgery, Tonsillectomy Additional Past Surgical History / Comment(s): Knee replacement surgery, tonsills out at 7 yrs old, torn meninscus Past Anesthesia/Blood Transfusion Reactions: No Reported Reaction Past Psychological History: Anxiety Smoking Status: Former smoker Past Alcohol Use History: None Reported Past Drug Use History: None Reported
--- NOTE | 2023-05-11 16:06 | P.PN ---
Progress Note - Text Progress Note Date: 05/11/23 Chief Complaint: Weakness This is a 72-year-old patient follows with visiting physicians Dr. Valero. 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 For which she saw a few years ago Dr. Leo. At [facility]. He was told that removing the tumor could be more dangerous than leaving it alone. Patient was very recently discharged from [facility]. Patient has sacral decubitus wound. Also wounds on the lower extremity. Back in January he was here at lower extremity wound care followed vascular team of Dr. Ye. Patient's brother lives at home with him. Patient nonambulatory. Decreased appetite. Presents with worsening wound to sacral decubitus, also wound on the left calf. Patient is constipated. Denies any fever and chills. Weakness. Has had intermittent diarrhea. May 06: Reclining bed. No pain in the legs. Pending vascular input. IV ceftriaxone. IV fluids. Had a bowel movement. May 07: Laying in bed. No pain in the lower extremity. Seen by surgery. Plan for diverting colostomy which patient has agreed to. Patient's brother at the bedside. Questions answered. IV Zosyn. May 08: Patient had diverting colostomy with sigmoid colectomy done by Dr. Dupont today. On IV Zosyn. Being followed by vascular. No pain. Postprocedure started on clear liquids May 09: No stool output. No plans for debridement per Dr Dupont. Of the sacral wound. Liquid diet. Wound care team also following. May 10: Spoke to rn social work. Only option for the patient is to go home with his brother. I did discuss with Dr. Vitale the patient that if the wound does not heal at some point hospice may have to be considered. Remains on clear liquid diet Active Medications Acetaminophen (Acetaminophen Tab 325 Mg Tab) 650 mg PO Q6HR PRN PRN Reason: Mild Pain or Fever > 100.5 Calcium Carbonate/Glycine (Calcium Carbonate 500 Mg Chewable) 1,000 mg PO Q4HR PRN PRN Reason: Dyspepsia Collagenase (Collagenase 250 Unit/Gm Ointment 30 Gm Tube) 1 applic TOPICAL DAILY [facility]; Protocol Last Admin: 05/11/23 11:57 Dose: 1 applic Folic Acid (Folic Acid 1 Mg Tab) 1 mg PO DAILY [facility] Last Admin: 05/11/23 09:10 Dose: 1 mg Gabapentin (Gabapentin 100 Mg Cap) 200 mg PO TID [facility] Last Admin: 05/11/23 09:10 Dose: 200 mg Sodium Chloride (Saline 0.9%) 1,000 mls @ 50 mls/hr IV .Q20H [facility] Last Admin: 05/11/23 00:26 Dose: 50 mls/hr Piperacillin Sod/Tazobactam (Sod 3.375 gm/ Sodium Chloride) 100 mls @ 25 mls/hr IVPB Q8HR [facility]; Protocol Last Admin: 05/11/23 09:06 Dose: 25 mls/hr Lactulose (Lactulose 20 Gm/30 Ml Cup) 20 gm PO DAILY PRN PRN Reason: Constipation Loperamide HCl (Loperamide 2 Mg Cap) 2 mg PO Q6H PRN PRN Reason: Diarrhea Lorazepam (Lorazepam 0.5 Mg Tab) 0.5 mg PO Q6HR PRN PRN Reason: Anxiety Morphine Sulfate (Morphine Sulfate 4 Mg/Ml Syringe) 4 mg IV Q4HR PRN PRN Reason: Severe Pain (Scale 7 to 10) Last Admin: 05/10/23 21:54 Dose: 4 mg Naloxone HCl (Naloxone 0.4 Mg/Ml 1 Ml Vial) 0.2 mg IV Q2M PRN PRN Reason: Opioid Reversal Ondansetron HCl (Ondansetron 4 Mg/2 Ml Vial) 4 mg IVP Q8HR PRN PRN Reason: Nausea And Vomiting Last Admin: 05/11/23 09:05 Dose: 4 mg Pantoprazole Sodium (Pantoprazole 40 Mg Tablet) 40 mg PO AC-BRKFST [facility] Last Admin: 05/11/23 09:10 Dose: 40 mg Psyllium Hydrophilic Mucilloid (Psyllium Husk 100% 6 Gm Packet) 6 gm PO DAILY [facility] Last Admin: 05/11/23 09:10 Dose: Not Given Tramadol HCl (Tramadol 50 Mg Tab) 50 mg PO Q6H PRN PRN Reason: Moderate Pain (Scale 4 to 6) Last Admin: 05/09/23 20:11 Dose: 50 mg Social history: No smoking or alcohol. Brother is in and out of the house. Physical examination: VITAL SIGNS: 97.3, 74, 18, 166 x 67, 96% room air GENERAL: Lying in bed, discomfort pain at the wound site. EYES: Pupils equal. Conjunctiva normal. HEENT: External appearance of nose and ears normal, oral cavity grossly normal. NECK: JVD not raised; masses not palpable. HEART: First and second heart sounds are normal; no edema. LUNGS: Respiratory rate normal; clear to auscultation. ABDOMEN: Soft, nontender, liver spleen not palpable, no masses palpable,- colostomy bag no stool PSYCH: Alert and oriented x3; mood and affect normal. MUSCULOSKELETAL:No Clubbing/cyanosis;muscles-grossly intact. DERMATOLOGICAL: Chronic venous stasis changes in lower extremity, with some crusting . Unstageable wounds on the sacrum/buttocks NEUROLOGICAL: Cranial nerves grossly intact; no facial asymmetry, weakness lower extremity, power 1/ 5.. INVESTIGATIONS, reviewed in the clinical context: May 09: White count 7.6 hemoglobin 8.1 potassium 4.3 creatinine 0.8 May 08: White count 6.9 hemoglobin 8 platelets 518 potassium 3.8 creatinine 0.92 May 07: White count 6.7 hemoglobin 8.8 platelets 43 potassium 3.1 BUN 40 creatinine 1.35 May 06: White count 9.1 hemoglobin 8.1 platelets 434 potassium 2.9 BUN 60 creatinine 2.46 May 06, 2023: White count 15.9 hemoglobin 10.2 platelets of 83 sodium 133 potassium 4.1 BUN 74 creatinine 5.41 lactic acid 2.1 Troponin I less than 0.012 C. difficile negative EKG tracing personally reviewed by me-normal sinus rhythm. Chest x-ray film personally reviewed by me-unremarkable Assessment and plan: -Worsening infected, acute on chronic Unstageable pressure ulcer left buttock, right buttocks, stage I pressure ulcer lower back.: Slow to respond Wound care team following Dr. Kumar. IV Zosyn Diverting colostomy done by Dr. Dupont on May 08 Dr Dupont not planning for wound debridement at this point -Acute kidney injury likely combination of ATN and prerenal: Resolved Creatinine 5.4 on admission -Acute on chronic medical debility. Patient just discharged from [facility] about a week ago. PT OT -Venous stasis/dermatitis changes in lower extremity. Calf wound. Seen by Dr. 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 Currently sinus rhythm. Eliquis-held -Disposition: Will be discharged.-To his house. He lives in his own house. Spoke to rn social work. Patient does not have any days for rehab. -Full code Continue current medication treatment plan. Follow-up with surgery and wound care team. Past Medical History Past Medical History: Atrial Fibrillation, Hyperlipidemia, Osteoarthritis (OA) Additional Past Medical History / Comment(s): Bulging disks, bilateral knee arthritis, UTI, blood infection History of Any Multi-Drug Resistant Organisms: None Reported Past Surgical History: Orthopedic Surgery, Tonsillectomy Additional Past Surgical History / Comment(s): Knee replacement surgery, tonsills out at 7 yrs old, torn meninscus Past Anesthesia/Blood Transfusion Reactions: No Reported Reaction Past Psychological History: Anxiety Smoking Status: Former smoker Past Alcohol Use History: None Reported Past Drug Use History: None Reported
--- NOTE | 2023-05-11 17:26 | P.PN ---
Subjective Progress Note Date: 05/11/23 Principal diagnosis: Reason for follow-up is UTI bacteremia and sacral pressure ulcer Patient is a 72-year-old male with a past medical history significant atrial fibrillation hyperlipidemia osteoarthritis patient was brought into the hospital for evaluation generalized weakness, patient did have evidence of a UTI and a sacral pressure ulcer. Patient blood culture subsequently came back positive with Proteus On today's evaluation that is Patient is status post sigmoid colectomy and end colostomy completed on 05/09/2023. On today's evaluation that is 05/11/2023, patient has been afebrile, patient is breathing comfortably and is currently on room air, patient denies having any significant cough no chest pain shortness of breath, patient denies nausea vomiting has been complaining of some abdominal pain did have minimal output in his colostomy. Patient white count 7.69, creatinine 0.8 Objective - Vital Signs Vital signs: Vital Signs Temp 98.3 F 05/11/23 08:27 Pulse 123 H 05/11/23 08:27 Resp 19 05/11/23 08:27 BP 100/67 05/11/23 08:27 Pulse Ox 94 L 05/11/23 08:27 FiO2 Intake & Output 05/10/23 05/11/23 05/11/23 18:59 06:59 18:59 Intake Total 600 620 Output Total 1600 800 Balance -1000 -180 Weight 76.204 kg Intake: Intake, IV Titration 600 Amount Piperacillin-Tazobactam 3 200 .375 gm In Sodium Chloride 0.9% 100 ml @ 25 mls/hr IVPB Q8HR [facility] Rx# :[id number] Sodium Chloride 0.9% 1, 400 000 ml @ 50 mls/hr IV . Q20H [facility] Rx#:[id number] Oral 620 Output: Urine 1600 800 Other: Voiding Method Indwelling Catheter Indwelling Catheter - Exam GENERAL DESCRIPTION: An elderly male lying in bed in no distress RESPIRATORY SYSTEM: Unlabored breathing , decreased breath sounds at bases HEART: S1 S2 regular rate and rhythm , ABDOMEN: Soft , no tenderness Stage IV sacral pressure ulcer with some slough tissue and bones palpable - Labs CBC & Chem 7: 05/10/23 08:04 05/10/23 08:04 Labs: Abnormal Lab Results - Last 24 Hours (Table) 05/10/23 Range/Units 08:04 ESR 89 H (0-20) mm/Hr Microbiology - Last 24 Hours (Table) 05/09/23 06:30 Blood Culture - Preliminary Blood Assessment and Plan (1) Bacteremia Current Visit: Yes Status: Acute Code(s): R78.81 - BACTEREMIA SNOMED Code(s): 3943007 (2) Urinary tract infection Current Visit: Yes Status: Acute Code(s): N39.0 - URINARY TRACT INFECTION, SITE NOT SPECIFIED SNOMED Code(s): 86123923 (3) Stage IV pressure ulcer of sacral region Current Visit: Yes Status: Acute Code(s): L89.154 - PRESSURE ULCER OF SACRAL REGION, STAGE 4 SNOMED Code(s): 12707985053981 Plan: 1patient presented hospital with weakness which is likely multifactorial in this patient who did have evidence of dehydration with significant elevated BUN and creatinine and the patient also noticed to have a UTI likely from enteric gram-negative pathogen, patient did have a wound to the sacral area stage II pressure ulcer and wound to the left lower leg however does wound does not look infected 2--patient with Proteus and also bacteroids bacteremia source could be infected sacral pressure ulcer, urine is growing Pseudomonas and Enterococcus 3blood culture repeated and so far pending 4-patient to continue with Zosyn keeping in mind his bacteremia and osteomyelitis will need IV antibiotic therapy will discuss further with the behavioral health case manager regarding option Dictation was produced using [employer] dictation software. please excuse any grammatical, word or spelling errors. Time with Patient: Less than 30
--- NOTE | 2023-05-12 15:42 | P.PN ---
Subjective Progress Note Date: 05/12/23 Principal diagnosis: Reason for follow-up is UTI bacteremia and sacral pressure ulcer Patient is a 72-year-old male with a past medical history significant atrial fibrillation hyperlipidemia osteoarthritis patient was brought into the hospital for evaluation generalized weakness, patient did have evidence of a UTI and a sacral pressure ulcer. Patient blood culture subsequently came back positive with Proteus On today's evaluation that is Patient is status post sigmoid colectomy and end colostomy completed on 05/09/2023. On today's evaluation that is 05/12/2023,the patient denies any fever or any chills, patient is breathing comfortably on room air, the patient denies chest pain shortness of breath and no significant cough, patient has been complaining of some abdominal pain though less than yesterday no vomiting or diarrhea. Patient white count is 7.69, creatinine 0.8 blood culture repeat negative Objective - Vital Signs Vital signs: Vital Signs Temp 97.6 F 05/12/23 12:56 Pulse 77 05/12/23 12:56 Resp 17 05/12/23 12:56 BP 111/74 05/12/23 12:56 Pulse Ox 94 L 05/12/23 12:56 FiO2 Intake & Output 05/11/23 05/12/23 05/12/23 18:59 06:59 18:59 Intake Total 800 Output Total 950 400 Balance -150 -400 Weight 76.204 kg Intake: Intake, IV Titration 800 Amount Piperacillin-Tazobactam 3 200 .375 gm In Sodium Chloride 0.9% 100 ml @ 25 mls/hr IVPB Q8HR [facility] Rx# :[id number] Sodium Chloride 0.9% 1, 600 000 ml @ 50 mls/hr IV . Q20H [facility] Rx#:[id number] Output: Urine 950 400 Other: Voiding Method Indwelling Catheter Indwelling Catheter Indwelling Catheter - Exam GENERAL DESCRIPTION: An elderly male lying in bed in no distress RESPIRATORY SYSTEM: Unlabored breathing , decreased breath sounds at bases HEART: S1 S2 regular rate and rhythm , ABDOMEN: Soft , no tenderness Stage IV sacral pressure ulcer with some slough tissue and bones palpable - Labs CBC & Chem 7: 05/10/23 08:04 05/10/23 08:04 Labs: Microbiology - Last 24 Hours (Table) 05/09/23 06:30 Blood Culture - Preliminary Blood Assessment and Plan (1) Bacteremia Current Visit: Yes Status: Acute Code(s): R78.81 - BACTEREMIA SNOMED Code(s): 5313529 (2) Urinary tract infection Current Visit: Yes Status: Acute Code(s): N39.0 - URINARY TRACT INFECTION, SITE NOT SPECIFIED SNOMED Code(s): 59114696 (3) Stage IV pressure ulcer of sacral region Current Visit: Yes Status: Acute Code(s): L89.154 - PRESSURE ULCER OF SACRAL REGION, STAGE 4 SNOMED Code(s): 29636904019843 Plan: 1patient presented hospital with weakness which is likely multifactorial in this patient who did have evidence of dehydration with significant elevated BUN and creatinine and the patient also noticed to have a UTI likely from enteric gram-negative pathogen, patient did have a wound to the sacral area stage II pressure ulcer and wound to the left lower leg however does wound does not look infected 2--patient with Proteus and also bacteroids bacteremia source could be infected sacral pressure ulcer, urine is growing Pseudomonas and Enterococcus 3blood culture repeat has been negative so far 4-patient to continue with Zosyn patient has been bacteremia and osteomyelitis will need IV antibiotic therapy on discharge Dictation was produced using [employer] dictation software. please excuse any grammatical, word or spelling errors. Time with Patient: Less than 30
--- NOTE | 2023-05-12 16:50 | P.PN ---
Subjective Progress Note Date: 05/12/23 Principal diagnosis: Sacral decubitus ulcer Patient was scheduled for debridement of his sacral decubitus ulcer today. Dr. Dupont set this up for me to perform. Nursing staff contacted me stating the patient was refusing surgery. I came up to speak with him. He says he is just too tired. He says this was just recently performed and he does not want to go through any additional procedures at this point. Patient is mildly distended, mild nausea. He is asking for solid food however. No vomiting. Objective - Vital Signs Vital signs: Vital Signs Temp 97.6 F 05/12/23 12:56 Pulse 77 05/12/23 12:56 Resp 17 05/12/23 12:56 BP 111/74 05/12/23 12:56 Pulse Ox 94 L 05/12/23 12:56 FiO2 Intake & Output 05/11/23 05/12/23 05/12/23 18:59 06:59 18:59 Intake Total 800 Output Total 950 400 Balance -150 -400 Weight 76.204 kg Intake: Intake, IV Titration 800 Amount Piperacillin-Tazobactam 3 200 .375 gm In Sodium Chloride 0.9% 100 ml @ 25 mls/hr IVPB Q8HR [facility] Rx# :[id number] Sodium Chloride 0.9% 1, 600 000 ml @ 50 mls/hr IV . Q20H [facility] Rx#:[id number] Output: Urine 950 400 Other: Voiding Method Indwelling Catheter Indwelling Catheter Indwelling Catheter - Exam Abdomen: Soft, mild distention, mild tenderness, dressing clean and dry, ostomy functioning - Labs CBC & Chem 7: 05/10/23 08:04 05/10/23 08:04 Labs: Microbiology - Last 24 Hours (Table) 05/09/23 06:30 Blood Culture - Preliminary Blood Assessment and Plan (1) Stage IV pressure ulcer of sacral region Narrative/Plan: 72-year-old male with large sacral decubitus ulcer. Had diverting colostomy performed. He was scheduled for debridement today. Patient is refusing. Risks of not proceeding with surgery discussed. Patient expresses understanding. Will reevaluate tomorrow. Sips of liquids today. Current Visit: Yes Status: Acute Code(s): L89.154 - PRESSURE ULCER OF SACRAL REGION, STAGE 4 SNOMED Code(s): 47608713979907
--- NOTE | 2023-05-12 16:54 | P.PN ---
Progress Note - Text Progress Note Date: 05/12/23 Chief Complaint: Weakness This is a 72-year-old patient follows with visiting physicians Dr. Valero. 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 For which she saw a few years ago Dr. Leo. At [facility]. He was told that removing the tumor could be more dangerous than leaving it alone. Patient was very recently discharged from [facility]. Patient has sacral decubitus wound. Also wounds on the lower extremity. Back in January he was here at lower extremity wound care followed vascular team of Dr. Ye. Patient's brother lives at home with him. Patient nonambulatory. Decreased appetite. Presents with worsening wound to sacral decubitus, also wound on the left calf. Patient is constipated. Denies any fever and chills. Weakness. Has had intermittent diarrhea. May 06: Reclining bed. No pain in the legs. Pending vascular input. IV ceftriaxone. IV fluids. Had a bowel movement. May 07: Laying in bed. No pain in the lower extremity. Seen by surgery. Plan for diverting colostomy which patient has agreed to. Patient's brother at the bedside. Questions answered. IV Zosyn. May 08: Patient had diverting colostomy with sigmoid colectomy done by Dr. Dupont today. On IV Zosyn. Being followed by vascular. No pain. Postprocedure started on clear liquids May 09: No stool output. No plans for debridement per Dr Dupont. Of the sacral wound. Liquid diet. Wound care team also following. May 10: Spoke to social worker clinical. Only option for the patient is to go home with his brother. I did discuss with Dr. Vitale the patient that if the wound does not heal at some point hospice may have to be considered. Remains on clear liquid diet May 11: Spoke to Dr. Dupont yesterday. He will be out of town. He will asked Dr. Gómez to do the debridement. Nurse informed me that patient declined debridement today by Dr. Gómez. Also abdomen distended. Made NPO. Active Medications Acetaminophen (Acetaminophen Tab 325 Mg Tab) 650 mg PO Q6HR PRN PRN Reason: Mild Pain or Fever > 100.5 Calcium Carbonate/Glycine (Calcium Carbonate 500 Mg Chewable) 1,000 mg PO Q4HR PRN PRN Reason: Dyspepsia Collagenase (Collagenase 250 Unit/Gm Ointment 30 Gm Tube) 1 applic TOPICAL DAILY [facility]; Protocol Last Admin: 05/12/23 09:26 Dose: Not Given Folic Acid (Folic Acid 1 Mg Tab) 1 mg PO DAILY [facility] Last Admin: 05/12/23 09:18 Dose: 1 mg Gabapentin (Gabapentin 100 Mg Cap) 200 mg PO TID [facility] Last Admin: 05/12/23 09:18 Dose: 200 mg Sodium Chloride (Saline 0.9%) 1,000 mls @ 50 mls/hr IV .Q20H [facility] Last Admin: 05/11/23 22:40 Dose: 50 mls/hr Piperacillin Sod/Tazobactam (Sod 3.375 gm/ Sodium Chloride) 100 mls @ 25 mls/hr IVPB Q8HR [facility]; Protocol Last Admin: 05/12/23 09:18 Dose: 25 mls/hr Lactulose (Lactulose 20 Gm/30 Ml Cup) 20 gm PO DAILY PRN PRN Reason: Constipation Loperamide HCl (Loperamide 2 Mg Cap) 2 mg PO Q6H PRN PRN Reason: Diarrhea Lorazepam (Lorazepam 0.5 Mg Tab) 0.5 mg PO Q6HR PRN PRN Reason: Anxiety Morphine Sulfate (Morphine Sulfate 4 Mg/Ml Syringe) 4 mg IV Q4HR PRN PRN Reason: Severe Pain (Scale 7 to 10) Last Admin: 05/12/23 14:26 Dose: 4 mg Naloxone HCl (Naloxone 0.4 Mg/Ml 1 Ml Vial) 0.2 mg IV Q2M PRN PRN Reason: Opioid Reversal Ondansetron HCl (Ondansetron 4 Mg/2 Ml Vial) 4 mg IVP Q8HR PRN PRN Reason: Nausea And Vomiting Last Admin: 05/11/23 09:05 Dose: 4 mg Pantoprazole Sodium (Pantoprazole 40 Mg Tablet) 40 mg PO AC-BRKFST [facility] Last Admin: 05/12/23 09:18 Dose: 40 mg Psyllium Hydrophilic Mucilloid (Psyllium Husk 100% 6 Gm Packet) 6 gm PO DAILY [facility] Last Admin: 05/12/23 09:18 Dose: Not Given Tramadol HCl (Tramadol 50 Mg Tab) 50 mg PO Q6H PRN PRN Reason: Moderate Pain (Scale 4 to 6) Last Admin: 05/09/23 20:11 Dose: 50 mg Social history: No smoking or alcohol. Brother is in and out of the house. Physical examination: VITAL SIGNS: 97.6, 77, 17, 100 x 74, 94% room air GENERAL: Lying in bed, awake EYES: Pupils equal. Conjunctiva normal. HEENT: External appearance of nose and ears normal, oral cavity grossly normal. NECK: JVD not raised; masses not palpable. HEART: First and second heart sounds are normal; no edema. LUNGS: Respiratory rate normal; clear to auscultation. ABDOMEN: Soft, nontender, liver spleen not palpable, no masses palpable,- colostomy bag no stool. Some abdominal distention PSYCH: Alert and oriented x3; mood and affect normal. MUSCULOSKELETAL:No Clubbing/cyanosis;muscles-grossly intact. DERMATOLOGICAL: Chronic venous stasis changes in lower extremity, with some crusting . Unstageable wounds on the sacrum/buttocks NEUROLOGICAL: Cranial nerves grossly intact; no facial asymmetry, weakness lower extremity, power 1/ 5.. INVESTIGATIONS, reviewed in the clinical context: May 09: White count 7.6 hemoglobin 8.1 potassium 4.3 creatinine 0.8 May 08: White count 6.9 hemoglobin 8 platelets 518 potassium 3.8 creatinine 0.92 May 07: White count 6.7 hemoglobin 8.8 platelets 43 potassium 3.1 BUN 40 creatinine 1.35 May 06: White count 9.1 hemoglobin 8.1 platelets 434 potassium 2.9 BUN 60 creatinine 2.46 May 06, 2023: White count 15.9 hemoglobin 10.2 platelets of 83 sodium 133 potassium 4.1 BUN 74 creatinine 5.41 lactic acid 2.1 Troponin I less than 0.012 C. difficile negative EKG tracing personally reviewed by me-normal sinus rhythm. Chest x-ray film personally reviewed by me-unremarkable Assessment and plan: -Worsening infected, acute on chronic Unstageable pressure ulcer left buttock, right buttocks, stage I pressure ulcer lower back.: Slow to respond Wound care team following Dr. Kumar. IV Zosyn Diverting colostomy done by Dr. Dupont on May 08 Patient refused [May 11 l] debridement of the wound by Dr Dupont -New abdominal distention. Possible ileus Patient made NPO -Acute kidney injury likely combination of ATN and prerenal: Resolved Creatinine 5.4 on admission -Acute on chronic medical debility. Patient just discharged from [facility] about a week ago. PT OT -Venous stasis/dermatitis changes in lower extremity. Calf wound. Seen by Dr. Ye from vascular: No further intervention. 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 Currently sinus rhythm. Eliquis-held -Disposition: Will be discharged.-To his house. He lives in his own house. Spoke to social worker clinical. Patient does not have any days for rehab. -Full code Patient declined debridement. Abdominal distention. Made NPO. Resume Eliquis. Past Medical History Past Medical History: Atrial Fibrillation, Hyperlipidemia, Osteoarthritis (OA) Additional Past Medical History / Comment(s): Bulging disks, bilateral knee arthritis, UTI, blood infection History of Any Multi-Drug Resistant Organisms: None Reported Past Surgical History: Orthopedic Surgery, Tonsillectomy Additional Past Surgical History / Comment(s): Knee replacement surgery, tonsills out at 7 yrs old, torn meninscus Past Anesthesia/Blood Transfusion Reactions: No Reported Reaction Past Psychological History: Anxiety Smoking Status: Former smoker Past Alcohol Use History: None Reported Past Drug Use History: None Reported
--- NOTE | 2023-05-12 16:57 | P.EN ---
Hospital bed for home: Indication The patient has lower back/sacral deep wounds. Which requires positioning of the body in ways not feasible with an ordinary bed. The head of the bed must be elevated more than 30 degrees most of the time to alleviate pain and pressure.
[2023-05-12] MEDS: APIXABAN 2.5 MG TABLET PO SCH (21:13)
--- NOTE | 2023-05-13 14:12 | P.PN ---
Subjective Progress Note Date: 05/13/23 CHIEF COMPLAINT: Decubitus ulcer HISTORY OF PRESENT ILLNESS: Patient is postop day #3 status post diverting colostomy. Patient's abdomen is more distended. Patient had only minimal output from the ostomy a couple days ago. Since then no further output. He does complain of pain along the left side of the abdomen incision. Afebrile. Mildly tachycardic now resolved. Medicine service has ordered abdominal x-ray PHYSICAL EXAM: VITAL SIGNS: Reviewed. GENERAL: Well-developed in no acute distress. ABDOMEN: Abdomen more distended. Tenderness palpation of the left and of the abdomen near the incision. Ostomy stoma is pink. There is some sloughing around the stoma. No stool. NEUROLOGIC: Alert and oriented. Cranial nerves II through XII grossly intact. ASSESSMENT: 1. Sacral decubitus ulcer status post diverting colostomy 2. Constipation 3. Possible ileus PLAN: -Patient has declined debridement of the sacral decubitus ulcer -Patient is n.p.o. due to abdominal ileus -Follow-up on abdominal x-ray -Antibiotics per infectious disease -Continue local wound care for sacral ulcer -Continue pain management Physician Laundry Aid note has been reviewed by physician. Signing provider agrees with the documented findings, assessment, and plan of care. I have personally seen and examined the patient, reviewed the [employer]IST[employer] /PAs history, exam and MDM and agree with the assessment and plan as written. Based on total visit time, I have performed more than 50% of the visit. As above: Patient remains somewhat bloated. Complaining of nausea. No vomiting. X-rays show ileus versus SBO. We discussed nasogastric tube placement. Patient would like to avoid if possible. Keep head elevated. If vomiting occurs recommend gastric decompression. Patient now states he is willing to go through with debridement if needed. Will tentatively plan debridement for Dr. Dupont to perform on Tuesday. Objective - Vital Signs Vital signs: Vital Signs Temp 97.4 F L 05/13/23 13:40 Pulse 71 05/13/23 13:40 Resp 16 05/13/23 13:40 BP 122/75 05/13/23 13:40 Pulse Ox 96 05/13/23 13:40 FiO2 Intake & Output 05/12/23 05/13/23 05/13/23 18:59 06:59 18:59 Intake Total 600 Output Total 350 300 Balance -350 300 Weight 76.204 kg Intake: Intake, IV Titration 600 Amount Piperacillin-Tazobactam 3 100 .375 gm In Sodium Chloride 0.9% 100 ml @ 25 mls/hr IVPB Q8HR [facility] Rx# :[id number] Sodium Chloride 0.9% 1, 500 000 ml @ 50 mls/hr IV . Q20H [facility] Rx#:[id number] Output: Urine 350 300 Other: Voiding Method Indwelling Catheter Indwelling Catheter Indwelling Catheter - Labs CBC & Chem 7: 05/10/23 08:04 05/10/23 08:04 Labs: Microbiology - Last 24 Hours (Table) 05/09/23 06:30 Blood Culture - Preliminary Blood
--- NOTE | 2023-05-13 14:16 | XR ---
EXAMINATION TYPE: XR abdomen 2V DATE OF EXAM: 05/13/2023 HISTORY: post colostomy-distended Technique: 3 views of the abdomen are submitted. Comparison: None. Findings: There is dilated small bowel measuring up to 5.3 cm. Consider postoperative ileus. Continued progress studies are recommended. As the operative abdomen with midline skin sanjay and a small amount of pneumoperitoneum. No mass effects are noted. No renal calcifications are identified. IMPRESSION: 1. There is dilated small bowel measuring up to 5.3 cm. Consider postoperative ileus. Continued progr ess studies are recommended.
--- NOTE | 2023-05-13 15:42 | P.PN ---
Subjective Progress Note Date: 05/13/23 Principal diagnosis: Reason for follow-up is UTI bacteremia and sacral pressure ulcer Patient is a 72-year-old male with a past medical history significant atrial fibrillation hyperlipidemia osteoarthritis patient was brought into the hospital for evaluation generalized weakness, patient did have evidence of a UTI and a sacral pressure ulcer. Patient blood culture subsequently came back positive with Proteus On today's evaluation that is Patient is status post sigmoid colectomy and end colostomy completed on 05/09/2023. On today's evaluation that is 05/13/2023,the patient remains to be afebrile, patient is on room air not requiring supplemental oxygen and denies any shortness of breath no chest pain or cough.Patient denies having any nausea or vomiting, has been complaining of some abdominal distention did not have any output in the colostomy bag per patient. Patient did not have any new labs today, blood culture to be negative Objective - Vital Signs Vital signs: Vital Signs Temp 97.4 F L 05/13/23 13:40 Pulse 71 05/13/23 13:40 Resp 16 05/13/23 13:40 BP 122/75 05/13/23 13:40 Pulse Ox 96 05/13/23 13:40 FiO2 Intake & Output 05/12/23 05/13/23 05/13/23 18:59 06:59 18:59 Intake Total 600 Output Total 350 300 Balance -350 300 Weight 76.204 kg Intake: Intake, IV Titration 600 Amount Piperacillin-Tazobactam 3 100 .375 gm In Sodium Chloride 0.9% 100 ml @ 25 mls/hr IVPB Q8HR [facility] Rx# :[id number] Sodium Chloride 0.9% 1, 500 000 ml @ 50 mls/hr IV . Q20H [facility] Rx#:[id number] Output: Urine 350 300 Other: Voiding Method Indwelling Catheter Indwelling Catheter Indwelling Catheter - Exam GENERAL DESCRIPTION: An elderly male lying in bed in no distress RESPIRATORY SYSTEM: Unlabored breathing , decreased breath sounds at bases HEART: S1 S2 regular rate and rhythm , ABDOMEN: Soft , no tenderness Stage IV sacral pressure ulcer with some slough tissue and bones palpable - Labs CBC & Chem 7: 05/10/23 08:04 05/10/23 08:04 Labs: Microbiology - Last 24 Hours (Table) 05/09/23 06:30 Blood Culture - Preliminary Blood Assessment and Plan (1) Bacteremia Current Visit: Yes Status: Acute Code(s): R78.81 - BACTEREMIA SNOMED Code(s): 7552458 (2) Urinary tract infection Current Visit: Yes Status: Acute Code(s): N39.0 - URINARY TRACT INFECTION, SITE NOT SPECIFIED SNOMED Code(s): 20154142 (3) Stage IV pressure ulcer of sacral region Current Visit: Yes Status: Acute Code(s): L89.154 - PRESSURE ULCER OF SACRAL REGION, STAGE 4 SNOMED Code(s): 76409366225975 Plan: 1patient presented hospital with weakness which is likely multifactorial in this patient who did have evidence of dehydration with significant elevated BUN and creatinine and the patient also noticed to have a UTI likely from enteric gram-negative pathogen, patient did have a wound to the sacral area stage II pressure ulcer and wound to the left lower leg however does wound does not look infected 2--patient with Proteus and bacteroids bacteremia source could be infected sacral pressure ulcer, urine is growing Pseudomonas and Enterococcus 3blood culture repeat has been negative so far 4-patient to continue with Zosyn while inpatient however will be able to simplify antibiotic to once a day on discharge Dictation was produced using [employer] dictation software. please excuse any grammatical, word or spelling errors. Time with Patient: Less than 30
--- NOTE | 2023-05-13 15:47 | P.PN ---
Progress Note - Text Progress Note Date: 05/13/23 Chief Complaint: Weakness This is a 72-year-old patient follows with visiting physicians Dr. Valero. 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 For which she saw a few years ago Dr. Leo. At [facility]. He was told that removing the tumor could be more dangerous than leaving it alone. Patient was very recently discharged from [facility]. Patient has sacral decubitus wound. Also wounds on the lower extremity. Back in January he was here at lower extremity wound care followed vascular team of Dr. Ye. Patient's brother lives at home with him. Patient nonambulatory. Decreased appetite. Presents with worsening wound to sacral decubitus, also wound on the left calf. Patient is constipated. Denies any fever and chills. Weakness. Has had intermittent diarrhea. May 06: Reclining bed. No pain in the legs. Pending vascular input. IV ceftriaxone. IV fluids. Had a bowel movement. May 07: Laying in bed. No pain in the lower extremity. Seen by surgery. Plan for diverting colostomy which patient has agreed to. Patient's brother at the bedside. Questions answered. IV Zosyn. May 08: Patient had diverting colostomy with sigmoid colectomy done by Dr. Dupont today. On IV Zosyn. Being followed by vascular. No pain. Postprocedure started on clear liquids May 09: No stool output. No plans for debridement per Dr Dupont. Of the sacral wound. Liquid diet. Wound care team also following. May 10: Spoke to social service worker. Only option for the patient is to go home with his brother. I did discuss with Dr. Vitale the patient that if the wound does not heal at some point hospice may have to be considered. Remains on clear liquid diet May 11: Spoke to Dr. Dupont yesterday. He will be out of town. He will asked Dr. Gómez to do the debridement. Nurse informed me that patient declined debridement today by Dr. Gómez. Also abdomen distended. Made NPO. May 12: Patient has abdominal distention. Abdominal x-ray ordered. Reviewed shows dilated small bowel measuring 5.3 cm. Suspect ileus. Will follow with surgery. Remains NPO. Active Medications Acetaminophen (Acetaminophen Tab 325 Mg Tab) 650 mg PO Q6HR PRN PRN Reason: Mild Pain or Fever > 100.5 Apixaban (Apixaban 2.5 Mg Tablet) 2.5 mg PO BID ON LICENSE OF [facility]; Protocol Last Admin: 05/13/23 08:01 Dose: 2.5 mg Calcium Carbonate/Glycine (Calcium Carbonate 500 Mg Chewable) 1,000 mg PO Q4HR PRN PRN Reason: Dyspepsia Collagenase (Collagenase 250 Unit/Gm Ointment 30 Gm Tube) 1 applic TOPICAL DAILY ON LICENSE OF [facility]; Protocol Last Admin: 05/13/23 08:05 Dose: 1 applic Folic Acid (Folic Acid 1 Mg Tab) 1 mg PO DAILY ON LICENSE OF [facility] Last Admin: 05/13/23 08:01 Dose: 1 mg Gabapentin (Gabapentin 100 Mg Cap) 200 mg PO TID ON LICENSE OF [facility] Last Admin: 05/13/23 15:19 Dose: 200 mg Sodium Chloride (Saline 0.9%) 1,000 mls @ 50 mls/hr IV .Q20H ON LICENSE OF [facility] Last Admin: 05/13/23 15:20 Dose: 50 mls/hr Piperacillin Sod/Tazobactam (Sod 3.375 gm/ Sodium Chloride) 100 mls @ 25 mls/hr IVPB Q8HR ON LICENSE OF [facility]; Protocol Last Admin: 05/13/23 15:20 Dose: 25 mls/hr Lactulose (Lactulose 20 Gm/30 Ml Cup) 20 gm PO DAILY PRN PRN Reason: Constipation Loperamide HCl (Loperamide 2 Mg Cap) 2 mg PO Q6H PRN PRN Reason: Diarrhea Lorazepam (Lorazepam 0.5 Mg Tab) 0.5 mg PO Q6HR PRN PRN Reason: Anxiety Morphine Sulfate (Morphine Sulfate 4 Mg/Ml Syringe) 4 mg IV Q4HR PRN PRN Reason: Severe Pain (Scale 7 to 10) Last Admin: 05/13/23 15:20 Dose: 4 mg Naloxone HCl (Naloxone 0.4 Mg/Ml 1 Ml Vial) 0.2 mg IV Q2M PRN PRN Reason: Opioid Reversal Ondansetron HCl (Ondansetron 4 Mg/2 Ml Vial) 4 mg IVP Q8HR PRN PRN Reason: Nausea And Vomiting Last Admin: 05/11/23 09:05 Dose: 4 mg Pantoprazole Sodium (Pantoprazole 40 Mg Tablet) 40 mg PO -BRKFST ON LICENSE OF [facility] Last Admin: 05/13/23 08:00 Dose: 40 mg Psyllium Hydrophilic Mucilloid (Psyllium Husk 100% 6 Gm Packet) 6 gm PO DAILY [facility] Last Admin: 05/13/23 08:07 Dose: Not Given Tramadol HCl (Tramadol 50 Mg Tab) 50 mg PO Q6H PRN PRN Reason: Moderate Pain (Scale 4 to 6) Last Admin: 05/09/23 20:11 Dose: 50 mg Social history: No smoking or alcohol. Brother is in and out of the house. Physical examination: VITAL SIGNS: 97.1, 120, 16, 1 one 9 x 71, 97% room air GENERAL: Lying in bed, awake EYES: Pupils equal. Conjunctiva normal. HEENT: External appearance of nose and ears normal, oral cavity grossly normal. NECK: JVD not raised; masses not palpable. HEART: First and second heart sounds are normal; no edema. LUNGS: Respiratory rate normal; clear to auscultation. ABDOMEN: Soft, nontender, liver spleen not palpable, no masses palpable,- colostomy bag no stool. Abdomen distended-hyperactive bowel sounds PSYCH: Alert and oriented x3; mood and affect normal. MUSCULOSKELETAL:No Clubbing/cyanosis;muscles-grossly intact. DERMATOLOGICAL: Chronic venous stasis changes in lower extremity, with some crusting . Unstageable wounds on the sacrum/buttocks NEUROLOGICAL: Cranial nerves grossly intact; no facial asymmetry, weakness lower extremity, power 1/ 5.. INVESTIGATIONS, reviewed in the clinical context: May 09: White count 7.6 hemoglobin 8.1 potassium 4.3 creatinine 0.8 May 08: White count 6.9 hemoglobin 8 platelets 518 potassium 3.8 creatinine 0.92 May 07: White count 6.7 hemoglobin 8.8 platelets 43 potassium 3.1 BUN 40 creatinine 1.35 May 06: White count 9.1 hemoglobin 8.1 platelets 434 potassium 2.9 BUN 60 creatinine 2.46 May 06, 2023: White count 15.9 hemoglobin 10.2 platelets of 83 sodium 133 potassium 4.1 BUN 74 creatinine 5.41 lactic acid 2.1 Troponin I less than 0.012 C. difficile negative EKG tracing personally reviewed by me-normal sinus rhythm. Chest x-ray film personally reviewed by me-unremarkable Assessment and plan: -Worsening infected, acute on chronic Unstageable pressure ulcer left buttock, right buttocks, stage I pressure ulcer lower back.: Slow to respond Wound care team following Dr. Kumar. IV Zosyn Diverting colostomy done by Dr. Dupont on May 08 he has now agreed for debridement of the wound. -Postoperative ileus with small bowel distention. Patient NPO. NG tube to be determined by surgery. -Acute kidney injury likely combination of ATN and prerenal: Resolved Creatinine 5.4 on admission -Acute on chronic medical debility. Patient just discharged from [facility] about a week ago. PT OT -Venous stasis/dermatitis changes in lower extremity. Calf wound. Seen by Dr. Ye from vascular: No further intervention. 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 Currently sinus rhythm. [facility]-held Hospital bed for home: Indication The patient has lower back/sacral deep wounds. Which requires positioning of the body in ways not feasible with an ordinary bed. The head of the bed must be elevated more than 30 degrees most of the time to alleviate pain and pressure. -Full code NPO. NG tube determination as per surgery. Has now agreed for sacral decub debridement. Past Medical History Past Medical History: Atrial Fibrillation, Hyperlipidemia, Osteoarthritis (OA) Additional Past Medical History / Comment(s): Bulging disks, bilateral knee arthritis, UTI, blood infection History of Any Multi-Drug Resistant Organisms: None Reported Past Surgical History: Orthopedic Surgery, Tonsillectomy Additional Past Surgical History / Comment(s): Knee replacement surgery, tonsills out at 7 yrs old, torn meninscus Past Anesthesia/Blood Transfusion Reactions: No Reported Reaction Past Psychological History: Anxiety Smoking Status: Former smoker Past Alcohol Use History: None Reported Past Drug Use History: None Reported
--- NOTE | 2023-05-14 14:17 | P.PN ---
Subjective Progress Note Date: 05/14/23 Principal diagnosis: Reason for follow-up is UTI bacteremia and sacral pressure ulcer Patient is a 72-year-old male with a past medical history significant atrial fibrillation hyperlipidemia osteoarthritis patient was brought into the hospital for evaluation generalized weakness, patient did have evidence of a UTI and a sacral pressure ulcer. Patient blood culture subsequently came back positive with Proteus On today's evaluation that is Patient is status post sigmoid colectomy and end colostomy completed on 05/09/2023. On today's evaluation that is 05/14/2023, the patient continues to be afebrile, the patient is on room air and breathing comfortably, the Pt denies having any chest pain or cough, the patient still complaining of abdominal distention no nausea vomiting and no significant output in the colostomy bag. Patient white count is 7.69, creatinine 0.8 blood culture repeat has been negative Objective - Vital Signs Vital signs: Vital Signs Temp 98.4 F 05/14/23 07:41 Pulse 78 05/14/23 07:41 Resp 16 05/14/23 07:41 BP 114/73 05/14/23 07:41 Pulse Ox 96 05/14/23 07:41 FiO2 Intake & Output 05/13/23 05/14/23 05/14/23 18:59 06:59 18:59 Intake Total 600 Output Total 100 250 Balance -100 350 Weight 76.204 kg Intake: Intake, IV Titration 600 Amount Piperacillin-Tazobactam 3 100 .375 gm In Sodium Chloride 0.9% 100 ml @ 25 mls/hr IVPB Q8HR [facility] Rx# :[id number] Sodium Chloride 0.9% 1, 500 000 ml @ 50 mls/hr IV . Q20H [facility] Rx#:[id number] Output: Urine 100 250 Other: Voiding Method Indwelling Catheter Indwelling Catheter Indwelling Catheter - Exam GENERAL DESCRIPTION: An elderly male lying in bed in no distress RESPIRATORY SYSTEM: Unlabored breathing , decreased breath sounds at bases HEART: S1 S2 regular rate and rhythm , ABDOMEN: Soft , no tenderness Stage IV sacral pressure ulcer with some slough tissue and bones palpable - Labs CBC & Chem 7: 05/10/23 08:04 05/10/23 08:04 Labs: Microbiology - Last 24 Hours (Table) 05/09/23 06:30 Blood Culture - Final Blood Assessment and Plan (1) Bacteremia Current Visit: Yes Status: Acute Code(s): R78.81 - BACTEREMIA SNOMED Code(s): 5403734 (2) Urinary tract infection Current Visit: Yes Status: Acute Code(s): N39.0 - URINARY TRACT INFECTION, SITE NOT SPECIFIED SNOMED Code(s): 22423819 (3) Stage IV pressure ulcer of sacral region Current Visit: Yes Status: Acute Code(s): L89.154 - PRESSURE ULCER OF SACRAL REGION, STAGE 4 SNOMED Code(s): 55930420755161 Plan: 1patient presented hospital with weakness which is likely multifactorial in this patient who did have evidence of dehydration with significant elevated BUN and creatinine and the patient also noticed to have a UTI likely from enteric gram-negative pathogen, patient did have a wound to the sacral area stage II pressure ulcer and wound to the left lower leg however does wound does not look infected 2--patient with Proteus and bacteroids bacteremia source likely infected sacral pressure ulcer, urine is growing Pseudomonas and Enterococcus 3blood culture repeat has been negative so far 4-patient to continue with Zosyn while inpatient waiting for resolution of his ileus and monitor clinical course closely Dictation was produced using [employer] dictation software. please excuse any grammatical, word or spelling errors. Time with Patient: Less than 30
--- NOTE | 2023-05-14 16:23 | P.PN ---
Progress Note - Text Progress Note Date: 05/14/23 Chief Complaint: Weakness This is a 72-year-old patient follows with visiting physicians Dr. Valero. 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 For which she saw a few years ago Dr. Leo. At [facility]. He was told that removing the tumor could be more dangerous than leaving it alone. Patient was very recently discharged from [facility]. Patient has sacral decubitus wound. Also wounds on the lower extremity. Back in January he was here at lower extremity wound care followed vascular team of Dr. Ye. Patient's brother lives at home with him. Patient nonambulatory. Decreased appetite. Presents with worsening wound to sacral decubitus, also wound on the left calf. Patient is constipated. Denies any fever and chills. Weakness. Has had intermittent diarrhea. May 06: Reclining bed. No pain in the legs. Pending vascular input. IV ceftriaxone. IV fluids. Had a bowel movement. May 07: Laying in bed. No pain in the lower extremity. Seen by surgery. Plan for diverting colostomy which patient has agreed to. Patient's brother at the bedside. Questions answered. IV Zosyn. May 08: Patient had diverting colostomy with sigmoid colectomy done by Dr. Dupont today. On IV Zosyn. Being followed by vascular. No pain. Postprocedure started on clear liquids May 2: No stool output. No plans for debridement per Dr Dupont. Of the sacral wound. Liquid diet. Wound care team also following. May 10: Spoke to home health care social worker. Only option for the patient is to go home with his brother. I did discuss with Dr. Vitale the patient that if the wound does not heal at some point hospice may have to be considered. Remains on clear liquid diet May 11: Spoke to Dr. Dupont yesterday. He will be out of town. He will asked Dr. Gómez to do the debridement. Nurse informed me that patient declined debridement today by Dr. Gómez. Also abdomen distended. Made NPO. May 12: Patient has abdominal distention. Abdominal x-ray ordered. Reviewed shows dilated small bowel measuring 5.3 cm. Suspect ileus. Will follow with surgery. Remains NPO. May 13: Not passed any flatus. Some decrease in abdominal distention. No nausea vomiting. Minimal stool output from the colostomy bag. Remains NPO. Social history: No smoking or alcohol. Brother is in and out of the house. Physical examination: VITAL SIGNS: 97.1, 120, 16, 1 one 9 x 71, 97% room air GENERAL: Lying in bed, awake EYES: Pupils equal. Conjunctiva normal. HEENT: External appearance of nose and ears normal, oral cavity grossly normal. NECK: JVD not raised; masses not palpable. HEART: First and second heart sounds are normal; no edema. LUNGS: Respiratory rate normal; clear to auscultation. ABDOMEN: Soft, nontender, liver spleen not palpable, no masses palpable,- colostomy bag no stool. Abdomen distended-hyperactive bowel sounds PSYCH: Alert and oriented x3; mood and affect normal. MUSCULOSKELETAL:No Clubbing/cyanosis;muscles-grossly intact. DERMATOLOGICAL: Chronic venous stasis changes in lower extremity, with some crusting . Unstageable wounds on the sacrum/buttocks NEUROLOGICAL: Cranial nerves grossly intact; no facial asymmetry, weakness lower extremity, power 1/ 5.. INVESTIGATIONS, reviewed in the clinical context: May 09: White count 7.6 hemoglobin 8.1 potassium 4.3 creatinine 0.8 May 08: White count 6.9 hemoglobin 8 platelets 518 potassium 3.8 creatinine 0.92 May 07: White count 6.7 hemoglobin 8.8 platelets 43 potassium 3.1 BUN 40 creatinine 1.35 May 06: White count 9.1 hemoglobin 8.1 platelets 434 potassium 2.9 BUN 60 creatinine 2.46 May 06, 2023: White count 15.9 hemoglobin 10.2 platelets of 83 sodium 133 potassium 4.1 BUN 74 creatinine 5.41 lactic acid 2.1 Troponin I less than 0.012 C. difficile negative EKG tracing personally reviewed by me-normal sinus rhythm. Chest x-ray film personally reviewed by me-unremarkable Assessment and plan: -Worsening infected, acute on chronic Unstageable pressure ulcer left buttock, right buttocks, stage I pressure ulcer lower back.: Slow to respond Wound care team following Dr. Kumar. IV Zosyn Diverting colostomy done by Dr. Dupont on May 08 he has now agreed for debridement of the wound. -Postoperative ileus with small bowel distention.: Not improving Patient NPO. Being followed by surgery -Acute kidney injury likely combination of ATN and prerenal: Resolved Creatinine 5.4 on admission -Acute on chronic medical debility. Patient just discharged from [facility] about a week ago. PT OT -Venous stasis/dermatitis changes in lower extremity. Calf wound. Seen by Dr. Ye from vascular: No further intervention. 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 Currently sinus rhythm. [facility] for home: Indication The patient has lower back/sacral deep wounds. Which requires positioning of the body in ways not feasible with an ordinary bed. The head of the bed must be elevated more than 30 degrees most of the time to alleviate pain and pressure. -Full code Remains NPO. Being followed by surgery. Past Medical History Past Medical History: Atrial Fibrillation, Hyperlipidemia, Osteoarthritis (OA) Additional Past Medical History / Comment(s): Bulging disks, bilateral knee arthritis, UTI, blood infection History of Any Multi-Drug Resistant Organisms: None Reported Past Surgical History: Orthopedic Surgery, Tonsillectomy Additional Past Surgical History / Comment(s): Knee replacement surgery, tonsills out at 7 yrs old, torn meninscus Past Anesthesia/Blood Transfusion Reactions: No Reported Reaction Past Psychological History: Anxiety Smoking Status: Former smoker Past Alcohol Use History: None Reported Past Drug Use History: None Reported
--- NOTE | 2023-05-14 19:44 | P.PN ---
Subjective patient seen and evaluated bedside. Patient is to mild abdominal pain no nausea or vomiting. Objective - Vital Signs Vital signs: Vital Signs Temp 98 F 05/14/23 14:00 Pulse 70 05/14/23 14:00 Resp 17 05/14/23 14:00 BP 118/76 05/14/23 14:00 Pulse Ox 95 05/14/23 14:00 FiO2 Intake & Output 05/14/23 05/14/23 05/15/23 06:59 18:59 06:59 Intake Total 600 900 Output Total 250 Balance 350 900 Intake: Intake, IV Titration 600 900 Amount Piperacillin-Tazobactam 3 100 .375 gm In Sodium Chloride 0.9% 100 ml @ 25 mls/hr IVPB Q8HR [facility] Rx# :[id number] Sodium Chloride 0.9% 1, 500 000 ml @ 50 mls/hr IV . Q20H [facility] Rx#:[id number] Sodium Chloride 0.9% 900 900 ml @ 0 mls/hr IV .[facility] Rx#:[id number] Output: Urine 250 Other: Voiding Method Indwelling Catheter Indwelling Catheter - Exam general no acute distress Cardiovascular regular rate and rhythm Pulmonary nonlabored breathing Abdomen soft nontender nondistended no guarding rebound tenderness, ostomy pink with bowel sweat - Labs CBC & Chem 7: 05/10/23 08:04 05/10/23 08:04 Labs: Microbiology - Last 24 Hours (Table) 05/09/23 06:30 Blood Culture - Final Blood Assessment and Plan Assessment: 72-year-old male status post diverting colostomy Continue to monitor output no significant output at this time Monitor for abdominal pain Time with Patient: Greater than 30
--- NOTE | 2023-05-15 11:12 | P.PN ---
Subjective Progress Note Date: 05/15/23 Principal diagnosis: Sacral decubitus ulcer Patient says he feels about the same. Still without significant ostomy output. Some nausea. No vomiting today. Objective - Vital Signs Vital signs: Vital Signs Temp 98 F 05/15/23 07:38 Pulse 69 05/15/23 07:38 Resp 16 05/15/23 08:00 BP 125/72 05/15/23 07:38 Pulse Ox 94 L 05/15/23 07:38 FiO2 Intake & Output 05/14/23 05/15/23 05/15/23 18:59 06:59 18:59 Intake Total 900 600 Output Total 250 Balance 900 350 Intake: Intake, IV Titration 900 600 Amount Piperacillin-Tazobactam 3 100 .375 gm In Sodium Chloride 0.9% 100 ml @ 25 mls/hr IVPB Q8HR [facility] Rx# :[id number] Sodium Chloride 0.9% 1, 500 000 ml @ 50 mls/hr IV . Q20H [facility] Rx#:[id number] Sodium Chloride 0.9% 900 900 ml @ 0 mls/hr IV .[facility] Rx#:[id number] Output: Urine 250 Other: Voiding Method Indwelling Catheter Indwelling Catheter Indwelling Catheter - Exam Abdomen: Soft, mild distention, mild lower abdominal fullness, minimal tenderness, ostomy without significant function - Labs CBC & Chem 7: 05/10/23 08:04 05/10/23 08:04 Labs: Microbiology - Last 24 Hours (Table) 05/09/23 06:30 Blood Culture - Final Blood Assessment and Plan (1) Decubitus ulcer, stage III Narrative/Plan: 72-year-old male with decubitus ulcer. Underwent recent ostomy placement for diversion. Has not had good return return of bowel function. Will order CT abdomen pelvis to evaluate for obstruction. Hold debridement for now. Current Visit: No Status: Acute Code(s): L89.93 - PRESSURE ULCER OF UNSPECIFIED SITE, STAGE 3 SNOMED Code(s): 4732614477
--- NOTE | 2023-05-15 13:17 | P.PN ---
Progress Note - Text Progress Note Date: 05/15/23 Chief Complaint: Weakness This is a 72-year-old patient follows with visiting physicians Dr. Valero. 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 For which she saw a few years ago Dr. Leo. At [facility]. He was told that removing the tumor could be more dangerous than leaving it alone. Patient was very recently discharged from [facility]. Patient has sacral decubitus wound. Also wounds on the lower extremity. Back in January he was here at lower extremity wound care followed vascular team of Dr. Ye. Patient's brother lives at home with him. Patient nonambulatory. Decreased appetite. Presents with worsening wound to sacral decubitus, also wound on the left calf. Patient is constipated. Denies any fever and chills. Weakness. Has had intermittent diarrhea. May 06: Reclining bed. No pain in the legs. Pending vascular input. IV ceftriaxone. IV fluids. Had a bowel movement. May 07: Laying in bed. No pain in the lower extremity. Seen by surgery. Plan for diverting colostomy which patient has agreed to. Patient's brother at the bedside. Questions answered. IV Zosyn. May 08: Patient had diverting colostomy with sigmoid colectomy done by Dr. Dupont today. On IV Zosyn. Being followed by vascular. No pain. Postprocedure started on clear liquids May 2: No stool output. No plans for debridement per Dr Dupont. Of the sacral wound. Liquid diet. Wound care team also following. May 10: Spoke to social media executive. Only option for the patient is to go home with his brother. I did discuss with Dr. Vitale the patient that if the wound does not heal at some point hospice may have to be considered. Remains on clear liquid diet May 11: Spoke to Dr. Dupont yesterday. He will be out of town. He will asked Dr. Gómez to do the debridement. Nurse informed me that patient declined debridement today by Dr. Gómez. Also abdomen distended. Made NPO. May 12: Patient has abdominal distention. Abdominal x-ray ordered. Reviewed shows dilated small bowel measuring 5.3 cm. Suspect ileus. Will follow with surgery. Remains NPO. May 13: Not passed any flatus. Some decrease in abdominal distention. No nausea vomiting. Minimal stool output from the colostomy bag. Remains NPO. May 14: Remains on ice chips. Minimal if any output through the colostomy bag. Some decrease in distention. CT scan abdomen ordered by surgery. Active Medications Acetaminophen (Acetaminophen Tab 325 Mg Tab) 650 mg PO Q6HR PRN PRN Reason: Mild Pain or Fever > 100.5 Apixaban (Apixaban 2.5 Mg Tablet) 2.5 mg PO BID [facility]; Protocol Last Admin: 05/15/23 08:22 Dose: 2.5 mg Calcium Carbonate/Glycine (Calcium Carbonate 500 Mg Chewable) 1,000 mg PO Q4HR PRN PRN Reason: Dyspepsia Collagenase (Collagenase 250 Unit/Gm Ointment 30 Gm Tube) 1 applic TOPICAL DAILY [facility]; Protocol Last Admin: 05/15/23 12:37 Dose: 1 applic Folic Acid (Folic Acid 1 Mg Tab) 1 mg PO DAILY [facility] Last Admin: 05/15/23 08:22 Dose: 1 mg Gabapentin (Gabapentin 100 Mg Cap) 200 mg PO TID [facility] Last Admin: 05/15/23 08:23 Dose: 200 mg Sodium Chloride (Saline 0.9%) 1,000 mls @ 50 mls/hr IV .Q20H [facility] Last Admin: 05/15/23 04:18 Dose: 50 mls/hr Piperacillin Sod/Tazobactam (Sod 3.375 gm/ Sodium Chloride) 100 mls @ 25 mls/hr IVPB Q8HR [facility]; Protocol Last Admin: 05/15/23 08:22 Dose: 25 mls/hr Iopamidol (Iopamidol Contrast (Oral Use) Vial) 30 ml PO Q60M PRN PRN Reason: CT Scan Stop: 05/16/23 11:10 Lactulose (Lactulose 20 Gm/30 Ml Cup) 20 gm PO DAILY PRN PRN Reason: Constipation Loperamide HCl (Loperamide 2 Mg Cap) 2 mg PO Q6H PRN PRN Reason: Diarrhea Lorazepam (Lorazepam 0.5 Mg Tab) 0.5 mg PO Q6HR PRN PRN Reason: Anxiety Morphine Sulfate (Morphine Sulfate 4 Mg/Ml Syringe) 4 mg IV Q4HR PRN PRN Reason: Severe Pain (Scale 7 to 10) Last Admin: 05/13/23 15:20 Dose: 4 mg Naloxone HCl (Naloxone 0.4 Mg/Ml 1 Ml Vial) 0.2 mg IV Q2M PRN PRN Reason: Opioid Reversal Ondansetron HCl (Ondansetron 4 Mg/2 Ml Vial) 4 mg IVP Q8HR PRN PRN Reason: Nausea And Vomiting Last Admin: 05/11/23 09:05 Dose: 4 mg Pantoprazole Sodium (Pantoprazole 40 Mg Tablet) 40 mg PO -BRKFST [facility] Last Admin: 05/15/23 08:22 Dose: 40 mg Psyllium Hydrophilic Mucilloid (Psyllium Husk 100% 6 Gm Packet) 6 gm PO DAILY [facility] Last Admin: 05/15/23 08:15 Dose: Not Given Tramadol HCl (Tramadol 50 Mg Tab) 50 mg PO Q6H PRN PRN Reason: Moderate Pain (Scale 4 to 6) Last Admin: 05/15/23 08:22 Dose: 50 mg Social history: No smoking or alcohol. Brother is in and out of the house. Physical examination: VITAL SIGNS: 97.6, 63, 17, 122 x 70, 96% room air GENERAL: Lying in bed, awake EYES: Pupils equal. Conjunctiva normal. HEENT: External appearance of nose and ears normal, oral cavity grossly normal. NECK: JVD not raised; masses not palpable. HEART: First and second heart sounds are normal; no edema. LUNGS: Respiratory rate normal; clear to auscultation. ABDOMEN: Soft, nontender, liver spleen not palpable, no masses palpable,- colostomy bag no stool. Abdomen a bit less distended-no tenderness PSYCH: Alert and oriented x3; mood and affect normal. MUSCULOSKELETAL:No Clubbing/cyanosis;muscles-grossly intact. DERMATOLOGICAL: Chronic venous stasis changes in lower extremity, with some ignacio ting . Unstageable wounds on the sacrum/buttocks NEUROLOGICAL: Cranial nerves grossly intact; no facial asymmetry, weakness lower extremity, power 1/ 5.. INVESTIGATIONS, reviewed in the clinical context: May 09: White count 7.6 hemoglobin 8.1 potassium 4.3 creatinine 0.8 May 08: White count 6.9 hemoglobin 8 platelets 518 potassium 3.8 creatinine 0.92 May 07: White count 6.7 hemoglobin 8.8 platelets 43 potassium 3.1 BUN 40 creatinine 1.35 May 06: White count 9.1 hemoglobin 8.1 platelets 434 potassium 2.9 BUN 60 creatinine 2.46 May 06, 2023: White count 15.9 hemoglobin 10.2 platelets of 83 sodium 133 potassium 4.1 BUN 74 creatinine 5.41 lactic acid 2.1 Troponin I less than 0.012 C. difficile negative EKG tracing personally reviewed by me-normal sinus rhythm. Chest x-ray film personally reviewed by me-unremarkable Assessment and plan: -Worsening infected, acute on chronic Unstageable pressure ulcer left buttock, right buttocks, stage I pressure ulcer lower back.: Slow to respond Wound care team following Dr. Kumar. IV Zosyn Diverting colostomy done by Dr. Dupont on May 08 he has now agreed for debridement of the wound. -Postoperative ileus with small bowel distention.: Not improving Patient NPO. Being followed by surgery CT scan abdomen ordered -Acute kidney injury likely combination of ATN and prerenal: Resolved Creatinine 5.4 on admission -Acute on chronic medical debility. Patient just discharged from [facility] about a week ago. PT OT -Venous stasis/dermatitis changes in lower extremity. Calf wound. Seen by Dr. Ye from vascular: No further intervention. 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 Currently sinus rhythm. [facility]-held Hospital bed for home: Indication The patient has lower back/sacral deep wounds. Which requires positioning of the body in ways not feasible with an ordinary bed. The head of the bed must be elevated more than 30 degrees most of the time to alleviate pain and pressure. -Full code Remains NPO. CT abdomen ordered. Past Medical History Past Medical History: Atrial Fibrillation, Hyperlipidemia, Osteoarthritis (OA) Additional Past Medical History / Comment(s): Bulging disks, bilateral knee arthritis, UTI, blood infection History of Any Multi-Drug Resistant Organisms: None Reported Past Surgical History: Orthopedic Surgery, Tonsillectomy Additional Past Surgical History / Comment(s): Knee replacement surgery, tonsills out at 7 yrs old, torn meninscus Past Anesthesia/Blood Transfusion Reactions: No Reported Reaction Past Psychological History: Anxiety Smoking Status: Former smoker Past Alcohol Use History: None Reported Past Drug Use History: None Reported
--- NOTE | 2023-05-15 15:23 | P.PN ---
Subjective Progress Note Date: 05/15/23 Principal diagnosis: Reason for follow-up is UTI bacteremia and sacral pressure ulcer Patient is a 72-year-old male with a past medical history significant atrial fibrillation hyperlipidemia osteoarthritis patient was brought into the hospital for evaluation generalized weakness, patient did have evidence of a UTI and a sacral pressure ulcer. Patient blood culture subsequently came back positive with Proteus On today's evaluation that is Patient is status post sigmoid colectomy and end colostomy completed on 05/09/2023. On today's evaluation that is 05/15/2023, Patient is afebrile patient is currently on room air and denies having any shortness of breath, the patient denies any chest pain or cough, the patient abdominal distention slightly decreased nausea but no vomiting no significant output in the colostomy bag. No new labs has been obtained today Objective - Vital Signs Vital signs: Vital Signs Temp 97.6 F 05/15/23 12:47 Pulse 63 05/15/23 12:47 Resp 17 05/15/23 12:47 BP 122/70 05/15/23 12:47 Pulse Ox 96 05/15/23 12:47 FiO2 Intake & Output 05/14/23 05/15/23 05/15/23 18:59 06:59 18:59 Intake Total 900 600 Output Total 250 Balance 900 350 Intake: Intake, IV Titration 900 600 Amount Piperacillin-Tazobactam 3 100 .375 gm In Sodium Chloride 0.9% 100 ml @ 25 mls/hr IVPB Q8HR [facility] Rx# :[id number] Sodium Chloride 0.9% 1, 500 000 ml @ 50 mls/hr IV . Q20H [facility] Rx#:[id number] Sodium Chloride 0.9% 900 900 ml @ 0 mls/hr IV .[facility] Rx#:[id number] Output: Urine 250 Other: Voiding Method Indwelling Catheter Indwelling Catheter Indwelling Catheter - Exam GENERAL DESCRIPTION: An elderly male lying in bed in no distress RESPIRATORY SYSTEM: Unlabored breathing , decreased breath sounds at bases HEART: S1 S2 regular rate and rhythm , ABDOMEN: Soft , no tenderness Stage IV sacral pressure ulcer with some slough tissue and bones palpable - Labs CBC & Chem 7: 05/10/23 08:04 05/10/23 08:04 Labs: Microbiology - Last 24 Hours (Table) 05/09/23 06:30 Blood Culture - Final Blood Assessment and Plan (1) Bacteremia Current Visit: Yes Status: Acute Code(s): R78.81 - BACTEREMIA SNOMED Code(s): 6029851 (2) Urinary tract infection Current Visit: Yes Status: Acute Code(s): N39.0 - URINARY TRACT INFECTION, SITE NOT SPECIFIED SNOMED Code(s): 46037292 (3) Stage IV pressure ulcer of sacral region Current Visit: Yes Status: Acute Code(s): L89.154 - PRESSURE ULCER OF SACRAL REGION, STAGE 4 SNOMED Code(s): 78203106632794 Plan: 1patient presented hospital with weakness which is likely multifactorial in this patient who did have evidence of dehydration with significant elevated BUN and creatinine and the patient also noticed to have a UTI likely from enteric gram-negative pathogen, patient did have a wound to the sacral area stage II pressure ulcer and wound to the left lower leg however does wound does not look infected 2--patient with Proteus and bacteroids bacteremia source likely infected sacral pressure ulcer, urine is growing Pseudomonas and Enterococcus 3blood culture repeat has been negative so far 4-patient to continue with Zosyn while inpatient waiting for resolution of his ileus, CT has been ordered for morning we will follow results we will also check a CRP and CBC with a.m. lab Dictation was produced using [employer] dictation software. please excuse any grammatical, word or spelling errors. Time with Patient: Less than 30
[2023-05-16 06:52] LABS: ALT 10 U/L (4-49); AST 17 U/L (17-59); African American GFR (CKD) 42 (>60 ml/min/1.73 sqM); Albumin 2.4 g/dL (3.5-5.0); Albumin/Globulin Ratio 0.8; Alkaline Phosphatase 61 U/L (38-126); Anion Gap 12 mmol/L; Blood Urea Nitrogen 24 mg/dL (9-20); C Reactive Protein 5.8 mg/dL (<1.0); Carbon Dioxide 18 mmol/L (22-30); Chloride 111 mmol/L (98-107); Globulin 3.2 g/dL; Glucose 69 mg/dL (74-99); Non-African American GFR(CKD) 36 (>60 ml/min/1.73 sqM); Potassium 3.6 mmol/L (3.5-5.1); Sodium 141 mmol/L (137-145); Total Bilirubin 0.6 mg/dL (0.2-1.3); Total Protein 5.6 g/dL (6.3-8.2)
[2023-05-16] MEDS: IOPAMIDOL CONTRAST (ORAL USE) VIAL PO PRN (08:19)
[2023-05-16 08:51] LABS: Basophils # (A) 0.05 X 10*3/uL (0.00-0.10); Basophils % (A) 0.7 %; Eosinophils # (A) 0.47 X 10*3/uL (0.04-0.35); Eosinophils % (A) 6.3 %; HCT 31.8 % (39.6-50.0); Lymphocytes # (A) 1.44 X 10*3/uL (0.90-5.00); Lymphocytes % (A) 19.3 %; MCH 23.9 pg (27.0-32.0); MCHC 28.3 g/dL (32.0-37.0); MCV 84.4 FL (80.0-97.0); Mean Platelet Volume 9.1 FL (9.5-12.2); Monocytes # (A) 0.52 X 10*3/uL (0.20-1.00); NRBC Per 100 WBC 0 X 10*3/uL (0.00-0.01); Neutrophils # (A) 4.95 X 10*3/uL (1.80-7.70); Neutrophils % (A) 66.4 %; Platelet Count 438 X 10*3/uL (140-440); RBC 3.77 X 10*6/uL (4.40-5.60); RDW 17.3 % (11.5-14.5); WBC 7.45 X 10*3/uL (4.50-10.00)
--- NOTE | 2023-05-16 10:19 | CT ---
EXAMINATION TYPE: CT abdomen pelvis w con DATE OF EXAM: 05/16/2023 COMPARISON: None INDICATION: follow up ileus DLP: 3585 mGycm, Automated exposure control for dose reduction was used. CONTRAST: 100 mL of Isovue 300. Study performed with Oral Contrast TECHNIQUE: Axial images were obtained from above the diaphragm to the pubic rami in the axial plane a t 5 mm thick sections. Reconstructed images are reviewed on the computer in the coronal plane. FINDINGS: Limited CT sections are obtained the lung bases. Small bilateral pleural effusions are present. Some adjacent compressive atelectasis is present.. CT ABDOMEN: There is some ascites present within the abdomen adjacent to the liver and within the ant erior lower pelvis Liver: Couple of small cysts are present within the liver. Spleen: Normal Pancreas: Normal Adrenal glands: The adrenal glands are normal. Gallbladder: Normal Kidneys: No masses are evident. Bilateral hydronephrosis is present. Hydroureter is present bilateral ly. No obstructing etiologies are identified. No obstructing renal or ureteral stones evident. A nono bstructing renal stone however may be present within the posterior right kidney measuring 0.5 cm. No cysts are present. Aorta: Vascular calcification is within the aorta. Inferior vena cava: Normal. CT PELVIS: Some mild wall thickening may be within the mid left abdominal small bowel loops. No small bowel loop s have a normal wall. There is normal distention of small bowel loops with oral contrast. Fecal debri s is within the colon. An ostomy is in the left lower quadrant. Anterior abdominal wall surgical clip s are present. There are loops of bowel which are incompletely distended or lack oral contrast limiti ng their evaluation. Appendix: Not identified. No dilated tubular structure or inflammatory changes evident Urinary bladder: Distended. No suspicious changes identified. Catheter is present within the urinary bladder. Genitourinary structures: Prostate contains calcification. Osseous structures: No suspicious lytic or sclerotic lesions. Degenerative changes at the bilateral h ips IMPRESSION: 1. Small bilateral pleural effusions with adjacent compressive atelectasis. 2. Mild ascites. 3. Some mild nonobstructing wall thickening of the left mid abdomen small bowel loops is noted. 4. Bilateral mild hydronephrosis with mild bilateral hydroureter extending to the urinary bladder. No obstructing etiology identified.
[2023-05-16] MEDS ORDERED: HYDROcodone/APAP 5-325MG 1 EACH TAB PO PRN (11:08)
[2023-05-16] MEDS: IV FLUID CONTINUATION 1,000 ML IV ONE (12:17)
[2023-05-16] MEDS: DEXAMETHASONE SOD PHOSPHATE 4 MG/ML 1 ML VIAL IVP ONE (12:36)
[2023-05-16] MEDS ORDERED: PHENYLEPHRINE-0.9% NACL SYG 1,000 MCG/10 ML SYRINGE ONE (14:25)
[2023-05-16] MEDS ORDERED: GLYCOPYRROLATE 0.2 MG/ML 2 ML VIAL ONE (14:25)
[2023-05-16] MEDS ORDERED: SUCCINYLCHOLINE CHLORIDE 200 MG/10 ML VIAL IV ONE (14:25)
[2023-05-16] MEDS ORDERED: MIDAZOLAM 2 MG/2 ML VIAL ONE (14:25)
[2023-05-16] MEDS ORDERED: PROPOFOL 10 MG/ML 20 ML VIAL IV ONE (14:25)
[2023-05-16] MEDS ORDERED: fentaNYL (PF) 50 MCG/ML 2 ML AMP ONE (14:25)
--- NOTE | 2023-05-16 14:45 | P.PN ---
Subjective Progress Note Date: 05/16/23 Principal diagnosis: Reason for follow-up is UTI bacteremia and sacral pressure ulcer Patient is a 72-year-old male with a past medical history significant atrial fibrillation hyperlipidemia osteoarthritis patient was brought into the hospital for evaluation generalized weakness, patient did have evidence of a UTI and a sacral pressure ulcer. Patient blood culture subsequently came back positive with Proteus On today's evaluation that is Patient is status post sigmoid colectomy and end colostomy completed on 05/09/2023. On today's evaluation that is 05/16/2023, patient has been afebrile, patient is breathing comfortably and is currently on room air, patient denies having any significant cough no chest pain shortness of breath, patient denies nausea vomiting abdominal discomfort slightly decreased and mention some output in the colostomy bag. Patient white count is 7.45, creatinine is 1.81 Objective - Vital Signs Vital signs: Vital Signs Temp 97.6 F 05/16/23 12:20 Pulse 59 L 05/16/23 12:20 Resp 16 05/16/23 12:20 BP 119/62 05/16/23 12:20 Pulse Ox 98 05/16/23 12:20 FiO2 Intake & Output 05/15/23 05/16/23 05/16/23 18:59 06:59 18:59 Intake Total 600 700 Output Total 150 Balance 600 550 Intake: Intake, IV Titration 600 700 Amount Piperacillin-Tazobactam 3 100 100 .375 gm In Sodium Chloride 0.9% 100 ml @ 25 mls/hr IVPB Q8HR [facility] Rx# :[id number] Sodium Chloride 0.9% 1, 500 600 000 ml @ 50 mls/hr IV . Q20H [facility] Rx#:[id number] Output: Urine 150 Other: Voiding Method Indwelling Catheter Indwelling Catheter Indwelling Catheter # Bowel Movements 1 1 - Exam GENERAL DESCRIPTION: An elderly male lying in bed in no distress RESPIRATORY SYSTEM: Unlabored breathing , decreased breath sounds at bases HEART: S1 S2 regular rate and rhythm , ABDOMEN: Soft , no tenderness Stage IV sacral pressure ulcer with some slough tissue and bones palpable - Labs CBC & Chem 7: 05/16/23 06:00 05/16/23 06:00 Labs: Abnormal Lab Results - Last 24 Hours (Table) 05/16/23 05/16/23 Range/Units 06:00 06:00 RBC 3.77 L (4.40-5.60) X 10*6/uL Hgb 9.0 L (13.0-17.0) g/dL Hct 31.8 L (39.6-50.0) % MCH 23.9 L (27.0-32.0) pg MCHC 28.3 L (32.0-37.0) g/dL RDW 17.3 H (11.5-14.5) % MPV 9.1 L (9.5-12.2) FL Eosinophils # 0.47 H (0.04-0.35) X 10*3/uL Chloride 111 H (98-107) mmol/L Carbon Dioxide 18 L (22-30) mmol/L BUN 24 H (9-20) mg/dL Creatinine 1.81 H (0.66-1.25) mg/dL Glucose 69 L (74-99) mg/dL Calcium 8.0 L (8.4-10.2) mg/dL C-Reactive Protein 5.8 H (<1.0) mg/dL Total Protein 5.6 L (6.3-8.2) g/dL Albumin 2.4 L (3.5-5.0) g/dL Assessment and Plan (1) Bacteremia Current Visit: Yes Status: Acute Code(s): R78.81 - BACTEREMIA SNOMED Code(s): 0968052 (2) Urinary tract infection Current Visit: Yes Status: Acute Code(s): N39.0 - URINARY TRACT INFECTION, SITE NOT SPECIFIED SNOMED Code(s): 02336180 (3) Stage IV pressure ulcer of sacral region Current Visit: Yes Status: Acute Code(s): L89.154 - PRESSURE ULCER OF SACRAL REGION, STAGE 4 SNOMED Code(s): 52422211257926 Plan: 1patient presented hospital with weakness which is likely multifactorial in this patient who did have evidence of dehydration with significant elevated BUN and creatinine and the patient also noticed to have a UTI likely from enteric gram-negative pathogen, patient did have a wound to the sacral area stage II pressure ulcer and wound to the left lower leg however does wound does not look infected 2--patient with Proteus and bacteroids bacteremia source likely infected sacral pressure ulcer, urine is growing Pseudomonas and Enterococcus 3blood culture repeat has been negative so far 4-patient remains to be afebrile and white count is normal slight worsening of his kidney function and will monitor closely continue with Zosyn plan is for PICC line and outpatient antibiotics currently waiting for debridement of the sacral wound Dictation was produced using [employer] dictation software. please excuse any grammatical, word or spelling errors. Time with Patient: Less than 30
[2023-05-16] MEDS: SODIUM CHLORIDE 0.9% 500 ML 500 ML IV ONE (15:04)
--- NOTE | 2023-05-16 15:07 | P.OP ---
Date of Procedure: 05/16/23 Preoperative Diagnosis: sacral decubitus ulcer Postoperative Diagnosis: sacral decubitus ulcer Procedure(s) Performed: debridement of sacral decubitus ulcer Anesthesia: TYSON Surgeon: Arturo Dupont Estimated Blood Loss (ml): 10 Pathology: none sent Condition: stable Disposition: PACU Description of Procedure: patient's placed on his bed in the lateral position after receiving general anesthesia. His buttocks were prepped and draped usual fashion. Patient had a large chronic sacral decubitus ulcer. There was some skin that appeared necrotic on the left gluteal area. This was sharply debrided and then left cautery was used to spear the wound measured approximately 20 x 20 x 5 cm. The coccyx was exposed. Patient top she will well. He was sent to recovery room stable condition. Sterile dressing was applied.
--- NOTE | 2023-05-16 15:46 | P.PN ---
Subjective Progress Note Date: 05/16/23 CHIEF COMPLAINT: Decubitus ulcer HISTORY OF PRESENT ILLNESS: Patient is status post diverting colostomy. Patient's ostomy is now functioning. He does have output. He had debridement of the sacral decubitus ulcer with Dr. Dupont today. CT scan abdomen pelvis myositis. Small bilateral pleural effusion with atelectasis. Some mild nonobstructing wall thickening of the the left mid abdomen small bowel loops. Bilateral mild hydronephrosis. Afebrile. WBC 7.45 creatinine 1.81 PHYSICAL EXAM: VITAL SIGNS: Reviewed. GENERAL: Well-developed in no acute distress. ABDOMEN: Abdomen less distended. Nontender. Incisional dressing with mild saturation distally noted. Patient has stool output in ostomy bag. NEUROLOGIC: Alert and oriented. Cranial nerves II through XII grossly intact. ASSESSMENT: 1. Sacral decubitus ulcer status post diverting colostomy 2. Constipation 3. Ileus PLAN: -Advance diet to regular -Continue wound care -Continue pain management -Continue bowel regimen Physician Baggage Security Checker note has been reviewed by physician. Signing provider agrees with the documented findings, assessment, and plan of care. Objective - Vital Signs Vital signs: Vital Signs Temp 98 F 05/16/23 15:17 Pulse 72 05/16/23 15:32 Resp 16 05/16/23 15:32 BP 124/69 05/16/23 15:32 Pulse Ox 96 05/16/23 15:32 FiO2 Intake & Output 05/15/23 05/16/23 05/16/23 18:59 06:59 18:59 Intake Total 600 700 500 Output Total 150 10 Balance 600 550 490 Intake: IV 500 Intake, IV Titration 600 700 Amount Piperacillin-Tazobactam 3 100 100 .375 gm In Sodium Chloride 0.9% 100 ml @ 25 mls/hr IVPB Q8HR [facility] Rx# :[id number] Sodium Chloride 0.9% 1, 500 600 000 ml @ 50 mls/hr IV . Q20H [facility] Rx#:[id number] Output: Urine 150 Estimated Blood Loss 10 Other: Voiding Method Indwelling Catheter Indwelling Catheter Indwelling Catheter # Bowel Movements 1 1 - Labs CBC & Chem 7: 05/16/23 06:00 05/16/23 06:00 Labs: Abnormal Lab Results - Last 24 Hours (Table) 05/16/23 05/16/23 Range/Units 06:00 06:00 RBC 3.77 L (4.40-5.60) X 10*6/uL Hgb 9.0 L (13.0-17.0) g/dL Hct 31.8 L (39.6-50.0) % MCH 23.9 L (27.0-32.0) pg MCHC 28.3 L (32.0-37.0) g/dL RDW 17.3 H (11.5-14.5) % MPV 9.1 L (9.5-12.2) FL Eosinophils # 0.47 H (0.04-0.35) X 10*3/uL Chloride 111 H (98-107) mmol/L Carbon Dioxide 18 L (22-30) mmol/L BUN 24 H (9-20) mg/dL Creatinine 1.81 H (0.66-1.25) mg/dL Glucose 69 L (74-99) mg/dL Calcium 8.0 L (8.4-10.2) mg/dL C-Reactive Protein 5.8 H (<1.0) mg/dL Total Protein 5.6 L (6.3-8.2) g/dL Albumin 2.4 L (3.5-5.0) g/dL
[2023-05-16] MEDS: DEXTROSE 5%-0.45% NACL 1,000 ML IV SCH (17:41)
--- NOTE | 2023-05-16 18:23 | CDI ---
Documentation Clarification Form Date: 05/16/2023 05:50:10 PM From: Charleen Rodrigues RN, CCDS Phone: [phone] Admit Date: 05/06/2023 01:39:00 PM Patient Name: Zion Bardales Visit Number: [id number] Discharge Date: ATTENTION: The Clinical Documentation Specialists (CDI) and [facility] Coding Staff appreciate your assistance in clarifying documentation. Please respond to the clarification below the line at the bottom and electronically sign. The CDI & [facility] Coding staff will review the response and follow-up if needed. Please note: Queries are made part of the Legal Health Record. If you have any questions, please contact the author of this message via ITS. Dr. Arturo Dupont Postoperative ileus is documented in the Internal medicine progress notes starting on 05/13/23 and patient had [Diverting colostomy on 05/09/23. Additional clarification is requested regarding the relationship, if any, that exists between the diagnosis and the procedure. 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 Baseline uses a wheelchair. Former smoker Clinical Indicators: 72-year-old male sacral pressure ulcer stage IV, cautiously soiled by stool. He had a sigmoid colectomy, end colostomy 05/11 SX progress note: Patient is mildly distended, mild nausea. No vomiting. VS 111/74 77 17 97.6 94 Labs WBC 7.69 HGB 8.1 HCT 27.6 05/12 Abd XR: There is dilates small bowel measuring up to 5.3 cm. Consider postoperative ileus. Treatment: NPO Follow abdominal x-ray D5/NS @125 HR 05/15-05/15 What relationship, if any, exists between the diagnosis of postoperative ileus and the procedure? [ ] Postoperative ileus is a complication of surgical procedure [ ] Postoperative ileus is an expected outcome of the surgical procedure [ xx] Postoperative ileus is related to patients co-morbid condition(s) of [insert co-morbid dxs] & not a complication of the procedure [ ] Other please specify ____ [ ] Unable to determine (Template Last Revised: April 2020) MTDD
--- NOTE | 2023-05-16 20:44 | P.PN ---
Progress Note - Text Progress Note Date: 05/16/23 Chief Complaint: Weakness This is a 72-year-old patient follows with visiting physicians Dr. Valero. 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 For which she saw a few years ago Dr. Leo. At [facility]. He was told that removing the tumor could be more dangerous than leaving it alone. Patient was very recently discharged from [facility]. Patient has sacral decubitus wound. Also wounds on the lower extremity. Back in January he was here at lower extremity wound care followed vascular team of Dr. Ye. Patient's brother lives at home with him. Patient nonambulatory. Decreased appetite. Presents with worsening wound to sacral decubitus, also wound on the left calf. Patient is constipated. Denies any fever and chills. Weakness. Has had intermittent diarrhea. May 06: Reclining bed. No pain in the legs. Pending vascular input. IV ceftriaxone. IV fluids. Had a bowel movement. May 07: Laying in bed. No pain in the lower extremity. Seen by surgery. Plan for diverting colostomy which patient has agreed to. Patient's brother at the bedside. Questions answered. IV Zosyn. May 08: Patient had diverting colostomy with sigmoid colectomy done by Dr. Dupont today. On IV Zosyn. Being followed by vascular. No pain. Postprocedure started on clear liquids May 2: No stool output. No plans for debridement per Dr Dupont. Of the sacral wound. Liquid diet. Wound care team also following. May 10: Spoke to child welfare social worker. Only option for the patient is to go home with his brother. I did discuss with Dr. Vitale the patient that if the wound does not heal at some point hospice may have to be considered. Remains on clear liquid diet May 11: Spoke to Dr. Dupont yesterday. He will be out of town. He will asked Dr. Gómez to do the debridement. Nurse informed me that patient declined debridement today by Dr. Gómez. Also abdomen distended. Made NPO. May 12: Patient has abdominal distention. Abdominal x-ray ordered. Reviewed shows dilated small bowel measuring 5.3 cm. Suspect ileus. Will follow with surgery. Remains NPO. May 13: Not passed any flatus. Some decrease in abdominal distention. No nausea vomiting. Minimal stool output from the colostomy bag. Remains NPO. May 14: Remains on ice chips. Minimal if any output through the colostomy bag. Some decrease in distention. CT scan abdomen ordered by surgery. May 15: Saw the patient this morning. Has yellow-brown stool in the colostomy bag. Abdomen soft. Later this afternoon Dr Dupont to the patient to the OR for debridement. Outpatient antibiotics per ID. Creatinine bumped up to 1.81 this morning. Could be contrast-induced nephropathy. IV fluids. Nephrology consulted. Active Medications Acetaminophen (Acetaminophen Tab 325 Mg Tab) 650 mg PO Q6HR PRN PRN Reason: Mild Pain or Fever > 100.5 Hydrocodone Bitart/Acetaminophen (Hydrocodone/Apap 5-325mg 1 Each Tab) 1 each PO Q6HR PRN PRN Reason: Pain Apixaban (Apixaban 2.5 Mg Tablet) 2.5 mg PO BID [facility]; Protocol Last Admin: 05/16/23 08:19 Dose: 2.5 mg Calcium Carbonate/Glycine (Calcium Carbonate 500 Mg Chewable) 1,000 mg PO Q4HR PRN PRN Reason: Dyspepsia Collagenase (Collagenase 250 Unit/Gm Ointment 30 Gm Tube) 1 applic TOPICAL DAILY [facility]; Protocol Last Admin: 05/16/23 16:19 Dose: Not Given Folic Acid (Folic Acid 1 Mg Tab) 1 mg PO DAILY [facility] Last Admin: 05/16/23 08:20 Dose: 1 mg Gabapentin (Gabapentin 100 Mg Cap) 200 mg PO TID [facility] Last Admin: 05/16/23 17:08 Dose: 200 mg Piperacillin Sod/Tazobactam (Sod 3.375 gm/ Sodium Chloride) 100 mls @ 25 mls/hr IVPB Q8HR [facility]; Protocol Last Admin: 05/16/23 17:07 Dose: 25 mls/hr Dextrose/Sodium Chloride (Dextrose 5%-1/2ns Iv Soln) 1,000 mls @ 125 mls/hr IV .Q8H [facility] Last Admin: 05/16/23 17:41 Dose: 125 mls/hr Lactulose (Lactulose 20 Gm/30 Ml Cup) 20 gm PO DAILY PRN PRN Reason: Constipation Loperamide HCl (Loperamide 2 Mg Cap) 2 mg PO Q6H PRN PRN Reason: Diarrhea Lorazepam (Lorazepam 0.5 Mg Tab) 0.5 mg PO Q6HR PRN PRN Reason: Anxiety Naloxone HCl (Naloxone 0.4 Mg/Ml 1 Ml Vial) 0.2 mg IV Q2M PRN PRN Reason: Opioid Reversal Ondansetron HCl (Ondansetron 4 Mg/2 Ml Vial) 4 mg IVP Q8HR PRN PRN Reason: Nausea And Vomiting Last Admin: 05/16/23 11:54 Dose: 4 mg Pantoprazole Sodium (Pantoprazole 40 Mg Tablet) 40 mg PO AC-BRKFST [facility] Last Admin: 05/16/23 08:19 Dose: 40 mg Psyllium Hydrophilic Mucilloid (Psyllium Husk 100% 6 Gm Packet) 6 gm PO DAILY [facility] Last Admin: 05/16/23 08:25 Dose: 6 gm Tramadol HCl (Tramadol 50 Mg Tab) 50 mg PO Q6H PRN PRN Reason: Moderate Pain (Scale 4 to 6) Last Admin: 05/16/23 08:19 Dose: 50 mg Social history: No smoking or alcohol. Brother is in and out of the house. Physical examination: VITAL SIGNS: 97.5, 67, 16, 112 x 65, 93% room air GENERAL: Lying in bed, awake EYES: Pupils equal. Conjunctiva normal. HEENT: External appearance of nose and ears normal, oral cavity grossly normal. NECK: JVD not raised; masses not palpable. HEART: First and second heart sounds are normal; no edema. LUNGS: Respiratory rate normal; clear to auscultation. ABDOMEN: Soft, nontender, liver spleen not palpable, no masses palpable,- colostomy bag no stool. Abdomen a bit less distended-no tenderness PSYCH: Alert and oriented x3; mood and affect normal. MUSCULOSKELETAL:No Clubbing/cyanosis;muscles-grossly intact. DERMATOLOGICAL: Chronic venous stasis changes in lower extremity, with some crusting . Unstageable wounds on the sacrum/buttocks NEUROLOGICAL: Cranial nerves grossly intact; no facial asymmetry, weakness lower extremity, power 1/ 5.. INVESTIGATIONS, reviewed in the clinical context: May 15: White count 7.4 hemoglobin 9 platelets 438 potassium 3.6 BUN 24 creatinine 1.81 May 09: White count 7.6 hemoglobin 8.1 potassium 4.3 creatinine 0.8 May 08: White count 6.9 hemoglobin 8 platelets 518 potassium 3.8 creatinine 0.92 May 07: White count 6.7 hemoglobin 8.8 platelets 43 potassium 3.1 BUN 40 creatinine 1.35 May 06: White count 9.1 hemoglobin 8.1 platelets 434 potassium 2.9 BUN 60 creatinine 2.46 May 06, 2023: White count 15.9 hemoglobin 10.2 platelets of 83 sodium 133 potassium 4.1 BUN 74 creatinine 5.41 lactic acid 2.1 Troponin I less than 0.012 C. difficile negative EKG tracing personally reviewed by me-normal sinus rhythm. Chest x-ray film personally reviewed by me-unremarkable Assessment and plan: -Worsening infected, acute on chronic Unstageable pressure ulcer left buttock, right buttocks, stage I pressure ulcer lower back.: Slow to respond Wound care team following Dr. Kumar. IV Zosyn-outpatient antibiotics are being ID Diverting colostomy done by Dr. Dupont on May 08 May 15: Sacral wound debrided Marylu Dr Dupont -Postoperative ileus with small bowel distention.: Resolved May 15: Regular diet ordered by Dr Dupont -Acute kidney injury likely combination of ATN and prerenal: Resolved. Again on May 15 creatinine went up to 1.8 Creatinine 5.4 on admission, came down to 0.8. Now back to 1.8 IV fluids. -Acute on chronic medical debility. Patient just discharged from [facility] about a week ago. PT OT -Venous stasis/dermatitis changes in lower extremity. Calf wound. Seen by Dr. Ye from vascular: No further intervention. 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 Currently sinus rhythm. [facility]-held Hospital bed for home: Indication The patient has lower back/sacral deep wounds. Which requires positioning of the body in ways not feasible with an ordinary bed. The head of the bed must be elevated more than 30 degrees most of the time to alleviate pain and pressure. -Full code Sacral decubitus debrided today. IV fluids started. As creatinine gone up. Repeat labs tomorrow. Urology consulted. Past Medical History Past Medical History: Atrial Fibrillation, Hyperlipidemia, Osteoarthritis (OA) Additional Past Medical History / Comment(s): Bulging disks, bilateral knee arthritis, UTI, blood infection History of Any Multi-Drug Resistant Organisms: None Reported Past Surgical History: Orthopedic Surgery, Tonsillectomy Additional Past Surgical History / Comment(s): Knee replacement surgery, tonsills out at 7 yrs old, torn meninscus Past Anesthesia/Blood Transfusion Reactions: No Reported Reaction Past Psychological History: Anxiety Smoking Status: Former smoker Past Alcohol Use History: None Reported Past Drug Use History: None Reported
[2023-05-17 07:46] LABS: African American GFR (CKD) 44 (>60 ml/min/1.73 sqM); Anion Gap 6 mmol/L; Blood Urea Nitrogen 25 mg/dL (9-20); Calcium 7.3 mg/dL (8.4-10.2); Carbon Dioxide 23 mmol/L (22-30); Chloride 105 mmol/L (98-107); Glucose 245 mg/dL (74-99); Non-African American GFR(CKD) 38 (>60 ml/min/1.73 sqM); Potassium 3.6 mmol/L (3.5-5.1); Sodium 134 mmol/L (137-145)
--- NOTE | 2023-05-17 10:27 | P.PN ---
Subjective Patient is seen in follow-up for acute kidney injury. Patient presented initially with severe acute kidney injury which subsequently resolved. Cre atinine was down to 0.8 dated May 10, 2023. Yesterday renal function was noted to be worsened again with creatinine up to 1.81 and is 1.74 today. Patient has a Ye catheter but was noted to be leaking. He also has a colostomy. Denies excessive output. Oral intake is fair. Denies vomiting. Currently receiving half-normal saline. Vital signs are stable. General: No acute distress. HEENT: Head exam is unremarkable. LUNGS: No audible rhonchi or wheezes. HEART: Rate and Rhythm are regular. ABDOMEN: Colostomy noted. EXTREMITITES: Trace edema. Objective - Vital Signs Vital signs: Vital Signs Temp 96.2 F L 05/17/23 07:45 Pulse 62 05/17/23 07:45 Resp 16 05/17/23 07:45 BP 112/62 05/17/23 07:45 Pulse Ox 95 05/17/23 07:45 FiO2 Intake & Output 05/16/23 05/17/23 05/17/23 18:59 06:59 18:59 Intake Total 500 1780 Output Total 10 Balance 490 1780 Intake: IV 500 Intake, IV Titration 1300 Amount Dextrose 5%-0.45% NaCl 1, 1200 000 ml @ 125 mls/hr IV . Q8H [facility] Rx#:[id number] Piperacillin-Tazobactam 3 100 .375 gm In Sodium Chloride 0.9% 100 ml @ 25 mls/hr IVPB Q8HR [facility] Rx# :[id number] Oral 480 Output: Estimated Blood Loss 10 Other: Voiding Method Indwelling Catheter Indwelling Catheter # Voids 2 1 # Bowel Movements 1 - Labs CBC & Chem 7: 05/16/23 06:00 05/17/23 07:10 Labs: Abnormal Lab Results - Last 24 Hours (Table) 05/17/23 Range/Units 07:10 Sodium 134 L (137-145) mmol/L BUN 25 H (9-20) mg/dL Creatinine 1.74 H (0.66-1.25) mg/dL Glucose 245 H (74-99) mg/dL Calcium 7.3 L (8.4-10.2) mg/dL Assessment and Plan Plan: Assessment: 1. Acute kidney injury secondary to ATN secondary to hypovolemia and concern for obstructive uropathy. Received IV contrast May 16, [address] of the abdomen and pelvis which showed bilateral hydronephrosis. Baseline creatinine 0.8-0.9 and up to 1.81 dated May 16, 2023 -1.74 today. 2. Urinary retention upon admission. Currently has Ye catheter. 3. Severe sepsis secondary to Proteus, bacterial voids, gram-positive bacteremia due to lower extremity wounds and sacral decubitus ulcers. ID following. On antibiotics. 4. Status postumbilical hernia repair and sigmoid colectomy with end colostomy this admission. 5. Hyponatremia secondary to hypotonic fluid infusion. 6. Metabolic acidosis secondary to acute kidney injury and IV fluids. Better. Plan: Change IV fluids to normal saline at 70 cc an hour. Replace potassium. Ye catheter to be exchanged. Add Flomax. Consult urology. Avoid nephrotoxins. Continue to monitor renal function and urine output.
--- NOTE | 2023-05-17 12:02 | P.PN ---
Subjective Progress Note Date: 05/17/23 CHIEF COMPLAINT: Decubitus ulcer HISTORY OF PRESENT ILLNESS: Patient is status post diverting colostomy on 05/09/23. Patient is status post debridement of sacral ulcer yesterday. Patient's pain is controlled. Ostomy is functioning. He is tolerating regular diet. Afebrile. Creatinine 1.74 followed by nephrology PHYSICAL EXAM: VITAL SIGNS: Reviewed. GENERAL: Well-developed in no acute distress. ABDOMEN: Nondistended. Mild tenderness at incision site. Incision site clean dry and intact. Stool in ostomy bag NEUROLOGIC: Alert and oriented. Cranial nerves II through XII grossly intact. ASSESSMENT: 1. Sacral decubitus ulcer status post diverting colostomy 2. Constipation 3. Ileus PLAN: -Patient can be discharged from surgical standpoint when medically clear -Continue local wound care to sacral ulcer -Continue regular diet -Continue good bowel regimen at discharge Physician Stitch Bonding Machine Drawer In note has been reviewed by physician. Signing provider agrees with the documented findings, assessment, and plan of care. Objective - Vital Signs Vital signs: Vital Signs Temp 96.2 F L 05/17/23 07:45 Pulse 62 05/17/23 07:45 Resp 16 05/17/23 07:45 BP 112/62 05/17/23 07:45 Pulse Ox 95 05/17/23 07:45 FiO2 Intake & Output 05/16/23 05/17/23 05/17/23 18:59 06:59 18:59 Intake Total 500 1780 180 Output Total 10 Balance 490 1780 180 Intake: IV 500 Intake, IV Titration 1300 Amount Dextrose 5%-0.45% NaCl 1, 1200 000 ml @ 125 mls/hr IV . Q8H [facility] Rx#:[id number] Piperacillin-Tazobactam 3 100 .375 gm In Sodium Chloride 0.9% 100 ml @ 25 mls/hr IVPB Q8HR [facility] Rx# :[id number] Oral 480 180 Output: Estimated Blood Loss 10 Other: Voiding Method Indwelling Catheter Indwelling Catheter Indwelling Catheter # Voids 2 1 # Bowel Movements 1 - Labs CBC & Chem 7: 05/16/23 06:00 05/17/23 07:10 Labs: Abnormal Lab Results - Last 24 Hours (Table) 05/17/23 Range/Units 07:10 Sodium 134 L (137-145) mmol/L BUN 25 H (9-20) mg/dL Creatinine 1.74 H (0.66-1.25) mg/dL Glucose 245 H (74-99) mg/dL Calcium 7.3 L (8.4-10.2) mg/dL
[2023-05-17] MEDS: TAMSULOSIN 0.4 MG CAP.ER.24H PO SCH (12:04)
[2023-05-17] MEDS: POTASSIUM CHLORIDE ER 20 MEQ TAB.ER PO STA (12:04)
[2023-05-17] MEDS: SODIUM CHLORIDE 0.9% 1,000 ML IV SCH (12:04)
--- NOTE | 2023-05-17 15:18 | P.PN ---
Subjective Progress Note Date: 05/17/23 Principal diagnosis: Reason for follow-up is UTI bacteremia and sacral pressure ulcer Patient is a 72-year-old male with a past medical history significant atrial fibrillation hyperlipidemia osteoarthritis patient was brought into the hospital for evaluation generalized weakness, patient did have evidence of a UTI and a sacral pressure ulcer. Patient blood culture subsequently came back positive with Proteus On today's evaluation that is Patient is status post sigmoid colectomy and end colostomy completed on 05/09/2023. Patient is status post surgical debridement of his sacral wound coccyx was exposed per operative report but no culture was done procedure completed on 05/16/2023 On today's evaluation that is 05/17/2023,the patient denies any fever or any chills, patient is breathing comfortably on room air, the patient denies chest pain shortness of breath and no significant cough, patient abdominal pain has decreased in intensity no nausea no vomiting and did have some output in the colostomy. Patient creatinine is down to 1.74, initial blood culture positive for MSSA E. coli and Proteus patient blood culture positive for Proteus and bacteroids fragilis repeat blood culture negative Objective - Vital Signs Vital signs: Vital Signs Temp 97.2 F L 05/17/23 12:15 Pulse 57 L 05/17/23 12:15 Resp 16 05/17/23 12:15 BP 110/63 05/17/23 12:15 Pulse Ox 97 05/17/23 12:15 FiO2 Intake & Output 05/16/23 05/17/23 05/17/23 18:59 06:59 18:59 Intake Total 500 1780 180 Output Total 10 Balance 490 1780 180 Weight 76.204 kg Intake: IV 500 Intake, IV Titration 1300 Amount Dextrose 5%-0.45% NaCl 1, 1200 000 ml @ 125 mls/hr IV . Q8H [facility] Rx#:[id number] Piperacillin-Tazobactam 3 100 .375 gm In Sodium Chloride 0.9% 100 ml @ 25 mls/hr IVPB Q8HR [facility] Rx# :[id number] Oral 480 180 Output: Estimated Blood Loss 10 Other: Voiding Method Indwelling Catheter Indwelling Catheter Diaper Indwelling Catheter # Voids 2 1 # Bowel Movements 1 - Exam GENERAL DESCRIPTION: An elderly male lying in bed in no distress RESPIRATORY SYSTEM: Unlabored breathing , decreased breath sounds at bases HEART: S1 S2 regular rate and rhythm , ABDOMEN: Soft , no tenderness Stage IV sacral pressure ulcer with some slough tissue and bones palpable - Labs CBC & Chem 7: 05/16/23 06:00 05/17/23 07:10 Labs: Abnormal Lab Results - Last 24 Hours (Table) 05/17/23 Range/Units 07:10 Sodium 134 L (137-145) mmol/L BUN 25 H (9-20) mg/dL Creatinine 1.74 H (0.66-1.25) mg/dL Glucose 245 H (74-99) mg/dL Calcium 7.3 L (8.4-10.2) mg/dL Assessment and Plan (1) Bacteremia Current Visit: Yes Status: Acute Code(s): R78.81 - BACTEREMIA SNOMED Code(s): 2557916 (2) Urinary tract infection Current Visit: Yes Status: Acute Code(s): N39.0 - URINARY TRACT INFECTION, SITE NOT SPECIFIED SNOMED Code(s): 29903834 (3) Stage IV pressure ulcer of sacral region Current Visit: Yes Status: Acute Code(s): L89.154 - PRESSURE ULCER OF SACRAL REGION, STAGE 4 SNOMED Code(s): 01954037223636 (4) Sacral osteomyelitis Current Visit: Yes Status: Acute Code(s): M46.28 - OSTEOMYELITIS OF VERTEBRA, SACRAL AND SACROCOCCYGEAL REGION SNOMED Code(s): 071378134 (5) MSSA (methicillin susceptible Staphylococcus aureus) infection Current Visit: Yes Status: Acute Code(s): A49.01 - METHICILLIN SUSCEP STAPH INFECTION, UNSP SITE SNOMED Code(s): 122340682 Plan: 1patient with urinary tract infection urine is growing Pseudomonas and Enterococcus, for the patient received adequate Zosyn therapy 2patient with sacral osteomyelitis with initial sacral wound culture positive for MSSA Proteus and E. coli all of them were sensitive to cefazolin 3-patient with bacteroids and Proteus bacteremia source likely infected sacral pressure ulcer s/p surgical debridement with repeat culture negative 4-we will discontinue Zosyn 5-start the patient cefazolin 2 g every 8 hours and oral Flagyl get a PICC line for outpatient IV antibiotic therapy Dictation was produced using [employer] dictation software. please excuse any grammatical, word or spelling errors. Time with Patient: Less than 30
[2023-05-17] MEDS: metroNIDAZOLE 500 MG TAB PO SCH (17:19)
--- NOTE | 2023-05-17 21:30 | P.PN ---
Progress Note - Text Progress Note Date: 05/17/23 Chief Complaint: Weakness This is a 72-year-old patient follows with visiting physicians Dr. Valero. 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 For which she saw a few years ago Dr. Leo. At [facility]. He was told that removing the tumor could be more dangerous than leaving it alone. Patient was very recently discharged from [facility]. Patient has sacral decubitus wound. Also wounds on the lower extremity. Back in January he was here at lower extremity wound care followed vascular team of Dr. Ye. Patient's brother lives at home with him. Patient nonambulatory. Decreased appetite. Presents with worsening wound to sacral decubitus, also wound on the left calf. Patient is constipated. Denies any fever and chills. Weakness. Has had intermittent diarrhea. May 06: Reclining bed. No pain in the legs. Pending vascular input. IV ceftriaxone. IV fluids. Had a bowel movement. May 07: Laying in bed. No pain in the lower extremity. Seen by surgery. Plan for diverting colostomy which patient has agreed to. Patient's brother at the bedside. Questions answered. IV Zosyn. May 08: Patient had diverting colostomy with sigmoid colectomy done by Dr. Dupont today. On IV Zosyn. Being followed by vascular. No pain. Postprocedure started on clear liquids May 2: No stool output. No plans for debridement per Dr Dupont. Of the sacral wound. Liquid diet. Wound care team also following. May 10: Spoke to social worker delinquency prevention. Only option for the patient is to go home with his brother. I did discuss with Dr. Vitale the patient that if the wound does not heal at some point hospice may have to be considered. Remains on clear liquid diet May 11: Spoke to Dr. Dupont yesterday. He will be out of town. He will asked Dr. Gómez to do the debridement. Nurse informed me that patient declined debridement today by Dr. Gómez. Also abdomen distended. Made NPO. May 12: Patient has abdominal distention. Abdominal x-ray ordered. Reviewed shows dilated small bowel measuring 5.3 cm. Suspect ileus. Will follow with surgery. Remains NPO. May 13: Not passed any flatus. Some decrease in abdominal distention. No nausea vomiting. Minimal stool output from the colostomy bag. Remains NPO. May 14: Remains on ice chips. Minimal if any output through the colostomy bag. Some decrease in distention. CT scan abdomen ordered by surgery. May 15: Saw the patient this morning. Has yellow-brown stool in the colostomy bag. Abdomen soft. Later this afternoon Dr Dupont to the patient to the OR for debridement. Outpatient antibiotics per ID. Creatinine bumped up to 1.81 this morning. Could be contrast-induced nephropathy. IV fluids. Nephrology consulted. May 16: Patient tolerating diet. [place] social worker delinquency prevention spoke to the patient. He may have 1 x 60 days left at ECF. Looking at placement for the same. Patient be changed to IV cefazolin per ID and oral Flagyl. PICC line ordered for antibiotic treatment. Active Medications Acetaminophen (Acetaminophen Tab 325 Mg Tab) 650 mg PO Q6HR PRN PRN Reason: Mild Pain or Fever > 100.5 Hydrocodone Bitart/Acetaminophen (Hydrocodone/Apap 5-325mg 1 Each Tab) 1 each PO Q6HR PRN PRN Reason: Pain Apixaban (Apixaban 2.5 Mg Tablet) 2.5 mg PO BID [facility]; Protocol Last Admin: 05/17/23 20:42 Dose: 2.5 mg Calcium Carbonate/Glycine (Calcium Carbonate 500 Mg Chewable) 1,000 mg PO Q4HR PRN PRN Reason: Dyspepsia Collagenase (Collagenase 250 Unit/Gm Ointment 30 Gm Tube) 1 applic TOPICAL DAILY [facility]; Protocol Last Admin: 05/16/23 16:19 Dose: Not Given Folic Acid (Folic Acid 1 Mg Tab) 1 mg PO DAILY [facility] Last Admin: 05/17/23 08:32 Dose: 1 mg Gabapentin (Gabapentin 100 Mg Cap) 200 mg PO TID [facility] Last Admin: 05/17/23 17:20 Dose: 200 mg Sodium Chloride (Saline 0.9%) 1,000 mls @ 70 mls/hr IV .[id number] [facility] Last Admin: 05/17/23 12:04 Dose: 70 mls/hr Cefazolin Sodium 2 gm/ Sodium (Chloride) 50 mls @ 100 mls/hr IVPB Q8HR [facility]; Protocol Last Admin: 05/17/23 17:19 Dose: 100 mls/hr Lactulose (Lactulose 20 Gm/30 Ml Cup) 20 gm PO DAILY PRN PRN Reason: Constipation Loperamide HCl (Loperamide 2 Mg Cap) 2 mg PO Q6H PRN PRN Reason: Diarrhea Lorazepam (Lorazepam 0.5 Mg Tab) 0.5 mg PO Q6HR PRN PRN Reason: Anxiety Metronidazole (Metronidazole 500 Mg Tab) 500 mg PO TID [facility]; Protocol Last Admin: 05/17/23 17:19 Dose: 500 mg Naloxone HCl (Naloxone 0.4 Mg/Ml 1 Ml Vial) 0.2 mg IV Q2M PRN PRN Reason: Opioid Reversal Ondansetron HCl (Ondansetron 4 Mg/2 Ml Vial) 4 mg IVP Q8HR PRN PRN Reason: Nausea And Vomiting Last Admin: 05/16/23 11:54 Dose: 4 mg Pantoprazole Sodium (Pantoprazole 40 Mg Tablet) 40 mg PO AC-BRKFST [facility] Last Admin: 05/17/23 08:33 Dose: 40 mg Psyllium Hydrophilic Mucilloid (Psyllium Husk 100% 6 Gm Packet) 6 gm PO DAILY [facility] Last Admin: 05/17/23 11:04 Dose: Not Given Tamsulosin HCl (Tamsulosin 0.4 Mg Cap.Er.24h) 0.4 mg PO -BRKFST [facility] Last Admin: 05/17/23 12:04 Dose: 0.4 mg Tramadol HCl (Tramadol 50 Mg Tab) 50 mg PO Q6H PRN PRN Reason: Moderate Pain (Scale 4 to 6) Last Admin: 05/17/23 20:42 Dose: 50 mg Social history: No smoking or alcohol. Brother is in and out of the house. Physical examination: VITAL SIGNS: 98.1, 71, 15, 123 x 69, 97% room air GENERAL: Lying in bed, awake EYES: Pupils equal. Conjunctiva normal. HEENT: External appearance of nose and ears normal, oral cavity grossly normal. NECK: JVD not raised; masses not palpable. HEART: First and second heart sounds are normal; no edema. LUNGS: Respiratory rate normal; clear to auscultation. ABDOMEN: Soft, nontender, liver spleen not palpable, no masses palpable,- colostomy bag no stool. Abdomen a bit less distended-no tenderness PSYCH: Alert and oriented x3; mood and affect normal. MUSCULOSKELETAL:No Clubbing/cyanosis;muscles-grossly intact. DERMATOLOGICAL: Chronic venous stasis changes in lower extremity, with some crusting . Unstageable wounds on the sacrum/buttocks NEUROLOGICAL: Cranial nerves grossly intact; no facial asymmetry, weakness lower extremity, power 1/ 5.. INVESTIGATIONS, reviewed in the clinical context: May 16: BUN 25 creatinine 1.74 May 15: White count 7.4 hemoglobin 9 platelets 438 potassium 3.6 BUN 24 creatinine 1.81 May 09: White count 7.6 hemoglobin 8.1 potassium 4.3 creatinine 0.8 May 08: White count 6.9 hemoglobin 8 platelets 518 potassium 3.8 creatinine 0.92 May 07: White count 6.7 hemoglobin 8.8 platelets 43 potassium 3.1 BUN 40 creatinine 1.35 May 06: White count 9.1 hemoglobin 8.1 platelets 434 potassium 2.9 BUN 60 creatinine 2.46 May 06, 2023: White count 15.9 hemoglobin 10.2 platelets of 83 sodium 133 potassium 4.1 BUN 74 creatinine 5.41 lactic acid 2.1 Troponin I less than 0.012 C. difficile negative EKG tracing personally reviewed by me-normal sinus rhythm. Chest x-ray film personally reviewed by me-unremarkable Assessment and plan: -Worsening infected, acute on chronic Unstageable pressure ulcer left buttock, right buttocks, stage I pressure ulcer lower back.: Slow to respond Wound care team following Dr. Kumar. IV Zosyn-discontinued Diverting colostomy done by Dr. Dupont on May 08 May 15: Sacral wound debrided Marylu Dr Dupont IV cefazolin started along with p.o. Flagyl today. -Postoperative ileus with small bowel distention.: Resolved Regular diet -Acute kidney injury likely combination of ATN and prerenal: Resolved. Again on May 15 creatinine went up to 1.8 Creatinine 5.4 on admission, came down to 0.8. Now back to 1.8 IV fluids. -Acute on chronic medical debility. Patient just discharged from [facility] about a week ago. PT OT -Venous stasis/dermatitis changes in lower extremity. Calf wound. Seen by Dr. Ye from vascular: No further intervention. 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 Currently sinus rhythm. Eliis-held Hospital bed for home: Indication The patient has lower back/sacral deep wounds. Which requires positioning of the body in ways not feasible with an ordinary bed. The head of the bed must be elevated more than 30 degrees most of the time to alleviate pain and pressure. -Full code Per social worker delinquency prevention patient has 1 lifetime 60 days in the ECF. Looking at ECF for the same. IV Ancef p.o. Flagyl per ID. Past Medical History Past Medical History: Atrial Fibrillation, Hyperlipidemia, Osteoarthritis (OA) Additional Past Medical History / Comment(s): Bulging disks, bilateral knee arthritis, UTI, blood infection History of Any Multi-Drug Resistant Organisms: None Reported Past Surgical History: Orthopedic Surgery, Tonsillectomy Additional Past Surgical History / Comment(s): Knee replacement surgery, tonsills out at 7 yrs old, torn meninscus Past Anesthesia/Blood Transfusion Reactions: No Reported Reaction Past Psychological History: Anxiety Smoking Status: Former smoker Past Alcohol Use History: None Reported Past Drug Use History: None Reported
--- NOTE | 2023-05-18 08:57 | P.GSCN ---
History of Present Illness Consult date: 05/18/23 Reason for Consult: Ye catheter malfunction Requesting physician: Isaiah Marmolejo History of present illness: This is a 72-year-old patient with a spinal cord tumor. The decision was made not to remove it due to risk associated with removal of it. He has a sacral decubitus wound, as well as a left calf wound. He underwent a diverting colostomy earlier this month. He states that he has not had an indwelling Ye catheter since January. Previously, he used a condom catheter which did not work well as it frequently fell off. The catheter was draining poorly earlier this week. A CT scan was obtained yesterday, showing evidence of bilateral hydroureteronephrosis with bladder distention. The Ye catheter balloon appeared to be properly positioned within the bladder. The catheter was changed following the CT scan, and is now draining well. The patient states that he experienced pressure and discomfort when his bladder was distended, and that this has resolved. Past Medical History Past Medical History: Atrial Fibrillation, Hyperlipidemia, Osteoarthritis (OA) Additional Past Medical History / Comment(s): Bulging disks, bilateral knee arthritis, UTI, blood infection History of Any Multi-Drug Resistant Organisms: None Reported Past Surgical History: Orthopedic Surgery, Tonsillectomy Additional Past Surgical History / Comment(s): Knee replacement surgery, tonsills out at 7 yrs old, torn meninscus Past Anesthesia/Blood Transfusion Reactions: No Reported Reaction Additional Past Anesthesia/Blood Transfusion Reaction / Comm: Patient not sure if hes ever had a blood transfusion. Past Psychological History: Anxiety Smoking Status: Former smoker Past Alcohol Use History: None Reported Past Drug Use History: None Reported - Past Family History Mother Family Medical History: CVA/TIA, Myocardial Infarction ([place]) Father Family Medical History: Congestive Heart Failure (CHF) Medications and Allergies Home Medications Medication Instructions Recorded Confirmed Type Omeprazole 20 mg PO DAILY 01/15/23 05/06/23 History Furosemide [Lasix] 20 mg PO DAILY tab 01/21/23 05/06/23 Rx Acetaminophen Tab [Tylenol] 650 mg PO Q6HR PRN 05/06/23 05/06/23 History Apixaban [Eliquis] 2.5 mg PO BID 05/06/23 05/06/23 History Folic Acid 0.8 mg PO DAILY 05/06/23 05/06/23 History Gabapentin [Neurontin] 200 mg PO TID 05/06/23 05/06/23 History Loperamide [Imodium] 2 mg PO Q6H PRN 05/06/23 05/06/23 History Allergies Allergy/AdvReac Type Severity Reaction Status Date / Time Iogqhks-GJE-SvA Reductase Allergy Rash/Hives Verified 05/16/23 12:32 Inhibitor [Basrleg-Lfv-Qtg Reductase Inhibitor] Surgical - Exam Vital Signs Temp Pulse Resp BP Pulse Ox 97.3 F L 74 18 95/83 99 05/06/23 11:35 05/06/23 11:35 05/06/23 11:35 05/06/23 11:35 05/06/23 11:35 - General well developed, well nourished, no distress - Respiratory normal respiratory effort - Abdomen Soft, non-distended. Left-sided colostomy is noted. Dressing dry and intact. - Genitourinary normal penis with no external lesions, testicles non-tender - Psychiatric oriented to time, oriented to person, oriented to place, speech is normal, memory intact Results - Labs 05/16/23 06:00 05/17/23 07:10 Abnormal Lab Results - Last 24 Hours (Table) 05/17/23 Range/Units 07:10 Sodium 134 L (137-145) mmol/L BUN 25 H (9-20) mg/dL Creatinine 1.74 H (0.66-1.25) mg/dL Glucose 245 H (74-99) mg/dL Calcium 7.3 L (8.4-10.2) mg/dL Diabetes panel 05/17/23 Range/Units 07:10 Sodium 134 L (137-145) mmol/L Potassium 3.6 (3.5-5.1) mmol/L Chloride 105 (98-107) mmol/L Carbon Dioxide 23 (22-30) mmol/L BUN 25 H (9-20) mg/dL Creatinine 1.74 H (0.66-1.25) mg/dL Glucose 245 H (74-99) mg/dL Calcium 7.3 L (8.4-10.2) mg/dL Calcium panel 05/17/23 Range/Units 07:10 Calcium 7.3 L (8.4-10.2) mg/dL Pituitary panel 05/17/23 Range/Units 07:10 Sodium 134 L (137-145) mmol/L Potassium 3.6 (3.5-5.1) mmol/L Chloride 105 (98-107) mmol/L Carbon Dioxide 23 (22-30) mmol/L BUN 25 H (9-20) mg/dL Creatinine 1.74 H (0.66-1.25) mg/dL Glucose 245 H (74-99) mg/dL Calcium 7.3 L (8.4-10.2) mg/dL Adrenal panel 05/17/23 Range/Units 07:10 Sodium 134 L (137-145) mmol/L Potassium 3.6 (3.5-5.1) mmol/L Chloride 105 (98-107) mmol/L Carbon Dioxide 23 (22-30) mmol/L BUN 25 H (9-20) mg/dL Creatinine 1.74 H (0.66-1.25) mg/dL Glucose 245 H (74-99) mg/dL Calcium 7.3 L (8.4-10.2) mg/dL - Imaging CT scan - abdomen: report reviewed, image reviewed Assessment and Plan (1) Unspecified hydronephrosis Current Visit: Yes Status: Acute Code(s): N13.30 - UNSPECIFIED HYDRONEPHROSIS SNOMED Code(s): 90163361 (2) Retention of urine, unspecified Current Visit: Yes Status: Acute Code(s): R33.9 - RETENTION OF URINE, UNSPECIFIED SNOMED Code(s): 748528646 (3) Malfunction of Ye catheter Current Visit: Yes Status: Acute Code(s): T83.011A - BREAKDOWN (MECHANICAL) OF INDWELLING URETHRAL CATHETER, INIT SNOMED Code(s): 299009836 Plan: As stated, the Ye catheter is now draining well and I anticipate normalization of his renal function. I discussed with the patient the fact that an indwelling Ye catheter carries with it a higher risk of infection then does a condom catheter. However, the condom catheter worked poorly and urinary diversion is important to allow healing of the sacral ulcer. In view of this, the patient chooses to proceed with an indwelling Ye catheter, which should be changed monthly. Please notify me if I can be of any further assistance. Time with Patient: Greater than 30
[2023-05-18] MEDS ORDERED: DOCUSATE 100 MG CAP PO SCH (11:30)
--- NOTE | 2023-05-18 11:32 | P.PN ---
Subjective Patient is seen in follow-up for acute kidney injury. Patient presented initially with severe acute kidney injury which subsequently resolved. Cre atinine was down to 0.8 dated May 10, 2023. Renal function was noted to be worsened again with creatinine up to 1.81 and was down to 1.74 yesterday. Patient has a Ye catheter but was noted to be leaking. It was exchanged yesterday. He also has a colostomy. Denies excessive output. Oral intake is fair. Denies vomiting. Currently receiving normal saline. Vital signs are stable. General: No acute distress. HEENT: Head exam is unremarkable. LUNGS: No audible rhonchi or wheezes. HEART: Rate and Rhythm are regular. ABDOMEN: Colostomy noted. EXTREMITITES: Trace edema. Objective - Vital Signs Vital signs: Vital Signs Temp 97.3 F L 05/18/23 07:34 Pulse 76 05/18/23 07:34 Resp 12 05/18/23 07:34 BP 127/77 05/18/23 07:34 Pulse Ox 92 L 05/18/23 07:34 FiO2 Intake & Output 05/17/23 05/18/23 05/18/23 18:59 06:59 18:59 Intake Total 180 840 Output Total 1000 2000 550 Balance -820 -1160 -550 Weight 76.204 kg Intake: Intake, IV Titration 840 Amount Sodium Chloride 0.9% 1, 840 000 ml @ 70 mls/hr IV . [id number] Rx#:[id number] Oral 180 Output: Urine 1000 2000 550 Uretheral (Ye) 250 Other: Voiding Method Diaper Indwelling Catheter Indwelling Catheter Indwelling Catheter - Labs CBC & Chem 7: 05/16/23 06:00 05/17/23 07:10 Assessment and Plan Plan: Assessment: 1. Acute kidney injury secondary to ATN secondary to hypovolemia and concern for obstructive uropathy. Received IV contrast May 16, [address] of the abdomen and pelvis which showed bilateral hydronephrosis. Baseline creatinine 0.8-0.9 and up to 1.81 dated May 16, 2023 -1.74 yesterday. 2. Urinary retention upon admission. Currently has Ye catheter. Ye catheter changed May 17, 2023. On Flomax. Urology following. 3. Severe sepsis secondary to Proteus, bacterial voids, gram-positive bacteremia due to lower extremity wounds and sacral decubitus ulcers. ID following. On antibiotics. 4. Status postumbilical hernia repair and sigmoid colectomy with end colostomy this admission. 5. Hyponatremia secondary to hypotonic fluid infusion. 6. Metabolic acidosis secondary to acute kidney injury and IV fluids. Better. Plan: Maintain IV fluids for now. Potassium replaced. Avoid nephrotoxins. Continue to monitor renal function and urine output.
[2023-05-18] MEDS: LACTULOSE 20 GM/30 ML CUP PO ONE ×2 (12:46→15:53)
[2023-05-18] MEDS: SENNOSIDES-DOCUSATE SODIUM 1 EACH TAB PO SCH (12:47)
--- NOTE | 2023-05-18 13:53 | P.PN ---
Subjective Progress Note Date: 05/18/23 Principal diagnosis: Reason for follow-up is UTI bacteremia and sacral pressure ulcer Patient is a 72-year-old male with a past medical history significant atrial fibrillation hyperlipidemia osteoarthritis patient was brought into the hospital for evaluation generalized weakness, patient did have evidence of a UTI and a sacral pressure ulcer. Patient blood culture subsequently came back positive with Proteus On today's evaluation that is Patient is status post sigmoid colectomy and end colostomy completed on 05/09/2023. Patient is status post surgical debridement of his sacral wound coccyx was exposed per operative report but no culture was done procedure completed on 05/16/2023 On today's evaluation that is 05/18/2023,the patient remains to be afebrile, patient is on room air not requiring supplemental oxygen and denies any shortness of breath no chest pain or cough.Patient denies having any nausea or vomiting, abdominal pain has improved. Has a bowel movement. No new labs today Objective - Vital Signs Vital signs: Vital Signs Temp 97.3 F L 05/18/23 07:34 Pulse 76 05/18/23 07:34 Resp 12 05/18/23 07:34 BP 127/77 05/18/23 07:34 Pulse Ox 92 L 05/18/23 07:34 FiO2 Intake & Output 05/17/23 05/18/23 05/18/23 18:59 06:59 18:59 Intake Total 180 840 Output Total 1000 1999 550 Balance -820 -1160 -550 Weight 76.204 kg Intake: Intake, IV Titration 840 Amount Sodium Chloride 0.9% 1, 840 000 ml @ 70 mls/hr IV . [id number] [facility] Rx#:[id number] Oral 180 Output: Urine 1000 1999 550 Uretheral (Ye) 250 Other: Voiding Method Diaper Indwelling Catheter Indwelling Catheter Indwelling Catheter - Exam GENERAL DESCRIPTION: An elderly male lying in bed in no distress RESPIRATORY SYSTEM: Unlabored breathing , decreased breath sounds at bases HEART: S1 S2 regular rate and rhythm , ABDOMEN: Soft , no tenderness Stage IV sacral pressure ulcer with some slough tissue and bones palpable - Labs CBC & Chem 7: 05/16/23 06:00 05/17/23 07:10 Assessment and Plan (1) Bacteremia Current Visit: Yes Status: Acute Code(s): R78.81 - BACTEREMIA SNOMED Code(s): 2561366 (2) Urinary tract infection Current Visit: Yes Status: Acute Code(s): N39.0 - URINARY TRACT INFECTION, SITE NOT SPECIFIED SNOMED Code(s): 37909474 (3) Stage IV pressure ulcer of sacral region Current Visit: Yes Status: Acute Code(s): L89.154 - PRESSURE ULCER OF SACRAL REGION, STAGE 4 SNOMED Code(s): 90388013142736 (4) Sacral osteomyelitis Current Visit: Yes Status: Acute Code(s): M46.28 - OSTEOMYELITIS OF VERTEBRA, SACRAL AND SACROCOCCYGEAL REGION SNOMED Code(s): 520465964 (5) MSSA (methicillin susceptible Staphylococcus aureus) infection Current Visit: Yes Status: Acute Code(s): A49.01 - METHICILLIN SUSCEP STAPH INFECTION, UNSP SITE SNOMED Code(s): 138568953 Plan: 1patient with urinary tract infection urine is growing Pseudomonas and Enterococcus, for the patient received adequate Zosyn therapy 2patient with sacral osteomyelitis with initial sacral wound culture positive for MSSA Proteus and E. coli all of them were sensitive to cefazolin 3-patient with bacteroids and Proteus bacteremia source likely infected sacral pressure ulcer s/p surgical debridement with repeat culture negative 4-patient to continue with cefazolin 2 g every 8 hours and oral Flagyl x 6 weeks on discharge Dictation was produced using [employer] dictation software. please excuse any gramma tical, word or spelling errors. Time with Patient: Less than 30
--- NOTE | 2023-05-18 13:59 | P.PN ---
Subjective Progress Note Date: 05/18/23 CHIEF COMPLAINT: Decubitus ulcer HISTORY OF PRESENT ILLNESS: Patient is status post diverting colostomy on 05/09/23. Patient is status post debridement of sacral ulcer on 05/16/23. Patient's pain is controlled. Ostomy with hard ball of stool. Patient reports he feels better with Ye catheter placement retention. Followed by urology. PHYSICAL EXAM: VITAL SIGNS: Reviewed. GENERAL: Well-developed in no acute distress. ABDOMEN: Nondistended. Mild tenderness at incision site. Incision site clean d ry and intact. Stool in ostomy bag NEUROLOGIC: Alert and oriented. Cranial nerves II through XII grossly intact. ASSESSMENT: 1. Sacral decubitus ulcer status post diverting colostomy 2. Constipation 3. Ileus PLAN: -Patient can be discharged from surgical standpoint when medically clear -Hard stool adding Colace and a dose of lactulose -Continue a good bowel regimen at discharge -Continue local wound care to sacral ulcer -Continue regular diet Physician Sales Floor Team Leader note has been reviewed by physician. Signing provider agrees with the documented findings, assessment, and plan of care. Objective - Vital Signs Vital signs: Vital Signs Temp 97.3 F L 05/18/23 07:34 Pulse 76 05/18/23 07:34 Resp 12 05/18/23 07:34 BP 127/77 05/18/23 07:34 Pulse Ox 92 L 05/18/23 07:34 FiO2 Intake & Output 05/17/23 05/18/23 05/18/23 18:59 06:59 18:59 Intake Total 180 840 Output Total 1000 1999 550 Balance -820 -1160 -550 Weight 76.204 kg Intake: Intake, IV Titration 840 Amount Sodium Chloride 0.9% 1, 840 000 ml @ 70 mls/hr IV . [id number] [facility] Rx#:[id number] Oral 180 Output: Urine 1000 1999 550 Uretheral (Ye) 250 Other: Voiding Method Diaper Indwelling Catheter Indwelling Catheter Indwelling Catheter - Labs CBC & Chem 7: 05/16/23 06:00 05/17/23 07:10
--- NOTE | 2023-05-18 19:34 | P.PN ---
Progress Note - Text Progress Note Date: 05/18/23 Chief Complaint: Weakness This is a 72-year-old patient follows with visiting physicians Dr. Valero. 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 For which she saw a few years ago Dr. Leo. At [facility]. He was told that removing the tumor could be more dangerous than leaving it alone. Patient was very recently discharged from [facility]. Patient has sacral decubitus wound. Also wounds on the lower extremity. Back in January he was here at lower extremity wound care followed vascular team of Dr. Ye. Patient's brother lives at home with him. Patient nonambulatory. Decreased appetite. Presents with worsening wound to sacral decubitus, also wound on the left calf. Patient is constipated. Denies any fever and chills. Weakness. Has had intermittent diarrhea. May 06: Reclining bed. No pain in the legs. Pending vascular input. IV ceftriaxone. IV fluids. Had a bowel movement. May 07: Laying in bed. No pain in the lower extremity. Seen by surgery. Plan for diverting colostomy which patient has agreed to. Patient's brother at the bedside. Questions answered. IV Zosyn. May 08: Patient had diverting colostomy with sigmoid colectomy done by Dr. Dupont today. On IV Zosyn. Being followed by vascular. No pain. Postprocedure started on clear liquids May 2: No stool output. No plans for debridement per Dr Dupont. Of the sacral wound. Liquid diet. Wound care team also following. May 10: Spoke to hospice social worker. Only option for the patient is to go home with his brother. I did discuss with Dr. Vitale the patient that if the wound does not heal at some point hospice may have to be considered. Remains on clear liquid diet May 11: Spoke to Dr. Dupont yesterday. He will be out of town. He will asked Dr. Gómez to do the debridement. Nurse informed me that patient declined debridement today by Dr. Gómez. Also abdomen distended. Made NPO. May 12: Patient has abdominal distention. Abdominal x-ray ordered. Reviewed shows dilated small bowel measuring 5.3 cm. Suspect ileus. Will follow with surgery. Remains NPO. May 13: Not passed any flatus. Some decrease in abdominal distention. No nausea vomiting. Minimal stool output from the colostomy bag. Remains NPO. May 14: Remains on ice chips. Minimal if any output through the colostomy bag. Some decrease in distention. CT scan abdomen ordered by surgery. May 15: Saw the patient this morning. Has yellow-brown stool in the colostomy bag. Abdomen soft. Later this afternoon Dr Dupont to the patient to the OR for debridement. Outpatient antibiotics per ID. Creatinine bumped up to 1.81 this morning. Could be contrast-induced nephropathy. IV fluids. Nephrology consulted. May 16: Patient tolerating diet. [facility] hospice social worker spoke to the patient. He may have 1 x 60 days left at [facility]CF. Looking at placement for the same. Patient be changed to IV cefazolin per ID and oral Flagyl. PICC line ordered for antibiotic treatment. May 17: Saw the patient this morning. Patient does not want PICC line until it is confirmed that he is going to the ECF. Later in the day [facility] hospice social worker informed me that patient will not be going to the ECF because no days available. Patient looking for home health so he can manage his PICC line. Also patient had a hard stool. Senokot as added. Tolerating diet well. Active Medications Acetaminophen (Acetaminophen Tab 325 Mg Tab) 650 mg PO Q6HR PRN PRN Reason: Mild Pain or Fever > 100.5 Hydrocodone Bitart/Acetaminophen (Hydrocodone/Apap 5-325mg 1 Each Tab) 1 each PO Q6HR PRN PRN Reason: Pain Apixaban (Apixaban 2.5 Mg Tablet) 2.5 mg PO BID [facility]; Protocol Last Admin: 05/18/23 09:20 Dose: 2.5 mg Calcium Carbonate/Glycine (Calcium Carbonate 500 Mg Chewable) 1,000 mg PO Q4HR PRN PRN Reason: Dyspepsia Collagenase (Collagenase 250 Unit/Gm Ointment 30 Gm Tube) 1 applic TOPICAL DAILY [facility]; Protocol Last Admin: 05/18/23 15:48 Dose: Not Given Folic Acid (Folic Acid 1 Mg Tab) 1 mg PO DAILY [facility] Last Admin: 05/18/23 09:20 Dose: 1 mg Gabapentin (Gabapentin 100 Mg Cap) 200 mg PO TID [facility] Last Admin: 05/18/23 15:58 Dose: 200 mg Sodium Chloride (Saline 0.9%) 1,000 mls @ 70 mls/hr IV .[id number] [facility] Last Admin: 05/18/23 12:43 Dose: 70 mls/hr Cefazolin Sodium 2 gm/ Sodium (Chloride) 50 mls @ 100 mls/hr IVPB Q8HR [facility]; Protocol Last Admin: 05/18/23 15:54 Dose: 100 mls/hr Lactulose (Lactulose 20 Gm/30 Ml Cup) 20 gm PO DAILY PRN PRN Reason: Constipation Lactulose (Lactulose 20 Gm/30 Ml Cup) 30 gm PO DAILY [facility] Loperamide HCl (Loperamide 2 Mg Cap) 2 mg PO Q6H PRN PRN Reason: Diarrhea Lorazepam (Lorazepam 0.5 Mg Tab) 0.5 mg PO Q6HR PRN PRN Reason: Anxiety Metronidazole (Metronidazole 500 Mg Tab) 500 mg PO TID [facility]; Protocol Last Admin: 05/18/23 15:59 Dose: 500 mg Naloxone HCl (Naloxone 0.4 Mg/Ml 1 Ml Vial) 0.2 mg IV Q2M PRN PRN Reason: Opioid Reversal Ondansetron HCl (Ondansetron 4 Mg/2 Ml Vial) 4 mg IVP Q8HR PRN PRN Reason: Nausea And Vomiting Last Admin: 05/16/23 11:54 Dose: 4 mg Pantoprazole Sodium (Pantoprazole 40 Mg Tablet) 40 mg PO AC-BRKFST [facility] Last Admin: 05/18/23 09:19 Dose: 40 mg Senna/Docusate Sodium (Sennosides-Docusate Sodium 1 Each Tab) 1 each PO BID [facility] Last Admin: 05/18/23 12:47 Dose: 1 each Tamsulosin HCl (Tamsulosin 0.4 Mg Cap.Er.24h) 0.4 mg PO PC-BRKFST [facility] Last Admin: 05/18/23 09:19 Dose: 0.4 mg Tramadol HCl (Tramadol 50 Mg Tab) 50 mg PO Q6H PRN PRN Reason: Moderate Pain (Scale 4 to 6) Last Admin: 05/17/23 20:42 Dose: 50 mg Social history: No smoking or alcohol. Brother is in and out of the house. Physical examination: VITAL SIGNS: 98.7, 67, 18, 148 x 87, 97% room air GENERAL: Lying in bed, awake EYES: Pupils equal. Conjunctiva normal. HEENT: External appearance of nose and ears normal, oral cavity grossly normal. NECK: JVD not raised; masses not palpable. HEART: First and second heart sounds are normal; no edema. LUNGS: Respiratory rate normal; clear to auscultation. ABDOMEN: Soft, nontender, liver spleen not palpable, no masses palpable,- colostomy bag no stool. Abdomen a bit less distended-no tenderness PSYCH: Alert and oriented x3; mood and affect normal. MUSCULOSKELETAL:No Clubbing/cyanosis;muscles-grossly intact. DERMATOLOGICAL: Chronic venous stasis changes in lower extremity, with some crusting . Unstageable wounds on the sacrum/buttocks NEUROLOGICAL: Cranial nerves grossly intact; no facial asymmetry, weakness lower extremity, power 1/ 5.. INVESTIGATIONS, reviewed in the clinical context: May 16: BUN 25 creatinine 1.74 May 15: White count 7.4 hemoglobin 9 platelets 438 potassium 3.6 BUN 24 cre atinine 1.81 May 09: White count 7.6 hemoglobin 8.1 potassium 4.3 creatinine 0.8 May 08: White count 6.9 hemoglobin 8 platelets 518 potassium 3.8 creatinine 0.92 May 07: White count 6.7 hemoglobin 8.8 platelets 43 potassium 3.1 BUN 40 creatinine 1.35 May 06: White count 9.1 hemoglobin 8.1 platelets 434 potassium 2.9 BUN 60 creatinine 2.46 May 06, 2023: White count 15.9 hemoglobin 10.2 platelets of 83 sodium 133 potassium 4.1 BUN 74 creatinine 5.41 lactic acid 2.1 Troponin I less than 0.012 C. difficile negative EKG tracing personally reviewed by me-normal sinus rhythm. Chest x-ray film personally reviewed by me-unremarkable Assessment and plan: -Worsening infected, acute on chronic Unstageable pressure ulcer left buttock, right buttocks, stage I pressure ulcer lower back.: Slow to respond Wound care team following Dr. Kumar. IV Zosyn-discontinued Diverting colostomy done by Dr. Dupont on May 08 May 15: Sacral wound debrided Marylu Dr Dupont IV cefazolin started along with p.o. Flagyl t -Postoperative ileus with small bowel distention.: Resolved Regular diet -Acute kidney injury likely combination of ATN and prerenal: Resolved. Again on May 15 creatinine went up to 1.8 Creatinine 5.4 on admission, came down to 0.8. Now back to 1.8 IV fluids. -Acute on chronic medical debility. Patient just discharged from [facility] about a week ago. PT OT -Venous stasis/dermatitis changes in lower extremity. Calf wound. Seen by Dr. Ye from vascular: No further intervention. 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 Currently sinus rhythm. [facility] bed for home: Indication The patient has lower back/sacral deep wounds. Which requires positioning of the body in ways not feasible with an ordinary bed. The head of the bed must be elevated more than 30 degrees most of the time to alleviate pain and pressure. -Full code Patient does not have any days left at the [facility]. Patient tried to make arrangements to get some home help in terms of his IV antibiotics. Social workers will help him coordinate this. Past Medical History Past Medical History: Atrial Fibrillation, Hyperlipidemia, Osteoarthritis (OA) Additional Past Medical History / Comment(s): Bulging disks, bilateral knee arthritis, UTI, blood infection History of Any Multi-Drug Resistant Organisms: None Reported Past Surgical History: Orthopedic Surgery, Tonsillectomy Additional Past Surgical History / Comment(s): Knee replacement surgery, tonsills out at 7 yrs old, torn meninscus Past Anesthesia/Blood Transfusion Reactions: No Reported Reaction Past Psychological History: Anxiety Smoking Status: Former smoker Past Alcohol Use History: None Reported Past Drug Use History: None Reported
[2023-05-19] MEDS: LACTULOSE 20 GM/30 ML CUP PO SCH (08:23)
[2023-05-19 08:27] LABS: African American GFR (CKD) >90 (>60 ml/min/1.73 sqM); Anion Gap 4 mmol/L; Blood Urea Nitrogen 14 mg/dL (9-20); Calcium 7.3 mg/dL (8.4-10.2); Carbon Dioxide 26 mmol/L (22-30); Chloride 109 mmol/L (98-107); Glucose 107 mg/dL (74-99); Magnesium 1.1 mg/dL (1.6-2.3); Non-African American GFR(CKD) 83 (>60 ml/min/1.73 sqM); Potassium 2.9 mmol/L (3.5-5.1); Sodium 139 mmol/L (137-145)
[2023-05-19] MEDS: POTASSIUM CHLORIDE ER 20 MEQ TAB.ER PO ONE ×3 (11:31→14:45)
--- NOTE | 2023-05-19 11:49 | P.PN ---
Subjective Patient is seen in follow-up for acute kidney injury. Patient presented initially with severe acute kidney injury which subsequently resolved. Cre atinine was down to 0.8 dated May 10, 2023. Renal function was noted to be worsened again with creatinine up to 1.81 dated May 16, 2023. Ye catheter was exchanged. Urine output improved. GFR back to baseline. Vital signs are stable. General: No acute distress. HEENT: Head exam is unremarkable. LUNGS: No audible rhonchi or wheezes. HEART: Rate and Rhythm are regular. ABDOMEN: Colostomy noted. EXTREMITITES: Trace edema. Objective - Vital Signs Vital signs: Vital Signs Temp 97.6 F 05/19/23 07:39 Pulse 77 05/19/23 07:39 Resp 19 05/19/23 07:39 BP 126/77 05/19/23 07:39 Pulse Ox 96 05/19/23 07:39 FiO2 Intake & Output 05/18/23 05/19/23 05/19/23 18:59 06:59 18:59 Intake Total 800 820 120 Output Total 2450 2150 Balance -1650 -1330 120 Intake: Intake, IV Titration 800 820 Amount Sodium Chloride 0.9% 1, 700 770 000 ml @ 70 mls/hr IV . [id number] [facility] Rx#:[id number] ceFAZolin 2 gm In Sodium 100 50 Chloride 0.9% 50 ml @ 100 mls/hr IVPB Q8HR [facility] Rx# :[id number] Oral 120 Output: Urine 2375 1400 Stool 75 750 Other: Voiding Method Indwelling Catheter Indwelling Catheter # Bowel Movements 1 - Labs CBC & Chem 7: 05/16/23 06:00 05/19/23 07:38 Labs: Abnormal Lab Results - Last 24 Hours (Table) 05/19/23 Range/Units 07:38 Potassium 2.9 L (3.5-5.1) mmol/L Chloride 109 H (98-107) mmol/L Glucose 107 H (74-99) mg/dL Calcium 7.3 L (8.4-10.2) mg/dL Magnesium 1.1 L (1.6-2.3) mg/dL Assessment and Plan Plan: Assessment: 1. Acute kidney injury secondary to ATN secondary to hypovolemia and concern for obstructive uropathy. Received IV contrast May 16, [address] of the abdomen and pelvis which showed bilateral hydronephrosis. Baseline creatinine 0.8-0.9 and up to 1.81 dated May 16, 2023 - 0.91 today. 2. Urinary retention upon admission. Currently has Ye catheter. Ye catheter changed May 17, 2023. On Flomax. Urology following. 3. Severe sepsis secondary to Proteus, bacterial voids, gram-positive eliseo teremia due to lower extremity wounds and sacral decubitus ulcers. ID following. On antibiotics. 4. Status postumbilical hernia repair and sigmoid colectomy with end colostomy this admission. 5. Hyponatremia secondary to hypotonic fluid infusion. Improved. 6. Metabolic acidosis secondary to acute kidney injury and IV fluids. Better. 7. Hypokalemia from postobstructive diuresis and hypomagnesemia. 8. Hypomagnesemia from poor intake. Plan: Maintain IV fluids for now. Replace potassium and magnesium. Avoid nephrotoxins. Continue to monitor renal function and urine output.
[2023-05-19] MEDS: MAGNESIUM SULFATE-D5W PMX 1 GM in DEXTROSE/WATER 1 100ML.BAG IVPB SCH (12:49)
--- NOTE | 2023-05-19 15:37 | P.PN ---
Subjective Progress Note Date: 05/19/23 CHIEF COMPLAINT: Decubitus ulcer HISTORY OF PRESENT ILLNESS: Patient is status post diverting colostomy on 05/09/23. Patient is status post debridement of sacral ulcer on 05/16/23. Patient's pain is controlled. Stool output in ostomy bag is softer after the lactulose. Afebrile. Potassium 2.9 magnesium 1.1 medicine replacing electrolytes PHYSICAL EXAM: VITAL SIGNS: Reviewed. GENERAL: Well-developed in no acute distress. ABDOMEN: Nondistended. Mild tenderness at incision site. Incision site clean dry and intact. Stool in ostomy bag NEUROLOGIC: Alert and oriented. Cranial nerves II through XII grossly intact. ASSESSMENT: 1. Sacral decubitus ulcer status post diverting colostomy 2. Constipation 3. Ileus PLAN: -Patient can be discharged from surgical standpoint when medically clear -Continue to correct electrolytes -Continue a good bowel regimen at discharge -Continue local wound care to sacral ulcer -Continue regular diet Physician Educational Sign Language Interpreter note has been reviewed by physician. Signing provider agrees with the documented findings, assessment, and plan of care. Objective - Vital Signs Vital signs: Vital Signs Temp 97.8 F 05/19/23 14:00 Pulse 70 05/19/23 14:00 Resp 17 05/19/23 14:00 BP 129/74 05/19/23 14:00 Pulse Ox 98 05/19/23 14:00 FiO2 Intake & Output 05/18/23 05/19/23 05/19/23 18:59 06:59 18:59 Intake Total 800 820 120 Output Total 2450 2150 Balance -1650 -1330 120 Intake: Intake, IV Titration 800 820 Amount Sodium Chloride 0.9% 1, 700 770 000 ml @ 70 mls/hr IV . [id number] [facility] Rx#:[id number] ceFAZolin 2 gm In Sodium 100 50 Chloride 0.9% 50 ml @ 100 mls/hr IVPB Q8HR [facility] Rx# :[id number] Oral 120 Output: Urine 2375 1400 Stool 75 750 Other: Voiding Method Indwelling Catheter Indwelling Catheter Indwelling Catheter # Bowel Movements 1 - Labs CBC & Chem 7: 05/16/23 06:00 05/19/23 07:38 Labs: Abnormal Lab Results - Last 24 Hours (Table) 05/19/23 Range/Units 07:38 Potassium 2.9 L (3.5-5.1) mmol/L Chloride 109 H (98-107) mmol/L Glucose 107 H (74-99) mg/dL Calcium 7.3 L (8.4-10.2) mg/dL Magnesium 1.1 L (1.6-2.3) mg/dL
--- NOTE | 2023-05-19 17:28 | P.PN ---
Progress Note - Text Progress Note Date: 05/19/23 Chief Complaint: Weakness This is a 72-year-old patient follows with visiting physicians Dr. Valero. 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 For which she saw a few years ago Dr. Leo. At [facility]. He was told that removing the tumor could be more dangerous than leaving it alone. Patient was very recently discharged from [facility]. Patient has sacral decubitus wound. Also wounds on the lower extremity. Back in January he was here at lower extremity wound care followed vascular team of Dr. Ye. Patient's brother lives at home with him. Patient nonambulatory. Decreased appetite. Presents with worsening wound to sacral decubitus, also wound on the left calf. Patient is constipated. Denies any fever and chills. Weakness. Has had intermittent diarrhea. May 06: Reclining bed. No pain in the legs. Pending vascular input. IV ceftriaxone. IV fluids. Had a bowel movement. May 07: Laying in bed. No pain in the lower extremity. Seen by surgery. Plan for diverting colostomy which patient has agreed to. Patient's brother at the bedside. Questions answered. IV Zosyn. May 08: Patient had diverting colostomy with sigmoid colectomy done by Dr. Dupont today. On IV Zosyn. Being followed by vascular. No pain. Postprocedure started on clear liquids May 2: No stool output. No plans for debridement per Dr Dupont. Of the sacral wound. Liquid diet. Wound care team also following. May 10: Spoke to hospital social worker. Only option for the patient is to go home with his brother. I did discuss with Dr. Vitale the patient that if the wound does not heal at some point hospice may have to be considered. Remains on clear liquid diet May 11: Spoke to Dr. Dupont yesterday. He will be out of town. He will asked Dr. Gómez to do the debridement. Nurse informed me that patient declined debridement today by Dr. Gómez. Also abdomen distended. Made NPO. May 12: Patient has abdominal distention. Abdominal x-ray ordered. Reviewed shows dilated small bowel measuring 5.3 cm. Suspect ileus. Will follow with surgery. Remains NPO. May 13: Not passed any flatus. Some decrease in abdominal distention. No nausea vomiting. Minimal stool output from the colostomy bag. Remains NPO. May 14: Remains on ice chips. Minimal if any output through the colostomy bag. Some decrease in distention. CT scan abdomen ordered by surgery. May 15: Saw the patient this morning. Has yellow-brown stool in the colostomy bag. Abdomen soft. Later this afternoon Dr Dupont to the patient to the OR for debridement. Outpatient antibiotics per ID. Creatinine bumped up to 1.81 this morning. Could be contrast-induced nephropathy. IV fluids. Nephrology consulted. May 16: Patient tolerating diet. [facility] social worker spoke to the patient. He may have 1 x 60 days left at [facility]. Looking at placement for the same. Patient be changed to IV cefazolin per ID and oral Flagyl. PICC line ordered for antibiotic treatment. May 17: Saw the patient this morning. Patient does not want PICC line until it is confirmed that he is going to the ECF. Later in the day [facility] social worker informed me that patient will not be going to the ECF because no days available. Patient looking for home health so he can manage his PICC line. Also patient had a hard stool. Senokot as added. Tolerating diet well. May 18: Patient finally is agreed this morning for a PICC line placement. But no slots available. We do not have interventional radiology. And vascular surgery did not have any slots available. Home antibiotics are being arranged by Dr. SWANSON. Spoke to egg caser. Discharge is to be not delayed until Tuesday for the same. Patient has not been requiring any pain medications. Having bowel movements Active Medications Acetaminophen (Acetaminophen Tab 325 Mg Tab) 650 mg PO Q6HR PRN PRN Reason: Mild Pain or Fever > 100.5 Hydrocodone Bitart/Acetaminophen (Hydrocodone/Apap 5-325mg 1 Each Tab) 1 each PO Q6HR PRN PRN Reason: Pain Apixaban (Apixaban 2.5 Mg Tablet) 2.5 mg PO BID [facility]; Protocol Last Admin: 05/19/23 08:23 Dose: 2.5 mg Calcium Carbonate/Glycine (Calcium Carbonate 500 Mg Chewable) 1,000 mg PO Q4HR PRN PRN Reason: Dyspepsia Collagenase (Collagenase 250 Unit/Gm Ointment 30 Gm Tube) 1 applic TOPICAL DAILY [facility]; Protocol Last Admin: 05/18/23 15:48 Dose: Not Given Folic Acid (Folic Acid 1 Mg Tab) 1 mg PO DAILY [facility] Last Admin: 05/19/23 08:23 Dose: 1 mg Gabapentin (Gabapentin 100 Mg Cap) 200 mg PO TID [facility] Last Admin: 05/19/23 16:38 Dose: 200 mg Sodium Chloride (Saline 0.9%) 1,000 mls @ 70 mls/hr IV .[id number] [facility] Last Admin: 05/19/23 00:46 Dose: 70 mls/hr Magnesium Sulfate/Dextrose 1 (gm/ IV Solution) 100 mls @ 37.5 mls/hr IVPB Q3H [facility] Stop: 05/19/23 20:39 Last Admin: 05/19/23 14:45 Dose: 37.5 mls/hr Ceftriaxone Sodium 2 gm/ (Sodium Chloride) 50 mls @ 100 mls/hr IVPB Q24HR [facility]; Protocol Last Admin: 05/19/23 16:21 Dose: 100 mls/hr Lactulose (Lactulose 20 Gm/30 Ml Cup) 20 gm PO DAILY PRN PRN Reason: Constipation Lactulose (Lactulose 20 Gm/30 Ml Cup) 30 gm PO DAILY [facility] Last Admin: 05/19/23 08:23 Dose: 30 gm Loperamide HCl (Loperamide 2 Mg Cap) 2 mg PO Q6H PRN PRN Reason: Diarrhea Lorazepam (Lorazepam 0.5 Mg Tab) 0.5 mg PO Q6HR PRN PRN Reason: Anxiety Metronidazole (Metronidazole 500 Mg Tab) 500 mg PO TID [facility]; Protocol Last Admin: 05/19/23 16:38 Dose: 500 mg Naloxone HCl (Naloxone 0.4 Mg/Ml 1 Ml Vial) 0.2 mg IV Q2M PRN PRN Reason: Opioid Reversal Ondansetron HCl (Ondansetron 4 Mg/2 Ml Vial) 4 mg IVP Q8HR PRN PRN Reason: Nausea And Vomiting Last Admin: 05/16/23 11:54 Dose: 4 mg Pantoprazole Sodium (Pantoprazole 40 Mg Tablet) 40 mg PO AC-BRKFST [facility] Last Admin: 05/19/23 08:23 Dose: 40 mg Senna/Docusate Sodium (Sennosides-Docusate Sodium 1 Each Tab) 1 each PO BID [facility] Last Admin: 05/19/23 08:24 Dose: 1 each Tamsulosin HCl (Tamsulosin 0.4 Mg Cap.Er.24h) 0.4 mg PO PC-BRKFST [facility] Last Admin: 05/19/23 08:23 Dose: 0.4 mg Tramadol HCl (Tramadol 50 Mg Tab) 50 mg PO Q6H PRN PRN Reason: Moderate Pain (Scale 4 to 6) Last Admin: 05/17/23 20:42 Dose: 50 mg Social history: No smoking or alcohol. Brother is in and out of the house. Physical examination: VITAL SIGNS: 97.6, 77, 19, 126 x 77, 96% room air GENERAL: Lying in bed, awake EYES: Pupils equal. Conjunctiva normal. HEENT: External appearance of nose and ears normal, oral cavity grossly normal. NECK: JVD not raised; masses not palpable. HEART: First and second heart sounds are normal; no edema. LUNGS: Respiratory rate normal; clear to auscultation. ABDOMEN: Soft, nontender, liver spleen not palpable, no masses palpable,- colostomy bag no stool. Abdomen a bit less distended-no tenderness PSYCH: Alert and oriented x3; mood and affect normal. MUSCULOSKELETAL:No Clubbing/cyanosis;muscles-grossly intact. DERMATOLOGICAL: Chronic venous stasis changes in lower extremity, with some crusting . Unstageable wounds on the sacrum/buttocks NEUROLOGICAL: Cranial nerves grossly intact; no facial asymmetry, weakness lower extremity, power 1/ 5.. INVESTIGATIONS, reviewed in the clinical context: May 18: Potassium 2.9 creatinine 0.91 May 16: BUN 25 creatinine 1.74 May 15: White count 7.4 hemoglobin 9 platelets 438 potassium 3.6 BUN 24 creatinine 1.81 May 09: White count 7.6 hemoglobin 8.1 potassium 4.3 creatinine 0.8 May 08: White count 6.9 hemoglobin 8 platelets 518 potassium 3.8 creatinine 0.92 May 07: White count 6.7 hemoglobin 8.8 platelets 43 potassium 3.1 BUN 40 creatinine 1.35 May 06: White count 9.1 hemoglobin 8.1 platelets 434 potassium 2.9 BUN 60 creatinine 2.46 May 06, 2023: White count 15.9 hemoglobin 10.2 platelets of 83 sodium 133 potassium 4.1 BUN 74 creatinine 5.41 lactic acid 2.1 Troponin I less than 0.012 C. difficile negative EKG tracing personally reviewed by me-normal sinus rhythm. Chest x-ray film personally reviewed by me-unremarkable Assessment and plan: -Acute on chronic Unstageable pressure ulcer left buttock, right buttocks, stage I pressure ulcer lower back.: Wound care team following Dr. Kumar. IV Zosyn-discontinued Diverting colostomy done by Dr. Dupont on May 08 May 15: Sacral wound debrided Marylu Dr Dupont IV cefazolin started along with p.o. Flagyl t -Postoperative ileus with small bowel distention.: Resolved Regular diet -Acute kidney injury likely combination of ATN and prerenal: Resolved. Again on May 15 creatinine went up to 1.8: Resolved Creatinine 5.4 on admission, came down to 0.8. Now back to 1.8 IV fluids. -Acute on chronic medical debility. Patient just discharged from [facility] about a week ago. PT OT Patient has no days left at rehab per insurance. -Venous stasis/dermatitis changes in lower extremity. Calf wound. Seen by Dr. Ye from vascular: No further intervention. 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 [facility] Indication The patient has lower back/sacral deep wounds. Which requires positioning of the body in ways not feasible with an ordinary bed. The head of the bed must be elevated more than 30 degrees most of the time to alleviate pain and pressure. -Full code We have no interventional radiology endovascular surgeon slots available to put in PICC line today. This is now had to wait until Tuesday. Past Medical History Past Medical History: Atrial Fibrillation, Hyperlipidemia, Osteoarthritis (OA) Additional Past Medical History / Comment(s): Bulging disks, bilateral knee arthritis, UTI, blood infection History of Any Multi-Drug Resistant Organisms: None Reported Past Surgical History: Orthopedic Surgery, Tonsillectomy Additional Past Surgical History / Comment(s): Knee replacement surgery, tonsills out at 7 yrs old, torn meninscus Past Anesthesia/Blood Transfusion Reactions: No Reported Reaction Past Psychological History: Anxiety Smoking Status: Former smoker Past Alcohol Use History: None Reported Past Drug Use History: None Reported
--- NOTE | 2023-05-20 07:56 | P.PN ---
Subjective Progress Note Date: 05/19/23 Principal diagnosis: Reason for follow-up is UTI bacteremia and sacral pressure ulcer Patient is a 72-year-old male with a past medical history significant atrial fibrillation hyperlipidemia osteoarthritis patient was brought into the hospital for evaluation generalized weakness, patient did have evidence of a UTI and a sacral pressure ulcer. Patient blood culture subsequently came back positive with Proteus On today's evaluation that is Patient is status post sigmoid colectomy and end colostomy completed on 05/09/2023. Patient is status post surgical debridement of his sacral wound coccyx was exposed per operative report but no culture was done procedure completed on 05/16/2023 On today's evaluation that is 05/19/2023, the patient continues to be afebrile, the patient is on room air and breathing comfortably, the Pt denies having any chest pain or cough, the patient abdominal pain has decreased intensity tolerating his diet did have some output in his colostomy no worsening pain to the sacral wound area. Patient did have a potassium of 3.7 and no other blood draw has been done blood culture repeat has been negative patient finally agreed for the PICC line placement which has been ordered Objective - Vital Signs Vital signs: Vital Signs Temp 97.6 F 05/19/23 07:39 Pulse 77 05/19/23 07:39 Resp 19 05/19/23 07:39 BP 126/77 05/19/23 07:39 Pulse Ox 96 05/19/23 07:39 FiO2 Intake & Output 05/18/23 05/19/23 05/19/23 18:59 06:59 18:59 Intake Total 800 820 120 Output Total 2450 2150 Balance -1650 -1330 120 Intake: Intake, IV Titration 800 820 Amount Sodium Chloride 0.9% 1, 700 770 000 ml @ 70 mls/hr IV . [id number] [facility] Rx#:[id number] ceFAZolin 2 gm In Sodium 100 50 Chloride 0.9% 50 ml @ 100 mls/hr IVPB Q8HR [facility] Rx# :[id number] Oral 120 Output: Urine 2375 1400 Stool 75 750 Other: Voiding Method Indwelling Catheter Indwelling Catheter Indwelling Catheter # Bowel Movements 1 - Exam GENERAL DESCRIPTION: An elderly male lying in bed in no distress RESPIRATORY SYSTEM: Unlabored breathing , decreased breath sounds at bases HEART: S1 S2 regular rate and rhythm , ABDOMEN: Soft , no tenderness Stage IV sacral pressure ulcer with some slough tissue and bones palpable - Labs CBC & Chem 7: 05/16/23 06:00 05/19/23 18:10 Labs: Abnormal Lab Results - Last 24 Hours (Table) 05/19/23 Range/Units 07:38 Potassium 2.9 L (3.5-5.1) mmol/L Chloride 109 H (98-107) mmol/L Glucose 107 H (74-99) mg/dL Calcium 7.3 L (8.4-10.2) mg/dL Magnesium 1.1 L (1.6-2.3) mg/dL Assessment and Plan (1) Bacteremia Current Visit: Yes Status: Acute Code(s): R78.81 - BACTEREMIA SNOMED Code(s): 2881061 (2) Urinary tract infection Current Visit: Yes Status: Acute Code(s): N39.0 - URINARY TRACT INFECTION, SITE NOT SPECIFIED SNOMED Code(s): 93002626 (3) Stage IV pressure ulcer of sacral region Current Visit: Yes Status: Acute Code(s): L89.154 - PRESSURE ULCER OF SACRAL REGION, STAGE 4 SNOMED Code(s): 28329020124857 (4) Sacral osteomyelitis Current Visit: Yes Status: Acute Code(s): M46.28 - OSTEOMYELITIS OF VERTEBRA, SACRAL AND SACROCOCCYGEAL REGION SNOMED Code(s): 560159127 (5) MSSA (methicillin susceptible Staphylococcus aureus) infection Current Visit: Yes Status: Acute Code(s): A49.01 - METHICILLIN SUSCEP STAPH INFECTION, UNSP SITE SNOMED Code(s): 265357777 Plan: 1patient with urinary tract infection urine is growing Pseudomonas and Enterococcus, for the patient received adequate Zosyn therapy 2patient with sacral osteomyelitis with initial sacral wound culture positive for MSSA Proteus and E. coli all of them were sensitive to cefazolin 3-patient with bacteroids and Proteus bacteremia source likely infected sacral pressure ulcer s/p surgical debridement with repeat culture negative 4-patient finally agreed for PICC line and outpatient home antibiotic therapy we will simplify antibiotics to Rocephin 2 g daily and continue with oral Flagyl prescription provided to the telephonic case manager and discussed with the admitting team Dictation was produced using [employer] software. please excuse any grammatical, word or spelling errors. Time with Patient: Less than 30
[2023-05-20 08:54] LABS: BUN/Creat Ratio 12.88 Ratio (12.00-20.00); Blood Urea Nitrogen 10.3 mg/dL (9.0-27.0); Calcium 7.2 mg/dL (8.7-10.3); Chloride 105 mmol/L (96-109); Glucose 112 mg/dL (70-110); Magnesium 1.5 mg/dL (1.5-2.4); Potassium 3.4 mmol/L (3.5-5.5); Sodium 138 mmol/L (135-145)
--- NOTE | 2023-05-20 11:56 | P.PN ---
Subjective Patient is seen in follow-up for acute kidney injury. Patient presented initially with severe acute kidney injury which subsequently resolved. Cre atinine was down to 0.8 dated May 10, 2023. Renal function was noted to be worsened again with creatinine up to 1.81 dated May 16, 2023. Ye catheter was exchanged. Urine output improved. GFR back to baseline. No active complaints. Vital signs are stable. General: No acute distress. HEENT: Head exam is unremarkable. LUNGS: No audible rhonchi or wheezes. HEART: Rate and Rhythm are regular. ABDOMEN: Colostomy noted. EXTREMITITES: Trace edema. Objective - Vital Signs Vital signs: Vital Signs Temp 97.7 F 05/20/23 07:47 Pulse 66 05/20/23 07:47 Resp 16 05/20/23 07:47 BP 123/73 05/20/23 07:47 Pulse Ox 96 05/20/23 07:47 FiO2 Intake & Output 05/19/23 05/20/23 05/20/23 18:59 06:59 18:59 Intake Total 700 222 Output Total 950 775 Balance -250 -553 Weight 76.204 kg Intake: Oral 700 222 Output: Urine 950 600 Stool 175 Other: Voiding Method Indwelling Catheter Indwelling Catheter # Bowel Movements 2 - Labs CBC & Chem 7: 05/16/23 06:00 05/20/23 05:34 Labs: Abnormal Lab Results - Last 24 Hours (Table) 05/20/23 Range/Units 05:34 Potassium 3.4 L (3.5-5.5) mmol/L Glucose 112 H (70-110) mg/dL Calcium 7.2 L (8.7-10.3) mg/dL Assessment and Plan Plan: Assessment: 1. Acute kidney injury secondary to ATN secondary to hypovolemia and concern for obstructive uropathy. Received IV contrast May 16, [address] of the abdomen and pelvis which showed bilateral hydronephrosis. Baseline creatinine 0.8-0.9 and up to 1.81 dated May 16, 2023 - 0.8 today. 2. Urinary retention upon admission. Currently has Ye catheter. Ye catheter changed May 17, 2023. On Flomax. Urology following. 3. Severe sepsis secondary to Proteus, bacterial voids, gram-positive bacteremia due to lower extremity wounds and sacral decubitus ulcers. ID following. On antibiotics. 4. Status postumbilical hernia repair and sigmoid colectomy with end colostomy this admission. 5. Hyponatremia secondary to hypotonic fluid infusion. Improved. 6. Metabolic acidosis secondary to acute kidney injury and IV fluids. Better. 7. Hypokalemia from postobstructive diuresis and hypomagnesemia. 8. Hypomagnesemia from poor intake. Replaced. Better. Plan: Maintain IV fluids for now. Decrease rate to 50 cc an hour. Encouraged oral intake. Replace potassium and magnesium. Avoid nephrotoxins. Continue to monitor renal function and urine output.
[2023-05-20] MEDS: POTASSIUM CHLORIDE ER 20 MEQ TAB.ER PO STA (12:50)
[2023-05-20] MEDS: MAGNESIUM SULFATE-D5W PMX 1 GM in DEXTROSE/WATER 1 100ML.BAG IVPB SCH (12:54)
--- NOTE | 2023-05-20 12:56 | P.PN ---
Subjective Progress Note Date: 05/20/23 CHIEF COMPLAINT: Decubitus ulcer HISTORY OF PRESENT ILLNESS: Patient is status post diverting colostomy on 05/09/23. Patient is status post debridement of sacral ulcer on 05/16/23. Patient's pain is controlled. Stool output in ostomy bag is softer after the lactulose. Patient refused the lactulose this morning. Afebrile. Patient cannot get his PICC line until Tuesday for his outpatient IV antibiotics. Potassium 3.4 magnesium 1.5 PHYSICAL EXAM: VITAL SIGNS: Reviewed. GENERAL: Well-developed in no acute distress. ABDOMEN: Nondistended. Mild tenderness at incision site. Incision site clean dry and intact. Stool in ostomy bag NEUROLOGIC: Alert and oriented. Cranial nerves II through XII grossly intact. ASSESSMENT: 1. Sacral decubitus ulcer status post diverting colostomy 2. Constipation 3. Ileus resolved 4. Hypokalemia and hypomagnesemia 5. Bacteremia 6. Sacral osteomyelitis PLAN: -Patient can be discharged from surgical standpoint when medically clear -Continue to correct electrolytes -Continue a good bowel regimen at discharge -Continue local wound care to sacral ulcer daily -Continue regular diet Physician Ice Skating Instructor note has been reviewed by physician. Signing provider agrees with the documented findings, assessment, and plan of care. Objective - Vital Signs Vital signs: Vital Signs Temp 97.7 F 05/20/23 07:47 Pulse 66 05/20/23 07:47 Resp 16 05/20/23 07:47 BP 123/73 05/20/23 07:47 Pulse Ox 96 05/20/23 07:47 FiO2 Intake & Output 05/19/23 05/20/23 05/20/23 18:59 06:59 18:59 Intake Total 700 222 Output Total 950 775 Balance -250 -553 Weight 76.204 kg Intake: Oral 700 222 Output: Urine 950 600 Stool 175 Other: Voiding Method Indwelling Catheter Indwelling Catheter Indwelling Catheter # Bowel Movements 2 - Labs CBC & Chem 7: 05/16/23 06:00 05/20/23 05:34 Labs: Abnormal Lab Results - Last 24 Hours (Table) 05/20/23 Range/Units 05:34 Potassium 3.4 L (3.5-5.5) mmol/L Glucose 112 H (70-110) mg/dL Calcium 7.2 L (8.7-10.3) mg/dL
[2023-05-20] MEDS: POTASSIUM BICARBONATE/CIT AC 20 MEQ TABLET.EFF PO ONE (13:18)
--- NOTE | 2023-05-20 13:26 | P.PN ---
Subjective Progress Note Date: 05/20/23 Principal diagnosis: Reason for follow-up is UTI bacteremia and sacral pressure ulcer Patient is a 72-year-old male with a past medical history significant atrial fibrillation hyperlipidemia osteoarthritis patient was brought into the hospital for evaluation generalized weakness, patient did have evidence of a UTI and a sacral pressure ulcer. Patient blood culture subsequently came back positive with Proteus , Patient is status post sigmoid colectomy and end colos yue completed on 05/09/2023. Patient is status post surgical debridement of his sacral wound coccyx was exposed per operative report but no culture was done procedure completed on 05/16/2023 On today's evaluation that is 05/20/2023, Patient is afebrile patient is currently on room air and denies having any shortness of breath, the patient denies any chest pain or cough, the patient complaining of some stomach upset but no vomiting abdominal discomfort has decreased and did have a bowel movement. Patient did have a creatinine 0.8 no CBC was done today Objective - Vital Signs Vital signs: Vital Signs Temp 97.7 F 05/20/23 07:47 Pulse 66 05/20/23 07:47 Resp 16 05/20/23 07:47 BP 123/73 05/20/23 07:47 Pulse Ox 96 05/20/23 07:47 FiO2 Intake & Output 05/19/23 05/20/23 05/20/23 18:59 06:59 18:59 Intake Total 700 222 Output Total 950 775 Balance -250 -553 Weight 76.204 kg Intake: Oral 700 222 Output: Urine 950 600 Stool 175 Other: Voiding Method Indwelling Catheter Indwelling Catheter Indwelling Catheter # Bowel Movements 2 - Exam GENERAL DESCRIPTION: An elderly male lying in bed in no distress RESPIRATORY SYSTEM: Unlabored breathing , decreased breath sounds at bases HEART: S1 S2 regular rate and rhythm , ABDOMEN: Soft , no tenderness Stage IV sacral pressure ulcer with some slough tissue and bones palpable - Labs CBC & Chem 7: 05/16/23 06:00 05/20/23 05:34 Labs: Abnormal Lab Results - Last 24 Hours (Table) 05/20/23 Range/Units 05:34 Potassium 3.4 L (3.5-5.5) mmol/L Glucose 112 H (70-110) mg/dL Calcium 7.2 L (8.7-10.3) mg/dL Assessment and Plan (1) Bacteremia Current Visit: Yes Status: Acute Code(s): R78.81 - BACTEREMIA SNOMED Code(s): 9910269 (2) Urinary tract infection Current Visit: Yes Status: Acute Code(s): N39.0 - URINARY TRACT INFECTION, SITE NOT SPECIFIED SNOMED Code(s): 09117042 (3) Stage IV pressure ulcer of sacral region Current Visit: Yes Status: Acute Code(s): L89.154 - PRESSURE ULCER OF SACRAL REGION, STAGE 4 SNOMED Code(s): 54101806604144 (4) Sacral osteomyelitis Current Visit: Yes Status: Acute Code(s): M46.28 - OSTEOMYELITIS OF VERTEBRA, SACRAL AND SACROCOCCYGEAL REGION SNOMED Code(s): 618684463 (5) MSSA (methicillin susceptible Staphylococcus aureus) infection Current Visit: Yes Status: Acute Code(s): A49.01 - METHICILLIN SUSCEP STAPH INFECTION, UNSP SITE SNOMED Code(s): 091552539 Plan: 1patient with urinary tract infection urine is growing Pseudomonas and Enterococcus, for the patient received adequate Zosyn therapy 2patient with sacral osteomyelitis with initial sacral wound culture positive for MSSA Proteus and E. coli all of them were sensitive to cefazolin 3-patient with bacteroids and Proteus bacteremia source likely infected sacral pressure ulcer s/p surgical debridement with repeat culture negative 4-patient currently waiting for PICC line placement for now the patient will c ontinue with Rocephin 2 g daily and oral Flagyl and monitor clinical course closely Dictation was produced using [employer] dictation software. please excuse any grammatical, word or spelling errors. Time with Patient: Less than 30
--- NOTE | 2023-05-20 15:39 | P.PN ---
Progress Note - Text Progress Note Date: 05/20/23 Chief Complaint: Weakness This is a 72-year-old patient follows with visiting physicians Dr. Valero. 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 For which she saw a few years ago Dr. Leo. At [facility]. He was told that removing the tumor could be more dangerous than leaving it alone. Patient was very recently discharged from [facility]. Patient has sacral decubitus wound. Also wounds on the lower extremity. Back in January he was here at lower extremity wound care followed vascular team of Dr. Ye. Patient's brother lives at home with him. Patient nonambulatory. Decreased appetite. Presents with worsening wound to sacral decubitus, also wound on the left calf. Patient is constipated. Denies any fever and chills. Weakness. Has had intermittent diarrhea. May 06: Reclining bed. No pain in the legs. Pending vascular input. IV ceftriaxone. IV fluids. Had a bowel movement. May 07: Laying in bed. No pain in the lower extremity. Seen by surgery. Plan for diverting colostomy which patient has agreed to. Patient's brother at the bedside. Questions answered. IV Zosyn. May 08: Patient had diverting colostomy with sigmoid colectomy done by Dr. Dupont today. On IV Zosyn. Being followed by vascular. No pain. Postprocedure started on clear liquids May 2: No stool output. No plans for debridement per Dr Dupont. Of the sacral wound. Liquid diet. Wound care team also following. May 10: Spoke to social service director. Only option for the patient is to go home with his brother. I did discuss with Dr. Vitale the patient that if the wound does not heal at some point hospice may have to be considered. Remains on clear liquid diet May 11: Spoke to Dr. Dupont yesterday. He will be out of town. He will asked Dr. Gómez to do the debridement. Nurse informed me that patient declined debridement today by Dr. Gómez. Also abdomen distended. Made NPO. May 12: Patient has abdominal distention. Abdominal x-ray ordered. Reviewed shows dilated small bowel measuring 5.3 cm. Suspect ileus. Will follow with surgery. Remains NPO. May 13: Not passed any flatus. Some decrease in abdominal distention. No nausea vomiting. Minimal stool output from the colostomy bag. Remains NPO. May 14: Remains on ice chips. Minimal if any output through the colostomy bag. Some decrease in distention. CT scan abdomen ordered by surgery. May 15: Saw the patient this morning. Has yellow-brown stool in the colostomy bag. Abdomen soft. Later this afternoon Dr Dupont to the patient to the OR for debridement. Outpatient antibiotics per ID. Creatinine bumped up to 1.81 this morning. Could be contrast-induced nephropathy. IV fluids. Nephrology consulted. May 16: Patient tolerating diet. [facility] social service director spoke to the patient. He may have 1 x 60 days left at ECF. Looking at placement for the same. Patient be changed to IV cefazolin per ID and oral Flagyl. PICC line ordered for antibiotic treatment. May 17: Saw the patient this morning. Patient does not want PICC line until it is confirmed that he is going to the ECF. Later in the day [facility]'s social service director informed me that patient will not be going to the ECF because no days available. Patient looking for home health so he can manage his PICC line. Also patient had a hard stool. Senokot as added. Tolerating diet well. May 18: Patient finally is agreed this morning for a PICC line placement. But no slots available. We do not have interventional radiology. And vascular surgery did not have any slots available. Home antibiotics are being arranged by Dr. SWANSON. Spoke to case making machine operator. Discharge is to be not delayed until Tuesday for the same. Patient has not been requiring any pain medications. Having bowel movements May 19: Waiting for PICC line to be placed earliest on Tuesday. Other medications to continue. On IV ceftriaxone. No pain. Eating well Active Medications Acetaminophen (Acetaminophen Tab 325 Mg Tab) 650 mg PO Q6HR PRN PRN Reason: Mild Pain or Fever > 100.5 Hydrocodone Bitart/Acetaminophen (Hydrocodone/Apap 5-325mg 1 Each Tab) 1 each PO Q6HR PRN PRN Reason: Pain Apixaban (Apixaban 2.5 Mg Tablet) 2.5 mg PO BID [facility]; Protocol Last Admin: 05/20/23 08:37 Dose: 2.5 mg Calcium Carbonate/Glycine (Calcium Carbonate 500 Mg Chewable) 1,000 mg PO Q4HR PRN PRN Reason: Dyspepsia Collagenase (Collagenase 250 Unit/Gm Ointment 30 Gm Tube) 1 applic TOPICAL DAILY [facility]; Protocol Last Admin: 05/20/23 08:39 Dose: 1 applic Folic Acid (Folic Acid 1 Mg Tab) 1 mg PO DAILY [facility] Last Admin: 05/20/23 08:37 Dose: 1 mg Gabapentin (Gabapentin 100 Mg Cap) 200 mg PO TID [facility] Last Admin: 05/20/23 08:37 Dose: 200 mg Sodium Chloride (Saline 0.9%) 1,000 mls @ 50 mls/hr IV .Q20H [facility] Last Admin: 05/20/23 12:53 Dose: 50 mls/hr Ceftriaxone Sodium 2 gm/ (Sodium Chloride) 50 mls @ 100 mls/hr IVPB Q24HR [facility]; Protocol Last Admin: 05/20/23 08:38 Dose: 100 mls/hr Lactulose (Lactulose 20 Gm/30 Ml Cup) 20 gm PO DAILY PRN PRN Reason: Constipation Lactulose (Lactulose 20 Gm/30 Ml Cup) 30 gm PO DAILY [facility] Last Admin: 05/20/23 08:39 Dose: Not Given Loperamide HCl (Loperamide 2 Mg Cap) 2 mg PO Q6H PRN PRN Reason: Diarrhea Lorazepam (Lorazepam 0.5 Mg Tab) 0.5 mg PO Q6HR PRN PRN Reason: Anxiety Metronidazole (Metronidazole 500 Mg Tab) 500 mg PO TID [facility]; Protocol Last Admin: 05/20/23 08:37 Dose: 500 mg Naloxone HCl (Naloxone 0.4 Mg/Ml 1 Ml Vial) 0.2 mg IV Q2M PRN PRN Reason: Opioid Reversal Ondansetron HCl (Ondansetron 4 Mg/2 Ml Vial) 4 mg IVP Q8HR PRN PRN Reason: Nausea And Vomiting Last Admin: 05/16/23 11:54 Dose: 4 mg Pantoprazole Sodium (Pantoprazole 40 Mg Tablet) 40 mg PO AC-BRKFST [facility] Last Admin: 05/20/23 08:37 Dose: 40 mg Senna/Docusate Sodium (Sennosides-Docusate Sodium 1 Each Tab) 1 each PO BID [facility] Last Admin: 05/20/23 08:39 Dose: Not Given Tamsulosin HCl (Tamsulosin 0.4 Mg Cap.Er.24h) 0.4 mg PO PC-BRKFST [facility] Last Admin: 05/20/23 08:37 Dose: 0.4 mg Tramadol HCl (Tramadol 50 Mg Tab) 50 mg PO Q6H PRN PRN Reason: Moderate Pain (Scale 4 to 6) Last Admin: 05/19/23 21:01 Dose: 50 mg Social history: No smoking or alcohol. Brother is in and out of the house. Physical examination: VITAL SIGNS: 98.6, 85, 17, 1 one 3 x 65, 94% room air GENERAL: Lying in bed, awake EYES: Pupils equal. Conjunctiva normal. HEENT: External appearance of nose and ears normal, oral cavity grossly normal. NECK: JVD not raised; masses not palpable. HEART: First and second heart sounds are normal; no edema. LUNGS: Respiratory rate normal; clear to auscultation. ABDOMEN: Soft, nontender, liver spleen not palpable, no masses palpable,- colostomy bag no stool. Abdomen a bit less distended-no tenderness PSYCH: Alert and oriented x3; mood and affect normal. MUSCULOSKELETAL:No Clubbing/cyanosis;muscles-grossly intact. DERMATOLOGICAL: Chronic venous stasis changes in lower extremity, with some crusting . Unstageable wounds on the sacrum/buttocks NEUROLOGICAL: Cranial nerves grossly intact; no facial asymmetry, weakness lower extremity, power 1/ 5.. INVESTIGATIONS, reviewed in the clinical context: May 19: Potassium 3.4 creatinine 0.8 May 18: Potassium 2.9 creatinine 0.91 May 16: BUN 25 creatinine 1.74 May 15: White count 7.4 hemoglobin 9 platelets 438 potassium 3.6 BUN 24 creatinine 1.81 May 09: White count 7.6 hemoglobin 8.1 potassium 4.3 creatinine 0.8 May 08: White count 6.9 hemoglobin 8 platelets 518 potassium 3.8 creatinine 0.92 May 07: White count 6.7 hemoglobin 8.8 platelets 43 potassium 3.1 BUN 40 creatinine 1.35 May 06: White count 9.1 hemoglobin 8.1 platelets 434 potassium 2.9 BUN 60 creatinine 2.46 May 06, 2023: White count 15.9 hemoglobin 10.2 platelets of 83 sodium 133 potassium 4.1 BUN 74 creatinine 5.41 lactic acid 2.1 Troponin I less than 0.012 C. difficile negative EKG tracing personally reviewed by dc-normal sinus rhythm. Chest x-ray film personally reviewed by me-unremarkable Assessment and plan: -Acute on chronic Unstageable pressure ulcer left buttock, right buttocks, stage I pressure ulcer lower back.: Wound care team following Dr. Kumar. IV Zosyn-discontinued Diverting colostomy done by Dr. Dupont on May 08 May 15: Sacral wound debrided Marylu Dr Dupont IV cefazolin started along with p.o. Flagyl t -Postoperative ileus with small bowel distention.: Resolved Regular diet -Acute kidney injury likely combination of ATN and prerenal: Resolved. Again on May 15 creatinine went up to 1.8: Resolved Creatinine 5.4 on admission, came down to 0.8. Now back to 1.8 IV fluids. -Acute on chronic medical debility. Patient just discharged from [facility] about a week ago. PT OT Patient has no days left at rehab per insurance. -Venous stasis/dermatitis changes in lower extremity. Calf wound. Seen by Dr. Ye from vascular: No further intervention. 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 Currently sinus rhythm. [facility]- Hospital bed for home: Indication The patient has lower back/sacral deep wounds. Which requires positioning of the body in ways not feasible with an ordinary bed. The head of the bed must be elevated more than 30 degrees most of the time to alleviate pain and pressure. -Full code Pending PICC line placement on Tuesday. Continue current treatment. Past Medical History Past Medical History: Atrial Fibrillation, Hyperlipidemia, Osteoarthritis (OA) Additional Past Medical History / Comment(s): Bulging disks, bilateral knee arthritis, UTI, blood infection History of Any Multi-Drug Resistant Organisms: None Reported Past Surgical History: Orthopedic Surgery, Tonsillectomy Additional Past Surgical History / Comment(s): Knee replacement surgery, tonsills out at 7 yrs old, torn meninscus Past Anesthesia/Blood Transfusion Reactions: No Reported Reaction Past Psychological History: Anxiety Smoking Status: Former smoker Past Alcohol Use History: None Reported Past Drug Use History: None Reported
--- NOTE | 2023-05-21 10:20 | P.PN ---
Subjective Patient is seen in follow-up for acute kidney injury. Patient presented initially with severe acute kidney injury which subsequently resolved. Cre atinine was down to 0.8 dated May 10, 2023. Renal function was noted to be worsened again with creatinine up to 1.81 dated May 16, 2023. Ye catheter was exchanged. Urine output improved. GFR back to baseline. No active complaints. Vital signs are stable. General: No acute distress. HEENT: Head exam is unremarkable. LUNGS: No audible rhonchi or wheezes. HEART: Rate and Rhythm are regular. ABDOMEN: Colostomy noted. EXTREMITITES: Trace edema. Objective - Vital Signs Vital signs: Vital Signs Temp 98.1 F 05/21/23 07:15 Pulse 81 05/21/23 08:45 Resp 19 05/21/23 08:45 BP 121/72 05/21/23 07:15 Pulse Ox 94 L 05/21/23 07:15 FiO2 Intake & Output 05/20/23 05/21/23 05/21/23 18:59 06:59 18:59 Intake Total 540 Output Total 1100 1260 20 Balance -560 -1260 -20 Intake: Oral 540 Output: Urine 1100 1200 Stool 60 20 Other: Voiding Method Indwelling Catheter Indwelling Catheter Indwelling Catheter - Labs CBC & Chem 7: 05/16/23 06:00 05/20/23 05:34 Assessment and Plan Plan: Assessment: 1. Acute kidney injury secondary to ATN secondary to hypovolemia and concern for obstructive uropathy. Received IV contrast May 16, [address] of the abdomen and pelvis which showed bilateral hydronephrosis. Baseline creatinine 0.8-0.9 and up to 1.81 dated May 16, 2023 - 0.8 yesterday. 2. Urinary retention upon admission. Currently has Ye catheter. Ye catheter changed May 17, 2023. On Flomax. Urology following. 3. Severe sepsis secondary to Proteus, bacterial voids, gram-positive bacteremia due to lower extremity wounds and sacral decubitus ulcers. ID following. On antibiotics. 4. Status postumbilical hernia repair and sigmoid colectomy with end colostomy this admission. 5. Hyponatremia secondary to hypotonic fluid infusion. Improved. 6. Metabolic acidosis secondary to acute kidney injury and IV fluids. Better. 7. Hypokalemia from postobstructive diuresis and hypomagnesemia. Replaced. 8. Hypomagnesemia from poor intake. Replaced. Plan: Hep-Lock IV fluids. Encouraged oral intake. Replace potassium and magnesium as needed. Avoid nephrotoxins. Continue to monitor renal function and urine output.
--- NOTE | 2023-05-21 18:28 | P.PN ---
Subjective Patient seen and evaluated at bedside. No complaints, no overnight events. Objective - Vital Signs Vital signs: Vital Signs Temp 98.8 F 05/21/23 12:50 Pulse 77 05/21/23 12:50 Resp 19 05/21/23 12:50 BP 127/78 05/21/23 12:50 Pulse Ox 97 05/21/23 12:50 FiO2 Intake & Output 05/20/23 05/21/23 05/21/23 18:59 06:59 18:59 Intake Total 540 360 Output Total 1100 1260 1320 Balance -560 -1260 -960 Intake: Oral 540 360 Output: Urine 1100 1200 1300 Stool 60 20 Other: Voiding Method Indwelling Catheter Indwelling Catheter Indwelling Catheter - Exam Physical exam: HEENT: Normocephalic, sclerae nonicteric Chest: Clear to auscultation Heart: Regular rate and rhythm Abdomen: [Nontender, nondistended], ostomy pink/patent/produce Extremities: No edema Neuro: Alert and oriented - Labs CBC & Chem 7: 05/16/23 06:00 05/20/23 05:34 Assessment and Plan Assessment: 1. Sacral decubitus ulcer status post diverting colostomy 2. Constipation 3. Ileus resolved 4. Hypokalemia and hypomagnesemia 5. Bacteremia 6. Sacral osteomyelitis PLAN: -Patient can be discharged from surgical standpoint when medically clear -Continue to correct electrolytes -Continue a good bowel regimen at discharge -Continue local wound care to sacral ulcer daily -Continue regular diet Time with Patient: Greater than 30
--- NOTE | 2023-05-21 21:47 | P.PN ---
Subjective This is a 72-year-old patient follows with visiting physicians Dr. Valero. 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 For which she saw a few years ago Dr. Leo. At [facility]. He was told that removing the tumor could be more dangerous than leaving it alone. Patient was very recently discharged from [facility]. Patient has sacral decubitus wound. Also wounds on the lower extremity. Back in January he was here at lower extremity wound care followed vascular team of Dr. Ye. Patient's brother lives at home with him. Patient nonambulatory. Decreased appetite. Presents with worsening wound to sacral decubitus, also wound on the left calf. Patient is constipated. Denies any fever and chills. Weakness. Has had intermittent diarrhea. May 06: Reclining bed. No pain in the legs. Pending vascular input. IV ceftriaxone. IV fluids. Had a bowel movement. May 07: Laying in bed. No pain in the lower extremity. Seen by surgery. Plan for diverting colostomy which patient has agreed to. Patient's brother at the bedside. Questions answered. IV Zosyn. May 08: Patient had diverting colostomy with sigmoid colectomy done by Dr. Dupont today. On IV Zosyn. Being followed by vascular. No pain. Postprocedure started on clear liquids May 2: No stool output. No plans for debridement per Dr Dupont. Of the sa cral wound. Liquid diet. Wound care team also following. May 10: Spoke to social sciences chair. Only option for the patient is to go home with his brother. I did discuss with Dr. Vitale the patient that if the wound does not heal at some point hospice may have to be considered. Remains on clear liqu id diet May 11: Spoke to Dr. Dupont yesterday. He will be out of town. He will asked Dr. Gómez to do the debridement. Nurse informed me that patient declined debridement today by Dr. Gómez. Also abdomen distended. Made NPO. May 12: Patient has abdominal distention. Abdominal x-ray ordered. Reviewed shows dilated small bowel measuring 5.3 cm. Suspect ileus. Will follow with surgery. Remains NPO. May 13: Not passed any flatus. Some decrease in abdominal distention. No nausea vomiting. Minimal stool output from the colostomy bag. Remains NPO. May 14: Remains on ice chips. Minimal if any output through the colostomy bag. Some decrease in distention. CT scan abdomen ordered by surgery. May 15: Saw the patient this morning. Has yellow-brown stool in the colostomy bag. Abdomen soft. Later this afternoon Dr Dupont to the patient to the OR for debridement. Outpatient antibiotics per ID. Creatinine bumped up to 1.81 this morning. Could be contrast-induced nephropathy. IV fluids. Nephrology consulted. May 16: Patient tolerating diet. [facility] social sciences chair spoke to the patient. He may have 1 x 60 days left at ECF. Looking at placement for the same. Patient be changed to IV cefazolin per ID and oral Flagyl. PICC line ordered for antibiotic treatment. May 17: Saw the patient this morning. Patient does not want PICC line until it is confirmed that he is going to the ECF. Later in the day [facility]'s social sciences chair informed me that patient will not be going to the ECF because no days available. Patient looking for home health so he can manage his PICC line. Also patient had a hard stool. Senokot as added. Tolerating diet well. May 18: Patient finally is agreed this morning for a PICC line placement. But no slots available. We do not have interventional radiology. And vascular surgery did not have any slots available. Home antibiotics are being arranged by Dr. SWANSON. Spoke to porter sample case. Discharge is to be not delayed until Tuesday for the same. Patient has not been requiring any pain medications. Having bowel movements May 19: Waiting for PICC line to be placed earliest on Tuesday. Other medications to continue. On IV ceftriaxone. No pain. Eating well 05/21/2023 Patient with sacral decubitus stage IV pressure ulcer status postdebridement with repeat culture negative initial culture growing multiple bacteria growing Proteus E. coli and MSSA with evidence of sacral osteomyelitis that will require PICC line which could not be placed on the weekend and is going to be done this coming Tuesday in 2 days His ileus resolved and surgery following. Also with evidence of bacteremia and improvement Patient remains on Eliquis Protonix and Rocephin and Flagyl Patient lying comfortable in bed denies any specific complaint Objective - Vital Signs Vital signs: Vital Signs Temp 98.8 F 05/21/23 12:50 Pulse 77 05/21/23 12:50 Resp 19 05/21/23 12:50 BP 127/78 05/21/23 12:50 Pulse Ox 97 05/21/23 12:50 FiO2 Intake & Output 05/21/23 05/21/23 05/22/23 06:59 18:59 06:59 Intake Total 360 Output Total 1260 1320 20 Balance -1260 -960 -20 Intake: Oral 360 Output: Urine 1200 1300 Stool 60 20 20 Other: Voiding Method Indwelling Catheter Indwelling Catheter Indwelling Catheter - Exam GENERAL: The patient is alert and oriented x3, not in any acute distress. Well developed, well nourished. HEENT: Pupils are round and equally reacting to light. EOMI. No scleral icterus. No conjunctival pallor. Normocephalic, atraumatic. No pharyngeal erythema. No thyromegaly. CARDIOVASCULAR: S1 and S2 present. No murmurs, rubs, or gallops. PULMONARY: Chest is clear to auscultation, no wheezing , no crackles. -ABDOMEN: Soft, nontender, nondistended, normoactive bowel sounds. No palpable organomegaly. Colostomy bag in place -MUSCULOSKELETAL: No joint swelling or deformity. Stage IV sacral pressure ulcer EXTREMITIES: No cyanosis, clubbing, or pedal edema. NEUROLOGICAL: Gross neurological examination did not reveal any focal deficits. SKIN: No rashes. no petechiae. - Labs CBC & Chem 7: 05/16/23 06:00 05/20/23 05:34 Assessment and Plan Assessment: -Acute on chronic Unstageable pressure ulcer left buttock, right buttocks, stage I pressure ulcer lower back.: Wound care team following Dr. Kumar. IV Zosyn-discontinued Diverting colostomy done by Dr. Dupont on May 08 May 15: Sacral wound debrided Marylu Dr Dupont IV cefazolin started along with p.o. Flagyl t -Postoperative ileus with small bowel distention.: Resolved Regular diet -Acute kidney injury likely combination of ATN and prerenal: Resolved. Again on May 15 creatinine went up to 1.8: Resolved Creatinine 5.4 on admission, came down to 0.8. Now back to 1.8 IV fluids. -Acute on chronic medical debility. Patient just discharged from [facility] about a week ago. PT OT Patient has no days left at rehab per insurance. -Venous stasis/dermatitis changes in lower extremity. Calf wound. Seen by Dr. Ye from vascular: No further intervention. 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 Currently sinus rhythm. [facility]- Hospital bed for home: Indication The patient has lower back/sacral deep wounds. Which requires positioning of the body in ways not feasible with an ordinary bed. The head of the bed must be elevated more than 30 degrees most of the time to alleviate pain and pressure. -Full code Pending PICC line placement on Tuesday. Continue current treatment.
[2023-05-21] MEDS: POTASSIUM CHLORIDE ER 20 MEQ TAB.ER PO STA (21:59)
[2023-05-21] MEDS: MAGNESIUM SULFATE-D5W PMX 1 GM in DEXTROSE/WATER 1 100ML.BAG IVPB ONE (22:30)
[2023-05-22 09:30] LABS: BUN/Creat Ratio 11.89 Ratio (12.00-20.00); Blood Urea Nitrogen 10.7 mg/dL (9.0-27.0); Calcium 7.8 mg/dL (8.7-10.3); Carbon Dioxide 26.4 mmol/L (21.6-31.8); Chloride 105 mmol/L (96-109); Glucose 99 mg/dL (70-110); Magnesium 1.4 mg/dL (1.5-2.4); Potassium 4.2 mmol/L (3.5-5.5); Sodium 139 mmol/L (135-145)
[2023-05-22] MEDS: MAGNESIUM OXIDE 400 MG TAB PO SCH (09:43)
--- NOTE | 2023-05-22 10:36 | P.PN ---
Subjective Patient is seen in follow-up for acute kidney injury. Patient presented initially with severe acute kidney injury which subsequently resolved. Cre atinine was down to 0.8 dated May 10, 2023. Renal function was noted to be worsened again with creatinine up to 1.81 dated May 16, 2023. Ye catheter was exchanged. Urine output improved. GFR back to baseline. No active complaints. Vital signs are stable. General: No acute distress. HEENT: Head exam is unremarkable. LUNGS: No audible rhonchi or wheezes. HEART: Rate and Rhythm are regular. ABDOMEN: Colostomy noted. EXTREMITITES: Trace edema. Objective - Vital Signs Vital signs: Vital Signs Temp 97.3 F L 05/22/23 07:44 Pulse 83 05/22/23 07:44 Resp 16 05/22/23 07:44 BP 116/70 05/22/23 07:44 Pulse Ox 95 05/22/23 07:44 FiO2 Intake & Output 05/21/23 05/22/23 05/22/23 18:59 06:59 18:59 Intake Total 360 Output Total 1320 1780 Balance -960 -1780 Intake: Oral 360 Output: Urine 1300 1750 Stool 20 30 Other: Voiding Method Indwelling Catheter Indwelling Catheter - Labs CBC & Chem 7: 05/16/23 06:00 05/22/23 06:15 Labs: Abnormal Lab Results - Last 24 Hours (Table) 05/22/23 Range/Units 06:15 BUN/Creatinine Ratio 11.89 L (12.00-20.00) Ratio Calcium 7.8 L (8.7-10.3) mg/dL Magnesium 1.4 L (1.5-2.4) mg/dL Assessment and Plan Plan: Assessment: 1. Acute kidney injury secondary to ATN secondary to hypovolemia and concern for obstructive uropathy. Received IV contrast May 16, [address] of the abdomen and pelvis which showed bilateral hydronephrosis. Baseline creatinine 0.8-0.9 and up to 1.81 dated May 16, 2023 -0.9 today. 2. Urinary retention upon admission. Currently has Ye catheter. Ye catheter changed May 17, 2023. On Flomax. Urology following. 3. Severe sepsis secondary to Proteus, bacterial voids, gram-positive bacteremia due to lower extremity wounds and sacral decubitus ulcers. ID following. On antibiotics. 4. Status postumbilical hernia repair and sigmoid colectomy with end colostomy this admission. 5. Hyponatremia secondary to hypotonic fluid infusion. Improved. 6. Metabolic acidosis secondary to acute kidney injury and IV fluids. Better. 7. Hypokalemia from postobstructive diuresis and hypomagnesemia. Replaced. Better. 8. Hypomagnesemia from poor intake. On oral magnesium oxide. Plan: Remains off IV fluids. Encouraged oral intake. Replace magnesium. 2 g IV magnesium sulfate today. Avoid nephrotoxins. Continue to monitor renal function and urine output.
[2023-05-22] MEDS: MAGNESIUM SULFATE-D5W PMX 1 GM in DEXTROSE/WATER 1 100ML.BAG IVPB SCH (13:05)
[2023-05-22] MEDS: MAGNESIUM OXIDE 400 MG TAB PO STA (15:00)
--- NOTE | 2023-05-22 15:07 | P.PN ---
Subjective Progress Note Date: 05/21/23 Principal diagnosis: Reason for follow-up is UTI bacteremia and sacral pressure ulcer Patient is a 72-year-old male with a past medical history significant atrial fibrillation hyperlipidemia osteoarthritis patient was brought into the hospital for evaluation generalized weakness, patient did have evidence of a UTI and a sacral pressure ulcer. Patient blood culture subsequently came back positive with Proteus , Patient is status post sigmoid colectomy and end colos yue completed on 05/09/2023. Patient is status post surgical debridement of his sacral wound coccyx was exposed per operative report but no culture was done procedure completed on 05/16/2023 On today's evaluation that is 05/21/2023, patient has been afebrile, patient is breathing comfortably and is currently on room air, patient denies having any significant cough no chest pain shortness of breath, patient denies nausea vomiting abdominal discomfort has decreased intensity did have output in his co lostomy No lab draw today Objective - Vital Signs Vital signs: Vital Signs Temp 98.1 F 05/21/23 07:15 Pulse 81 05/21/23 08:45 Resp 19 05/21/23 08:45 BP 121/72 05/21/23 07:15 Pulse Ox 94 L 05/21/23 07:15 FiO2 Intake & Output 05/20/23 05/21/23 05/21/23 18:59 06:59 18:59 Intake Total 540 Output Total 1100 1260 720 Balance -560 -1260 -720 Intake: Oral 540 Output: Urine 1100 1200 700 Stool 60 20 Other: Voiding Method Indwelling Catheter Indwelling Catheter Indwelling Catheter - Exam GENERAL DESCRIPTION: An elderly male lying in bed in no distress RESPIRATORY SYSTEM: Unlabored breathing , decreased breath sounds at bases HEART: S1 S2 regular rate and rhythm , ABDOMEN: Soft , no tenderness Stage IV sacral pressure ulcer with some slough tissue and bones palpable - Labs CBC & Chem 7: 05/16/23 06:00 05/22/23 06:15 Assessment and Plan (1) Bacteremia Current Visit: Yes Status: Acute Code(s): R78.81 - BACTEREMIA SNOMED Code(s): 6202923 (2) Urinary tract infection Current Visit: Yes Status: Acute Code(s): N39.0 - URINARY TRACT INFECTION, SITE NOT SPECIFIED SNOMED Code(s): 26356313 (3) Stage IV pressure ulcer of sacral region Current Visit: Yes Status: Acute Code(s): L89.154 - PRESSURE ULCER OF SACRAL REGION, STAGE 4 SNOMED Code(s): 77695214967090 (4) Sacral osteomyelitis Current Visit: Yes Status: Acute Code(s): M46.28 - OSTEOMYELITIS OF VERTEBRA, SACRAL AND SACROCOCCYGEAL REGION SNOMED Code(s): 693256891 (5) MSSA (methicillin susceptible Staphylococcus aureus) infection Current Visit: Yes Status: Acute Code(s): A49.01 - METHICILLIN SUSCEP STAPH INFECTION, UNSP SITE SNOMED Code(s): 867035532 Plan: 1patient with urinary tract infection urine is growing Pseudomonas and Enterococcus, for the patient received adequate Zosyn therapy 2patient with sacral osteomyelitis with initial sacral wound culture positive for MSSA Proteus and E. coli all of them were sensitive to cefazolin 3-patient with bacteroids and Proteus bacteremia source likely infected sacral pressure ulcer s/p surgical debridement with repeat culture negative 4-patient to continue with Rocephin 2 g daily and oral Flagyl and monitor clinical course closely Dictation was produced using [employer] dictation software. please excuse any grammatical, word or spelling errors. Time with Patient: Less than 30
--- NOTE | 2023-05-22 15:08 | P.PN ---
Subjective Progress Note Date: 05/22/23 Principal diagnosis: Reason for follow-up is UTI bacteremia and sacral pressure ulcer Patient is a 72-year-old male with a past medical history significant atrial fibrillation hyperlipidemia osteoarthritis patient was brought into the hospital for evaluation generalized weakness, patient did have evidence of a UTI and a sacral pressure ulcer. Patient blood culture subsequently came back positive with Proteus , Patient is status post sigmoid colectomy and end colos yue completed on 05/09/2023. Patient is status post surgical debridement of his sacral wound coccyx was exposed per operative report but no culture was done procedure completed on 05/16/2023 On today's evaluation that is 05/22/2023,the patient denies any fever or any chills, patient is breathing comfortably on room air, the patient denies chest pain shortness of breath and no significant cough, patient denies abdominal pain, no nausea vomiting or diarrhea. Tolerating his diet, Patient did have a creatinine 0.9 no CBC was done today Objective - Vital Signs Vital signs: Vital Signs Temp 97.6 F 05/22/23 12:42 Pulse 89 05/22/23 12:42 Resp 18 05/22/23 12:42 BP 105/65 05/22/23 12:42 Pulse Ox 95 05/22/23 12:42 FiO2 Intake & Output 05/21/23 05/22/23 05/22/23 18:59 06:59 18:59 Intake Total 360 Output Total 1320 1780 Balance -960 -1780 Intake: Oral 360 Output: Urine 1300 1750 Stool 20 30 Other: Voiding Method Indwelling Catheter Indwelling Catheter Indwelling Catheter - Exam GENERAL DESCRIPTION: An elderly male lying in bed in no distress RESPIRATORY SYSTEM: Unlabored breathing , decreased breath sounds at bases HEART: S1 S2 regular rate and rhythm , ABDOMEN: Soft , no tenderness - Labs CBC & Chem 7: 05/16/23 06:00 05/22/23 06:15 Labs: Abnormal Lab Results - Last 24 Hours (Table) 05/22/23 Range/Units 06:15 BUN/Creatinine Ratio 11.89 L (12.00-20.00) Ratio Calcium 7.8 L (8.7-10.3) mg/dL Magnesium 1.4 L (1.5-2.4) mg/dL Assessment and Plan (1) Bacteremia Current Visit: Yes Status: Acute Code(s): R78.81 - BACTEREMIA SNOMED Code(s): 0041353 (2) Urinary tract infection Current Visit: Yes Status: Acute Code(s): N39.0 - URINARY TRACT INFECTION, SITE NOT SPECIFIED SNOMED Code(s): 74312504 (3) Stage IV pressure ulcer of sacral region Current Visit: Yes Status: Acute Code(s): L89.154 - PRESSURE ULCER OF SACRAL REGION, STAGE 4 SNOMED Code(s): 52971108424281 (4) Sacral osteomyelitis Current Visit: Yes Status: Acute Code(s): M46.28 - OSTEOMYELITIS OF VERTEBRA, SACRAL AND SACROCOCCYGEAL REGION SNOMED Code(s): 911322011 (5) MSSA (methicillin susceptible Staphylococcus aureus) infection Current Visit: Yes Status: Acute Code(s): A49.01 - METHICILLIN SUSCEP STAPH INFECTION, UNSP SITE SNOMED Code(s): 180551180 Plan: 1patient with urinary tract infection urine is growing Pseudomonas and Enterococcus, for the patient received adequate Zosyn therapy 2patient with sacral osteomyelitis with initial sacral wound culture positive for MSSA Proteus and E. coli all of them were sensitive to cefazolin 3-patient with bacteroids and Proteus bacteremia source likely infected sacral pressure ulcer s/p surgical debridement with repeat culture negative 4-patient to continue with Rocephin 2 g daily and oral Flagyl hopefully he will get a PICC line tomorrow morning and will continue with IV antibiotic in the outpatient setting prescriptions were already provided to the case monitor Dictation was produced using [employer] dictation software. please excuse any grammatical, word or spelling errors.
--- NOTE | 2023-05-22 15:39 | P.PN ---
Subjective Progress Note Date: 05/22/23 He denies abdominal pain. He reports bowel movements. He is drinking his ensures. ABDOMEN: Has ostomy PLAN: 1. Continue nutrition 2. Off loading of sacral ulcer. Objective - Vital Signs Vital signs: Vital Signs Temp 97.6 F 05/22/23 12:42 Pulse 89 05/22/23 12:42 Resp 18 05/22/23 12:42 BP 105/65 05/22/23 12:42 Pulse Ox 95 05/22/23 12:42 FiO2 Intake & Output 05/21/23 05/22/23 05/22/23 18:59 06:59 18:59 Intake Total 360 Output Total 1320 1780 Balance -960 -1780 Intake: Oral 360 Output: Urine 1300 1750 Stool 20 30 Other: Voiding Method Indwelling Catheter Indwelling Catheter Indwelling Catheter - Labs CBC & Chem 7: 05/16/23 06:00 05/22/23 06:15 Labs: Abnormal Lab Results - Last 24 Hours (Table) 05/22/23 Range/Units 06:15 BUN/Creatinine Ratio 11.89 L (12.00-20.00) Ratio Calcium 7.8 L (8.7-10.3) mg/dL Magnesium 1.4 L (1.5-2.4) mg/dL
[2023-05-23 00:52] VITALS: RESP 17
[2023-05-23 07:41] VITALS: BP 117/71; PULSE 79; TEMP 97.7
[2023-05-23] MEDS ORDERED: Magnesium Replacement Protocol 1 EACH MISC MISCELLANE PRN (11:18)
--- NOTE | 2023-05-23 11:23 | P.PN ---
Subjective This is a 72-year-old patient follows with visiting physicians Dr. Valero. 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 For which she saw a few years ago Dr. Leo. At [facility]. He was told that removing the tumor could be more dangerous than leaving it alone. Patient was very recently discharged from [facility]. Patient has sacral decubitus wound. Also wounds on the lower extremity. Back in January he was here at lower extremity wound care followed vascular team of Dr. Ye. Patient's brother lives at home with him. Patient nonambulatory. Decreased appetite. Presents with worsening wound to sacral decubitus, also wound on the left calf. Patient is constipated. Denies any fever and chills. Weakness. Has had intermittent diarrhea. May 06: Reclining bed. No pain in the legs. Pending vascular input. IV ceftriaxone. IV fluids. Had a bowel movement. May 07: Laying in bed. No pain in the lower extremity. Seen by surgery. Plan for diverting colostomy which patient has agreed to. Patient's brother at the bedside. Questions answered. IV Zosyn. May 08: Patient had diverting colostomy with sigmoid colectomy done by Dr. Dupont today. On IV Zosyn. Being followed by vascular. No pain. Postprocedure started on clear liquids May 2: No stool output. No plans for debridement per Dr Dupont. Of the sa cral wound. Liquid diet. Wound care team also following. May 10: Spoke to social work associate. Only option for the patient is to go home with his brother. I did discuss with Dr. Vitale the patient that if the wound does not heal at some point hospice may have to be considered. Remains on clear liqu id diet May 11: Spoke to Dr. Dupont yesterday. He will be out of town. He will asked Dr. Gómez to do the debridement. Nurse informed me that patient declined debridement today by Dr. Gómez. Also abdomen distended. Made NPO. May 12: Patient has abdominal distention. Abdominal x-ray ordered. Reviewed shows dilated small bowel measuring 5.3 cm. Suspect ileus. Will follow with surgery. Remains NPO. May 13: Not passed any flatus. Some decrease in abdominal distention. No nausea vomiting. Minimal stool output from the colostomy bag. Remains NPO. May 14: Remains on ice chips. Minimal if any output through the colostomy bag. Some decrease in distention. CT scan abdomen ordered by surgery. May 15: Saw the patient this morning. Has yellow-brown stool in the colostomy bag. Abdomen soft. Later this afternoon Dr Dupont to the patient to the OR for debridement. Outpatient antibiotics per ID. Creatinine bumped up to 1.81 this morning. Could be contrast-induced nephropathy. IV fluids. Nephrology consulted. May 16: Patient tolerating diet. [facility] social work associate spoke to the patient. He may have 1 x 60 days left at [facility]CF. Looking at placement for the same. Patient be changed to IV cefazolin per ID and oral Flagyl. PICC line ordered for antibiotic treatment. May 17: Saw the patient this morning. Patient does not want PICC line until it is confirmed that he is going to the ECF. Later in the day Ad[facility]'s social work associate informed me that patient will not be going to the ECF because no days available. Patient looking for home health so he can manage his PICC line. Also patient had a hard stool. Senokot as added. Tolerating diet well. May 18: Patient finally is agreed this morning for a PICC line placement. But no slots available. We do not have interventional radiology. And vascular surgery did not have any slots available. Home antibiotics are being arranged by Dr. SWANSON. Spoke to case operator. Discharge is to be not delayed until Tuesday for the same. Patient has not been requiring any pain medications. Having bowel movements May 19: Waiting for PICC line to be placed earliest on Tuesday. Other medications to continue. On IV ceftriaxone. No pain. Eating well 05/21/2023 Patient with sacral decubitus stage IV pressure ulcer status postdebridement with repeat culture negative initial culture growing multiple bacteria growing Proteus E. coli and MSSA with evidence of sacral osteomyelitis that will require PICC line which could not be placed on the weekend and is going to be done this coming Tuesday in 2 days His ileus resolved and surgery following. Also with evidence of bacteremia and improvement Patient remains on Eliquis Protonix and Rocephin and Flagyl Patient lying comfortable in bed denies any specific complaint 05/22/2023 Patient with no pain No other complaints Picc line On Tuesday On Rocephin and Flagyl for sacral pressure ulcer and osteomyelitis Objective - Vital Signs Vital signs: Vital Signs Temp 97.6 F 05/22/23 12:42 Pulse 89 05/22/23 12:42 Resp 18 05/22/23 12:42 BP 105/65 05/22/23 12:42 Pulse Ox 95 05/22/23 12:42 FiO2 Intake & Output 05/21/23 05/22/23 05/22/23 18:59 06:59 18:59 Intake Total 360 Output Total 1320 1780 1100 Balance -960 -1780 -1100 Intake: Oral 360 Output: Urine 1300 1750 1100 Stool 20 30 Other: Voiding Method Indwelling Catheter Indwelling Catheter Indwelling Catheter - Exam GENERAL: The patient is alert and oriented x3, not in any acute distress. Well developed, well nourished. HEENT: Pupils are round and equally reacting to light. EOMI. No scleral icterus. No conjunctival pallor. Normocephalic, atraumatic. No pharyngeal erythema. No thyromegaly. CARDIOVASCULAR: S1 and S2 present. No murmurs, rubs, or gallops. PULMONARY: Chest is clear to auscultation, no wheezing , no crackles. -ABDOMEN: Soft, nontender, nondistended, normoactive bowel sounds. No palpable organomegaly. Colostomy bag in place -MUSCULOSKELETAL: No joint swelling or deformity. Stage IV sacral pressure ulcer EXTREMITIES: No cyanosis, clubbing, or pedal edema. NEUROLOGICAL: Gross neurological examination did not reveal any focal deficits. SKIN: No rashes. no petechiae. - Labs CBC & Chem 7: 05/16/23 06:00 05/22/23 06:15 Labs: Abnormal Lab Results - Last 24 Hours (Table) 05/22/23 Range/Units 06:15 BUN/Creatinine Ratio 11.89 L (12.00-20.00) Ratio Calcium 7.8 L (8.7-10.3) mg/dL Magnesium 1.4 L (1.5-2.4) mg/dL Assessment and Plan Assessment: -Acute on chronic Unstageable pressure ulcer left buttock, right buttocks, stage I pressure ulcer lower back.: Wound care team following Dr. Kumar. IV Zosyn-discontinued Diverting colostomy done by Dr. Dupont on May 08May 8: Sacral wound debrided Marylu Dr Lamania IV cefazolin started along with p.o. Flagyl t -Postoperative ileus with small bowel distention.: Resolved Regular diet -Acute kidney injury likely combination of ATN and prerenal: Resolved. Again on May 15 creatinine went up to 1.8: Resolved Creatinine 5.4 on admission, came down to 0.8. Now back to 1.8 IV fluids. -Acute on chronic medical debility. Patient just discharged from [facility] about a week ago. PT OT Patient has no days left at rehab per insurance. -Venous stasis/dermatitis changes in lower extremity. Calf wound. Seen by Dr. Ye from vascular: No further intervention. 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 Currently sinus rhythm. Eliquis- Hospital bed for home: Indication The patient has lower back/sacral deep wounds. Which requires positioning of the body in ways not feasible with an ordinary bed. The head of the bed must be elevated more than 30 degrees most of the time to alleviate pain and pressure. -Full code Pending PICC line placement on Tuesday. Continue current treatment.
[2023-05-23] MEDS: LIDOCAINE 1% INJ 10MG/ML (20 ML MDV) SQ ONE (11:25)
--- NOTE | 2023-05-23 11:49 | P.PN ---
Subjective patient is seen for follow-up for acute kidney injury. Renal function has improved with serum creatinine down to 0.9 mg/dL. Good urine output. no complaints today. Objective - Vital Signs Vital signs: Vital Signs Temp 97.7 F 05/23/23 07:10 Pulse 79 05/23/23 07:10 Resp 17 05/23/23 07:10 BP 117/71 05/23/23 07:10 Pulse Ox 94 L 05/23/23 07:10 FiO2 Intake & Output 05/22/23 05/23/23 05/23/23 18:59 06:59 18:59 Output Total 1100 5 50 Balance -1100 -2074 -50 Output: Urine 1100 2000 Stool 75 50 Other: Voiding Method Indwelling Catheter Indwelling Catheter - Exam patient is awake, comfortable, no acute distress Alert oriented 3 Examination of the heart S1 and S2 Examination of the lungs bilateral breath sounds are heard Abdomen is soft nontender Examination of lower extremity shows chronic skin changes, wounds noted in the legs and patient also has a sacral decubitus which was not examined. bilateral lower extremity weakness. - Labs CBC & Chem 7: 05/16/23 06:00 05/22/23 06:15 Assessment and Plan Assessment: 1. Acute kidney injury secondary to urine retention and ATN from low blood p ressure with significant improvement in renal function. No obstructive uropathy noted on ultrasound. UA shows 2+ protein and significant WBCs 2. Urine retention with 1200 mL of urine obtained on initial Ye catheter placement. 3. UTI with urine culture growing Pseudomonas 4. Bilateral lower extremity wounds and sacral decubitus ulcer 5. History of spinal lesion and bilateral lower extremity weakness 6. Paroxysmal A. fib maintained on alkalosis 7. Bacteremia with blood culture growing Bacteroides and Proteus, maintained on antibiotics Plan: continue with Ye catheter encourage increased oral intake Continue antibiotics Repeat labs periodically .
--- NOTE | 2023-05-23 12:15 | P.PN ---
Subjective Progress Note Date: 05/23/23 Principal diagnosis: Reason for follow-up is UTI bacteremia and sacral pressure ulcer Patient is a 72-year-old male with a past medical history significant atrial fibrillation hyperlipidemia osteoarthritis patient was brought into the hospital for evaluation generalized weakness, patient did have evidence of a UTI and a sacral pressure ulcer. Patient blood culture subsequently came back positive with Proteus , Patient is status post sigmoid colectomy and end colos yue completed on 05/09/2023. Patient is status post surgical debridement of his sacral wound coccyx was exposed per operative report but no culture was done procedure completed on 05/16/2023 On today's evaluation that is 05/23/2023,the patient remains to be afebrile, patient is on room air not requiring supplemental oxygen and denies any shortness of breath no chest pain or cough.Patient denies having any nausea or vomiting, abdominal discomfort has improved with output in his colostomy patient did get the PICC line. No new labs has been repeated today Objective - Vital Signs Vital signs: Vital Signs Temp 97.7 F 05/23/23 07:10 Pulse 79 05/23/23 07:10 Resp 17 05/23/23 07:10 BP 117/71 05/23/23 07:10 Pulse Ox 94 L 05/23/23 07:10 FiO2 Intake & Output 05/22/23 05/23/23 05/23/23 18:59 06:59 18:59 Output Total 1100 2075 50 Balance -1100 -2075 -50 Output: Urine 1100 2000 Stool 75 50 Other: Voiding Method Indwelling Catheter Indwelling Catheter - Exam GENERAL DESCRIPTION: An elderly male lying in bed in no distress RESPIRATORY SYSTEM: Unlabored breathing , decreased breath sounds at bases HEART: S1 S2 regular rate and rhythm , ABDOMEN: Soft , no tenderness - Labs CBC & Chem 7: 05/16/23 06:00 05/22/23 06:15 Assessment and Plan (1) Bacteremia Current Visit: Yes Status: Acute Code(s): R78.81 - BACTEREMIA SNOMED Code(s): 4955997 (2) Urinary tract infection Current Visit: Yes Status: Acute Code(s): N39.0 - URINARY TRACT INFECTION, SITE NOT SPECIFIED SNOMED Code(s): 96046158 (3) Stage IV pressure ulcer of sacral region Current Visit: Yes Status: Acute Code(s): L89.154 - PRESSURE ULCER OF SACRAL REGION, STAGE 4 SNOMED Code(s): 80062011561856 (4) Sacral osteomyelitis Current Visit: Yes Status: Acute Code(s): M46.28 - OSTEOMYELITIS OF VERTEBRA, SACRAL AND SACROCOCCYGEAL REGION SNOMED Code(s): 544502636 (5) MSSA (methicillin susceptible Staphylococcus aureus) infection Current Visit: Yes Status: Acute Code(s): A49.01 - METHICILLIN SUSCEP STAPH INFECTION, UNSP SITE SNOMED Code(s): 707962559 Plan: 1patient with urinary tract infection urine is growing Pseudomonas and Enterococcus, for the patient received adequate Zosyn therapy 2patient with sacral osteomyelitis with initial sacral wound culture positive for MSSA Proteus and E. coli all of them were sensitive to cefazolin 3-patient with bacteroids and Proteus bacteremia source likely infected sacral pressure ulcer s/p surgical debridement with repeat culture negative 4-patient did have PICC line placement this morning plan is for Rocephin and Flagyl to finish 6-week course of therapy patient has been advised to filler picker the oral Flagyl from his pharmacy prescription for IV Rocephin already given to the family independence case manager and apparently outpatient antibiotic has been arranged advised to follow-up in the office in a week with weekly monitoring of CRP and sed rate Dictation was produced using [employer] dictation software. please excuse any grammatical, word or spelling errors. Time with Patient: Less than 30
--- NOTE | 2023-05-23 12:19 | IR ---
EXAMINATION TYPE: IR cvc insert >=5 years Intraoperative/procedural fluoroscopic services were provid ed. CLINICAL INDICATION:Male, 72 years old with history of Abx, 0.9m/0.4594DAP, 4F 42cm Rt brachial PICC. ; , [facility] Total fluoroscopy time is 0.9 min. DAP: 0.4594 Gycm2 Please see the operative/procedural note for further details.
--- NOTE | 2023-05-23 12:53 | P.OP ---
Date of Procedure: 05/23/23 Preoperative Diagnosis: Need for long-term IV antibiotic therapy. Postoperative Diagnosis: Same. Procedure(s) Performed: Insertion of a PICC via the right brachial vein with ultrasound and fluoroscopic guidance. Anesthesia: local Surgeon: Ross Jones Estimated Blood Loss (ml): 2 Pathology: none sent Condition: stable Disposition: no change Description of Procedure: Patient was brought to the special procedure suite. The right upper extremity was sterilely prepped and draped in usual manner. Utilizing ultrasound the right basilic vein was identified at the lower to mid section of the humeral area. 1% Xylocaine was utilized for local anesthesia of the tissues overlying this area. With the aid of ultrasound a micropuncture needle was advanced through the anesthetized area into the brachial vein. Guidewire was advanced and the needle was withdrawn. Sheath and dilator were advanced over the wire. The wire reached the atrioventricular junction at a length of 42 cm and the catheter was cut to the appropriate length. The dilator was withdrawn and the catheter was advanced over the guidewire into the central venous system. The guidewire was withdrawn and the sheath was peeled away. Blood was easily aspirated through the catheter and the catheter was then flushed with heparinized saline solution and secured to the skin with nylon suture. Appropriate dressings were applied. Patient tolerated the procedure well and was returned to his room in satisfa ctory and stable condition.
--- NOTE | 2023-05-23 13:16 | P.PN ---
Subjective Progress Note Date: 05/23/23 CHIEF COMPLAINT: Decubitus ulcer HISTORY OF PRESENT ILLNESS: Patient is status post diverting colostomy on 05/09/23. Patient is status post debridement of sacral ulcer on 05/16/23. Patient's pain is controlled. Patient's ostomy is functioning. He received his PICC line today. He is scheduled for discharge today. Potassium 4.2 as of yesterday. Magnesium 1.4 and patient received supplement PHYSICAL EXAM: VITAL SIGNS: Reviewed. GENERAL: Well-developed in no acute distress. ABDOMEN: Nondistended. Nontender incision site clean dry and intact. Stool in ostomy bag NEUROLOGIC: Alert and oriented. Cranial nerves II through XII grossly intact. ASSESSMENT: 1. Sacral decubitus ulcer status post diverting colostomy 2. Constipation 3. Ileus resolved 4. Hypomagnesemia 5. Bacteremia 6. Sacral osteomyelitis PLAN: -Patient can be discharged from surgical standpoint when medically clear -Continue a good bowel regimen at discharge -Continue local wound care to sacral ulcer daily -Continue regular diet -Discharge antibiotics per infectious disease Physician Abstract Writer note has been reviewed by physician. Signing provider agrees with the documented findings, assessment, and plan of care. Objective - Vital Signs Vital signs: Vital Signs Temp 97.7 F 05/23/23 07:10 Pulse 79 05/23/23 07:10 Resp 17 05/23/23 07:10 BP 117/71 05/23/23 07:10 Pulse Ox 94 L 05/23/23 07:10 FiO2 Intake & Output 05/22/23 05/23/23 05/23/23 18:59 06:59 18:59 Output Total 1100 5 50 Balance -[id number] Output: Urine 1100 2000 Stool 75 50 Other: Voiding Method Indwelling Catheter Indwelling Catheter Indwelling Catheter - Labs CBC & Chem 7: 05/16/23 06:00 05/22/23 06:15
--- NOTE | 2023-05-24 10:56 | P.DS ---
Providers Date of admission: 05/06/23 13:39 Expected date of discharge: 05/23/23 Attending physician: Isaiah Marmolejo Consults: 05/06/23 13:39 Consult Physician Routine Consulting Provider: Cresencio Consult Reason/Comments: Sacral and leg ulcers Do you want consulting provider notified?: Yes Consult Physician Routine Consulting Provider: Evelin Jean Baptiste Consult Reason/Comments: Sacral and leg ulcer Do you want consulting provider notified?: Yes Consult Physician Urgent Consulting Provider: Devan Parikh Consult Reason/Comments: fouzia Do you want consulting provider notified?: Yes 05/16/23 20:40 Consult Physician Routine Consulting Provider: Devan Parikh Consult Reason/Comments: FOUZIA Do you want consulting provider notified?: Yes 05/17/23 10:24 Consult Physician Routine Consulting Provider: Ankush Beard Consult Reason/Comments: hydro, retention Do you want consulting provider notified?: Yes Primary care physician: Skyler Valero MD Hospital Course: Final diagnosis -Acute on chronic Unstageable pressure ulcer left buttock, right buttocks, stage I pressure ulcer lower back -Status post diverting colostomy done by Dr. Dupont on May 08 -Postoperative ileus with small bowel distention.: Resolved -Acute kidney injury likely combination of ATN and prerenal: Resolved. -Acute on chronic medical debility. -generalized weakness, would benefit from rehab although has no days at [facility] -Venous stasis/dermatitis changes in lower extremity. Calf wound. 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 Baseline uses a wheelchair -Paroxysmal atrial fibrillation. Currently sinus rhythm. -GI prophylaxis -DVT prophylaxis -Full code Discharge disposition Patient is being discharged in a stable condition with guarded prognosis to home with home care. Patient will follow-up with Dr. Skyler Valero in the outpatient setting upon discharge. Patient is to continue with IV antibiotics per ID recommendations and close outpatient follow-up with infectious disease as well as general surgery as scheduled. Total time taken is greater than 35 minut es. Hospital course This is a 72-year-old male who was recently admitted from [facility] with continued medical debility has had prolonged hospitalization with acute on chronic unstageable pressure ulcers requiring debridement in multiple locations including the left buttock, right buttock and lower back. Patient is status post diverting colostomy with general surgery from a postop ileus and will need extensive wound care and education regarding ostomy. Case management/social work is following arranging for discharge planning including a hospital bed as patient has multiple wounds and will require frequent position changes to manage pain and offloading that cannot be done on a regular bed. Patient is being arranged for home care and recommend wound care and close outpatient follow-up. Patient has received a PICC line and will continue on IV antibiotic therapy on discharge. Patient has been cleared by consultations for discharge. Please refer to other consultation notes for further HPI. Currently no reports of chest pain, shortness of breath, or palpitations. Patient is afebrile. No reports of nausea or vomiting and patient is tolerating diet. Patient will be discharged home today. Extremely high risk for readmissions given patient's significant comorbidities and ongoing wound care and new ostomy. Prognosis is guarded. Physical exam: Gen: This is a 72-year-old male who is awake, alert and oriented x 3, well- developed, elderly appearing, ill-appearing HEENT: Head is atraumatic, normocephalic. Pupils equal, round. Sclerae is anicteric. NECK: Supple. No JVD. No lymphadenopathy. No thyromegaly. LUNGS: Breath sounds diminished bilaterally otherwise clear to auscultation. No wheezes or rhonchi. No intercostal retractions. HEART: S1, S2 are muffled ABDOMEN: Soft. Obese. Ostomy noted bowel sounds are present. No masses. No tenderness. EXTREMITIES: No pedal edema. No calf tenderness. Generalized edema noted bilaterally NEUROLOGICAL: Patient is awake, alert and oriented x3. Cranial nerves 2 through 12 are grossly intact. Diffusely weak Please refer to medication reconciliation sheet for a list of medications. The impression and plan of care has been dictated by Danna Basilio, Nurse Practitioner as directed. Dr. Eloy MD I have performed a history and examination and MDM of this patient, discussed the same with the dictator, and agree with the dictator's assessment and plan as written ,documented as a scribe. Based on total visit time, I have performed more than 50% of the visit. Patient Condition at Discharge: Fair Plan - Discharge Summary Discharge Rx Participant: No New Discharge Prescriptions: New metroNIDAZOLE [Flagyl] 500 mg PO TID #90 tab cefTRIAXone [Rocephin] 2,000 mg IVP Q24HR #40 each Tamsulosin [Flomax] 0.4 mg PO PC-BRKFST #30 cap Sennosides-Docusate Sodium [Senokot-S] 1 each PO BID #60 tab Continue Omeprazole 20 mg PO DAILY Loperamide [Imodium] 2 mg PO Q6H PRN PRN Reason: Diarrhea Apixaban [Eliquis] 2.5 mg PO BID Gabapentin [Neurontin] 200 mg PO TID Folic Acid 0.8 mg PO DAILY Acetaminophen Tab [Tylenol] 650 mg PO Q6HR PRN PRN Reason: Fever And/ Or Pain Discontinued Furosemide [Lasix] 20 mg PO DAILY tab Discharge Medication List Omeprazole 20 mg PO DAILY 01/15/23 [History] Acetaminophen Tab [Tylenol] 650 mg PO Q6HR PRN 05/06/23 [History] Apixaban [Eliquis] 2.5 mg PO BID 05/06/23 [History] Folic Acid 0.8 mg PO DAILY 05/06/23 [History] Gabapentin [Neurontin] 200 mg PO TID 05/06/23 [History] Loperamide [Imodium] 2 mg PO Q6H PRN 05/06/23 [History] Sennosides-Docusate Sodium [Senokot-S] 1 each PO BID #60 tab 05/19/23 [Rx] Tamsulosin [Flomax] 0.4 mg PO PC-BRKFST #30 cap 05/19/23 [Rx] cefTRIAXone [Rocephin] 2,000 mg IVP Q24HR #40 each 05/19/23 [Rx] metroNIDAZOLE [Flagyl] 500 mg PO TID #90 tab 05/19/23 [Rx] Follow up Appointment(s)/Referral(s): Skyler Valero MD [Primary Care Provider] - 1-2 days [facility] [NON-STAFF] - 05/23/23 3:00 pm (CALL [facility] IN ROUTE HOME TO HAVE HOSPITAL BED DELIVERED) [facility], [NON-STAFF] - 05/24/23 12:00 am ([facility] STAFF WILL CONTACT YOU WITH A TIME) [facility], [REFERRING] - 05/23/23 6:00 pm (DELIVERY BETWEEN 6PM AND 8PM) Evelin Jean Baptiste MD [STAFF PHYSICIAN] - 1 Week Arturo Dupont MD [STAFF PHYSICIAN] - 1 Week Ambulatory/Diagnostic Orders: Basic Metabolic Panel [LAB.AMB] Location: None Selected C Reactive Protein [LAB.AMB] Location: None Selected Complete Blood Count w/diff [LAB.AMB] Location: None Selected Erythrocyte Sedimentation Rate [LAB.AMB] Location: None Selected Patient Instructions/Handouts: Metronidazole (By mouth), Ceftriaxone (By injection), Tamsulosin (By mouth), Senna (By mouth), Colostomy Care (DC), Urinary Tract Infection in Children (DC) Activity/Diet/Wound Care/Special Instructions: Ostomy: Sánchez 1 piece cut to fit #[id number] Last changed: 05/17/23 Home IV antibiotics to be delivered on day of discharge between 6 and 8p.m. Call [facility] once you are on your way home for delivery of Hospital bed to your home. [facility] will be out to your home tomorrow to assist with abx, wound care, and Colostomy care. Daily santyl dressing change to Coccyx. Discharge/Stand Alone Forms: Adult Foster Assisted List, Assisted Living Facilities, Community Resources, Help In The Home Discharge Disposition: HOME WITH HOME HEALTH SERVICES
--- NOTE | 2023-05-26 11:26 | CDI ---
Documentation Clarification Form Date: 05/25/2023 07:17:00 PM From: Charleen Rodrigues RN, CCDS Phone: [phone] Admit Date: 05/06/2023 01:39:00 PM Patient Name: Zion Bardales Visit Number: [id number] Discharge Date: 05/23/2023 05:10:00 PM ATTENTION: The Clinical Documentation Specialists (CDI) and [facility] Coding Staff appreciate your assistance in clarifying documentation. Please respond to the clarification below the line at the bottom and electronically sign. The CDI & [facility] Coding staff will review the response and follow-up if needed. Please note: Queries are made part of the Legal Health Record. If you have any questions, please contact the author of this message via ITS. Dr. Sadie Lyons The patient has sepsis documented in the Nephrology progress notes starting on 05/17/23. Based on this information and the findings below, is there an additional diagnosis that is clinically appropriate for this patient? History/Risk Factors: Atrial Fibrillation, Hyperlipidemia, Osteoarthritis (OA) Former smoker Clinical Indicators: 72-year-old male with history of tumor on the spinal cord. Patient has sacral decubitus wound. Patient nonambulatory. Presents with worsening wound to sacral decubitus, also wound on the left calf. WBC \15.9, Neutrophils 13.9 Lactic acid: 2.1, 2.4 04/25 Blood cultures: Proteus mirabilis, Anaerobic Gram Positive Cocci, Bacteroide Fragilis Molecular ID Vitals signs: 95/83 74 18 97.3 99 % RA, 91/56 16 Vital sign 05/06 (20:00) 99/58 113 16 92% RA WBC 9.21 05/05 UA: Leukocyte Esterase Large, Urine WBC >182 Urine Culture: Pseudomonas aeruginosa, Enterococcus Faecalis 05/05 ID: Proteus bacteremia source likely urinary. Urinary tract infection 05/11 ID: Urinary tract infection, Stage IV pressure ulcer of sacral region Patient with Proteus and also bacteroids bacteremia source could be infected sacral pressure ulcer, urine is growing Pseudomonas and Enterococcus 05/16 Nephrology progress note: Severe sepsis secondary to Proteus, bacterial voids, gram-positive bacteremia due to lower extremity wounds and sacral decubitus ulcers. Treatment Vancomycin 1,250 MG IVPB Once 05/05 and 05/06 (PTD) .9NS 1,000 ML Bolus 05/05 Zosyn 3.375 GM IVPB Q 8 HRS 05/07-05/16 Rocephin 2GM IVPB Q 24 HRS 05/06-05/07 Is there an additional diagnosis that is clinically appropriate for this patient? [ ] Sepsis, with Bacteremia present on admission [ ] Other, please specify [ ] Unable to determine SIRS Criteria: 2 or more of the following may indicate SIRS Temperature < 96.8F (36C) or > 101.0F (38.3C) Heart Rate > 90 bpm Respiratory Rate > 20 breaths/min or PaCO2 < 32 mmHg White Blood Cell Count > 12,000 or < 4,000 cells/mm3 or > 10% bands (Template Last Reviewed: February 2022) Sepsis, with Bacteremia present on admission MTDD
--- NOTE | 2023-08-01 16:04 | CDI ---
Documentation Clarification Form Date: 08/01/2023 From: Kait Pyle Phone: [phone] Admit Date: 05/06/2023 01:39:00 PM Patient Name: Zion Bardales Visit Number: [id number] Discharge Date: 05/23/2023 05:10:00 PM ATTENTION: The Clinical Documentation Specialists (CDI) and [facility] Coding Staff appreciate your assistance in clarifying documentation. Please respond to the clarification below the line at the bottom and electronically sign. The CDI & [facility] Coding staff will review the response and follow-up if needed. Please note: Queries are made part of the Legal Health Record. If you have any questions, please contact the author of this message via ITS. Dr. Isaiah Marmolejo Severe sepsis is documented in the record starting on 05/16. For each diagnosis, documentation must be clear to determine if the condition was present at the time of the patients inpatient admission or developed during the hospital stay. Additional clarification regarding the severe sepsis is requested. History/Risk Factors: 72-year-old male with history of tumor on the spinal cord. Patient has sacral decubitus wound. Patient nonambulatory. Presents with worsening wound to sacral decubitus, also wound on the left calf. Clinical Indicators: Per CDI query response, sepsis w/ bacteremia is present on admission. 05/05 ID: Proteus bacteremia source likely urinary 05/16 renal PN: Severe sepsis secondary to Proteus, bacterial voids, gram- positive bacteremia due to lower extremity wounds and sacral decubitus ulcers. Labs: 05/05 WBC 15.9, BUN 74, creat 5.41, LA 2.4-2.4 UA 05/05: dark brown, turbid, 2+ protein, sm bld, lg leuk esterase, >182 RBC, >182 WBC, many WBC clumps, many bacteria Treatment: Vanco IV, Zosyn IV, Rocephin IV Definition of Present on Admission (POA): A diagnosis present at the time the order for admission to inpatient status was written. Please clarify if the severe sepsis was POA: [ + ] Severe sepsis was present on admission [ ] Sepsis was present on admission, severe sepsis developed during the admission [ ] Clinically undetermined if the severe sepsis was present on admission MTDD
--- NOTE | 2023-08-01 16:21 | CDI ---
Documentation Clarification Form Date: 08/01/2023 From: Kait Pyle Phone: [phone] Admit Date: 05/06/2023 01:39:00 PM Patient Name: Zion Bardales Visit Number: [id number] Discharge Date: 05/23/2023 05:10:00 PM ATTENTION: The Clinical Documentation Specialists (CDI) and [facility] Coding Staff appreciate your assistance in clarifying documentation. Please respond to the clarification below the line at the bottom and electronically sign. The CDI & [facility] Coding staff will review the response and follow-up if needed. Please note: Queries are made part of the Legal Health Record. If you have any questions, please contact the author of this message via ITS. Dr. Sadie Lyons Acute kidney injury secondary to ATN secondary to hypovolemia and concern for obstructive uropathy is noted starting in the renal PN on 05/16. Additional clarification is requested. History/Risk Factors: 72yo with a h/o a spinal tumor w/ chronic paraparesis, mild PCM and acute on chronic medical debility presented w/ multiple B/L LE wounds and a sacral decub. Clinical Indicators: ED 05/05 noted the pt had CINDY w/ significant ulcers. IM PN 05/06 noted, Acute kidney injury likely combination of ATN and prerenal. Slow to respond Renal PN 05/16 noted urinary retention upon admission Renal PN 05/21 noted, pt presented initially with severe acute kidney injury which subsequently resolved, Hyponatremia secondary to hypotonic fluid infusion. Renal PN 05/22, Acute kidney injury secondary to urine retention and ATN from low blood pressure with significant improvement in renal functionUrine retention with 1200 mL of urine obtained on initial Ye catheter placement. Treatment: Ye catheter inserted/replaced, IV fluid, monitoring Please clarify if hypovolemia is a valid diagnosis? [ ] Hypovolemia confirmed and treated [ ] Hypovolemia ruled out, ATN 2nd to intravascular volume depletion [ ] Hypovolemia ruled out, ATN 2nd to other etiology (please specify) [x ] Other (please specify diagnosis) initially from urine retention_then later the second episode of CINDY was related to hypovolemia and urine retention too. [ ] Unable to determine (Template Last Revised: July 2023) MTDD
== END 2023-05-23 17:10 | disposition home health service (06) | DRG 853 ==
LOC: EC 11:05 → 5NMEDONC 13:39
PROVIDERS: ADMIT Hospitalist; ATTEND Hospitalist
PROC: 0D1N0Z4 Bypass Sigmoid Colon to Cutaneous, Open Approach (ICD-10-PCS; 2023-05-09)
PROC: 0WQF0ZZ Repair Abdominal Wall, Open Approach (ICD-10-PCS; 2023-05-09)
PROC: 0DBN0ZZ Excision of Sigmoid Colon, Open Approach (ICD-10-PCS; 2023-05-09)
PROC: 0JD70ZZ Extraction of Back Subcutaneous Tissue and Fascia, Open Approach (ICD-10-PCS; principal; 2023-05-16 07:30)
PROC: 02HV33Z Insertion of Infusion Device into Superior Vena Cava, Percutaneous Approach (ICD-10-PCS; 2023-05-23)
DX: A41.59 Other Gram-negative sepsis (principal); L89.154 Pressure ulcer of sacral region, stage 4; N17.0 Acute kidney failure with tubular necrosis; E44.1 Mild protein-calorie malnutrition; E87.1 Hypo-osmolality and hyponatremia; G82.20 Paraplegia, unspecified; J98.11 Atelectasis; K56.7 Ileus, unspecified; M46.28 Osteomyelitis of vertebra, sacral and sacrococcygeal region; N13.6 Pyonephrosis; I96 Gangrene, not elsewhere classified; R65.20 Severe sepsis without septic shock; B95.61 Methicillin susceptible Staphylococcus aureus infection as the cause of diseases classified elsewhere; B96.5 Pseudomonas (aeruginosa) (mallei) (pseudomallei) as the cause of diseases classified elsewhere; D49.7 Neoplasm of unspecified behavior of endocrine glands and other parts of nervous system; E78.5 Hyperlipidemia, unspecified; E83.42 Hypomagnesemia; E86.1 Hypovolemia; E87.6 Hypokalemia; E88.09 Other disorders of plasma-protein metabolism, not elsewhere classified; F41.9 Anxiety disorder, unspecified; I48.0 Paroxysmal atrial fibrillation; I87.2 Venous insufficiency (chronic) (peripheral); I87.8 Other specified disorders of veins; K42.9 Umbilical hernia without obstruction or gangrene; L30.9 Dermatitis, unspecified; L89.311 Pressure ulcer of right buttock, stage 1; L89.320 Pressure ulcer of left buttock, unstageable; M17.0 Bilateral primary osteoarthritis of knee; M60.9 Myositis, unspecified; E86.0 Dehydration; K59.00 Constipation, unspecified; Z96.659 Presence of unspecified artificial knee joint; Z99.3 Dependence on wheelchair; Z59.7 Insufficient social insurance and welfare support; Z59.86 Financial insecurity; Z79.01 Long term (current) use of anticoagulants; Z79.899 Other long term (current) drug therapy; Z82.49 Family history of ischemic heart disease and other diseases of the circulatory system; Z91.199 Patient's noncompliance with other medical treatment and regimen due to unspecified reason; Z87.891 Personal history of nicotine dependence; Z88.8 Allergy status to other drugs, medicaments and biological substances; Z68.24 Body mass index [BMI] 24.0-24.9, adult
CPT/HCPCS: 36415; 36573; 71045; 74019; 74177; 76770; 80048; 80053; 80202; 81001; 83605; 83735; 84132; 84443; 84484; 85025; 85027; 85610; 85652; 85730; 86140; 87040; 87070; 87077; 87086; 87186; 87205; 87324; 88307; 93005; 96361; 96365; 96366; 96367; 99285

== ENCOUNTER 2023-07-15 14:50 | Inpatient (IN) | payer MEDICARE ==
--- NOTE | 2023-07-15 15:45 | ED ---
General Adult HPI - General Source: patient, EMS, RN notes reviewed, old records reviewed Mode of arrival: EMS Limitations: physical limitation - History of Present Illness -: days(s) Location: back, pelvis, genitals Quality: stabbing, aching Consistency: constant Improves with: none Worsens with: none Associated Symptoms: denies other symptoms <Igor Monzon - Last Filed: 07/15/23 19:13> - General Source: patient, EMS, RN notes reviewed Mode of arrival: EMS Limitations: physical limitation <Trev Cortez - Last Filed: 07/16/23 06:44> - General Chief complaint: Urogenital Stated complaint: UTI Time Seen by Provider: 07/15/23 15:28 - History of Present Illness Initial comments: 72-year-old male to ER for evaluation, patient is coming for UTI with evidence of significant sacral decubitus ulcer chronic and malodorous drainage (Igor Monzon) 72-year-old male presents emergency department with chief complaint of urinary tract infection. Patient states that he has a visiting physician who sees him along with visiting nurses states that his urinalysis came back showing evidence of urinary tract infection. He is not on current antibiotics. He states he is also concerned as he developed diarrhea out of his colostomy. Patient denies any fevers or chills. Patient does have chronic left foot wound. Patient does have moderate physical limitation. Patient denies chest pain shortness of breath. (Trev Cortez) - Related Data Home Medications Medication Instructions Recorded Confirmed Gabapentin [Neurontin] 200 mg PO TID 05/06/23 07/15/23 Amiodarone [Cordarone] 100 mg PO BID 07/15/23 07/15/23 cefUROXime axetiL [Ceftin] 500 mg PO DIRECTED 07/15/23 07/15/23 nitrofurantoin macrocrystaL 100 mg PO DIRECTED 07/15/23 07/15/23 Allergies Allergy/AdvReac Type Severity Reaction Status Date / Time Qrackbx-FOD-OdC Reductase Allergy Rash/Hives Verified 07/15/23 15:08 Inhibitor [Hpkuobo-Cmw-Nsz Reductase Inhibitor] Review of Systems ROS Other: All systems not noted in ROS Statement are negative. <Igor Monzon - Last Filed: 06/07/24 19:13> ROS Other: All systems not noted in ROS Statement are negative. <Trev Cortez M - Last Filed: 07/16/23 06:44> ROS Statement: Those systems with pertinent positive or pertinent negative responses have been documented in the HPI. Past Medical History Past Medical History: Atrial Fibrillation, Hyperlipidemia, Osteoarthritis (OA) Additional Past Medical History / Comment(s): Bulging disks, bilateral knee arthritis, UTI, blood infection History of Any Multi-Drug Resistant Organisms: None Reported Past Surgical History: Orthopedic Surgery, Tonsillectomy Additional Past Surgical History / Comment(s): Knee replacement surgery, tonsills out at 7 yrs old, torn meninscus Past Anesthesia/Blood Transfusion Reactions: No Reported Reaction Additional Past Anesthesia/Blood Transfusion Reaction / Comment(s): Patient not sure if hes ever had a blood transfusion. Past Psychological History: Anxiety Smoking Status: Former smoker Past Alcohol Use History: None Reported Past Drug Use History: None Reported - Past Family History Mother Family Medical History: CVA/TIA, Myocardial Infarction ([place]) Father Family Medical History: Congestive Heart Failure (CHF) <BrandtTrev eckert - Last Filed: 07/16/23 06:44> General Exam General appearance: alert, in no apparent distress Head exam: Present: atraumatic, normocephalic, normal inspection Eye exam: Present: normal appearance, PERRL, EOMI. Absent: scleral icterus, conjunctival injection, periorbital swelling ENT exam: Present: normal exam, mucous membranes moist Neck exam: Present: normal inspection. Absent: tenderness, meningismus, lymphadenopathy Respiratory exam: Present: normal lung sounds bilaterally. Absent: respiratory distress, wheezes, rales, rhonchi, stridor Cardiovascular Exam: Present: regular rate, normal rhythm, normal heart sounds. Absent: systolic murmur, diastolic murmur, rubs, gallop, clicks GI/Abdominal exam: Present: soft, normal bowel sounds. Absent: distended, tenderness, guarding, rebound, rigid Extremities exam: Present: normal inspection, full ROM, normal capillary refill. Absent: tenderness, pedal edema, joint swelling, calf tenderness Back exam: Present: normal inspection Neurological exam: Present: alert, oriented X3, CN II-XII intact Psychiatric exam: Present: normal affect, normal mood Skin exam: Present: warm, dry, intact, normal color. Absent: rash <Roskopp,Igor B - Last Filed: 07/15/23 19:13> Limitations: physical limitation General appearance: alert, in no apparent distress Neck exam: Present: normal inspection. Absent: tenderness, meningismus, lymphadenopathy Respiratory exam: Present: normal lung sounds bilaterally. Absent: respiratory distress, wheezes, rales, rhonchi, stridor Cardiovascular Exam: Present: regular rate, normal rhythm, normal heart sounds. Absent: systolic murmur, diastolic murmur, rubs, gallop, clicks GI/Abdominal exam: Present: soft, normal bowel sounds, other (Colostomy is noted with notable diarrhea, healed). Absent: distended, tenderness, guarding, rebound, rigid Extremities exam: Present: other (Left foot wound) Neurological exam: Present: alert <Trev Cortez - Last Filed: 07/16/23 06:44> Course <Igor Monzon - Last Filed: 07/15/23 19:13> Vital Signs 07/15/23 07/15/23 07/15/23 15:06 18:41 19:16 Temperature 97.5 F L Pulse Rate 61 74 72 Respiratory 20 18 18 Rate Blood Pressure 117/58 120/69 128/73 O2 Sat by Pulse 98 97 99 Oximetry 07/15/23 20:30 Temperature Pulse Rate 70 Respiratory 18 Rate Blood Pressure 131/72 O2 Sat by Pulse Oximetry - Reevaluation(s) Reevaluation #1: 07/15/23 18:37 Medical records reviewed (Igor Monzon) Reevaluation #2: 07/15/23 18:37 Patient symptoms unchanged (Igor Monzon) Reevaluation #3: 07/15/23 18:37 Patient informed of results and questions answered (Igor Monzon) Reevaluation #4: Was pt. sent in by a medical professional or institution (, PA, BRANCH LOGISTICS SUPERVISOR, urgent care, hospital, or intermediate...) When possible be specific @ -no Did you speak to anyone other than the patient for history (EMS, parent, family, police, friend...)? What history was obtained from this source @ -no Did you review nursing and triage notes (agree or disagree)? Why? @ -agree Are old charts reviewed (outside hosp., previous admission, EMS record, old EKG, old radiological studies, urgent care reports/EKG's, intermediate records)? Report findings @ -yes Differential Diagnosis (chest pain, altered mental status, abdominal pain women, abdominal pain men, vaginal bleeding, weakness, fever, dyspnea, syncope, he adache, dizziness, GI bleed, back pain, seizure, CVA, palpatations, mental health, musculoskeletal)? @ -prior EKG interpreted by me (3pts min.). @ -yes X-rays interpreted by me (1pt min.). @ -yes negative for acute disease CT interpreted by me (1pt min.). @ -no U/S interpreted by me (1pt. min.). @ -no What testing was considered but not performed or refused? (CT, X-rays, U/S, labs)? Why? @ -none What meds were considered but not given or refused? Why? @ -none Did you discuss the management of the patient with other professionals (professionals i.e. , PA, BRANCH LOGISTICS SUPERVISOR, lab, RT, psych nurse, long term care social worker, air conditioning mechanic industrial, teacher, chief learning officer, major case detective)? Give summary @ -no Was smoking cessation discussed for >3mins.? @ -no Were there social determinants of health that impacted care today? How? (Homelessness, low income, unemployed, alcoholism, drug addiction, transportation, low edu. Level, literacy, decrease access to med. care, prison, rehab)? @ -none Was there de-escalation of care discussed even if they declined (Discuss DNR or withdrawal of care, Hospice)? DNR status @ -no What co-morbidities impacted this encounter? (DM, HTN, Smoking, COPD, CAD, Cancer, CVA, ARF, Chemo, Hep., AIDS, mental health diagnosis, sleep apnea, morbid obesity)? @ -none Was patient admitted / discharged? Hospital course, mention meds given and route, prescriptions, significant lab abnormalities, going to OR and other pertinent info. @ - Was critical care preformed (if so, how long)? @ -no Undiagnosed new problem with uncertain prognosis? @ -no Drug Therapy requiring intensive monitoring for toxicity (Heparin, Nitro, Insulin, Cardizem)? @ -no Were any procedures done? @ -no Diagnosis/symptom? @ - Acute, or Chronic, or Acute on Chronic? @ -Acute Uncomplicated (without systemic symptoms) or Complicated (systemic symptoms)? @ -Complicated Side effects of treatment? @ -no Exacerbation, Progression, or Severe Exacerbation? @ -exacerbation Poses a threat to life or bodily function? How? (Chest pain, USA, LA, pneumonia, PE, COPD, DKA, ARF, appy, cholecystitis, CVA, Diverticulitis, Homicidal, Suicidal, threat to staff... and all critical care pts) @ -yes (Igor Monzon) Medical Decision Making - Lab Data Result diagrams: 07/15/23 16:04 07/15/23 16:04 <Igor Monzon - Last Filed: 07/15/23 19:13> - Lab Data Result diagrams: 07/15/23 16:04 07/15/23 16:04 <Trev Cortez - Last Filed: 07/16/23 06:44> - Medical Decision Making 72 male be admitted for UTI with uncontrolled sacral decubitus ulcer. (Igor Monzon) Was pt. sent in by a medical professional or institution (, PA, BRANCH LOGISTICS SUPERVISOR, urgent care, hospital, or intermediate...) When possible be specific @ -Visiting nurse, visiting physician Did you speak to anyone other than the patient for history (EMS, parent, family, police, friend...)? What history was obtained from this source @ -No Did you review nursing and triage notes (agree or disagree)? Why? @ -I reviewed and agree with nursing and triage notes Were old charts reviewed (outside hosp., previous admission, EMS record, old EKG, old radiological studies, urgent care reports/EKG's, intermediate records)? Report findings @ -No old charts were reviewed Differential Diagnosis (chest pain, altered mental status, abdominal pain women, abdominal pain men, vaginal bleeding, weakness, fever, dyspnea, syncope, headache, dizziness, GI bleed, back pain, seizure, CVA, palpatations, mental health, musculoskeletal)? @ -Differential Weakness: Hypoglycemia, shock, sepsis, hyponatremia, anemia, infection, LA, ETOH, adverse medicine reaction, overdose, stroke, this is not meant to be an all-inclusive list. EKG interpreted by me (3pts min.). @ -None X-rays interpreted by me (1pt min.). @ -None done CT interpreted by me (1pt min.). @ -None done U/S interpreted by me (1pt. min.). @ -None done What testing was considered but not performed or refused? (CT, X-rays, U/S, labs)? Why? @ -None What meds were considered but not given or refused? Why? @ -None Did you discuss the management of the patient with other professionals (professionals i.e. , PA, BRANCH LOGISTICS SUPERVISOR, lab, RT, psych nurse, long term care social worker, air conditioning mechanic industrial, teacher, chief learning officer, major case detective)? Give summary @ - for admission Was smoking cessation discussed for >3mins.? @ -No Was critical care preformed (if so, how long)? @ -No Were there social determinants of health that impacted care today? How? (Homelessness, low income, unemployed, alcoholism, drug addiction, transportation, low edu. Level, literacy, decrease access to med. care, prison, r ehab)? @ -No Was there de-escalation of care discussed even if they declined (Discuss DNR or withdrawal of care, Hospice)? DNR status @ -No What co-morbidities impacted this encounter? (DM, HTN, Smoking, COPD, CAD, Cancer, CVA, ARF, Chemo, Hep., AIDS, mental health diagnosis, sleep apnea, morbid obesity)? @ -Chronic Ye, bedbound, Was patient admitted / discharged? Hospital course, mention meds given and route, prescriptions, significant lab abnormalities, going to OR and other pertinent info. @ -Admitted patient was sent in for ongoing urinary tract infection with multiple resistant antibiotics, patient does have worsening acute on chronic decubitus ulcer requiring further treatment. Patient was placed on IV antibiotics patient did have laboratory studies, urine culture, blood culture. Undiagnosed new problem with uncertain prognosis? @ -No Drug Therapy requiring intensive monitoring for toxicity (Heparin, Nitro, Insulin, Cardizem)? @ -No Were any procedures done? @ -No Diagnosis/symptom? @ -UTI, acute on chronic decubitus ulcer Acute, or Chronic, or Acute on Chronic? @ -Acute Uncomplicated (without systemic symptoms) or Complicated (systemic symptoms)? @ -Complicated Side effects of treatment? @ -No Exacerbation, Progression, or Severe Exacerbation? @ -No Poses a threat to life or bodily function? How? (Chest pain, USA, LA, pneumonia, PE, COPD, DKA, ARF, appy, cholecystitis, CVA, Diverticulitis, Homicidal, Suicidal, threat to staff... and all critical care pts) @ -Yes possible sepsis, endorgan failure (Trev Cortez) - Lab Data Lab Results 07/15/23 07/15/23 07/15/23 Range/Units 16:04 16:04 16:04 WBC 6.5 (3.8-10.6) k/uL RBC 4.19 L (4.30-5.90) m/uL Hgb 10.9 L (13.0-17.5) gm/dL Hct 35.2 L (39.0-53.0) % MCV 83.9 (80.0-100.0) fL MCH 26.0 (25.0-35.0) pg MCHC 31.0 (31.0-37.0) g/dL RDW 15.7 H (11.5-15.5) % Plt Count 248 (150-450) k/uL MPV 8.3 Neutrophils % 75 % Lymphocytes % 17 % Monocytes % 5 % Eosinophils % 1 % Basophils % 0 % Neutrophils # 4.9 (1.3-7.7) k/uL Lymphocytes # 1.1 (1.0-4.8) k/uL Monocytes # 0.3 (0-1.0) k/uL Eosinophils # 0.1 (0-0.7) k/uL Basophils # 0.0 (0-0.2) k/uL Hypochromasia Slight Sodium 134 L (137-145) mmol/L Potassium 3.4 L (3.5-5.1) mmol/L Chloride 101 (98-107) mmol/L Carbon Dioxide 28 (22-30) mmol/L Anion Gap 5 mmol/L BUN 14 (9-20) mg/dL Creatinine 0.78 (0.66-1.25) mg/dL Est GFR (CKD-EPI)AfAm >90 (>60 ml/min/1.73 sqM) Est GFR (CKD-EPI)NonAf 90 (>60 ml/min/1.73 sqM) Glucose 87 (74-99) mg/dL Plasma Lactic Acid Robbin 0.9 (0.7-2.0) mmol/L Calcium 8.4 (8.4-10.2) mg/dL Total Bilirubin 0.6 (0.2-1.3) mg/dL AST 21 (17-59) U/L ALT 14 (4-49) U/L Alkaline Phosphatase 84 (38-126) U/L Total Protein 6.3 (6.3-8.2) g/dL Albumin 3.2 L (3.5-5.0) g/dL Urine Color Urine Appearance (Clear) Urine pH (5.0-8.0) Ur Specific Taylor (1.001-1.035) Urine Protein (Negative) Urine Glucose (UA) (Negative) Urine Ketones (Negative) Urine Blood (Negative) Urine Nitrite (Negative) Urine Bilirubin (Negative) Urine Urobilinogen (<2.0) mg/dL Ur Leukocyte Esterase (Negative) Urine RBC (0-5) /hpf Urine WBC (0-5) /hpf Urine WBC Clumps (None) /hpf Ur Squamous Epith Cells (0-4) /hpf Amorphous Sediment (None) /hpf Urine Bacteria (None) /hpf Urine Mucus (None) /hpf Urine Yeast (Budding) (None) /hpf 07/15/23 Range/Units 16:45 WBC (3.8-10.6) k/uL RBC (4.30-5.90) m/uL Hgb (13.0-17.5) gm/dL Hct (39.0-53.0) % MCV (80.0-100.0) fL MCH (25.0-35.0) pg MCHC (31.0-37.0) g/dL RDW (11.5-15.5) % Plt Count (150-450) k/uL MPV Neutrophils % % Lymphocytes % % Monocytes % % Eosinophils % % Basophils % % Neutrophils # (1.3-7.7) k/uL Lymphocytes # (1.0-4.8) k/uL Monocytes # (0-1.0) k/uL Eosinophils # (0-0.7) k/uL Basophils # (0-0.2) k/uL Hypochromasia Sodium (137-145) mmol/L Potassium (3.5-5.1) mmol/L Chloride (98-107) mmol/L Carbon Dioxide (22-30) mmol/L Anion Gap mmol/L BUN (9-20) mg/dL Creatinine (0.66-1.25) mg/dL Est GFR (CKD-EPI)AfAm (>60 ml/min/1.73 sqM) Est GFR (CKD-EPI)NonAf (>60 ml/min/1.73 sqM) Glucose (74-99) mg/dL Plasma Lactic Acid Robbin (0.7-2.0) mmol/L Calcium (8.4-10.2) mg/dL Total Bilirubin (0.2-1.3) mg/dL AST (17-59) U/L ALT (4-49) U/L Alkaline Phosphatase (38-126) U/L Total Protein (6.3-8.2) g/dL Albumin (3.5-5.0) g/dL Urine Color Yellow Urine Appearance Turbid (Clear) Urine pH 5.5 (5.0-8.0) Ur Specific Taylor 1.020 (1.001-1.035) Urine Protein 1+ H (Negative) Urine Glucose (UA) Negative (Negative) Urine Ketones Negative (Negative) Urine Blood Small H (Negative) Urine Nitrite Negative (Negative) Urine Bilirubin Negative (Negative) Urine Urobilinogen <2.0 (<2.0) mg/dL Ur Leukocyte Esterase Large H (Negative) Urine RBC 58 H (0-5) /hpf Urine WBC >182 H (0-5) /hpf Urine WBC Clumps Occasional H (None) /hpf Ur Squamous Epith Cells 2 (0-4) /hpf Amorphous Sediment Occasional H (None) /hpf Urine Bacteria Occasional H (None) /hpf Urine Mucus Many H (None) /hpf Urine Yeast (Budding) Many H (None) /hpf Disposition Is patient prescribed a controlled substance at d/c from ED?: No Time of Disposition: 18:30 <Igor Monzon - Last Filed: 07/15/23 19:13> <Trev Cortez - Last Filed: 07/16/23 06:44> Clinical Impression: Urinary tract infection, Decubitus ulcer, stage III, Weakness Disposition: ADMITTED IP TO THIS HOSP Condition: Fair
[2023-07-15 16:22] LABS: Basophils % (A) 0 %; Eosinophils # (A) 0.1 k/uL (0-0.7); Eosinophils % (A) 1 %; HCT 35.2 % (39.0-53.0); HGB 10.9 gm/dL (13.0-17.5); Hypochromasia Slight; Lymphocytes # (A) 1.1 k/uL (1.0-4.8); Lymphocytes % (A) 17 %; MCV 83.9 fL (80.0-100.0); Mean Platelet Volume 8.3; Monocytes # (A) 0.3 k/uL (0-1.0); Monocytes % (A) 5 %; Neutrophils # (A) 4.9 k/uL (1.3-7.7); Neutrophils % (A) 75 %; Platelet Count 248 k/uL (150-450); RBC 4.19 m/uL (4.30-5.90); RDW 15.7 % (11.5-15.5); WBC 6.5 k/uL (3.8-10.6)
[2023-07-15 16:31] LABS: ALT 14 U/L (4-49); AST 21 U/L (17-59); African American GFR (CKD) >90 (>60 ml/min/1.73 sqM); Albumin 3.2 g/dL (3.5-5.0); Alkaline Phosphatase 84 U/L (38-126); Anion Gap 5 mmol/L; Blood Urea Nitrogen 14 mg/dL (9-20); Calcium 8.4 mg/dL (8.4-10.2); Carbon Dioxide 28 mmol/L (22-30); Chloride 101 mmol/L (98-107); Glucose 87 mg/dL (74-99); Non-African American GFR(CKD) 90 (>60 ml/min/1.73 sqM); Potassium 3.4 mmol/L (3.5-5.1); Sodium 134 mmol/L (137-145); Total Bilirubin 0.6 mg/dL (0.2-1.3); Total Protein 6.3 g/dL (6.3-8.2)
[2023-07-15 17:05] LABS: Amorphous Sediment,Urine Occasional /hpf; Appearance,Urine Turbid (Clear); Bacteria,Urine Occasional /hpf; Bilirubin,Urine Negative (Negative); Blood,Urine Small (Negative); Budding Yeast,Urine Many /hpf; Color,Urine Yellow; Glucose,Urine (UA) Negative (Negative); Ketones,Urine Negative (Negative); Leukocyte Esterase,Urine Large (Negative); Mucus,Urine Many /hpf; Nitrite,Urine Negative (Negative); PH, Urine 5.5 (5.0-8.0); Protein,Urine 1+ (Negative); RBC,Urine 58 /hpf (0-5); Squamous Epithelial Cell,Urine 2 /hpf (0-4); Urobilinogen,Urine <2.0 mg/dL (<2.0); WBC,Urine >182 /hpf (0-5)
[2023-07-15] MEDS ORDERED: VANCOMYCIN IV PER PHARMACY 1 EACH MISC MISCELLANE PRN (17:28)
[2023-07-15] MEDS ORDERED: MORPHINE SULFATE 4 MG/ML SYRINGE IV PRN (18:22)
[2023-07-15] MEDS ORDERED: ONDANSETRON 4 MG/2 ML VIAL IVP PRN (18:22)
[2023-07-15] MEDS ORDERED: NALOXONE 0.4 MG/ML 1 ML VIAL IV PRN (18:22)
[2023-07-15] MEDS: VANCOMYCIN 1,500 MG in SODIUM CHLORIDE 0.9% 500 ML 500 ML IVPB STA (18:23)
[2023-07-15] MEDS: SODIUM CHLORIDE 0.9% 500 ML 500 ML IV STA (18:23)
[2023-07-15] MEDS: POTASSIUM BICARBONATE/CIT AC 20 MEQ TABLET.EFF PO ONE (18:23)
[2023-07-15] MEDS: SODIUM CHLORIDE 0.9% 1,000 ML IV SCH ×2 (18:24→19:12)
--- NOTE | 2023-07-15 21:23 | P.HPIM ---
History of Present Illness H&P Date: 07/15/23 Chief Complaint: Fever This is a 72-year-old patient follows with visiting physicians Dr. Valero. 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 For which he saw a few years ago Dr. Leo. At [facility]. He was told that removing the tumor could be more dangerous than leaving it alone. Patient recently in the hospital from May 05 through May 22. Has lower back pressure ulcers. Colostomy. Patient nonambulatory now pretty much bedbound [facility] and home care. Has chronic Ye the current one was changed about 8 days ago. Patient came to the ER. [place] feverish at home feeling hot and cold. Decreased appetite. Vomited x 2 yesterday. Some drainage from the sacral wound. Review of systems: GEN.: Tired, decreased appetite, felt hot and cold EYES: None HEENT: None NECK: None RESPIRATORY: None CARDIOVASCULAR: None GASTROINTESTINAL: None GENITOURINARY: None MUSCULOSKELETAL: Joint pains muscles as above LYMPHATICS: None HEMATOLOGICAL: None PSYCHIATRY: None NEUROLOGICAL: Paraparesis Social history: No smoking or alcohol. Brother is in and out of the house. [facility] at home care. Now pretty much in bed. Physical examination: VITAL SIGNS: 97.5, 70, 18, 131 x 72, 99% room air GENERAL: Lying in bed, awake EYES: Pupils equal. Conjunctiva normal. HEENT: External appearance of nose and ears normal, oral cavity grossly normal. NECK: JVD not raised; masses not palpable. HEART: First and second heart sounds are normal; no edema. LUNGS: Respiratory rate normal; clear to auscultation. ABDOMEN: Soft, nontender, liver spleen not palpable, no masses palpable,- colostomy bag PSYCH: Alert and oriented x3; mood and affect normal. MUSCULOSKELETAL:No Clubbing/cyanosis;muscles-grossly intact. DERMATOLOGICAL: Chronic venous stasis changes in lower extremity, Unstageable wounds on the sacrum/buttocks NEUROLOGICAL: Cranial nerves grossly intact; no facial asymmetry, weakness lower extremity, power 1/ 5.. INVESTIGATIONS, reviewed in the clinical context: 3.4 creatinine 0.78 UA: Positive for leukoesterase WBC squamous cells 2 bacteria Assessment and plan: -Acute on chronic Unstageable pressure ulcer left buttock, right buttocks, stage I pressure ulcer lower back.: Wound care team following Dr. Kumar. See previous course of antibiotics Diverting colostomy done by Dr. Dupont on May 09 2023 May 15: Sacral wound debrided by Dr Dupont -chronic medical debility. Patient states he has not been out of bed for few days. -Venous stasis/dermatitis changes in lower extremity. Calf wound. Seen by Dr. Ye from vascular: No further intervention. Outpatient follow-up -Chronic Ye catheter. 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 Not felt to be surgical candidate -Paroxysmal atrial fibrillation. Currently sinus rhythm. Was previously on Eliquis -Full code Care was discussed with the patient. Questions answered. Consult Dr Dupont for debridement of wound. Dr. Jean Baptiste from ID. Past Medical History Past Medical History: Atrial Fibrillation, Hyperlipidemia, Osteoarthritis (OA) Additional Past Medical History / Comment(s): Bulging disks, bilateral knee arthritis, UTI, blood infection History of Any Multi-Drug Resistant Organisms: None Reported Past Surgical History: Orthopedic Surgery, Tonsillectomy Additional Past Surgical History / Comment(s): Knee replacement surgery, tonsills out at 7 yrs old, torn meninscus Past Anesthesia/Blood Transfusion Reactions: No Reported Reaction Additional Past Anesthesia/Blood Transfusion Reaction / Comment(s): Patient not sure if hes ever had a blood transfusion. Past Psychological History: Anxiety Smoking Status: Former smoker Past Alcohol Use History: None Reported Past Drug Use History: None Reported - Past Family History Mother Family Medical History: CVA/TIA, Myocardial Infarction ([place]) Father Family Medical History: Congestive Heart Failure (CHF) Medications and Allergies Home Medications Medication Instructions Recorded Confirmed Type Gabapentin [Neurontin] 200 mg PO TID 05/06/23 07/15/23 History Amiodarone [Cordarone] 100 mg PO BID 07/15/23 07/15/23 History cefUROXime axetiL [Ceftin] 500 mg PO DIRECTED 07/15/23 07/15/23 History nitrofurantoin macrocrystaL 100 mg PO DIRECTED 07/15/23 07/15/23 History Allergies Allergy/AdvReac Type Severity Reaction Status Date / Time Hocsoia-JGU-IiQ Reductase Allergy Rash/Hives Verified 07/15/23 15:08 Inhibitor [Hnqypev-Rbs-Ztl Reductase Inhibitor] Physical Exam Vitals: Vital Signs Temp Pulse Resp BP Pulse Ox 07/15/23 20:30 70 18 131/72 07/15/23 19:16 72 18 128/73 99 07/15/23 18:41 74 18 120/69 97 07/15/23 15:06 97.5 F L 61 20 117/58 98 Intake and Output 07/15/23 07/15/23 07/15/23 06:59 14:59 22:59 Other: Weight 77.111 kg Results CBC & Chem 7: 07/15/23 16:04 07/15/23 16:04 Labs: Abnormal Lab Results - Last 24 Hours (Table) 07/15/23 07/15/23 07/15/23 Range/Units 16:04 16:04 16:45 RBC 4.19 L (4.30-5.90) m/uL Hgb 10.9 L (13.0-17.5) gm/dL Hct 35.2 L (39.0-53.0) % RDW 15.7 H (11.5-15.5) % Sodium 134 L (137-145) mmol/L Potassium 3.4 L (3.5-5.1) mmol/L Albumin 3.2 L (3.5-5.0) g/dL Urine Protein 1+ H (Negative) Urine Blood Small H (Negative) Ur Leukocyte Esterase Large H (Negative) Urine RBC 58 H (0-5) /hpf Urine WBC >182 H (0-5) /hpf Urine WBC Clumps Occasional H (None) /hpf Amorphous Sediment Occasional H (None) /hpf Urine Bacteria Occasional H (None) /hpf Urine Mucus Many H (None) /hpf Urine Yeast (Budding) Many H (None) /hpf
[2023-07-16 07:58] LABS: Basophils % (A) 0 %; Eosinophils # (A) 0.2 k/uL (0-0.7); Eosinophils % (A) 3 %; HCT 33.4 % (39.0-53.0); HGB 10.2 gm/dL (13.0-17.5); Hypochromasia Slight; Lymphocytes # (A) 1.1 k/uL (1.0-4.8); Lymphocytes % (A) 23 %; MCHC 30.7 g/dL (31.0-37.0); MCV 84.9 fL (80.0-100.0); Monocytes # (A) 0.3 k/uL (0-1.0); Monocytes % (A) 6 %; Neutrophils # (A) 3.2 k/uL (1.3-7.7); Neutrophils % (A) 66 %; Platelet Count 259 k/uL (150-450); RBC 3.94 m/uL (4.30-5.90); RDW 15.9 % (11.5-15.5); WBC 4.9 k/uL (3.8-10.6)
[2023-07-16 08:21] LABS: ALT 12 U/L (4-49); AST 19 U/L (17-59); African American GFR (CKD) >90 (>60 ml/min/1.73 sqM); Albumin 2.8 g/dL (3.5-5.0); Alkaline Phosphatase 79 U/L (38-126); Anion Gap 2 mmol/L; Blood Urea Nitrogen 11 mg/dL (9-20); Calcium 8.2 mg/dL (8.4-10.2); Carbon Dioxide 26 mmol/L (22-30); Chloride 108 mmol/L (98-107); Globulin 2.9 g/dL; Glucose 99 mg/dL (74-99); Magnesium 1.8 mg/dL (1.6-2.3); Non-African American GFR(CKD) >90 (>60 ml/min/1.73 sqM); Phosphorus 3.7 mg/dL (2.5-4.5); Potassium 3.6 mmol/L (3.5-5.1); Sodium 136 mmol/L (137-145); Total Bilirubin 0.5 mg/dL (0.2-1.3); Total Protein 5.7 g/dL (6.3-8.2)
[2023-07-16] MEDS: VANCOMYCIN 1,500 MG in SODIUM CHLORIDE 0.9% 500 ML 500 ML IVPB SCH (09:22)
[2023-07-16] MEDS: AMPICILLIN-SULBACTAM 3 GM in SODIUM CHLORIDE 0.9% 100 ML IVPB SCH (12:55)
--- NOTE | 2023-07-16 18:06 | P.CON ---
Consult Note - . Consult date: 07/16/23 Assessment/Plan:: Chief Complaint: Fever This is a 72-year-old patient presents with fever. Patient recently in the hospital from May 05 through May 22. Has lower back pressure ulcers. Colostomy. Patient nonambulatory now pretty much bedbound [facility] and home care. Has chronic Ye the current one was changed about 8 days ago. Patient came to the ER. [place] feverish at home feeling hot and cold. Decreased appetite. Vomited x 2 yesterday. Some drainage from the sacral wound. Review of systems: GEN.: Tired, decreased appetite, felt hot and cold EYES: None HEENT: None NECK: None RESPIRATORY: None CARDIOVASCULAR: None GASTROINTESTINAL: None GENITOURINARY: None MUSCULOSKELETAL: Joint pains muscles as above LYMPHATICS: None HEMATOLOGICAL: None PSYCHIATRY: None NEUROLOGICAL: Paraparesis Social history: No smoking or alcohol. Physical examination: VITAL SIGNS: 97.5, 70, 18, 131 x 72, 99% room air GENERAL: Lying in bed, awake EYES: Pupils equal. Conjunctiva normal. HEENT: External appearance of nose and ears normal, oral cavity grossly normal. NECK: JVD not raised; masses not palpable. HEART: First and second heart sounds are normal; no edema. LUNGS: Respiratory rate normal; clear to auscultation. ABDOMEN: Soft, nontender, liver spleen not palpable, no masses palpable,- colostomy bag PSYCH: Alert and oriented x3; mood and affect normal. MUSCULOSKELETAL:No Clubbing/cyanosis;muscles-grossly intact. DERMATOLOGICAL: Chronic venous stasis changes in lower extremity, Unstageable wounds on the sacrum/buttocks NEUROLOGICAL: Cranial nerves grossly intact; no facial asymmetry, weakness low er extremity, power 1/ 5.. Assessment and plan: Sacral Decubitus Ulcer Wound care team following See previous course of antibiotics Diverting colostomy done by Dr. Dupont on May 09 2023 May 15: Sacral wound debrided by Dr Dupont - Previous debrided ulcer is clean . Patient is still waiting on Wound Vac which is going to be delivered to his house Tuesday. No further debridement required for sacral ulcer. Patient may require further debridement in OR of left buttock ulcer which is difficult to visualize due to patients inability to roll on his ride side because of the pain he experiences. Will defer to his surgeon Dr Dupont
--- NOTE | 2023-07-16 19:52 | P.PN ---
Progress Note - Text Progress Note Date: 07/16/23 Chief Complaint: Fever This is a 72-year-old patient follows with visiting physicians Dr. Valero. 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 For which he saw a few years ago Dr. Leo. At [facility]. He was told that removing the tumor could be more dangerous than leaving it alone. Patient recently in the hospital from May 05 through May 22. Has lower back pressure ulcers. Colostomy. Patient nonambulatory now pretty much bedbound [facility] and home care. Has chronic Ye the current one was changed about 8 days ago. Patient came to the ER. [place] feverish at home feeling hot and cold. Decreased appetite. Vomited x 2 yesterday. Some drainage from the sacral wound. July 15: Patient seen by surgeon Dr. Vazquez.-Patient's wound VAC is gone to be delivered results on Tuesday. Left buttock ulcer probably to be debrided with Dr Dupont/OR. Oral intake fair Active Medications Sodium Chloride (Saline 0.9%) 1,000 mls @ 130 mls/hr IV .Q7H42M [facility] Last Admin: 07/16/23 17:08 Dose: Not Given Vancomycin HCl 1,500 mg/ (Sodium Chloride) 500 mls @ 167 mls/hr IVPB Q12H [facility] Last Admin: 07/16/23 09:22 Dose: 167 mls/hr Sodium Chloride (Saline 0.9%) 1,000 mls @ 130 mls/hr IV .Q7H42M [facility] Last Admin: 07/16/23 12:54 Dose: Not Given Ampicillin Sodium/Sulbactam (Sodium 3 gm/ Sodium Chloride) 100 mls @ 200 mls/hr IVPB Q6HR [facility]; Protocol Last Admin: 07/16/23 12:55 Dose: 200 mls/hr Miscellaneous Information (Vancomycin Trough Due 1 Each Misc) 0 each MISCELLANE DIRECTED ONE Stop: 07/17/23 08:01 Morphine Sulfate (Morphine Sulfate 4 Mg/Ml Syringe) 4 mg IV Q4HR PRN PRN Reason: Severe Pain (Scale 7 to 10) Naloxone HCl (Naloxone 0.4 Mg/Ml 1 Ml Vial) 0.2 mg IV Q2M PRN PRN Reason: Opioid Reversal Ondansetron HCl (Ondansetron 4 Mg/2 Ml Vial) 4 mg IVP Q8HR PRN PRN Reason: Nausea And Vomiting Social history: No smoking or alcohol. Brother is in and out of the house. [facility] at home care. Now pretty much in bed. Physical examination: VITAL SIGNS: 98.1, 62, 17, 112/63, 95% room air GENERAL: Lying in bed, awake EYES: Pupils equal. Conjunctiva normal. HEENT: External appearance of nose and ears normal, oral cavity grossly normal. NECK: JVD not raised; masses not palpable. HEART: First and second heart sounds are normal; no edema. LUNGS: Respiratory rate normal; clear to auscultation. ABDOMEN: Soft, nontender, liver spleen not palpable, no masses palpable,- colostomy bag PSYCH: Alert and oriented x3; mood and affect normal. MUSCULOSKELETAL:No Clubbing/cyanosis;muscles-grossly intact. DERMATOLOGICAL: Chronic venous stasis changes in lower extremity, Unstageable wounds on the sacrum/buttocks NEUROLOGICAL: Cranial nerves grossly intact; no facial asymmetry, weakness lower extremity, power 1/ 5.. INVESTIGATIONS, reviewed in the clinical context: July 15: White count 4.9 hemoglobin 10.2 platelets 259 potassium 3.6 creatinine 0.65 3.4 creatinine 0.78 UA: Positive for leukoesterase WBC squamous cells 2 bacteria Assessment and plan: -Acute on chronic Unstageable pressure ulcer left buttock, right buttocks, stage I pressure ulcer lower back.: Wound care team following Dr. Kumar. See previous course of antibiotics Diverting colostomy done by Dr. Dupont on May 09 2023 May 15: Sacral wound debrided by Dr Dupont Wound VAC will be delivered to patient's house on Tuesday -chronic medical debility. Patient states he has not been out of bed for few days. -Venous stasis/dermatitis changes in lower extremity. Calf wound. Seen by Dr. Ye from vascular: No further intervention. Outpatient follow-up -Chronic Ye catheter. 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 Not felt to be surgical candidate -Paroxysmal atrial fibrillation. Currently sinus rhythm. Was previously on Eliquis -Full code Await input from Dr. Boswell about further intervention/debridement Past Medical History Past Medical History: Atrial Fibrillation, Hyperlipidemia, Osteoarthritis (OA) Additional Past Medical History / Comment(s): Bulging disks, bilateral knee arthritis, UTI, blood infection History of Any Multi-Drug Resistant Organisms: None Reported Past Surgical History: Orthopedic Surgery, Tonsillectomy Additional Past Surgical History / Comment(s): Knee replacement surgery, tonsills out at 7 yrs old, torn meninscus Past Anesthesia/Blood Transfusion Reactions: No Reported Reaction Additional Past Anesthesia/Blood Transfusion Reaction / Comment(s): Patient not sure if hes ever had a blood transfusion. Past Psychological History: Anxiety Smoking Status: Former smoker Past Alcohol Use History: None Reported Past Drug Use History: None Reported
[2023-07-16] MEDS: GABAPENTIN 100 MG CAP PO SCH (20:21)
[2023-07-17] MEDS: VANCOMYCIN TROUGH DUE 1 EACH MISC MISCELLANE ONE (08:10)
--- NOTE | 2023-07-17 08:55 | P.CONS ---
History of Present Illness - Reason for Consult Consult date: 07/16/23 - History of Present Illness Patient is a 72-year-old male with a past medical history significant for atrial fibrillation hyperlipidemia osteoarthritis in this patient who was recently admitted to the hospital and did have a infected sacral pressure ulcer for the patient did have diverting colostomy on 05/09/2023 to help heal the wound he also have a surgical debridement of the wound culture positive for MSSA P roteus E. coli sensitive to cefazolin and the patient has completed a course of IV cefazolin and Flagyl patient now presenting back to the hospital concerning for UTI and worsening of his sacral wound apparently the patient did have a wound culture done by his visiting physician on 07/08/2023 that did grew Enterococcus that was resistant to ampicillin sensitive to vancomycin patient denies having any fever or any chills denies any headache or URI symptoms no chest pain shortness of breath or cough no nausea no vomiting no abdominal pain has been complaining of some pain to the sacral wound mild to moderate intensity without radiation has some drainage patient on presentation to the hospital was afebrile and no fever have recorded subsequently patient did have white count of 6.5 creatinine has been 0.78 urine has been positive with a culture is currently pending as mentioned earlier last urine culture was on 07/08/2023 there was Enterococcus faecium resistant to ampicillin sensitive to vancomycin Past Medical History Past Medical History: Atrial Fibrillation, Hyperlipidemia, Osteoarthritis (OA) Additional Past Medical History / Comment(s): Bulging disks, bilateral knee arthritis, UTI, blood infection History of Any Multi-Drug Resistant Organisms: None Reported Past Surgical History: Orthopedic Surgery, Tonsillectomy Additional Past Surgical History / Comment(s): Knee replacement surgery, tonsills out at 7 yrs old, torn meninscus Past Anesthesia/Blood Transfusion Reactions: No Reported Reaction Additional Past Anesthesia/Blood Transfusion Reaction / Comm: Patient not sure if hes ever had a blood transfusion. Past Psychological History: Anxiety Smoking Status: Former smoker Past Alcohol Use History: None Reported Past Drug Use History: None Reported - Past Family History Mother Family Medical History: CVA/TIA, Myocardial Infarction (HI) Father Family Medical History: Congestive Heart Failure (CHF) Medications and Allergies Home Medications Medication Instructions Recorded Confirmed Type Gabapentin [Neurontin] 200 mg PO TID 05/06/23 07/15/23 History Amiodarone [Cordarone] 100 mg PO BID 07/15/23 07/15/23 History cefUROXime axetiL [Ceftin] 500 mg PO DIRECTED 07/15/23 07/15/23 History nitrofurantoin macrocrystaL 100 mg PO DIRECTED 07/15/23 07/15/23 History Allergies Allergy/AdvReac Type Severity Reaction Status Date / Time Mcnysmy-JBC-FbY Reductase Allergy Rash/Hives Verified 07/15/23 15:08 Inhibitor [Aehetvo-Bdz-Zgb Reductase Inhibitor] Physical Exam Vitals: Vital Signs Temp Pulse Pulse Resp BP BP Pulse Ox 07/16/23 07:00 98.1 F 62 17 112/63 95 07/16/23 02:40 97.8 F 75 18 111/66 95 07/15/23 21:43 98.6 F 62 18 131/74 94 L 07/15/23 20:30 70 18 131/72 07/15/23 19:16 72 18 128/73 99 07/15/23 18:41 74 18 120/69 97 07/15/23 15:06 97.5 F L 61 20 117/58 98 Intake and Output 07/15/23 07/16/23 07/16/23 22:59 06:59 14:59 Output Total 1200 Balance -1200 Output: Urine 1200 Other: Weight 77.111 kg 77.111 kg Results CBC & Chem 7: 07/16/23 07:25 07/17/23 08:11 Labs: Abnormal Lab Results - Last 24 Hours (Table) 07/15/23 07/15/23 07/15/23 Range/Units 16:04 16:04 16:45 RBC 4.19 L (4.30-5.90) m/uL Hgb 10.9 L (13.0-17.5) gm/dL Hct 35.2 L (39.0-53.0) % MCHC (31.0-37.0) g/dL RDW 15.7 H (11.5-15.5) % Sodium 134 L (137-145) mmol/L Potassium 3.4 L (3.5-5.1) mmol/L Chloride (98-107) mmol/L Creatinine (0.66-1.25) mg/dL Calcium (8.4-10.2) mg/dL Total Protein (6.3-8.2) g/dL Albumin 3.2 L (3.5-5.0) g/dL Urine Protein 1+ H (Negative) Urine Blood Small H (Negative) Ur Leukocyte Esterase Large H (Negative) Urine RBC 58 H (0-5) /hpf Urine WBC >182 H (0-5) /hpf Urine WBC Clumps Occasional H (None) /hpf Amorphous Sediment Occasional H (None) /hpf Urine Bacteria Occasional H (None) /hpf Urine Mucus Many H (None) /hpf Urine Yeast (Budding) Many H (None) /hpf 07/16/23 07/16/23 Range/Units 07:25 07:25 RBC 3.94 L (4.30-5.90) m/uL Hgb 10.2 L (13.0-17.5) gm/dL Hct 33.4 L (39.0-53.0) % MCHC 30.7 L (31.0-37.0) g/dL RDW 15.9 H (11.5-15.5) % Sodium 136 L (137-145) mmol/L Potassium (3.5-5.1) mmol/L Chloride 108 H (98-107) mmol/L Creatinine 0.65 L (0.66-1.25) mg/dL Calcium 8.2 L (8.4-10.2) mg/dL Total Protein 5.7 L (6.3-8.2) g/dL Albumin 2.8 L (3.5-5.0) g/dL Urine Protein (Negative) Urine Blood (Negative) Ur Leukocyte Esterase (Negative) Urine RBC (0-5) /hpf Urine WBC (0-5) /hpf Urine WBC Clumps (None) /hpf Amorphous Sediment (None) /hpf Urine Bacteria (None) /hpf Urine Mucus (None) /hpf Urine Yeast (Budding) (None) /hpf Assessment and Plan Plan: 1patient presented to the hospital with feeling weak hot and cold feverish did have vomiting and apparently recent UTI with urine culture in the outpatient setting positive for Enterococcus faecium however the patient not very clear if he has received any antibiotics for it and also some drainage from his sacral wound. 2await surgical evaluation and see need for any debridement of the wound and deep culture. 3patient restarted on vancomycin to cover for the Enterococcus faecium UTI we will add Unasyn to cover for the pathogen that has previously grown from his infected sacral wound while waiting for the workup to be completed. Question concern answered We will follow on clinical condition and cultures to further adjust medication if needed Thank you for this consultation we will follow the patient along with you Dictation was produced using [employer] dictation software. please excuse any grammatical, word or spelling errors. Time with Patient: Greater than 30
[2023-07-17 09:17] LABS: African American GFR (CKD) >90 (>60 ml/min/1.73 sqM); Non-African American GFR(CKD) >90 (>60 ml/min/1.73 sqM)
--- NOTE | 2023-07-17 09:37 | P.PN ---
Subjective Progress Note Date: 07/17/23 this is a [id number] male with history of chronic decubitus ulcers. Patient has E. History of diverting colostomy. Patient's ulcers have evidence of some necrotic tissue. He'll be planned for debridement of decubitus ulcer in the a.m. Objective - Vital Signs Vital signs: Vital Signs Temp 97.5 F L 07/17/23 07:01 Pulse 62 07/17/23 07:01 Resp 18 07/17/23 07:01 BP 136/70 07/17/23 07:01 Pulse Ox 93 L 07/17/23 07:01 FiO2 Intake & Output 07/16/23 07/17/23 07/17/23 18:59 06:59 18:59 Output Total 760 2200 Balance -760 -2200 Output: Urine 640 2200 Stool 120 - Labs CBC & Chem 7: 07/16/23 07:25 07/17/23 08:11 Labs: Abnormal Lab Results - Last 24 Hours (Table) 07/17/23 Range/Units 08:11 Creatinine 0.55 L (0.66-1.25) mg/dL Microbiology - Last 24 Hours (Table) 07/15/23 16:45 Urine Culture - Preliminary Urine,Voided Group D Enterococcus 07/15/23 17:20 Blood Culture - Preliminary Blood 07/15/23 17:05 Blood Culture - Preliminary Blood
--- NOTE | 2023-07-17 16:22 | P.PN ---
Progress Note - Text Progress Note Date: 07/17/23 Chief Complaint: Fever This is a 72-year-old patient follows with visiting physicians Dr. Valero. 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 For which he saw a few years ago Dr. Leo. At [facility]. He was told that removing the tumor could be more dangerous than leaving it alone. Patient recently in the hospital from May 05 through May 22. Has lower back pressure ulcers. Colostomy. Patient nonambulatory now pretty much bedbound [facility] and home care. Has chronic Ye the current one was changed about 8 days ago. Patient came to the ER. [place] feverish at home feeling hot and cold. Decreased appetite. Vomited x 2 yesterday. Some drainage from the sacral wound. July 15: Patient seen by surgeon Dr. Vazquez.-Patient's wound VAC is gone to be delivered results on Tuesday. Left buttock ulcer probably to be debrided with Dr Dupont/OR. Oral intake fair July 16: Comfortable in bed. Eating well. Await decision from Dr Dupont but further debridement. On IV Unasyn. Active Medications Gabapentin (Gabapentin 100 Mg Cap) 200 mg PO TID [facility] Last Admin: 07/17/23 15:15 Dose: 200 mg Sodium Chloride (Saline 0.9%) 1,000 mls @ 130 mls/hr IV .Q7H42M [facility] Last Admin: 07/17/23 00:48 Dose: 130 mls/hr Vancomycin HCl 1,500 mg/ (Sodium Chloride) 500 mls @ 167 mls/hr IVPB Q12H [facility] Last Admin: 07/17/23 08:20 Dose: 167 mls/hr Sodium Chloride (Saline 0.9%) 1,000 mls @ 130 mls/hr IV .Q7H42M [facility] Last Admin: 07/17/23 08:03 Dose: 130 mls/hr Ampicillin Sodium/Sulbactam (Sodium 3 gm/ Sodium Chloride) 100 mls @ 200 mls/hr IVPB Q6HR [facility]; Protocol Last Admin: 07/17/23 14:39 Dose: 200 mls/hr Morphine Sulfate (Morphine Sulfate 4 Mg/Ml Syringe) 4 mg IV Q4HR PRN PRN Reason: Severe Pain (Scale 7 to 10) Naloxone HCl (Naloxone 0.4 Mg/Ml 1 Ml Vial) 0.2 mg IV Q2M PRN PRN Reason: Opioid Reversal Ondansetron HCl (Ondansetron 4 Mg/2 Ml Vial) 4 mg IVP Q8HR PRN PRN Reason: Nausea And Vomiting Social history: No smoking or alcohol. Brother is in and out of the house. [facility] at home care. Now pretty much in bed. Physical examination: VITAL SIGNS: 97.7, 66, 18, 110 x 60, 97% room air GENERAL: Lying in bed, comfortable EYES: Pupils equal. Conjunctiva normal. HEENT: External appearance of nose and ears normal, oral cavity grossly normal. NECK: JVD not raised; masses not palpable. HEART: First and second heart sounds are normal; no edema. LUNGS: Respiratory rate normal; clear to auscultation. ABDOMEN: Soft, nontender, liver spleen not palpable, no masses palpable,- colostomy bag PSYCH: Alert and oriented x3; mood and affect normal. MUSCULOSKELETAL:No Clubbing/cyanosis;muscles-grossly intact. DERMATOLOGICAL: Chronic venous stasis changes in lower extremity, Unstageable wounds on the sacrum/buttocks NEUROLOGICAL: Cranial nerves grossly intact; no facial asymmetry, weakness lower extremity, power 1/ 5.. INVESTIGATIONS, reviewed in the clinical context: July 15: White count 4.9 hemoglobin 10.2 platelets 259 potassium 3.6 creatinine 0.65 3.4 creatinine 0.78 UA: Positive for leukoesterase WBC squamous cells 2 bacteria Assessment and plan: -Acute on chronic Unstageable pressure ulcer left buttock, right buttocks, stage I pressure ulcer lower back.: Wound care team following Dr. Kumar. See previous course of antibiotics Diverting colostomy done by Dr. Dupont on May 09 2023 May 15: Sacral wound debrided by Dr Dupont Wound VAC will be delivered to patient's house on Tuesday IV Unasyn Awaiting further input from Dr Dupont about need for further debridement -chronic medical debility. Patient states he has not been out of bed for few days. -Venous stasis/dermatitis changes in lower extremity. Calf wound. Seen by Dr. Ye from vascular: No further intervention. Outpatient follow-up -Chronic Ye catheter. 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 Not felt to be surgical candidate -Paroxysmal atrial fibrillation. Currently sinus rhythm. Was previously on Eliquis -Full code Await input from Dr. Boswell about further intervention/debridement. Other medications to continue Past Medical History Past Medical History: Atrial Fibrillation, Hyperlipidemia, Osteoarthritis (OA) Additional Past Medical History / Comment(s): Bulging disks, bilateral knee arthritis, UTI, blood infection History of Any Multi-Drug Resistant Organisms: None Reported Past Surgical History: Orthopedic Surgery, Tonsillectomy Additional Past Surgical History / Comment(s): Knee replacement surgery, tonsills out at 7 yrs old, torn meninscus Past Anesthesia/Blood Transfusion Reactions: No Reported Reaction Additional Past Anesthesia/Blood Transfusion Reaction / Comment(s): Patient not sure if hes ever had a blood transfusion. Past Psychological History: Anxiety Smoking Status: Former smoker Past Alcohol Use History: None Reported Past Drug Use History: None Reported
--- NOTE | 2023-07-17 23:24 | P.PN ---
Subjective Progress Note Date: 07/17/23 Principal diagnosis: Reason for follow-up visit catheter assisted UTI sacral wound and diarrhea Patient is a 72-year-old male with a past medical history significant for atrial fibrillation hyperlipidemia osteoarthritis in this patient who was recently admitted to the hospital and did have a infected sacral pressure ulcer for the patient did have diverting colostomy on 05/09/2023 and has completed course of IV cefazolin and Flagyl presented to the hospital with UTI and drainage from his sacral wound. On today's evaluation that is 07/17/2023,the patient denies any fever or any chills, patient is breathing comfortably on room air, the patient denies chest pain shortness of breath and no significant cough, patient denies abdominal pain, no nausea vomiting has been complaining of some diarrhea. Patient did have a creatinine 0.55 no CBC was done today Objective - Vital Signs Vital signs: Vital Signs Temp 97.5 F L 07/17/23 07:01 Pulse 62 07/17/23 07:01 Resp 18 07/17/23 07:01 BP 136/70 07/17/23 07:01 Pulse Ox 93 L 07/17/23 07:01 FiO2 Intake & Output 07/16/23 07/17/23 07/17/23 18:59 06:59 18:59 Output Total 760 2200 Balance -760 -2200 Output: Urine 640 2200 Stool 120 - Exam Elderly male lying in bed in no distress Unlabored breathing Awake alert oriented mood and affect normal Wound is currently dressed - Labs CBC & Chem 7: 07/16/23 07:25 07/17/23 08:11 Labs: Microbiology - Last 24 Hours (Table) 07/15/23 17:20 Blood Culture - Preliminary Blood 07/15/23 17:05 Blood Culture - Preliminary Blood Assessment and Plan (1) Decubitus ulcer, stage III Current Visit: Yes Status: Acute Code(s): L89.93 - PRESSURE ULCER OF UNSPECIFIED SITE, STAGE 3 SNOMED Code(s): 1966862066 (2) Urinary tract infection Current Visit: Yes Status: Acute Code(s): N39.0 - URINARY TRACT INFECTION, SITE NOT SPECIFIED SNOMED Code(s): 28609355 Plan: This is a telehealth visit 1patient presented to the hospital with feeling weak hot and cold feverish did have vomiting and apparently recent UTI with urine culture in the outpatient setting positive for Enterococcus faecium however the patient not very clear if he has received any antibiotics for it and also some drainage from his sacral wound. 2patient has been evaluated by general surgery planning for debridement of the wound tomorrow 3patient to continue with vancomycin to cover for the Enterococcus faecium UTI along with Unasyn, nursing staff has been advised to change his Ye catheter and obtain urine culture for new Ye 4-patient has developed diarrhea we will check a stool for C. difficile and treat if positive Dictation was produced using [employer] dictation software. please excuse any grammatical, word or spelling errors. Time with Patient: Less than 30
[2023-07-18] MEDS: VANCOMYCIN 125 MG CAPSULE PO SCH (00:15)
[2023-07-18 06:13] LABS: African American GFR (CKD) >90 (>60 ml/min/1.73 sqM); Non-African American GFR(CKD) >90 (>60 ml/min/1.73 sqM)
--- NOTE | 2023-07-18 14:26 | P.PN ---
Subjective Progress Note Date: 07/18/23 CHIEF COMPLAINT: Sacral decubitus ulcer HISTORY OF PRESENT ILLNESS: Patient is scheduled for debridement of sacral decubitus ulcer today. He has history of diverting colostomy. Currently positive for C. difficile colitis. Afebrile. PHYSICAL EXAM: VITAL SIGNS: Reviewed. GENERAL: no acute distress. ABDOMEN: Soft. Nondistended. Nontender. ASSESSMENT: 1. Sacral decubitus ulcer PLAN: -Patient scheduled for debridement of sacral decubitus ulcer today with Dr. Dupont Physician [employer] note has been reviewed by physician. Signing provider agrees with the documented findings, assessment, and plan of care. Objective - Vital Signs Vital signs: Vital Signs Temp 98.7 F 07/18/23 07:27 Pulse 102 H 07/18/23 07:27 Resp 17 07/18/23 07:27 BP 113/72 07/18/23 07:27 Pulse Ox 98 07/18/23 07:27 FiO2 Intake & Output 07/17/23 07/18/23 07/18/23 18:59 06:59 18:59 Intake Total 2060 Output Total 1000 2000 Balance -1000 60 Intake: Intake, IV Titration 2060 Amount Sodium Chloride 0.9% 1, 1560 000 ml @ 130 mls/hr IV . Q7H42M [facility] Rx#:[id number] Vancomycin 1,500 mg In 500 Sodium Chloride 0.9% 500 ml 500 ml @ 167 mls/hr IVPB Q12H [facility] Rx#: [id number] Output: Urine 1000 2000 Other: Voiding Method Indwelling Catheter # Bowel Movements 1 - Labs CBC & Chem 7: 07/16/23 07:25 07/18/23 04:38 Labs: Abnormal Lab Results - Last 24 Hours (Table) 07/18/23 Range/Units 04:38 Creatinine 0.61 L (0.66-1.25) mg/dL Microbiology - Last 24 Hours (Table) 07/15/23 16:45 Urine Culture - Final Urine,Voided Enterococcus faecium 07/15/23 17:20 Blood Culture - Preliminary Blood 07/15/23 17:05 Blood Culture - Preliminary Blood
--- NOTE | 2023-07-18 15:29 | P.PN ---
Subjective Progress Note Date: 07/18/23 Principal diagnosis: Reason for follow-up visit catheter assisted UTI sacral wound and diarrhea Patient is a 72-year-old male with a past medical history significant for atrial fibrillation hyperlipidemia osteoarthritis in this patient who was recently admitted to the hospital and did have a infected sacral pressure ulcer for the patient did have diverting colostomy on 05/09/2023 and has completed course of IV cefazolin and Flagyl presented to the hospital with UTI and drainage from his sacral wound. On today's evaluation that is 07/18/2023,the patient remains to be afebrile, patient is on room air not requiring supplemental oxygen and denies any shortness of breath no chest pain or cough.Patient denies having any nausea or vomiting, no abdominal pain and no diarrhea has been reported. Patient white count is 4.9, creatinine 0.65 urine finalized with Enterococcus faecium that is sensitive vancomycin Objective - Vital Signs Vital signs: Vital Signs Temp 98.7 F 07/18/23 07:27 Pulse 102 H 07/18/23 07:27 Resp 17 07/18/23 07:27 BP 113/72 07/18/23 07:27 Pulse Ox 98 07/18/23 07:27 FiO2 Intake & Output 07/17/23 07/18/23 07/18/23 18:59 06:59 18:59 Intake Total 2059 Output Total 1000 1999 Balance -1000 60 Intake: Intake, IV Titration 2060 Amount Sodium Chloride 0.9% 1, 1560 000 ml @ 130 mls/hr IV . Q7H42M [facility] Rx#:[id number] Vancomycin 1,500 mg In 500 Sodium Chloride 0.9% 500 ml 500 ml @ 167 mls/hr IVPB Q12H [facility] Rx#: [id number] Output: Urine 1000 2000 Other: # Bowel Movements 1 - Exam Elderly male lying in bed in no distress Unlabored breathing clear to auscultation anteriorly Abdominal soft no tenderness Awake alert oriented mood and affect normal Exam completed with the help of LARGE SHEETFED PRESS OPERATOR - Labs CBC & Chem 7: 07/16/23 07:25 07/18/23 04:38 Labs: Abnormal Lab Results - Last 24 Hours (Table) 07/17/23 07/17/23 07/18/23 Range/Units 06:00 08:11 04:38 Creatinine 0.55 L 0.61 L (0.66-1.25) mg/dL C. difficile (EIA) Intrp Positive A (Negative) Microbiology - Last 24 Hours (Table) 07/15/23 17:20 Blood Culture - Preliminary Blood 07/15/23 17:05 Blood Culture - Preliminary Blood 07/15/23 16:45 Urine Culture - Preliminary Urine,Voided Group D Enterococcus Assessment and Plan (1) Decubitus ulcer, stage III Current Visit: Yes Status: Acute Code(s): L89.93 - PRESSURE ULCER OF UNSPECIFIED SITE, STAGE 3 SNOMED Code(s): 7647171579 (2) Urinary tract infection Current Visit: Yes Status: Acute Code(s): N39.0 - URINARY TRACT INFECTION, SITE NOT SPECIFIED SNOMED Code(s): 67553940 Plan: This is a telehealth visit 1patient presented to the hospital with feeling weak hot and cold feverish did have vomiting and apparently recent UTI with urine culture in the outpatient setting positive for Enterococcus faecium however the patient not very clear if he has received any antibiotics for it and also some drainage from his sacral wound. 2patient has been evaluated by general surgery planning for debridement of the wound this afternoon aerobic and anaerobic culture has been requested 3patient to continue with vancomycin to cover for the Enterococcus faecium UTI Ye catheter has already been changed Dictation was produced using [employer] dictation software. please excuse any gram matical, word or spelling errors. Time with Patient: Less than 30
--- NOTE | 2023-07-18 17:50 | P.PN ---
Progress Note - Text Progress Note Date: 07/18/23 Chief Complaint: Fever This is a 72-year-old patient follows with visiting physicians Dr. Valero. 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 For which he saw a few years ago Dr. Leo. At [facility]. He was told that removing the tumor could be more dangerous than leaving it alone. Patient recently in the hospital from May 05 through May 22. Has lower back pressure ulcers. Colostomy. Patient nonambulatory now pretty much bedbound [facility] and home care. Has chronic Ye the current one was changed about 8 days ago. Patient came to the ER. [place] feverish at home feeling hot and cold. Decreased appetite. Vomited x 2 yesterday. Some drainage from the sacral wound. July 15: Patient seen by surgeon Dr. Vazquez.-Patient's wound VAC is gone to be delivered results on Tuesday. Left buttock ulcer probably to be debrided with Dr Dupont/OR. Oral intake fair July 16: Comfortable in bed. Eating well. Await decision from Dr Dupont but further debridement. On IV Unasyn. July 17: Saw the patient this morning. Otherwise comfortable. Plan for debridement this afternoon by Dr Dupont. Continue antibiotics. Active Medications Gabapentin (Gabapentin 100 Mg Cap) 200 mg PO TID [facility] Last Admin: 07/18/23 15:42 Dose: 200 mg Vancomycin HCl 1,500 mg/ (Sodium Chloride) 500 mls @ 167 mls/hr IVPB Q12H [facility] Last Admin: 07/18/23 08:02 Dose: 167 mls/hr Sodium Chloride (Saline 0.9%) 1,000 mls @ 130 mls/hr IV .Q7H42M [facility] Last Admin: 07/18/23 15:43 Dose: 130 mls/hr Miscellaneous Information (Vancomycin Trough Due 1 Each Misc) 0 each MISCELLANE DIRECTED ONE Stop: 07/19/23 08:01 Morphine Sulfate (Morphine Sulfate 4 Mg/Ml Syringe) 4 mg IV Q4HR PRN PRN Reason: Severe Pain (Scale 7 to 10) Naloxone HCl (Naloxone 0.4 Mg/Ml 1 Ml Vial) 0.2 mg IV Q2M PRN PRN Reason: Opioid Reversal Ondansetron HCl (Ondansetron 4 Mg/2 Ml Vial) 4 mg IVP Q8HR PRN PRN Reason: Nausea And Vomiting Vancomycin HCl (Vancomycin 125 Mg Capsule) 125 mg PO QID [facility]; Protocol Last Admin: 07/18/23 17:01 Dose: 125 mg Social history: No smoking or alcohol. Brother is in and out of the house. [facility] at home care. Now pretty much in bed. Physical examination: VITAL SIGNS: 98.5, 74, 17, 144 x 82, 95% room air GENERAL: Lying in bed, comfortable EYES: Pupils equal. Conjunctiva normal. HEENT: External appearance of nose and ears normal, oral cavity grossly normal. NECK: JVD not raised; masses not palpable. HEART: First and second heart sounds are normal; no edema. LUNGS: Respiratory rate normal; clear to auscultation. ABDOMEN: Soft, nontender, liver spleen not palpable, no masses palpable,- colostomy bag PSYCH: Alert and oriented x3; mood and affect normal. MUSCULOSKELETAL:No Clubbing/cyanosis;muscles-grossly intact. DERMATOLOGICAL: Chronic venous stasis changes in lower extremity, Unstageable wounds on the sacrum/buttocks NEUROLOGICAL: Cranial nerves grossly intact; no facial asymmetry, weakness lower extremity, power 1/ 5.. INVESTIGATIONS, reviewed in the clinical context: July 15: White count 4.9 hemoglobin 10.2 platelets 259 potassium 3.6 creatinine 0.65 3.4 creatinine 0.78 UA: Positive for leukoesterase WBC squamous cells 2 bacteria Assessment and plan: -Acute on chronic Unstageable pressure ulcer left buttock, right buttocks, stage I pressure ulcer lower back.: Wound care team following Dr. Kumar. See previous course of antibiotics Diverting colostomy done by Dr. Dupont on May 09 2023 May 15: Sacral wound debrided by Dr Dupont Wound VAC will be delivered to patient's house on Tuesday IV Unasyn Plan for debridement with Dr Dupont today. -chronic medical debility. Patient states he has not been out of bed for few days. -Venous stasis/dermatitis changes in lower extremity. Calf wound. Seen by Dr. Ye from vascular: No further intervention. Outpatient follow-up -Chronic Ye catheter. 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 Not felt to be surgical candidate -Paroxysmal atrial fibrillation. Currently sinus rhythm. Was previously on Eliquis -Full code Plan for debridement today with Dr Dupont. Past Medical History Past Medical History: Atrial Fibrillation, Hyperlipidemia, Osteoarthritis (OA) Additional Past Medical History / Comment(s): Bulging disks, bilateral knee arthritis, UTI, blood infection History of Any Multi-Drug Resistant Organisms: None Reported Past Surgical History: Orthopedic Surgery, Tonsillectomy Additional Past Surgical History / Comment(s): Knee replacement surgery, tonsills out at 7 yrs old, torn meninscus Past Anesthesia/Blood Transfusion Reactions: No Reported Reaction Additional Past Anesthesia/Blood Transfusion Reaction / Comment(s): Patient not sure if hes ever had a blood transfusion. Past Psychological History: Anxiety Smoking Status: Former smoker Past Alcohol Use History: None Reported Past Drug Use History: None Reported
[2023-07-19 07:57] LABS: African American GFR (CKD) >90 (>60 ml/min/1.73 sqM); Non-African American GFR(CKD) >90 (>60 ml/min/1.73 sqM)
[2023-07-19] MEDS: VANCOMYCIN TROUGH DUE 1 EACH MISC MISCELLANE ONE (08:08)
--- NOTE | 2023-07-19 12:19 | P.PN ---
Subjective Progress Note Date: 07/19/23 CHIEF COMPLAINT: Sacral decubitus ulcer HISTORY OF PRESENT ILLNESS: Debridement of decubitus ulcer canceled today. Patient's ulcer is clean and does not require debridement. He has history of diverting colostomy. Currently positive for C. difficile colitis. Afebrile. PHYSICAL EXAM: VITAL SIGNS: Reviewed. GENERAL: no acute distress. ABDOMEN: Soft. Nondistended. Nontender. ASSESSMENT: 1. Sacral decubitus ulcer 2. C. difficile colitis PLAN: -No plans for surgical intervention on sacral decubitus ulcer -Continue local wound care -Continue offloading -Continue management of C. difficile colitis -Resume regular diet Physician Percussion Welding Machine Operator note has been reviewed by physician. Signing provider agrees with the documented findings, assessment, and plan of care. Objective - Vital Signs Vital signs: Vital Signs Temp 98.4 F 07/19/23 07:07 Pulse 67 07/19/23 07:07 Resp 14 07/19/23 07:07 BP 134/78 07/19/23 07:07 Pulse Ox 96 07/19/23 07:07 FiO2 Intake & Output 07/18/23 07/19/23 07/19/23 18:59 06:59 18:59 Output Total 650 2200 Balance -650 -2200 Output: Urine 650 2200 Other: Voiding Method Indwelling Catheter Indwelling Catheter Indwelling Catheter # Bowel Movements 2 - Labs CBC & Chem 7: 07/16/23 07:25 07/19/23 07:12 Labs: Abnormal Lab Results - Last 24 Hours (Table) 07/19/23 Range/Units 07:12 Creatinine 0.57 L (0.66-1.25) mg/dL Microbiology - Last 24 Hours (Table) 07/15/23 17:20 Blood Culture - Preliminary Blood 07/15/23 17:05 Blood Culture - Preliminary Blood 07/15/23 16:45 Urine Culture - Final Urine,Voided Enterococcus faecium
[2023-07-19 12:34] LABS: Amorphous Sediment,Urine Rare /hpf; Appearance,Urine Clear (Clear); Bacteria,Urine Rare /hpf; Bilirubin,Urine Negative (Negative); Blood,Urine Negative (Negative); Color,Urine Colorless; Glucose,Urine (UA) Negative (Negative); Ketones,Urine Negative (Negative); Leukocyte Esterase,Urine Large (Negative); Mucus,Urine Rare /hpf; Nitrite,Urine Negative (Negative); Protein,Urine Negative (Negative); RBC,Urine 1 /hpf (0-5); Squamous Epithelial Cell,Urine <1 /hpf (0-4); Urobilinogen,Urine <2.0 mg/dL (<2.0); WBC,Urine 31 /hpf (0-5)
--- NOTE | 2023-07-19 13:43 | P.PN ---
Subjective Progress Note Date: 07/19/23 Principal diagnosis: Reason for follow-up visit catheter assisted UTI sacral wound and diarrhea Patient is a 72-year-old male with a past medical history significant for atrial fibrillation hyperlipidemia osteoarthritis in this patient who was recently admitted to the hospital and did have a infected sacral pressure ulcer for the patient did have diverting colostomy on 05/09/2023 and has completed course of IV cefazolin and Flagyl presented to the hospital with UTI and drainage from his sacral wound. On today's evaluation that is 07/19/2023, the patient continues to be afebrile, the patient is on room air and breathing comfortably, the Pt denies having any chest pain or cough, the patient denies having any abdominal pain no vomiting patient did have some diarrhea and he is colostomy bag is to be changed few times per the nursing staff but mention no worsening diarrhea. Patient did have a creatinine of 0.57 urine has been repeated and it shows less WBC Objective - Vital Signs Vital signs: Vital Signs Temp 98.4 F 07/19/23 07:07 Pulse 67 07/19/23 07:07 Resp 14 07/19/23 07:07 BP 134/78 07/19/23 07:07 Pulse Ox 96 07/19/23 07:07 FiO2 Intake & Output 07/18/23 07/19/23 07/19/23 18:59 06:59 18:59 Output Total 650 2200 Balance -650 -2200 Output: Urine 650 2200 Other: Voiding Method Indwelling Catheter Indwelling Catheter Indwelling Catheter # Bowel Movements 2 - Exam Elderly male lying in bed in no distress Unlabored breathing clear to auscultation anteriorly Abdominal soft no tenderness Awake alert oriented mood and affect normal Exam completed with the help of DRIER TENDER - Labs CBC & Chem 7: 07/16/23 07:25 07/19/23 07:12 Labs: Abnormal Lab Results - Last 24 Hours (Table) 07/19/23 Range/Units 07:12 Creatinine 0.57 L (0.66-1.25) mg/dL Microbiology - Last 24 Hours (Table) 07/15/23 17:20 Blood Culture - Preliminary Blood 07/15/23 17:05 Blood Culture - Preliminary Blood 07/15/23 16:45 Urine Culture - Final Urine,Voided Enterococcus faecium Assessment and Plan (1) Decubitus ulcer, stage III Current Visit: Yes Status: Acute Code(s): L89.93 - PRESSURE ULCER OF UNSPECIFIED SITE, STAGE 3 SNOMED Code(s): 2549431890 (2) Urinary tract infection Current Visit: Yes Status: Acute Code(s): N39.0 - URINARY TRACT INFECTION, SITE NOT SPECIFIED SNOMED Code(s): 41504068 (3) C. difficile colitis Current Visit: Yes Status: Acute Code(s): A04.72 - ENTEROCOLITIS D/T CLOSTRIDIUM DIFFICILE, NOT SPCF RECUR SNOMED Code(s): 096311481 Plan: This is a telehealth visit 1patient presented to the hospital with feeling weak hot and cold feverish did have vomiting and apparently recent UTI with urine culture in the outpatient setting positive for Enterococcus faecium however the patient not very clear if he has received any antibiotics for it and also some drainage from his sacral wound. 2patient has been evaluated by general surgery, recommending against any surgical debridement local wound care to continue per the wound care team 3patient to continue with vancomycin to cover for the Enterococcus faecium UTI Ye catheter has already been changed and repeat urine not significantly positive consider finishing treatment with the short course of Macrobid prescription has been sent 4-patient with a C. difficile colitis no worsening diarrhea has been reported by the nursing staff we will finish therapy with a 10-day course of oral vancomycin prescription has been sent Dictation was produced using [employer] dictation software. please excuse any grammatical, word or spelling errors. Time with Patient: Less than 30
--- NOTE | 2023-07-19 15:54 | P.PN ---
Progress Note - Text Progress Note Date: 07/19/23 Chief Complaint: Fever This is a 72-year-old patient follows with visiting physicians Dr. Valero. 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 For which he saw a few years ago Dr. Leo. At [facility]. He was told that removing the tumor could be more dangerous than leaving it alone. Patient recently in the hospital from May 05 through May 22. Has lower back pressure ulcers. Colostomy. Patient nonambulatory now pretty much bedbound [facility] and home care. Has chronic Ye the current one was changed about 8 days ago. Patient came to the ER. [place] feverish at home feeling hot and cold. Decreased appetite. Vomited x 2 yesterday. Some drainage from the sacral wound. July 15: Patient seen by surgeon Dr. Vazquez.-Patient's wound VAC is gone to be delivered results on Tuesday. Left buttock ulcer probably to be debrided with Dr Dupont/OR. Oral intake fair July 16: Comfortable in bed. Eating well. Await decision from Dr Dupont but further debridement. On IV Unasyn. July 17: Saw the patient this morning. Otherwise comfortable. Plan for debridement this afternoon by Dr Dupont. Continue antibiotics. July 18: Patient comfortable. Dr Dupont is decided patient does not need debridement. Will get antibiotics per Dr. Jean Baptiste from [place]. Otherwise patient eating well. Getting oral vancomycin for C. difficile colitis. Normally empties his colostomy about twice a day. Already empty 3 times today. Changed to full liquid diet. Active Medications Cholestyramine Resin (Cholestyramine (With Sugar) 4 Gm Packet) 4 gm PO BID@1000,1800 [facility] Gabapentin (Gabapentin 100 Mg Cap) 200 mg PO TID [facility] Last Admin: 07/19/23 15:43 Dose: 200 mg Sodium Chloride (Saline 0.9%) 1,000 mls @ 130 mls/hr IV .Q7H42M [facility] Last Admin: 07/19/23 15:45 Dose: 130 mls/hr Vancomycin HCl 1,500 mg/ (Sodium Chloride) 500 mls @ 167 mls/hr IVPB Q18H [facility] Morphine Sulfate (Morphine Sulfate 4 Mg/Ml Syringe) 4 mg IV Q4HR PRN PRN Reason: Severe Pain (Scale 7 to 10) Naloxone HCl (Naloxone 0.4 Mg/Ml 1 Ml Vial) 0.2 mg IV Q2M PRN PRN Reason: Opioid Reversal Ondansetron HCl (Ondansetron 4 Mg/2 Ml Vial) 4 mg IVP Q8HR PRN PRN Reason: Nausea And Vomiting Vancomycin HCl (Vancomycin 125 Mg Capsule) 125 mg PO QID [facility]; Protocol Last Admin: 07/19/23 12:04 Dose: 125 mg Social history: No smoking or alcohol. Brother is in and out of the house. [facility] at home care. Now pretty much in bed. Physical examination: VITAL SIGNS: 97.9, 76, 14, 127 x 32, 98% room air GENERAL: Lying in bed, comfortable EYES: Pupils equal. Conjunctiva normal. HEENT: External appearance of nose and ears normal, oral cavity grossly normal. NECK: JVD not raised; masses not palpable. HEART: First and second heart sounds are normal; no edema. LUNGS: Respiratory rate normal; clear to auscultation. ABDOMEN: Soft, nontender, liver spleen not palpable, no masses palpable,- colostomy bag PSYCH: Alert and oriented x3; mood and affect normal. MUSCULOSKELETAL:No Clubbing/cyanosis;muscles-grossly intact. DERMATOLOGICAL: Chronic venous stasis changes in lower extremity, Unstageable wounds on the sacrum/buttocks NEUROLOGICAL: Cranial nerves grossly intact; no facial asymmetry, weakness lower extremity, power 1/ 5.. INVESTIGATIONS, reviewed in the clinical context: C. difficile: Positive July 15: White count 4.9 hemoglobin 10.2 platelets 259 potassium 3.6 creatinine 0.65 3.4 creatinine 0.78 UA: Positive for leukoesterase WBC squamous cells 2 bacteria Assessment and plan: -Acute on chronic Unstageable pressure ulcer left buttock, right buttocks, stage I pressure ulcer lower back.: Wound care team following Dr. Kumar. per Dr Dupont no further debridement Diverting colostomy done by Dr. Dupont on May 09 2023 May 15: Sacral wound debrided by Dr Dupont Wound VAC will be delivered to patient's house on Tuesday IV Unasyn -Acute C. difficile colitis. Normally empties his colostomy bag twice a day. Always emptied his bag 3 times a day today Vancomycin 125 mg 4 times daily -chronic medical debility. Patient states he has not been out of bed for few days. -Venous stasis/dermatitis changes in lower extremity. Calf wound. Seen by Dr. Ye from vascular: No further intervention. Outpatient follow-up -Chronic Ye catheter. 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 Not felt to be surgical candidate -Paroxysmal atrial fibrillation. Currently sinus rhythm. Was previously on Eliquis -Full code No debridement with Dr. Dupont. Changed to full liquid diet. Past Medical History Past Medical History: Atrial Fibrillation, Hyperlipidemia, Osteoarthritis (OA) Additional Past Medical History / Comment(s): Bulging disks, bilateral knee arthritis, UTI, blood infection History of Any Multi-Drug Resistant Organisms: None Reported Past Surgical History: Orthopedic Surgery, Tonsillectomy Additional Past Surgical History / Comment(s): Knee replacement surgery, tonsills out at 7 yrs old, torn meninscus Past Anesthesia/Blood Transfusion Reactions: No Reported Reaction Additional Past Anesthesia/Blood Transfusion Reaction / Comment(s): Patient not sure if hes ever had a blood transfusion. Past Psychological History: Anxiety Smoking Status: Former smoker Past Alcohol Use History: None Reported Past Drug Use History: None Reported
[2023-07-19] MEDS: CHOLESTYRAMINE (WITH SUGAR) 4 GM PACKET PO SCH (17:08)
[2023-07-20 01:44] VITALS: TEMP 97.8
[2023-07-20] MEDS: VANCOMYCIN 1,500 MG in SODIUM CHLORIDE 0.9% 500 ML 500 ML IVPB SCH (02:11)
[2023-07-20 04:27] LABS: African American GFR (CKD) >90 (>60 ml/min/1.73 sqM); Anion Gap 4 mmol/L; Blood Urea Nitrogen 4 mg/dL (9-20); Carbon Dioxide 24 mmol/L (22-30); Chloride 110 mmol/L (98-107); Glucose 101 mg/dL (74-99); Non-African American GFR(CKD) >90 (>60 ml/min/1.73 sqM); Potassium 3.3 mmol/L (3.5-5.1); Sodium 138 mmol/L (137-145)
[2023-07-20 07:56] VITALS: BP 131/73; PULSE 64; RESP 15
[2023-07-20] MEDS: POTASSIUM CHLORIDE ER 20 MEQ TAB.ER PO STA (12:02)
--- NOTE | 2023-07-20 12:37 | P.PN ---
Subjective Progress Note Date: 07/20/23 CHIEF COMPLAINT: Sacral decubitus ulcer HISTORY OF PRESENT ILLNESS: Debridement on decubitus ulcer was canceled yesterday. Patient's ulcer is clean with healthy tissue and does not require debridement. He has history of diverting colostomy. Currently positive for C. difficile colitis. Afebrile. Diarrhea improving. Patient planning for discharge today. PHYSICAL EXAM: VITAL SIGNS: Reviewed. GENERAL: no acute distress. ABDOMEN: Soft. Nondistended. Nontender. ASSESSMENT: 1. Sacral decubitus ulcer 2. C. difficile colitis PLAN: -No plans for surgical intervention on sacral decubitus ulcer -Continue local wound care -Continue offloading -Continue management of C. difficile colitis -Patient can be discharge from surgical standpoint Physician Grain Picker note has been reviewed by physician. Signing provider agrees with the documented findings, assessment, and plan of care. Objective - Vital Signs Vital signs: Vital Signs Temp 97.8 F 07/20/23 07:08 Pulse 64 07/20/23 07:08 Resp 15 07/20/23 07:08 BP 131/73 07/20/23 07:08 Pulse Ox 95 07/20/23 07:08 FiO2 Intake & Output 07/19/23 07/20/23 07/20/23 18:59 06:59 18:59 Output Total 1250 3450 Balance -1250 -3450 Output: Urine 1250 3450 Other: Voiding Method Indwelling Catheter Indwelling Catheter Indwelling Catheter - Labs CBC & Chem 7: 07/16/23 07:25 07/20/23 04:01 Labs: Abnormal Lab Results - Last 24 Hours (Table) 07/19/23 07/20/23 Range/Units 12:14 04:01 Potassium 3.3 L (3.5-5.1) mmol/L Chloride 110 H (98-107) mmol/L BUN 4 L (9-20) mg/dL Creatinine 0.52 L (0.66-1.25) mg/dL Glucose 101 H (74-99) mg/dL Calcium 8.0 L (8.4-10.2) mg/dL Ur Leukocyte Esterase Large H (Negative) Urine WBC 31 H (0-5) /hpf Amorphous Sediment Rare H (None) /hpf Urine Bacteria Rare H (None) /hpf Urine Mucus Rare H (None) /hpf
--- NOTE | 2023-07-20 16:20 | P.DS ---
Providers Date of admission: 07/15/23 18:40 Expected date of discharge: 07/20/23 Attending physician: Isaiah Marmolejo Consults: 07/15/23 18:26 Consult Physician Routine Consulting Provider: Evelin Goodwin Consult Reason/Comments: decub Do you want consulting provider notified?: Yes 07/15/23 21:20 Consult Physician Routine Consulting Provider: Arturo Dupont Consult Reason/Comments: Sacral decubitus wound debridement Do you want consulting provider notified?: Yes Primary care physician: Skyler Valero MD Hospital Course: Chief Complaint: Fever This is a 72-year-old patient follows with visiting physicians Dr. Valero. 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 For which he saw a few years ago Dr. Leo. At [facility]. He was told that removing the tumor could be more dangerous than leaving it alone. Patient recently in the hospital from May 05 through May 22. Has lower back pressure ulcers. Colostomy. Patient nonambulatory now pretty much bedbound [facility] and home care. Has chronic Arredondo the current one was changed about 8 days ago. Patient came to the ER. [place] feverish at home feeling hot and cold. Decreased appetite. Vomited x 2 yesterday. Some drainage from the sacral wound. July 15: Patient seen by surgeon Dr. Vazquez.-Patient's wound VAC is gone to be delivered results on Tuesday. Left buttock ulcer probably to be debrided with Dr Dupont/OR. Oral intake fair July 16: Comfortable in bed. Eating well. Await decision from Dr Dupont but further debridement. On IV Unasyn. July 17: Saw the patient this morning. Otherwise comfortable. Plan for debridement this afternoon by Dr Dupont. Continue antibiotics. July 18: Patient comfortable. Dr Dupont is decided patient does not need debridement. Will get antibiotics per Dr. Goodwin from ID. Otherwise patient eating well. Getting oral vancomycin for C. difficile colitis. Normally empties his colostomy about twice a day. Already empty 3 times today. Changed to full liquid diet. July 19: Doing well. Tolerating diet. Patient be discharged on vancomycin to 50 mg 4 times daily for 10 days. Also given Macrobid for 3 days per ID for Enterococcus faecium in the urine. Otherwise patient eating well. Social history: No smoking or alcohol. Brother is in and out of the house. [facility] at home care. Now pretty much in bed. Physical examination: VITAL SIGNS: 97.8, 64, 15, 131 x 73, 95% room air GENERAL: Lying in bed, comfortable EYES: Pupils equal. Conjunctiva normal. HEENT: External appearance of nose and ears normal, oral cavity grossly normal. NECK: JVD not raised; masses not palpable. HEART: First and second heart sounds are normal; no edema. LUNGS: Respiratory rate normal; clear to auscultation. ABDOMEN: Soft, nontender, liver spleen not palpable, no masses palpable,- colostomy bag PSYCH: Alert and oriented x3; mood and affect normal. MUSCULOSKELETAL:No Clubbing/cyanosis;muscles-grossly intact. DERMATOLOGICAL: Chronic venous stasis changes in lower extremity, Unstageable wounds on the sacrum/buttocks NEUROLOGICAL: Cranial nerves grossly intact; no facial asymmetry, weakness lower extremity, power 1/ 5.. INVESTIGATIONS, reviewed in the clinical context: July 19: Potassium 3.3 BUN 4 creatinine 0.52 Urine culture: Enterococcus faecium C. difficile: Positive July 15: White count 4.9 hemoglobin 10.2 platelets 259 potassium 3.6 creatinine 0.65 3.4 creatinine 0.78 UA: Positive for leukoesterase WBC squamous cells 2 bacteria Assessment and plan: -Acute on chronic Unstageable pressure ulcer left buttock, right buttocks, stage I pressure ulcer lower back.: Wound care team following -Dr. Kumar. per Dr Dupont no further debridement Diverting colostomy done by Dr. Dupont on May 09 2023 Wound VAC will be delivered to patient's house IV Unasyn -Acute C. difficile colitis. Normally empties his colostomy bag twice a day. Vancomycin 250 mg 4 times daily-for 10 days -chronic medical debility. Patient states he has not been out of bed for few days. -Venous stasis/dermatitis changes in lower extremity. Calf wound. Seen by Dr. Arredondo from vascular: No further intervention. Outpatient follow-up -Chronic Arredondo catheter. 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 Not felt to be surgical candidate -Paroxysmal atrial fibrillation. Currently sinus rhythm. Was previously on Eliquis -Full code Disposition: Home with [facility] Past Medical History Past Medical History: Atrial Fibrillation, Hyperlipidemia, Osteoarthritis (OA) Additional Past Medical History / Comment(s): Bulging disks, bilateral knee arthritis, UTI, blood infection History of Any Multi-Drug Resistant Organisms: None Reported Past Surgical History: Orthopedic Surgery, Tonsillectomy Additional Past Surgical History / Comment(s): Knee replacement surgery, tonsills out at 7 yrs old, torn meninscus Past Anesthesia/Blood Transfusion Reactions: No Reported Reaction Additional Past Anesthesia/Blood Transfusion Reaction / Comment(s): Patient not sure if hes ever had a blood transfusion. Past Psychological History: Anxiety Smoking Status: Former smoker Past Alcohol Use History: None Reported Past Drug Use History: None Reported Plan - Discharge Summary Discharge Rx Participant: No New Discharge Prescriptions: New Nitrofurantoin Monohyd/M-Cryst [Macrobid] 100 mg PO Q12HR #6 cap Psyllium Husk (with Sugar) [Metamucil Powder] 0 gm PO BID #575 gm Vancomycin HCl [Vancocin HCl] 250 mg PO Q6HR #40 cap Continue Gabapentin [Neurontin] 200 mg PO TID Amiodarone [Cordarone] 100 mg PO BID Discontinued nitrofurantoin macrocrystaL 100 mg PO DIRECTED cefUROXime axetiL [Ceftin] 500 mg PO DIRECTED Discharge Medication List Gabapentin [Neurontin] 200 mg PO TID 05/06/23 [History] Amiodarone [Cordarone] 100 mg PO BID 07/15/23 [History] Nitrofurantoin Monohyd/M-Cryst [Macrobid] 100 mg PO Q12HR #6 cap 07/19/23 [Rx] Vancomycin HCl [Vancocin HCl] 250 mg PO Q6HR #40 cap 07/19/23 [Rx] Psyllium Husk (with Sugar) [Metamucil Powder] 0 gm PO BID #575 gm 07/20/23 [Rx] Follow up Appointment(s)/Referral(s): Skyler Valero MD [Primary Care Provider] - 1-2 days (Office not answering at time of discharge. Please call for follow-up appointment.) Elke Arredondo DO [STAFF PHYSICIAN] - 08/03/23 11:00 am Activity/Diet/Wound Care/Special Instructions: wound care per dr arredondo/dr goodwin Discharge Disposition: HOME WITH HOME HEALTH SERVICES
== END 2023-07-20 15:54 | disposition home health service (06) | DRG 698 ==
LOC: EC 14:50 → 4SSUR 18:40
PROVIDERS: ADMIT Hospitalist; ATTEND Hospitalist
DX: T83.511A Infection and inflammatory reaction due to indwelling urethral catheter, initial encounter (principal); L89.153 Pressure ulcer of sacral region, stage 3; G82.20 Paraplegia, unspecified; Z16.11 Resistance to penicillins; A04.72 Enterocolitis due to Clostridium difficile, not specified as recurrent; N39.0 Urinary tract infection, site not specified; B96.20 Unspecified Escherichia coli [E. coli] as the cause of diseases classified elsewhere; E78.5 Hyperlipidemia, unspecified; I48.0 Paroxysmal atrial fibrillation; I87.8 Other specified disorders of veins; L89.320 Pressure ulcer of left buttock, unstageable; L89.310 Pressure ulcer of right buttock, unstageable; L89.141 Pressure ulcer of left lower back, stage 1; L89.131 Pressure ulcer of right lower back, stage 1; Y84.6 Urinary catheterization as the cause of abnormal reaction of the patient, or of later complication, without mention of misadventure at the time of the procedure; F41.9 Anxiety disorder, unspecified; M17.0 Bilateral primary osteoarthritis of knee; M79.7 Fibromyalgia; M19.90 Unspecified osteoarthritis, unspecified site; Z79.899 Other long term (current) drug therapy; Z74.01 Bed confinement status; Z82.49 Family history of ischemic heart disease and other diseases of the circulatory system; Z93.3 Colostomy status; Z88.8 Allergy status to other drugs, medicaments and biological substances; L30.9 Dermatitis, unspecified
CPT/HCPCS: 36415; 80048; 80053; 80202; 81001; 82565; 83605; 83735; 84100; 85025; 87040; 87077; 87086; 87186; 87324; 96365; 96366; 99284; 99285

== ENCOUNTER 2024-08-29 12:51 | Emergency (ER) | payer MEDICARE ==
[2024-08-29 13:04] VITALS: TEMP 98.4
--- NOTE | 2024-08-29 13:33 | ED ---
Abdominal Pain HPI - General Chief Complaint: Abdominal Pain Stated Complaint: Abd pain Time Seen by Provider: 08/29/24 13:08 Source: patient, EMS, RN notes reviewed Mode of arrival: EMS - History of Present Illness Initial Comments: This is a bedbound 74-year-old male with history including chronic Arredondo catheter, A-fib presenting via EMS for lower abdominal pain and blood in Arredondo catheter starting this morning. Patient states he had his Arredondo catheter changed 1 week ago with nausea/vomiting occurring at that time that is since resolved. Patient states he has had his Arredondo catheter for years and this is the first time where he has experienced significant blood from his bladder/urethra. Endorses associated lower abdominal pain. Denies fever, chills, mid back pain, dysuria. MD Complaint: abdominal pain Onset/Timin -: days(s) Location: suprapubic Radiation: none Migration to: no migration - Related Data Home Medications Medication Instructions Recorded Confirmed Gabapentin [Neurontin] 200 mg PO TID 05/06/23 07/15/23 Amiodarone [Cordarone] 100 mg PO BID 07/15/23 07/15/23 Previous Rx's Medication Instructions Recorded Nitrofurantoin Monohyd/M-Cryst 100 mg PO Q12HR #6 cap 07/19/23 [Macrobid] Vancomycin HCl [Vancocin HCl] 250 mg PO Q6HR #40 cap 07/19/23 Psyllium Husk (with Sugar) 0 gm PO BID #575 gm 07/20/23 [Metamucil Powder] Ciprofloxacin HCl [Cipro] 500 mg PO Q12HR #20 tablet 08/29/24 Allergies Allergy/AdvReac Type Severity Reaction Status Date / Time Karvrsk-[id number] Reductase Allergy Rash/Hives Verified 08/29/24 13:03 Inhibitor [Vpfxmgc-Wrd-Flv Reductase Inhibitor] Review of Systems ROS Statement: Those systems with pertinent positive or pertinent negative responses have been documented in the HPI. ROS Other: All systems not noted in ROS Statement are negative. Past Medical History Past Medical History: Atrial Fibrillation, Hyperlipidemia, Osteoarthritis (OA) Additional Past Medical History / Comment(s): Bulging disks, bilateral knee arthritis, UTI, blood infection, chronic arredondo cath History of Any Multi-Drug Resistant Organisms: None Reported Past Surgical History: Orthopedic Surgery, Tonsillectomy Additional Past Surgical History / Comment(s): Knee replacement surgery, tonsills out at 7 yrs old, torn meninscus, colostomy Past Anesthesia/Blood Transfusion Reactions: No Reported Reaction Additional Past Anesthesia/Blood Transfusion Reaction / Comment(s): Patient not sure if hes ever had a blood transfusion. Past Psychological History: Anxiety Smoking Status: Former smoker Past Alcohol Use History: None Reported Past Drug Use History: None Reported - Past Family History Mother Family Medical History: CVA/TIA, Myocardial Infarction (DE) Father Family Medical History: Congestive Heart Failure (CHF) General Exam General appearance: alert, in no apparent distress Head exam: Present: atraumatic, normocephalic, normal inspection Eye exam: Present: normal appearance, PERRL, EOMI. Absent: scleral icterus, conjunctival injection, periorbital swelling ENT exam: Present: normal exam, mucous membranes moist Neck exam: Present: normal inspection. Absent: tenderness, meningismus, lymphadenopathy Respiratory exam: Present: normal lung sounds bilaterally. Absent: respiratory distress, wheezes, rales, rhonchi, stridor Cardiovascular Exam: Present: regular rate, normal rhythm, normal heart sounds. Absent: systolic murmur, diastolic murmur, rubs, gallop, clicks GI/Abdominal exam: Present: soft, tenderness (Positive suprapubic TTP), normal bowel sounds, other (LLQ colostomy bag noted without blood or surrounding erythema). Absent: distended, guarding, rebound, rigid Extremities exam: Present: normal inspection, full ROM, normal capillary refill. Absent: tenderness, pedal edema, joint swelling, calf tenderness Back exam: Present: normal inspection Neurological exam: Present: alert, oriented X3, CN II-XII intact Psychiatric exam: Present: normal affect, normal mood Skin exam: Present: warm, dry, intact, normal color. Absent: rash Course Vital Signs 08/29/24 08/29/24 12:58 17:30 Temperature 98.4 F 98.4 F Pulse Rate 70 82 Respiratory 18 20 Rate Blood Pressure 140/117 146/89 O2 Sat by Pulse 98 99 Oximetry Procedures - Catheter Insertion (Urinary) Indications: to alleviate urinary retention, bladder irrigation Bladder Scan/US before Catheterization: Yes Estimated Amount of Urine (mls): 304 Type of Catheter Inserted: Arredondo Results: successfully catheterized-immediate flow Patient Tolerated Procedure: well, no complications Complications: none Medical Decision Making - Medical Decision Making Was pt. sent in by a medical professional or institution (EMIL Rivers, COMPUTER TECHNOLOGY TEACHER, urgent care, hospital, or custodial...) When possible be specific @ -[No] Did you speak to anyone other than the patient for history (EMS, parent, family, police, friend...)? What history was obtained from this source @ -[No] Did you review nursing and triage notes (agree or disagree)? Why? @ -[I reviewed and agree with nursing and triage notes] Were old charts reviewed (outside hosp., previous admission, EMS record, old EKG, old radiological studies, urgent care reports/EKG's, custodial records)? Report findings @ -[No old charts were reviewed] Differential Diagnosis (chest pain, altered mental status, abdominal pain women, abdominal pain men, vaginal bleeding, weakness, fever, dyspnea, syncope, headac he, dizziness, GI bleed, back pain, seizure, CVA, palpatations, mental health, musculoskeletal)? @ -Differential Abdominal Pain Men: Appendicitis, cholecystitis, diverticulosis, ischemic bowel, pancreatitis, hepatitis, UTI, gastroenteritis, AAA, incarcerated hernia, bowel obstruction, constipation, inflammatory bowel, hepatitis, peptic ulcer disease, splenic infarction, perforated viscus, testicular torsion, this is not meant to be an all-inclusive list EKG interpreted by me (3pts min.). @ -Not done X-rays interpreted by me (1pt min.). @ -[None done] CT interpreted by me (1pt min.). @ -[None done] U/S interpreted by me (1pt. min.). @ -[None done] What testing was considered but not performed or refused? (CT, X-rays, U/S, labs)? Why? @ -[None] What meds were considered but not given or refused? Why? @ -[None] Did you discuss the management of the patient with other professionals (oriana doty i.e. EMIL Rivers, COMPUTER TECHNOLOGY TEACHER, lab, RT, psych nurse, elementary school social worker, nursing associate, teacher, ecological technical officer, insurance case manager)? Give summary @ -Spoke to Dr. Pratt from urology who advised patient follow-up with outpatient urology tomorrow morning for further evaluation and management of hematuria. Spoke to insurance case manager who will assist patient in managing/arranging transportation from ER and to outpatient follow-up appointment. Was smoking cessation discussed for >3mins.? @ -[No] Was critical care preformed (if so, how long)? @ -[No] Were there social determinants of health that impacted care today? How? (Home lessness, low income, unemployed, alcoholism, drug addiction, transportation, low edu. Level, literacy, decrease access to med. care, assisted, rehab)? @ -[No] Was there de-escalation of care discussed even if they declined (Discuss DNR or withdrawal of care, Hospice)? DNR status @ -[No] What co-morbidities impacted this encounter? (DM, HTN, Smoking, COPD, CAD, Cancer, CVA, ARF, Chemo, Hep., AIDS, mental health diagnosis, sleep apnea, morbid obesity)? @ -Bedbound, chronic Arredondo catheter Was patient admitted / discharged? Hospital course, mention meds given and route, prescriptions, significant lab abnormalities, going to OR and other pertinent info. @ -[hospital course] Undiagnosed new problem with uncertain prognosis? @ -[No] Drug Therapy requiring intensive monitoring for toxicity (Heparin, Nitro, Insulin, Cardizem)? @ -[No] Were any procedures done? @ -Nurse initially attempted flushing Arredondo catheter with ongoing retention. Original Arredondo catheter removed and replaced with good flow of blood-tinged urine afterwards and patient noting relief. See procedure note Diagnosis/symptom? @ -UTI, hematuria Acute, or Chronic, or Acute on Chronic? @ -Acute Uncomplicated (without systemic symptoms) or Complicated (systemic symptoms)? @ -Uncomplicated Side effects of treatment? @ -[No] Exacerbation, Progression, or Severe Exacerbation? @ -[No] Poses a threat to life or bodily function? How? (Chest pain, USA, DE, pneumonia, PE, COPD, DKA, ARF, appy, cholecystitis, CVA, Diverticulitis, Homicidal, Suicidal, threat to staff... and all critical care pts) @ -[No] - Lab Data Result diagrams: 08/29/24 13:50 08/29/24 13:50 Lab Results 08/29/24 08/29/24 08/29/24 Range/Units 13:50 13:50 13:50 WBC 11.45 H (4.50-10.00) 10*3/uL RBC 5.16 (4.40-5.60) 10*6/uL Hgb 11.9 L (13.0-17.0) g/dL Hct 39.3 L (39.6-50.0) % MCV 76.2 L (80.0-97.0) fL MCH 23.1 L (27.0-32.0) pg MCHC 30.3 L (32.0-37.0) g/dL Plt Count 461 H (140-440) 10*3/uL MPV 9.1 L (9.5-12.2) fL Immature Gran % (Auto) 0.6 % Neutrophils % 81.8 % Lymphocytes % 10.1 % Monocytes % 4.5 % Eosinophils % 2.7 % Basophils % 0.3 % Immature Gran # 0.07 H (0.00-0.04) 10*3/uL Neutrophils # 9.35 H (1.80-7.70) 10*3/uL Lymphocytes # 1.16 (0.90-5.00) 10*3/uL Monocytes # 0.52 (0.20-1.00) 10*3/uL Eosinophils # 0.31 (0.04-0.35) 10*3/uL Basophils # 0.04 (0.00-0.10) 10*3/uL PT 11.4 (10.0-12.5) sec INR 1.0 (<1.2) APTT 23.3 (22.0-30.0) sec Sodium (137-145) mmol/L Potassium (3.5-5.1) mmol/L Chloride (98-107) mmol/L Carbon Dioxide (22-30) mmol/L Anion Gap mmol/L BUN (9-20) mg/dL Creatinine (0.66-1.25) mg/dL Est GFR (CKD-EPI)AfAm (>60 ml/min/1.73 sqM) Est GFR (CKD-EPI)NonAf (>60 ml/min/1.73 sqM) Glucose (74-99) mg/dL Calcium (8.4-10.2) mg/dL Total Bilirubin (0.2-1.3) mg/dL AST (17-59) U/L ALT (4-49) U/L Alkaline Phosphatase (38-126) U/L Total Protein (6.3-8.2) g/dL Albumin (3.5-5.0) g/dL Urine Color Dark Red Urine Appearance Bloody (Clear) Urine RBC >182 H (0-5) /hpf Urine WBC >182 H (0-5) /hpf Urine WBC Clumps Many H (None) /hpf Urine Mucus Few H (None) /hpf 08/29/24 08/29/24 Range/Units 13:50 17:16 WBC (4.50-10.00) 10*3/uL RBC (4.40-5.60) 10*6/uL Hgb (13.0-17.0) g/dL Hct (39.6-50.0) % MCV (80.0-97.0) fL MCH (27.0-32.0) pg MCHC (32.0-37.0) g/dL Plt Count (140-440) 10*3/uL MPV (9.5-12.2) fL Immature Gran % (Auto) % Neutrophils % % Lymphocytes % % Monocytes % % Eosinophils % % Basophils % % Immature Gran # (0.00-0.04) 10*3/uL Neutrophils # (1.80-7.70) 10*3/uL Lymphocytes # (0.90-5.00) 10*3/uL Monocytes # (0.20-1.00) 10*3/uL Eosinophils # (0.04-0.35) 10*3/uL Basophils # (0.00-0.10) 10*3/uL PT (10.0-12.5) sec INR (<1.2) APTT (22.0-30.0) sec Sodium 138 (137-145) mmol/L Potassium 4.0 (3.5-5.1) mmol/L Chloride 98 (98-107) mmol/L Carbon Dioxide 29 (22-30) mmol/L Anion Gap 11 mmol/L BUN 10 (9-20) mg/dL Creatinine 1.14 (0.66-1.25) mg/dL Est GFR (CKD-EPI)AfAm 73 (>60 ml/min/1.73 sqM) Est GFR (CKD-EPI)NonAf 63 (>60 ml/min/1.73 sqM) Glucose 93 (74-99) mg/dL Calcium 8.5 (8.4-10.2) mg/dL Total Bilirubin 0.7 (0.2-1.3) mg/dL AST 22 (17-59) U/L ALT 15 (4-49) U/L Alkaline Phosphatase 108 (38-126) U/L Total Protein 8.0 (6.3-8.2) g/dL Albumin 3.8 (3.5-5.0) g/dL Urine Color Dark Red Urine Appearance Bloody (Clear) Urine RBC >182 H (0-5) /hpf Urine WBC >182 H (0-5) /hpf Urine WBC Clumps Many H (None) /hpf Urine Mucus (None) /hpf Disposition Clinical Impression: Hematuria, UTI (urinary tract infection) Disposition: HOME SELF-CARE Condition: Fair Instructions (If sedation given, give patient instructions): Hematuria (ED), Catheter-associated Urinary Tract Infection (ED) Additional Instructions: Follow-up with urology in the next 24-48 hours for further evaluation and management of blood in urine Contact insurance regarding coverage for ambulance to take to appointments. Prescriptions: Ciprofloxacin HCl [Cipro] 500 mg PO Q12HR #20 tablet Is patient prescribed a controlled substance at d/c from ED?: No Referrals: [facility] [REFERRING] - 1-2 days (Contact Regarding Medicaid) Skyler Valero MD [Primary Care Provider] - 1-2 days (Contact regarding visiting urologist.) [facility], [NON-STAFF] - (Contact regarding social work visit for transportation and Medicaid help.) Donato Pratt MD [STAFF PHYSICIAN] - 1-2 days Forms: Community Resources Time of Disposition: 18:25
[2024-08-29] MEDS: HYDROmorphone 1 MG/ML 1 ML SYRINGE IVP STA ×2 (13:41→19:07)
[2024-08-29] MEDS: SODIUM CHLORIDE 0.9% 1,000 ML IV STA (13:42)
[2024-08-29 14:41] LABS: ALT 15 U/L (4-49); AST 22 U/L (17-59); African American GFR (CKD) 73 (>60 ml/min/1.73 sqM); Albumin 3.8 g/dL (3.5-5.0); Alkaline Phosphatase 108 U/L (38-126); Anion Gap 11 mmol/L; Blood Urea Nitrogen 10 mg/dL (9-20); Calcium 8.5 mg/dL (8.4-10.2); Carbon Dioxide 29 mmol/L (22-30); Chloride 98 mmol/L (98-107); Glucose 93 mg/dL (74-99); Non-African American GFR(CKD) 63 (>60 ml/min/1.73 sqM); Potassium 4.0 mmol/L (3.5-5.1); Sodium 138 mmol/L (137-145); Total Protein 8.0 g/dL (6.3-8.2)
[2024-08-29 14:43] LABS: Basophils # (A) 0.04 10*3/uL (0.00-0.10); Basophils % (A) 0.3 %; Eosinophils # (A) 0.31 10*3/uL (0.04-0.35); Eosinophils % (A) 2.7 %; HCT 39.3 % (39.6-50.0); HGB 11.9 g/dL (13.0-17.0); Lymphocytes # (A) 1.16 10*3/uL (0.90-5.00); Lymphocytes % (A) 10.1 %; MCH 23.1 pg (27.0-32.0); MCHC 30.3 g/dL (32.0-37.0); MCV 76.2 fL (80.0-97.0); Monocytes # (A) 0.52 10*3/uL (0.20-1.00); Monocytes % (A) 4.5 %; Mucus,Urine Few /hpf; Neutrophils # (A) 9.35 10*3/uL (1.80-7.70); Neutrophils % (A) 81.8 %; Platelet Count 461 10*3/uL (140-440); RBC 5.16 10*6/uL (4.40-5.60); RBC,Urine >182 /hpf (0-5); RDW 16.2 % (11.5-14.5); WBC 11.45 10*3/uL (4.50-10.00); WBC,Urine >182 /hpf (0-5)
[2024-08-29 14:45] LABS: Color,Urine Dark Red
[2024-08-29 14:53] LABS: INR 1.0 (<1.2); Partial Thromboplastin Time 23.3 sec (22.0-30.0); Prothrombin Time 11.4 sec (10.0-12.5)
[2024-08-29] MEDS: cefTRIAXone IN SWFI 1,000 MG/10 ML SYRINGE IVP STA ×2 (17:24→17:28)
[2024-08-29 17:40] LABS: RBC,Urine >182 /hpf (0-5); WBC,Urine >182 /hpf (0-5)
[2024-08-29 17:42] LABS: Color,Urine Dark Red
[2024-08-29] MEDS: SODIUM CHLORIDE 0.9% 500 ML 500 ML IV STA (18:57)
[2024-08-29] MEDS: CEPHALEXIN 500 MG CAP PO STA (19:06)
[2024-08-29 19:17] VITALS: BP 146/89; PULSE 82; RESP 20
== END 2024-08-29 21:14 | disposition home or self-care (01) ==
LOC: EC 12:51
DX: N39.0 Urinary tract infection, site not specified (principal); R31.9 Hematuria, unspecified; Z74.01 Bed confinement status; Z87.891 Personal history of nicotine dependence; Z88.8 Allergy status to other drugs, medicaments and biological substances
CPT/HCPCS: 36415; 80053; 85025; 85610; 85730; 81001; 87086; 99285; 96374; 96375; 96376; 96361; 51702; 51798; J0696; J1171